=== PATIENT | female | born 1965 | race Caucasian/White ===

== ENCOUNTER 2016-08-03 16:02 | Inpatient (IN) ==
--- NOTE | 2016-08-03 16:11 | Emergency Department Note ---
Disposition Clinical Impression: DELVIN (acute kidney injury), Dyspnea Disposition: Still a Patient Condition: Fair Referrals: Delfina Fitch CNP [Primary Care Provider] - Forms: ED Satisfaction Letter SOB HPI - General Chief Complaint: ED Shortness of Breath/Dyspnea Stated Complaint: N/T legs/hypoxia Time Seen by Provider: 08/03/16 16:08 Nursing Notes Reviewed: Yes Vital Signs Reviewed: Yes - Related Data Allergies Allergy/AdvReac Type Severity Reaction Status Date / Time nitrofurantoin Allergy Itching Verified 08/03/16 16:06 [From Macrodantin] duloxetine [From Cymbalta] AdvReac Depression Verified 08/03/16 16:06 pregabalin [From Lyrica] AdvReac See Verified 08/03/16 16:06 Comments Past Medical History - Past Medical History Medical history: Reports: asthma, hypertension, other Psychiatric history: Reports: anxiety, depression [employer] history: Reports: no [employer] history, other - Social History Smoking Status: Never smoker Smokeless Tobacco Status: No Alcohol use: Reports: none Drug use: Reports: none Course Vital Signs Temperature 98.4 F 08/03/16 16:19 Pulse Rate 96 08/03/16 16:19 Respiratory Rate 10 08/03/16 16:19 Blood Pressure 115/80 08/03/16 16:19 O2 Sat by Pulse Oximetry 92 08/03/16 16:19 Temperature 98.4 F 08/03/16 16:19 Pulse Rate 96 08/03/16 17:58 Respiratory Rate 10 08/03/16 17:58 Blood Pressure 115/80 08/03/16 17:58 O2 Sat by Pulse Oximetry 97 08/03/16 17:58 Oxygen Delivery Oxygen Delivery Room Air Shortness of Breath/Dyspnea - MDM Narrative Medical decision making narrative: I examined this patient and my medical decision-making was reviewed with the PSYCHIATRIC THERAPIST/PA/Advanced Practice Nurse/Resident Physician. I agree with the documented findings, disposition and treatment plan as described except to the extent set forth below. Patient presented by EMS and was seen on arrival by myself and Dr. Randolph, agree with his evaluation and management plan, supervised the care of the patient's stay. Patient presents today with what she describes as generalized weakness. She says her legs feel tired she feels sleepy. She has been diagnosed with sleep apnea but does not wear her mask at night. She denies any new changes. Ordered a workup on her evaluate for for cardiac issues. Gen. chest x-ray and urinalysis lab work and then reassess. She is in agreement with this plan. 1610 hrs.: Patient's had some hypoxia here in the department so we will order a CTA of her chest to make sure she does not have a PE or other intrapulmonary process. 1740 hrs.: Patient's creatinine is elevated she also has anemia. Recommended ahead and prophylax her with calcium. And intravenous Fluids. And then scan her abdomen makes her griffin of a stone or retention. Because her abdomen is elevated will not be ability IV contrast on her vertigo given d-dimer on her since she was shortness of breath to see if that is negative. If not she may need a VQ scan. She is in agreement with this plan. Chest X-Ray 08/03/16 16:09 IMPRESSION: Minimal discoid atelectasis in the left upper lobe. Otherwise no acute abnormality. D/ / Carlyle Cruz MD / Carlyle Cruz MD Interpreting Provider: Carlyle Cruz MD Abdomen/Pelvis CT 08/03/16 17:20 IMPRESSION: 1. No acute intra- abdominal or pelvic abnormality. 2. Fatty, enlarged liver. D/ / 08/03/2016 17:44:17 Keven Guillermo MD / [facility] Interpreting Provider: Keven Guillermo MD 1820 hrs.: Patient has no acute pathology and CT. Not certain why her creatinines elevated. Return to go and speak with nephrology. I then try to bring her into the hospital for admission. Patient's critical care time exclusive of separately billable procedures is 40 minutes. - Lab Data Result diagrams: 08/03/16 16:51 08/03/16 16:51 Lab Results 08/03/16 08/03/16 08/03/16 Range/Units 16:51 16:51 16:51 WBC 16.1 H (4.3-11.1) K/mcL RBC 3.16 L (3.82-4.97) M/mcL Hgb 8.6 L (11.5-15.4) g/dL Hct 27.8 L (35.3-44.9) % MCV 88.0 (83.0-100.0) fL MCH 27.2 L (28.0-33.3) pg MCHC 30.9 L (31.6-35.5) g/dL RDW 15.7 H (11.5-14.5) % Plt Count 155 (140-400) K/mcL MPV 11.6 (9.4-12.4) fL Immature Gran % 0.9 (0-4) % Seg Neutrophils % 81.0 % Lymphocytes % 7.4 % Monocytes % 10.6 % Eosinophils % 0.0 % Basophils % 0.1 % Neutrophils # 13.0 H (1.6-8.9) K/mcL Lymphocytes # 1.2 (0.6-4.6) K/mcL Monocytes # 1.7 H (0.0-1.3) K/mcL Eosinophils # 0.0 (0.0-0.6) K/mcL Basophils # 0.0 (0.0-0.2) K/mcL Platelet Estimate Normal (Normal) PT (9.4-12.1) Seconds INR APTT (26.0-36.0) Seconds D-Dimer (0-500) ng/mLFEU Sodium 134 L (136-145) mEq/L Potassium 5.7 H (3.5-4.5) mEq/L Chloride 97 L (98-109) mEq/L Carbon Dioxide 25 (19-29) mEq/L BUN 51 H (7-20) mg/dL Creatinine 4.39 H (0.57-1.11) mg/dL Est GFR ( Amer) 13 L (> 60) Est GFR (Non-Af Amer) 11 L (> 60) BUN/Creatinine Ratio 12 (6-26) Glucose 123 H (70-99) mg/dL Calculated Osmolality 293 (280-300) Calcium 8.0 L (8.6-10.8) mg/dL Phosphorus 6.6 H (2.3-4.7) mg/dL Magnesium 1.5 L (1.6-2.6) mg/dL Troponin I 0.01 (0-0.03) ng/mL Urine Color (Yellow) Urine Clarity (Clear) Urine pH (5.0-8.0) pH Units Ur Specific [place] (1.010-1.025) Urine Protein (Neg-Trace) mg/dL Urine Glucose (UA) (Normal) mg/dL Urine Ketones (Negative) mg/dL Urine Blood (Negative) Urine Nitrite (Negative) Urine Bilirubin (Negative) Urine Urobilinogen (Normal) mg/dL Ur Leukocyte Esterase (Negative) Urine Microscopic RBC (0-3) per hpf Urine Microscopic WBC (0-3) per hpf Ur Squamous Epith Cells (None-Few) per lpf Ur Renal Epithelial Cell (None-Few) per hpf Urine Bacteria (None-Few) per hpf Hyaline Casts (None-Few) per lpf Ur Culture Indicated? (NO) 08/03/16 08/03/16 Range/Units 16:51 17:57 WBC (4.3-11.1) K/mcL RBC (3.82-4.97) M/mcL Hgb (11.5-15.4) g/dL Hct (35.3-44.9) % MCV (83.0-100.0) fL MCH (28.0-33.3) pg MCHC (31.6-35.5) g/dL RDW (11.5-14.5) % Plt Count (140-400) K/mcL MPV (9.4-12.4) fL Immature Gran % (0-4) % Seg Neutrophils % % Lymphocytes % % Monocytes % % Eosinophils % % Basophils % % Neutrophils # (1.6-8.9) K/mcL Lymphocytes # (0.6-4.6) K/mcL Monocytes # (0.0-1.3) K/mcL Eosinophils # (0.0-0.6) K/mcL Basophils # (0.0-0.2) K/mcL Platelet Estimate (Normal) PT 11.4 (9.4-12.1) Seconds INR 1.1 APTT 27.6 (26.0-36.0) Seconds D-Dimer 1077 H (0-500) ng/mLFEU Sodium (136-145) mEq/L Potassium (3.5-4.5) mEq/L Chloride (98-109) mEq/L Carbon Dioxide (19-29) mEq/L BUN (7-20) mg/dL Creatinine (0.57-1.11) mg/dL Est GFR ( Amer) (> 60) Est GFR (Non-Af Amer) (> 60) BUN/Creatinine Ratio (6-26) Glucose (70-99) mg/dL Calculated Osmolality (280-300) Calcium (8.6-10.8) mg/dL Phosphorus (2.3-4.7) mg/dL Magnesium (1.6-2.6) mg/dL Troponin I (0-0.03) ng/mL Urine Color Dark Yellow (Yellow) Urine Clarity Turbid A (Clear) Urine pH 5.0 (5.0-8.0) pH Units Ur Specific [place] 1.027 H (1.010-1.025) Urine Protein Trace (Neg-Trace) mg/dL Urine Glucose (UA) Normal (Normal) mg/dL Urine Ketones Trace H (Negative) mg/dL Urine Blood Negative (Negative) Urine Nitrite Negative (Negative) Urine Bilirubin Moderate H (Negative) Urine Urobilinogen Normal (Normal) mg/dL Ur Leukocyte Esterase Small H (Negative) Urine Microscopic RBC 15-30 H (0-3) per hpf Urine Microscopic WBC 5-15 H (0-3) per hpf Ur Squamous Epith Cells Many H (None-Few) per lpf Ur Renal Epithelial Cell Few (None-Few) per hpf Urine Bacteria None Seen (None-Few) per hpf Hyaline Casts Few (None-Few) per lpf Ur Culture Indicated? YES A (NO)
--- NOTE | 2016-08-03 16:50 | Emergency Department Note ---
Disposition Clinical Impression: DELVIN (acute kidney injury), Hypoxia, Leukocytosis Dyspnea Qualifiers: Dyspnea type: shortness of breath Qualified Code(s): R06.02 - Shortness of breath Disposition: Admitted As Inpatient Condition: Fair Referrals: Delfina Fitch CNP [Primary Care Provider] - Forms: ED Satisfaction Letter Time of Disposition: 19:26 SOB HPI - General Chief Complaint: ED Shortness of Breath/Dyspnea Stated Complaint: N/T legs/hypoxia Time Seen by Provider: 08/03/16 16:08 Source: patient, EMS Mode of arrival: EMS Limitations: physical limitation Nursing Notes Reviewed: Yes Vital Signs Reviewed: Yes - History of Present Illness Patient presents to the ED if the chief complaint of difficulty breathing, generalized malaise and weakness. Patient states that she has had numbness and tingling in her legs for the past few days and has felt very weak. She states that she has had some intermittent episodes of sharp stabbing centralized, nonradiating chest pain and shortness of breath over the past couple of days. She has poorly localized symptoms and just states that she does not feel well at all. States that she cannot walk because she feels so generally weak and has tingling in her legs. She does not have any headache or changes in her vision, slurred speech, weakness that is localizing. She has no history of stroke and states "I do not think I am having a stroke." She is just concerned with her breathing. - Related Data Home Medications Medication Instructions Recorded Confirmed Albuterol Neb [Proventil Neb] 2.5 mg IH TID PRN 08/03/16 08/03/16 Aspirin Enteric Coated [Aspirin EC] 81 mg PO DAILY 08/03/16 08/03/16 Cyclobenzaprine [Flexeril] 10 mg PO TID PRN 08/03/16 08/03/16 Diclofenac Sodium [Voltaren] 75 mg PO BID 08/03/16 08/03/16 Fluticasone Propionate Nasal 50 mcg NS DAILY 08/03/16 08/03/16 [Flonase] Furosemide [Lasix] 40 mg PO DAILY 08/03/16 08/03/16 Gabapentin [Neurontin] 800 mg PO TID 08/03/16 08/03/16 Ibuprofen [Motrin] 800 mg PO BID PRN 08/03/16 08/03/16 LORazepam [Lorazepam] 2 mg PO BID PRN 08/03/16 08/03/16 Levothyroxine [Synthroid] 50 mcg PO 0630 08/03/16 08/03/16 Lisinopril [Zestril] 20 mg PO DAILY 08/03/16 08/03/16 Omeprazole [PriLOSEC] 20 mg PO DAILY 08/03/16 08/03/16 RisperiDONE [Risperdal] 2 mg PO HS 08/03/16 08/03/16 Simvastatin [Zocor] 40 mg PO HS 08/03/16 08/03/16 Spironolactone [Aldactone] 25 mg PO BID 08/03/16 08/03/16 Tramadol HCl [Ultram] 50 mg PO TID PRN 08/03/16 08/03/16 Venlafaxine XR (24 HR) [Effexor XR] 150 mg PO DAILY 08/03/16 08/03/16 Zolpidem [Ambien] 10 mg PO HS 08/03/16 08/03/16 Allergies Allergy/AdvReac Type Severity Reaction Status Date / Time nitrofurantoin Allergy Itching Verified 08/03/16 16:06 [From Macrodantin] duloxetine [From Cymbalta] AdvReac Depression Verified 08/03/16 16:06 pregabalin [From Lyrica] AdvReac See Verified 08/03/16 16:06 Comments All systems ED: reviewed and negative except as stated. Constitutional: Reports: weakness Eyes: Denies: vision change Cardiovascular: Reports: chest pain, dyspnea on exertion, orthopnea, edema, syncope (near) Respiratory: Reports: dyspnea. Denies: cough Gastrointestinal: Denies: abdominal pain, nausea, vomiting Genitourinary: Denies: dysuria Musculoskeletal: Denies: back pain, neck pain Integumentary: Denies: rash Neurological: Denies: headache Endocrine: Reports: fatigue Past Medical History - Past Medical History Attestation: Yes The following information was validated with the patient. 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 Absent: tenderness - Respiratory Respiratory exam: Present: normal lung sounds bilaterally. Absent: respiratory distress - Cardiovascular Cardiovascular exam: Present: tachycardia. Absent: irregular rhythm - Abdominal Exam Abdominal exam: Present: soft, other (obese) - Extremities Exam Extremities exam: Present: normal inspection, full ROM, pedal edema. Absent: tenderness - Neurological Exam Neurological exam: Present: alert, oriented X3 - Psychiatric Psychiatric exam: Present: normal affect, normal mood - Skin Skin exam: Present: warm, dry, intact, normal color Course - Reevaluation(s) Reevaluation #1: Patient got hypoxic to the 80s with good waveform. Increase oxygen and put on a nonrebreather. That seemed to normalize. Oxygen she maintained her sats, but has had intermittent desaturations. Concern over potential PE. Waiting on renal function to determine CTA. Renal function is newly high. Unclear etiology as patient does not know her medication list. We will CT her abdomen and order a VQ scan CT belly did not show any obstructive uropathy or obvious etiology of her renal failure. Spoke with nephrology and Dr. Garnica. No acute recommendations will see the patient as an inpatient. Vital Signs Temperature 98.4 F 08/03/16 16:19 Pulse Rate 96 08/03/16 16:19 Respiratory Rate 10 08/03/16 16:19 Blood Pressure 115/80 08/03/16 16:19 O2 Sat by Pulse Oximetry 92 08/03/16 16:19 Temperature 98.4 F 08/03/16 16:19 Pulse Rate 101 08/03/16 19:14 Respiratory Rate 19 08/03/16 19:14 Blood Pressure 90/56 08/03/16 19:14 O2 Sat by Pulse Oximetry 97 08/03/16 19:14 Oxygen Delivery Oxygen Delivery Nasal Cannula Shortness of Breath/Dyspnea - Medical Records Medical records reviewed: Yes I reviewed the patient's medical records. - Lab Data Lab results reviewed: Yes I reviewed the patient's lab results. Result diagrams: 08/03/16 16:51 08/03/16 16:51 Lab Results 08/03/16 08/03/16 08/03/16 Range/Units 16:51 16:51 16:51 WBC 16.1 H (4.3-11.1) K/mcL RBC 3.16 L (3.82-4.97) M/mcL Hgb 8.6 L (11.5-15.4) g/dL Hct 27.8 L (35.3-44.9) % MCV 88.0 (83.0-100.0) fL MCH 27.2 L (28.0-33.3) pg MCHC 30.9 L (31.6-35.5) g/dL RDW 15.7 H (11.5-14.5) % Plt Count 155 (140-400) K/mcL MPV 11.6 (9.4-12.4) fL Immature Gran % 0.9 (0-4) % Seg Neutrophils % 81.0 % Lymphocytes % 7.4 % Monocytes % 10.6 % Eosinophils % 0.0 % Basophils % 0.1 % Neutrophils # 13.0 H (1.6-8.9) K/mcL Lymphocytes # 1.2 (0.6-4.6) K/mcL Monocytes # 1.7 H (0.0-1.3) K/mcL Eosinophils # 0.0 (0.0-0.6) K/mcL Basophils # 0.0 (0.0-0.2) K/mcL Platelet Estimate Normal (Normal) PT (9.4-12.1) Seconds INR APTT (26.0-36.0) Seconds D-Dimer (0-500) ng/mLFEU Sodium 134 L (136-145) mEq/L Potassium 5.7 H (3.5-4.5) mEq/L Chloride 97 L (98-109) mEq/L Carbon Dioxide 25 (19-29) mEq/L BUN 51 H (7-20) mg/dL Creatinine 4.39 H (0.57-1.11) mg/dL Est GFR ( Amer) 13 L (> 60) Est GFR (Non-Af Amer) 11 L (> 60) BUN/Creatinine Ratio 12 (6-26) Glucose 123 H (70-99) mg/dL Calculated Osmolality 293 (280-300) Lactic Acid (0.5-2.2) mmol/L Calcium 8.0 L (8.6-10.8) mg/dL Phosphorus 6.6 H (2.3-4.7) mg/dL Magnesium 1.5 L (1.6-2.6) mg/dL Troponin I 0.01 (0-0.03) ng/mL Urine Color (Yellow) Urine Clarity (Clear) Urine pH (5.0-8.0) pH Units Ur Specific [place] (1.010-1.025) Urine Protein (Neg-Trace) mg/dL Urine Glucose (UA) (Normal) mg/dL Urine Ketones (Negative) mg/dL Urine Blood (Negative) Urine Nitrite (Negative) Urine Bilirubin (Negative) Urine Urobilinogen (Normal) mg/dL Ur Leukocyte Esterase (Negative) Urine Microscopic RBC (0-3) per hpf Urine Microscopic WBC (0-3) per hpf Ur Squamous Epith Cells (None-Few) per lpf Ur Renal Epithelial Cell (None-Few) per hpf Urine Bacteria (None-Few) per hpf Hyaline Casts (None-Few) per lpf Ur Culture Indicated? (NO) 08/03/16 08/03/16 08/03/16 Range/Units 16:51 17:57 18:47 WBC (4.3-11.1) K/mcL RBC (3.82-4.97) M/mcL Hgb (11.5-15.4) g/dL Hct (35.3-44.9) % MCV (83.0-100.0) fL MCH (28.0-33.3) pg MCHC (31.6-35.5) g/dL RDW (11.5-14.5) % Plt Count (140-400) K/mcL MPV (9.4-12.4) fL Immature Gran % (0-4) % Seg Neutrophils % % Lymphocytes % % Monocytes % % Eosinophils % % Basophils % % Neutrophils # (1.6-8.9) K/mcL Lymphocytes # (0.6-4.6) K/mcL Monocytes # (0.0-1.3) K/mcL Eosinophils # (0.0-0.6) K/mcL Basophils # (0.0-0.2) K/mcL Platelet Estimate (Normal) PT 11.4 (9.4-12.1) Seconds INR 1.1 APTT 27.6 (26.0-36.0) Seconds D-Dimer 1077 H (0-500) ng/mLFEU Sodium (136-145) mEq/L Potassium (3.5-4.5) mEq/L Chloride (98-109) mEq/L Carbon Dioxide (19-29) mEq/L BUN (7-20) mg/dL Creatinine (0.57-1.11) mg/dL Est GFR ( Amer) (> 60) Est GFR (Non-Af Amer) (> 60) BUN/Creatinine Ratio (6-26) Glucose (70-99) mg/dL Calculated Osmolality (280-300) Lactic Acid 1.0 (0.5-2.2) mmol/L Calcium (8.6-10.8) mg/dL Phosphorus (2.3-4.7) mg/dL Magnesium (1.6-2.6) mg/dL Troponin I (0-0.03) ng/mL Urine Color Dark Yellow (Yellow) Urine Clarity Turbid A (Clear) Urine pH 5.0 (5.0-8.0) pH Units Ur Specific [place] 1.027 H (1.010-1.025) Urine Protein Trace (Neg-Trace) mg/dL Urine Glucose (UA) Normal (Normal) mg/dL Urine Ketones Trace H (Negative) mg/dL Urine Blood Negative (Negative) Urine Nitrite Negative (Negative) Urine Bilirubin Moderate H (Negative) Urine Urobilinogen Normal (Normal) mg/dL Ur Leukocyte Esterase Small H (Negative) Urine Microscopic RBC 15-30 H (0-3) per hpf Urine Microscopic WBC 5-15 H (0-3) per hpf Ur Squamous Epith Cells Many H (None-Few) per lpf Ur Renal Epithelial Cell Few (None-Few) per hpf Urine Bacteria None Seen (None-Few) per hpf Hyaline Casts Few (None-Few) per lpf Ur Culture Indicated? YES A (NO) - Radiology Data Radiology results reviewed: Yes I reviewed the patient's radiology results. - EKG Data EKG attestation: Yes I reviewed and interpreted this EKG. EKG results narrative: Sinus rhythm with sinus arrhythmia, rate 98, urine over 155, QRS 106, QTC 369, normal axis, no acute ischemic changes Franky - Franky Situation: Demographics, MOA Background: Presenting Complaint, Relevant PMH, Meds, & Allergies Assessment: Vital Signs, Course and respsone to treatment, Exam Concerns, Patient/Family Expectation, Pertinant Lab Results, Outstanding Labs Recommendation: Recommendation based on pending studies, treatments, or consults Franky Report Given to: Dr. Tracy Wilkins Repor Time: 19:26
[2016-08-03 17:05] LABS: Hematocrit 27.8 % (35.3-44.9); Hemoglobin 8.6 g/dL (11.5-15.4); Immature Granulocytes % 0.9 % (0-4); Mean Corpuscular HGB Conc 30.9 g/dL (31.6-35.5); Mean Corpuscular Hemoglobin 27.2 pg (28.0-33.3); Mean Platelet Volume 11.6 fL (9.4-12.4); Platelet Count 155 K/mcL (140-400); Red Blood Count 3.16 M/mcL (3.82-4.97); Red Cell Distribution Width 15.7 % (11.5-14.5)
[2016-08-03 17:06] LABS: Basophils % 0.1 %; Lymphocytes # 1.2 K/mcL (0.6-4.6); Lymphocytes % 7.4 %; Monocytes # 1.7 K/mcL (0.0-1.3); Monocytes % 10.6 %
[2016-08-03 17:16] LABS: Potassium 5.7 mEq/L (3.5-4.5)
[2016-08-03 17:27] LABS: Platelet Estimate Normal (Normal)
[2016-08-03] MEDS ORDERED: 0.9 % Sodium Chloride 1,000 ML IVC ONE ×3 (17:57→21:04)
[2016-08-03] MEDS ORDERED: Levofloxacin 750 MG/150 ML 750 MG/150 ML BAG IVPB ONE (17:58)
[2016-08-03 18:02] LABS: Bilirubin,Urine Moderate (Negative); Blood,Urine Negative (Negative); Clarity,Urine Turbid (Clear); Color,Urine Dark Yellow (Yellow); Glucose,Urine (UA) Normal (Normal); Ketones,Urine Trace mg/dL (Negative); Leukocyte Esterase,Urine Small (Negative); Nitrite,Urine Negative (Negative); Protein,Urine Trace mg/dL (Neg-Trace); Specific Gravity,Urine 1.027 (1.010-1.025); Urobilinogen,Urine Normal (Normal)
[2016-08-03 18:04] LABS: Bacteria,Urine None Seen per hpf (None-Few); RBC,Urine 15-30 per hpf (0-3); Squamous Epithelial Cell,Urine Many per lpf (None-Few)
[2016-08-03 18:10] LABS: Hyaline Casts,Urine Few per lpf (None-Few)
[2016-08-03 18:11] LABS: Renal Epithelial Cells,Urine Few per hpf (None-Few)
[2016-08-03 18:17] LABS: INR 1.1; Prothrombin Time 11.4 Seconds (9.4-12.1)
[2016-08-03 18:20] LABS: Activated Partial Thrombo Time 27.6 Seconds (26.0-36.0)
[2016-08-03 18:25] LABS: Magnesium 1.5 mg/dL (1.6-2.6); Phosphorous 6.6 mg/dL (2.3-4.7)
--- NOTE | 2016-08-03 21:41 | Emergency Department Note ---
Disposition Clinical Impression: DELVIN (acute kidney injury), Hypoxia, Leukocytosis Dyspnea Qualifiers: Dyspnea type: shortness of breath Qualified Code(s): R06.02 - Shortness of breath Disposition: Admitted As Inpatient Condition: Fair Time of Disposition: 21:37 SOB HPI - General Chief Complaint: ED Shortness of Breath/Dyspnea Stated Complaint: N/T legs/hypoxia Time Seen by Provider: 08/03/16 16:08 Source: patient, EMS Mode of arrival: EMS Limitations: physical limitation - Related Data Home Medications Medication Instructions Recorded Confirmed Albuterol Neb [Proventil Neb] 2.5 mg IH TID PRN 08/03/16 08/03/16 Aspirin Enteric Coated [Aspirin EC] 81 mg PO DAILY 08/03/16 08/03/16 Cyclobenzaprine [Flexeril] 10 mg PO TID PRN 08/03/16 08/03/16 Diclofenac Sodium [Voltaren] 75 mg PO BID 08/03/16 08/03/16 Fluticasone Propionate Nasal 50 mcg NS DAILY 08/03/16 08/03/16 [Flonase] Furosemide [Lasix] 40 mg PO DAILY 08/03/16 08/03/16 Gabapentin [Neurontin] 800 mg PO TID 08/03/16 08/03/16 Ibuprofen [Motrin] 800 mg PO BID PRN 08/03/16 08/03/16 LORazepam [Lorazepam] 2 mg PO BID PRN 08/03/16 08/03/16 Levothyroxine [Synthroid] 50 mcg PO 0630 08/03/16 08/03/16 Lisinopril [Zestril] 20 mg PO DAILY 08/03/16 08/03/16 Omeprazole [PriLOSEC] 20 mg PO DAILY 08/03/16 08/03/16 RisperiDONE [Risperdal] 2 mg PO HS 08/03/16 08/03/16 Simvastatin [Zocor] 40 mg PO HS 08/03/16 08/03/16 Spironolactone [Aldactone] 25 mg PO BID 08/03/16 08/03/16 Tramadol HCl [Ultram] 50 mg PO TID PRN 08/03/16 08/03/16 Venlafaxine XR (24 HR) [Effexor XR] 150 mg PO DAILY 08/03/16 08/03/16 Zolpidem [Ambien] 10 mg PO HS 08/03/16 08/03/16 Allergies Allergy/AdvReac Type Severity Reaction Status Date / Time nitrofurantoin Allergy Itching Verified 08/03/16 16:06 [From Macrodantin] duloxetine [From Cymbalta] AdvReac Depression Verified 08/03/16 16:06 pregabalin [From Lyrica] AdvReac See Verified 08/03/16 16:06 Comments Constitutional: Reports: weakness Eyes: Denies: vision change Cardiovascular: Reports: chest pain, dyspnea on exertion, orthopnea, edema, syncope (near) Respiratory: Reports: dyspnea. Denies: cough Gastrointestinal: Denies: abdominal pain, nausea, vomiting Genitourinary: Denies: dysuria Musculoskeletal: Denies: back pain, neck pain Integumentary: Denies: rash Neurological: Denies: headache Endocrine: Reports: fatigue Past Medical History - Past Medical History Medical history: Reports: asthma, hypertension, other Psychiatric history: Reports: anxiety, depression PRODUCT TEST ENGINEER history: Reports: no PRODUCT TEST ENGINEER history, other - Social History Smoking Status: Never smoker Smokeless Tobacco Status: No Alcohol use: Reports: none Drug use: Reports: none Physical Exam - General Limitations: physical limitation General appearance: alert, in no apparent distress, obese Course Course Narrative: Patient was accepted for admission at sign out. Please see Dr. Garcia and Dr. Randolph's charting for any additional details. While waiting on VQ scan and transferred to the floor, patient had blood pressure reading of 70s over 40s. She stated that she felt fine and was mentating well, besides the shortness of breath about her in, she was asymptomatic. I gave her 1 L normal saline bolus and her BP zari to 90/50s. WIll give another 1LNS bolus and reassess. Dr. Molina was contacted about vitals. VQ put on hold for now, will be obtained on the floor. Vital Signs Temperature 98.4 F 08/03/16 16:19 Pulse Rate 96 08/03/16 16:19 Respiratory Rate 10 08/03/16 16:19 Blood Pressure 115/80 08/03/16 16:19 O2 Sat by Pulse Oximetry 92 08/03/16 16:19 Temperature 98.4 F 08/03/16 16:19 Pulse Rate 100 08/03/16 22:25 Respiratory Rate 14 08/03/16 22:25 Blood Pressure 91/78 08/03/16 22:25 O2 Sat by Pulse Oximetry 98 08/03/16 22:25 Oxygen Delivery Oxygen Delivery Nasal Cannula Shortness of Breath/Dyspnea - Lab Data Result diagrams: 08/03/16 16:51 08/03/16 16:51 Lab Results 08/03/16 08/03/16 08/03/16 Range/Units 16:51 16:51 16:51 WBC 16.1 H (4.3-11.1) K/mcL RBC 3.16 L (3.82-4.97) M/mcL Hgb 8.6 L (11.5-15.4) g/dL Hct 27.8 L (35.3-44.9) % MCV 88.0 (83.0-100.0) fL MCH 27.2 L (28.0-33.3) pg MCHC 30.9 L (31.6-35.5) g/dL RDW 15.7 H (11.5-14.5) % Plt Count 155 (140-400) K/mcL MPV 11.6 (9.4-12.4) fL Immature Gran % 0.9 (0-4) % Seg Neutrophils % 81.0 % Lymphocytes % 7.4 % Monocytes % 10.6 % Eosinophils % 0.0 % Basophils % 0.1 % Neutrophils # 13.0 H (1.6-8.9) K/mcL Lymphocytes # 1.2 (0.6-4.6) K/mcL Monocytes # 1.7 H (0.0-1.3) K/mcL Eosinophils # 0.0 (0.0-0.6) K/mcL Basophils # 0.0 (0.0-0.2) K/mcL Platelet Estimate Normal (Normal) PT (9.4-12.1) Seconds INR APTT (26.0-36.0) Seconds D-Dimer (0-500) ng/mLFEU Sodium 134 L (136-145) mEq/L Potassium 5.7 H (3.5-4.5) mEq/L Chloride 97 L (98-109) mEq/L Carbon Dioxide 25 (19-29) mEq/L BUN 51 H (7-20) mg/dL Creatinine 4.39 H (0.57-1.11) mg/dL Est GFR ( Amer) 13 L (> 60) Est GFR (Non-Af Amer) 11 L (> 60) BUN/Creatinine Ratio 12 (6-26) Glucose 123 H (70-99) mg/dL Calculated Osmolality 293 (280-300) Lactic Acid (0.5-2.2) mmol/L Calcium 8.0 L (8.6-10.8) mg/dL Phosphorus 6.6 H (2.3-4.7) mg/dL Magnesium 1.5 L (1.6-2.6) mg/dL Troponin I 0.01 (0-0.03) ng/mL Urine Color (Yellow) Urine Clarity (Clear) Urine pH (5.0-8.0) pH Units Ur Specific [place] (1.010-1.025) Urine Protein (Neg-Trace) mg/dL Urine Glucose (UA) (Normal) mg/dL Urine Ketones (Negative) mg/dL Urine Blood (Negative) Urine Nitrite (Negative) Urine Bilirubin (Negative) Urine Urobilinogen (Normal) mg/dL Ur Leukocyte Esterase (Negative) Urine Microscopic RBC (0-3) per hpf Urine Microscopic WBC (0-3) per hpf Ur Squamous Epith Cells (None-Few) per lpf Ur Renal Epithelial Cell (None-Few) per hpf Urine Bacteria (None-Few) per hpf Hyaline Casts (None-Few) per lpf Ur Culture Indicated? (NO) 08/03/16 08/03/16 08/03/16 Range/Units 16:51 17:57 18:47 WBC (4.3-11.1) K/mcL RBC (3.82-4.97) M/mcL Hgb (11.5-15.4) g/dL Hct (35.3-44.9) % MCV (83.0-100.0) fL MCH (28.0-33.3) pg MCHC (31.6-35.5) g/dL RDW (11.5-14.5) % Plt Count (140-400) K/mcL MPV (9.4-12.4) fL Immature Gran % (0-4) % Seg Neutrophils % % Lymphocytes % % Monocytes % % Eosinophils % % Basophils % % Neutrophils # (1.6-8.9) K/mcL Lymphocytes # (0.6-4.6) K/mcL Monocytes # (0.0-1.3) K/mcL Eosinophils # (0.0-0.6) K/mcL Basophils # (0.0-0.2) K/mcL Platelet Estimate (Normal) PT 11.4 (9.4-12.1) Seconds INR 1.1 APTT 27.6 (26.0-36.0) Seconds D-Dimer 1077 H (0-500) ng/mLFEU Sodium (136-145) mEq/L Potassium (3.5-4.5) mEq/L Chloride (98-109) mEq/L Carbon Dioxide (19-29) mEq/L BUN (7-20) mg/dL Creatinine (0.57-1.11) mg/dL Est GFR ( Amer) (> 60) Est GFR (Non-Af Amer) (> 60) BUN/Creatinine Ratio (6-26) Glucose (70-99) mg/dL Calculated Osmolality (280-300) Lactic Acid 1.0 (0.5-2.2) mmol/L Calcium (8.6-10.8) mg/dL Phosphorus (2.3-4.7) mg/dL Magnesium (1.6-2.6) mg/dL Troponin I (0-0.03) ng/mL Urine Color Dark Yellow (Yellow) Urine Clarity Turbid A (Clear) Urine pH 5.0 (5.0-8.0) pH Units Ur Specific [place] 1.027 H (1.010-1.025) Urine Protein Trace (Neg-Trace) mg/dL Urine Glucose (UA) Normal (Normal) mg/dL Urine Ketones Trace H (Negative) mg/dL Urine Blood Negative (Negative) Urine Nitrite Negative (Negative) Urine Bilirubin Moderate H (Negative) Urine Urobilinogen Normal (Normal) mg/dL Ur Leukocyte Esterase Small H (Negative) Urine Microscopic RBC 15-30 H (0-3) per hpf Urine Microscopic WBC 5-15 H (0-3) per hpf Ur Squamous Epith Cells Many H (None-Few) per lpf Ur Renal Epithelial Cell Few (None-Few) per hpf Urine Bacteria None Seen (None-Few) per hpf Hyaline Casts Few (None-Few) per lpf Ur Culture Indicated? YES A (NO) S.B.ANeal - Franky Situation: Demographics, MOA Background: Presenting Complaint, Relevant PMH, Meds, & Allergies Assessment: Vital Signs, Course and respsone to treatment, Exam Concerns, Patient/Family Expectation, Pertinant Lab Results, Outstanding Labs Recommendation: Barrier(s) to disposition, Recommendation based on pending studies, treatments, or consults SCherylBCherylANeal Report Given to: Dr Tracy Wilkins Repor Time: 21:37 Attestation Statement - Attestation Attestation: Dr Cuellar note: Pt seen in conjunction w/ resident Dr Li; See his charting for complete documentation; I agree w/ pt's treatment and disposition and spent face time w / the pt; Pt admitted in stable/improved condition; Pt's vitals reviewed and sats noted to be between 92-100% in the ER w/o tachypnea; patient's renal function is noted to be much worse than on prior numbers. The patient does not complain of shortness of breath. She complains of chronic exertional dyspnea which is no worse than normal. Her sats bar to be expected at this current time as she is in the supine position. She is not tachypneic and her lung sounds are unremarkable. Her chief complaint to me is bilateral facial arms and leg tingling which is been intermittent for days. Heart rate is not significantly elevated is around 9200. Blood pressure is stable and responsive to fluids. We will give her half dose Lovenox due to her poor kidney function to cover her for possible pulmonary embolus which is clinically not severe even if present;
[2016-08-03] MEDS: 0.9 % Sodium Chloride 1,000 ML IVC SCH (23:13)
--- NOTE | 2016-08-03 23:41 | Internal Med History&Physical ---
Date of Encounter: 08/03/16 Time of Encounter: 23:41 Assessment and Plan (1) Acute renal failure (ARF) Current visit: Yes Status: Acute Possibly due to volume depletion secondary to diuretics versus secondary to NSAIDS / ACEI. Hold NSAIDs, lisinopril and diuretics. CT scan of abdomen did not report any obstructive uropathy. Will consult solder technician for further advise. Meanwhile treat with IV fluids. Monitor renal function Qualifiers: Acute renal failure type: unspecified Qualified Code(s): N17.9 - Acute kidney failure, unspecified (2) Hyperkalemia Current visit: Yes Status: Acute Likely to acute renal failure, potassium supplements. Treat with Kayexalate and calcium gluconate. Monitor potassium levels (3) Hypotension Current visit: Yes Status: Acute Possibly due to medications versus volume depletion. Pt on IV fluids, with improvement of BP. Qualifiers: Hypotension type: unspecified hypotension type Qualified Code(s): I95.9 - Hypotension, unspecified (4) Acute respiratory failure Current visit: Yes Status: Acute Will request ABG. Suspect Obesity hypoventilation versus pulmonary embolism. VQ scan is pending Qualifiers: Respiratory failure complication: hypoxia Qualified Code(s): J96.01 - Acute respiratory failure with hypoxia (5) Hypomagnesemia Current visit: Yes Status: Acute Replenish Magnesium (6) Normocytic anemia Current visit: Yes Status: Acute Pt denies melena or hematochezia. Will check fecal occult blood; iron studies, vitamin B12 and folate levels. Will type and screen and monitor Hemoglobin levels (7) D-dimer, elevated Current visit: Yes Status: Acute VQ scan is pending. If VQ scan is negative, will need venous doppler to exclude DVT (8) UTI (urinary tract infection) Current visit: Yes Status: Acute Emperically started on ceftriaxone. Urine cultures pending Qualifiers: Urinary tract infection type: site unspecified Hematuria presence: without hematuria Qualified Code(s): N39.0 - Urinary tract infection, site not specified (9) Fatty liver Current visit: Yes Status: Chronic Supportive care (10) Flapping tremor Current visit: Yes Status: Acute Likely secondary to uremia/acute renal failure, versus secondary to CO2 retention. ABGs pending (11) ARELI (obstructive sleep apnea) Current visit: Yes Status: Chronic Pt not using CPAP at home. Treat with oxygen 2LMP NC (12) Leukocytosis Current visit: Yes Status: Acute stress response versus secondary to UTI. Pt on antibiotics Qualifiers: Leukocytosis type: unspecified Qualified Code(s): D72.829 - Elevated white blood cell count, unspecified (13) DVT prophylaxis Current visit: Yes Status: Acute subQ heaprin Internal Medicine - H&P: HPI Chief complaint: Malaise; exertional shortness of breath Admitted From: Emergency Dept Plans for Post Hospital Care: Home History of present illness: Ms. Flores is a 51 year old female with past medical history significant for asthma, hypertension, anxiety, depression, irritable bowel syndrome, obstructive sleep apnea but not using CPAP. She reports that she has leg swelling, and started on Lasix about 3 ago and also been taking spironoclactone , potassium, NSAIDs, and lisinopril. She reports good oral intake and good urine output, but not good output today. Recent reports that she had some pain in the legs/right knee, and some cramping - so, she took a dose of potassium. Reports generalized malaise and weakness for a few days. She reports recent onset exertional shortness of breath. Denies orthopnea. She denies cough, fever, chills, nausea, vomiting. She reports intermittent episodes of sharp stabbing central, nonradiating chest pain. she also reports vague pain across the upper abdomen. She reports 2 episodes his bowel movements today, non-bloody. Denies melena, hematochezia, hematemesis, hematuria. She denies focal weakness of the extremities. She reports history of peripheral neuropathy and uses Neurontin. She reports tingling sensation in her legs. Reports shaking of the hands for a few days. She was evaluated in the emergency department and was noted to be hypoxic with O2 sats of 80%, D-dimer was elevated and CTA could not be done due to acute renal failure; VQ scan as requested but could not be done. ER physician discussed with Nuclear Worker Technician Dr Garnica, regarding ARF. Pt is admitted to the hospitalist service for further management. Past Med Surg Social Fam HX - Past Medical History Medical history: asthma, hypertension, other Psychiatric history: anxiety, depression - Social History Smoking Status: Never smoker Smokeless Tobacco Status: No Alcohol use: none Drug use: none - Additional Family History Additional family history: Family history reviewed and non-contributory to current admission Internal Medicine - H&P: Meds Albuterol Neb [Proventil Neb] 2.5 mg IH TID PRN 08/03/16 [History] Aspirin Enteric Coated [Aspirin EC] 81 mg PO DAILY 08/03/16 [History] Cyclobenzaprine [Flexeril] 10 mg PO TID PRN 08/03/16 [History] Diclofenac Sodium [Voltaren] 75 mg PO BID 08/03/16 [History] Fluticasone Propionate Nasal [Flonase] 50 mcg NS DAILY 08/03/16 [History] Furosemide [Lasix] 40 mg PO DAILY 08/03/16 [History] Gabapentin [Neurontin] 800 mg PO TID 08/03/16 [History] Ibuprofen [Motrin] 800 mg PO BID PRN 08/03/16 [History] LORazepam [Lorazepam] 2 mg PO BID PRN 08/03/16 [History] Levothyroxine [Synthroid] 50 mcg PO 0630 08/03/16 [History] Lisinopril [Zestril] 20 mg PO DAILY 08/03/16 [History] Omeprazole [PriLOSEC] 20 mg PO DAILY 08/03/16 [History] RisperiDONE [Risperdal] 2 mg PO HS 08/03/16 [History] Simvastatin [Zocor] 40 mg PO HS 08/03/16 [History] Spironolactone [Aldactone] 25 mg PO BID 08/03/16 [History] Tramadol HCl [Ultram] 50 mg PO TID PRN 08/03/16 [History] Venlafaxine XR (24 HR) [Effexor XR] 150 mg PO DAILY 08/03/16 [History] Zolpidem [Ambien] 10 mg PO HS 08/03/16 [History] Allergies nitrofurantoin [From Macrodantin] Allergy (Verified 08/03/16 16:06) Itching duloxetine [From Cymbalta] Adverse Reaction (Verified 08/03/16 16:06) Depression pregabalin [From Lyrica] Adverse Reaction (Verified 08/03/16 16:06) See Comments gain water weight All Systems PM: A 10-system review of systems was performed and is negative for pertinent findings except as documented above in the HPI. - Constitutional Vitals: Temp Pulse Resp BP Pulse Ox 98.4 F 100 20 86/39 98 08/03/16 16:19 08/03/16 22:25 08/03/16 23:13 08/03/16 23:13 08/03/16 22:25 Exam: General: Obese; Not in acute distress at the time of my evaluation HEENT: Oral mucosa is moist. No conjunctival palor or scleral icterus Neck: No obvious neck swellings Lungs: Clear to auscultation Cardiac: Regular rate and rhythm. No significant murmurs Abdomen: Soft, Mild upper abdominal tenderness present. Bowel sounds present Genitourinary: No witt catheter Neurological: Alert and oriented. No gross localizing deficits Psych: Not aggressive or agitated Extremities: B/L leg edema present Skin: No generalized rash Internal Med - H&P Results - Labs CBC & Chem 7: 08/03/16 16:51 08/03/16 16:51 - EKG Data -: EKG Interpreted by Myself EKG shows normal: sinus rhythm - EKG Data EKG comments: No acute ischemic changes 08/04/16 04:01 - Impressions ITS Impressions Chest X-Ray 08/03/16 16:09 IMPRESSION: Minimal discoid atelectasis in the left upper lobe. Otherwise no acute abnormality. D/ / Carlyle Cruz MD / Carlyle Cruz MD Interpreting Provider: Carlyle Cruz MD Abdomen/Pelvis CT 08/03/16 17:20 IMPRESSION: 1. No acute intra- abdominal or pelvic abnormality. 2. Fatty, enlarged liver. D/ / 08/03/2016 17:44:17 Keven Guillermo MD / [facility] Interpreting Provider: Keven Guillermo MD
[2016-08-04] MEDS ORDERED: Naloxone 0.4 MG/ML INJ IVP PRN (00:19)
[2016-08-04] MEDS ORDERED: Magnesium Sulfate 2 GM in D5% in Water 100 ML IVPB ONE (00:25)
[2016-08-04] MEDS ORDERED: Albuterol 2.5 MG/3 ML NEBULIZER IH PRN (00:28)
[2016-08-04] MEDS: *HR* Heparin 5,000 UNIT/ML VIAL SQ SCH ×4 (00:51→23:35)
[2016-08-04] MEDS: traMADol 50 MG TABLET PO PRN ×3 (00:51→21:14)
[2016-08-04 01:12] LABS: ABG Base Excess -4.6 mEq/L (-2.0 to 3.0); ABG HCO3 22.4 mEQ/L (21-27); ABG Oxygen Saturation 96 % (95-98); ABG PCO2 50 mmHg (35-45); ABG PH 7.26 pH Units (7.32-7.45); ABG PO2 96 mmHg (85-104); ABG TCO2 23.9 mEq/L (20-26); Blood Gas FiO2 32 %; Blood Gas Liter Flow 3 L/MIN
[2016-08-04] MEDS ORDERED: Calcium Gluconate 1,000 MG in D5% in Water 100 ML IVPB ONE (03:57)
[2016-08-04] MEDS ORDERED: *HR* HYDROcodone/Acet 5/325 mg TABLET PO ONE (04:44)
[2016-08-04] MEDS ORDERED: 0.9 % Sodium Chloride 500 ML IVC ONE (04:45)
[2016-08-04 04:59] LABS: Albumin 2.6 g/dL (3.5-5.0); Albumin/Globulin Ratio 0.8 (1.1-2.2); Bilirubin,Total 0.3 mg/dL (0.2-1.2); Calcium 7.6 mg/dL (8.6-10.8); Globulin 3.2 g/dL (2.4-3.5); Total Protein 5.8 g/dL (6.0-8.3)
[2016-08-04 05:34] LABS: Folate 9.3 ng/mL (7.0-31.4)
[2016-08-04 05:45] LABS: Basophils % 0.1 %; Hematocrit 25.6 % (35.3-44.9); Hemoglobin 8.1 g/dL (11.5-15.4); Immature Granulocytes % 1.4 % (0-4); Lymphocytes # 1.6 K/mcL (0.6-4.6); Lymphocytes % 9.1 %; Mean Corpuscular HGB Conc 31.6 g/dL (31.6-35.5); Mean Corpuscular Hemoglobin 27.2 pg (28.0-33.3); Mean Corpuscular Volume 85.9 fL (83.0-100.0); Mean Platelet Volume 11.9 fL (9.4-12.4); Monocytes # 1.6 K/mcL (0.0-1.3); Monocytes % 9.1 %; Neutrophils # 14.3 K/mcL (1.6-8.9); Platelet Count 138 K/mcL (140-400); Red Blood Count 2.98 M/mcL (3.82-4.97); Red Cell Distribution Width 15.5 % (11.5-14.5); Segmented Neutrophils % 80.3 %
[2016-08-04] MEDS: 0.9 % Sodium Chloride 1,000 ML IVC SCH ×3 (05:46→22:51)
[2016-08-04 06:03] LABS: Platelet Estimate Normal (Normal)
[2016-08-04 06:44] LABS: Thyroid Stimulating Hormone 1.806 mcIU/mL (0.350-4.840)
[2016-08-04] MEDS: Aspirin Enteric Coated 81 MG Tablet PO SCH (08:25)
[2016-08-04] MEDS: Venlafaxine XR (24 HR) 150 MG CAP.ER.24H PO SCH (08:25)
[2016-08-04] MEDS: Fluticasone Propionate Nasal 50 MCG/SPRAY BOTTLE NS SCH (08:26)
[2016-08-04 09:22] LABS: Magnesium 1.6 mg/dL (1.6-2.6)
[2016-08-04] MEDS ORDERED: Magnesium Sulfate 1 GM in D5% in Water 100 ML IVPB ONE (09:32)
--- NOTE | 2016-08-04 09:50 | Internal Med Progress Note ---
Date of Encounter: 08/04/16 Time of Encounter: 09:47 - Assessment and plan (1) Acute renal failure (ARF) Current Visit: Yes Status: Acute Assessment and plan: Likely related to hypotension in the setting of UTI/use of NSAIDs/diuretics/Ambrosio inhibitors at home. Check uric acid level, urine protein creatinine ratio and urine electrolytes. Continue aggressive IV hydration, monitor urine output closely. Will get renal ultrasound. Nephrology has been consulted, will follow -up recommendations. Avoid nephrotoxins and dose medications according to current creatinine clearance. High risk for complications. Qualifiers: Acute renal failure type: unspecified Qualified Code(s): N17.9 - Acute kidney failure, unspecified (2) Acute respiratory failure Current Visit: Yes Status: Acute Assessment and plan: Likely related to renal failure along with underlying untreated obstructive sleep apnea as patient is noted to be noncompliant with CPAP. Continue supplemental oxygen and wean down FiO2 as tolerated. Initial ABG shows mild respiratory acidosis, will repeat ABG today. Qualifiers: Respiratory failure complication: hypercapnia Qualified Code(s): J96.02 - Acute respiratory failure with hypercapnia (3) Hyperkalemia Current Visit: Yes Status: Acute Assessment and plan: Likely related to renal dysfunction. Continue medical management with Kayexalate and calcium gluconate. Repeat labs this evening, continue to follow. Telemetry monitoring, at risk for ventricular arrhythmias. (4) Hypomagnesemia Current Visit: Yes Status: Acute Assessment and plan: Likely due to the use of diuretics. Supplement with IV magnesium sulfate and recheck magnesium and maintain at least 2. (5) D-dimer, elevated Current Visit: Yes Status: Acute Assessment and plan: Could be related to extremely morbid obesity and mild UTI. CT angiogram of chest cannot be done due to renal dysfunction. Ventilation perfusion lung scan shows very low probability for PE. Bilateral lower extremity venous Doppler shows no evidence of DVT. (6) Hypotension Current Visit: Yes Status: Acute Assessment and plan: Uncertain etiology. Serum lactic acid noted to be within normal limits which shows appropriate peripheral perfusion. Blood pressure readings are likely not completely accurate due to her extreme obesity and body habitus. Continue IV hydration and monitor for now. Patient remains alert and oriented. Case discussed with ICU attending who agrees with current management, this is unlikely septic shock. Patient may need arterial line if blood pressure does not improve by tomorrow. TSH is noted to be within normal limits and no recent steroid use. Echocardiogram reviewed, which is technically suboptimal due to body habitus but does not show acute abnormalities; preserved ejection fraction with no evidence of gross valvular abnormalities or diastolic dysfunction. Less likely cardiogenic shock. Qualifiers: Hypotension type: unspecified hypotension type Qualified Code(s): I95.9 - Hypotension, unspecified (7) UTI (urinary tract infection) Current Visit: Yes Status: Acute Assessment and plan: Urine dipstick is suggestive of UTI, continue IV Rocephin and follow up urine culture and blood cultures. Qualifiers: Urinary tract infection type: site unspecified Hematuria presence: without hematuria Qualified Code(s): N39.0 - Urinary tract infection, site not specified (8) Hypothyroidism Current Visit: Yes Status: Chronic Qualifiers: Hypothyroidism type: unspecified Qualified Code(s): E03.9 - Hypothyroidism , unspecified (9) Depression Current Visit: Yes Status: Chronic Qualifiers: Depression Type: unspecified Qualified Code(s): F32.9 - Major depressive disorder, single episode, unspecified (10) Anxiety Current Visit: Yes Status: Chronic (11) ARELI (obstructive sleep apnea) Current Visit: Yes Status: Chronic Assessment and plan: Patient is noted to be noncompliant with nocturnal CPAP. She is explained the importance of regular use of CPAP to avoid cardiopulmonary complications. - Subjective Interval history: Feels slightly better but still has leg cramps and some dizziness, generalized weakness; no nausea, vomiting, abdominal pain, dyspnea; - Constitutional Vitals: Temp Pulse Resp BP Pulse Ox 98.3 F 96 16 73/43 99 08/04/16 07:12 08/04/16 07:12 08/04/16 07:12 08/04/16 07:12 08/04/16 07:12 General appearance: Present: A&O X 3, morbidly obese, answers questions appropriately - Respiratory Respiratory exam: Present: decreased breath sounds (B/L likely due to thick chest wall), CTAB. Absent: accessory muscle use, rales, rhonchi, wheezes - Cardiovascular Cardiovascular exam: Present: RRR, +S1, +S2, tachycardia. Absent: diastolic murmur, gallop, rubs, systolic murmur - GI/Abdominal GI/Abdominal exam: Present: normal bowel sounds, soft (obese), no peritoneal signs. Absent: distended, tenderness - Extremities Exam Extremities exam: Present: full ROM, pedal edema (2+ pedal edema B/L), warm, radial pulses palpable and symetrical. Absent: calf tenderness, cyanotic - Neurological Exam Neurological exam: Present: CN II-XII intact, oriented X3, no focal deficits. Absent: pronater drift, facial droop, speech deficit - Skin Skin exam: Present: dry, intact Internal Medicine: Result - Labs CBC & Chem 7: 08/04/16 05:28 08/04/16 14:34 Labs: Short CBC 08/04/16 Range/Units 05:28 WBC 17.8 H (4.3-11.1) K/mcL Hgb 8.1 L (11.5-15.4) g/dL Hct 25.6 L (35.3-44.9) % Plt Count 138 L (140-400) K/mcL Neutrophils # 14.3 H (1.6-8.9) K/mcL BMP 08/04/16 04:19 Sodium 133 L Potassium 5.0 H Chloride 100 Carbon Dioxide 20 BUN 51 H Creatinine 4.22 H Glucose 125 H Calcium 7.6 L Liver Function 08/04/16 Range/Units 04:19 Total Bilirubin 0.3 (0.2-1.2) mg/dL AST 15 (5-34) Units/L ALT 13 (0-55) Units/L Alkaline Phosphatase 77 (38-126) Units/L Albumin 2.6 L (3.5-5.0) g/dL - ABG Interpretation ABG results: ABG ABG pH 7.26 pH Units (7.32-7.45) L 08/04/16 01:00 ABG pCO2 50 mmHg (35-45) H 08/04/16 01:00 ABG pO2 96 mmHg (85-104) 08/04/16 01:00 ABG O2 Saturation 96 % (95-98) 08/04/16 01:00 PT/INR, D-dimer PT 11.4 Seconds (9.4-12.1) 08/03/16 16:51 D-Dimer 1077 ng/mLFEU (0-500) H 08/03/16 16:51 Consult Discharge Plan - Plan Referrals: Delfina Fitch, IVAN [Primary Care Provider] - 08/11/16 9:45 am ()
[2016-08-04] MEDS ORDERED: Perflutren Lipid Microsphere 1.3 ML in 0.9 % Sodium Chloride 8.7 ML IVP ONE (11:25)
--- NOTE | 2016-08-04 11:40 | Electrocardiograph Report ---
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
--- NOTE | 2016-08-04 13:57 | ECHO - Doppler Report ---
Echo with Imaging Enhancement Agent Name: Anne Marie Flores Date of Study: 08/04/2016 Date: 1965 Ht: 62.0 in Medical Record#: [id number] Age: 51 Wt: 423.0 lb Gender: Female BSA: 2.63 Order #: [id number] Location: [facility] Room #: 2N3 Reading Physician: Alex Carreon MD, [facility] Electrical And Instrumentation Manager: Laina Montero Ordering Physician: Cece Figueroa MD Primary Physician: Delfina Fitch CNP Indications: Hypoxia, Hypotension, dyspnea Impressions: Technically sub-optimal due to body habitus. Echo contrast was used. Normal LV systolic function, LVEF 65%. Normal left ventricular diastolic function. Normal right ventricular size and function. No evidence of pulmonary hypertension. No significant valvular dysfunction. Left Ventricular Wall Motion: Rest Echo Findings All wall segments showed normal motion. Findings: Study Quality * Technically sub-optimal due to body habitus. Echo contrast was used. ECG Findings * Normal sinus rhythm. Left Ventricle * Normal LV systolic function, LVEF 65%. * Normal LV chamber size and wall thickness. * Normal left ventricular diastolic function. Right Ventricle * Normal right ventricular size and function. Left Atrium * Normal left atrial size. Right Atrium * Normal right atrial size. Aorta * Normally sized aortic root. Pericardium * There is no pericardial effusion present. IVC * The IVC is borderline dilated. Aortic Valve * Aortic valve not well visualized. * No aortic stenosis. * No aortic regurgitation. Mitral Valve * Mild mitral annular calcification * No mitral stenosis. * Trace mitral regurgitation. Tricuspid Valve * Tricuspid valve not well visualized. * No tricuspid stenosis. * Trace tricuspid regurgitation. * No evidence of pulmonary hypertension. Pulmonic Valve * Pulmonic valve not well visualized. * No pulmonic stenosis. * No pulmonic regurgitation. History Hypertension Hypercholesteremia Family History of CAD 02/20/14 a Previous Echo was performed. Contrast: Definity 1.3 ml in 8.7 ml of saline 2 ml. Measurements: BP: 73/ 43 2D Normal Values IVSd: .70 cm 0.6 - 1.0 cm LVIDd: 5.60 cm 3.7 - 5.6 cm LVPWd: .80 cm 0.6 - 1.1 cm LVIDs: 3.90 cm 1.5 - 3.6 cm AO: 2.50 cm < 4.0 cm LA volume: 36 Mitral Valve Peak E:1.21 m/sec Peak A:.83 m/sec E/A Ratio:1.5 Peak E' Lat Ramón:11.8 cm/s Peak E' Med Ramón:14.6 cm/s E/E' Lat Ratio:10.3 E/E' Med Ratio:8.3 Tricuspid Valve TV Regurg Peak Grad: 22.00mmHg TV Regurg Peak Ramón: 2.32m/sec Updated by Alex Carreon MD, [facility] on 08/04/2016 1:52:17 PM electronically signed on 08/04/2016 1:53:04 PM with status of Final Wall Motion [place]: 1=Normal, 2=Hypokinesis, 3=Akinesis, 4=Dyskinesis, 5=Aneurysmal, 6=Hyperkinetic, X=Not Visualized (Blank)=Missing
[2016-08-04 14:57] LABS: Calcium 7.9 mg/dL (8.6-10.8); Potassium 5.3 mEq/L (3.5-4.5)
--- NOTE | 2016-08-04 16:34 | Nephrology Consult Note ---
Date of Encounter: 08/04/16 Time of Encounter: 15:30 Assessment and Plan (1) DELVIN (acute kidney injury) Current Visit: Yes Status: Acute DELVIN in setting of hypovolemia and hypotension related to diuretics, anemia, NSAID's. No recorded urine output, staff placing witt. Hyperphosphatemia binds Calcium. Gabapentin and NSAID's contributing to edema which is mild. Most likey has untreated obesity hypoventilation/ ARELI. Avoid nephrotoxins. Needs anemia workup. Continue IV fluids. Will continue to follow. History of Present Illness - Reason for Consult Acute Kidney Injury - History of Present Illness Ms. Flores is a 51 year old female who presented to ER with generalized malaise and weakness, "felt like legs were going to buckle." Other PMH- hypertension, asthma, edema, ARELI, not using CPAP, morbid obesity, anxiety, depression and irritable bowel syndrome. She states she has had increased LE swelling that was not responding to Lasix that she was taking on PRN basis, so for past few weeks taking daily along with spironolactone. She States has also had leg/knee pain and has been taking potassium supplement. In ER O2 sats 80%, labs noted creat 4.39, K+5.7, Ca++8.0, Phos 6.6, Hgb 8.6, Tsat 7, WBC 16.1. She was given Kaexylate and Calcium gluconate, repeat K 5.3. Ca 7.6, creat 3.46. Blood pressure readings low, 70/40's, given IV fluids with improved BP 115/80. Current BP 86/46, however question accuracy given obese arm and cuff placement. D-Dimer elevated VQ scan pending. CT abdomen showed no obstructive uropathy. Renal fct normal prior to this visit, however patient states had renal insufficiency in past while on HCTZ that was subsequently stopped. She states hypertension since 1985, denies diabetes. Admits NSAID use; Diclofenic twice a day past for three weeks with concomitant use of Ibuprofen 800mg three times daily for past three months for knee pain. She admits proteinuria and microscopic hematuria that she states was worked up but no findings. She admits two renal stone episodes in past, does not know stone composition. Denies chronic UTI's. She denies recent illness, vomiting or diarrhea. States oral intake and urine output good. Past Med Surg Social Fam HX - Past Medical History Medical history: asthma, hypertension, other Psychiatric history: anxiety, depression - Social History Smoking Status: Never smoker Smokeless Tobacco Status: No Alcohol use: none Drug use: none Medications and Allergies Albuterol Neb [Proventil Neb] 2.5 mg IH TID PRN 08/03/16 [History] Aspirin Enteric Coated [Aspirin EC] 81 mg PO DAILY 08/03/16 [History] Cyclobenzaprine [Flexeril] 10 mg PO TID PRN 08/03/16 [History] Diclofenac Sodium [Voltaren] 75 mg PO BID 08/03/16 [History] Fluticasone Propionate Nasal [Flonase] 50 mcg NS DAILY 08/03/16 [History] Furosemide [Lasix] 40 mg PO DAILY 08/03/16 [History] Gabapentin [Neurontin] 800 mg PO TID 08/03/16 [History] Ibuprofen [Motrin] 800 mg PO BID PRN 08/03/16 [History] LORazepam [Lorazepam] 2 mg PO BID PRN 08/03/16 [History] Levothyroxine [Synthroid] 50 mcg PO 0630 08/03/16 [History] Lisinopril [Zestril] 20 mg PO DAILY 08/03/16 [History] Omeprazole [PriLOSEC] 20 mg PO DAILY 08/03/16 [History] RisperiDONE [Risperdal] 2 mg PO HS 08/03/16 [History] Simvastatin [Zocor] 40 mg PO HS 08/03/16 [History] Spironolactone [Aldactone] 25 mg PO BID 08/03/16 [History] Tramadol HCl [Ultram] 50 mg PO TID PRN 08/03/16 [History] Venlafaxine XR (24 HR) [Effexor XR] 150 mg PO DAILY 08/03/16 [History] Zolpidem [Ambien] 10 mg PO HS 08/03/16 [History] Allergies nitrofurantoin [From Macrodantin] Allergy (Verified 08/03/16 16:06) Itching duloxetine [From Cymbalta] Adverse Reaction (Verified 08/03/16 16:06) Depression pregabalin [From Lyrica] Adverse Reaction (Verified 08/03/16 16:06) See Comments gain water weight Review of Systems All Systems: reviewed and no additional remarkable complaints except as stated Exam - Vital Signs Vital signs: Initial Vital Signs Temp Pulse Resp BP Pulse Ox 98.4 F 96 10 115/80 92 08/03/16 16:19 08/03/16 16:19 08/03/16 16:19 08/03/16 16:19 08/03/16 16:19 Vital Signs - Last 8 Hours Pulse BP 08/04/16 13:31 106 08/04/16 08:12 106/82 08/04/16 08:00 97 Intake and Output 08/03/16 08/04/16 08/04/16 23:59 07:59 15:59 Intake Total 1000 / 1000 1582 / 1582 Balance 1000 / 1000 1582 / 1582 Intake: IV Fluids 1000 / 1000 1102 / 1102 0.9 % Sodium Chloride 1, 1000 / 1000 1000 / 1000 000 ML @ 125 mls/hr IVC . Q8H DELMY Rx#:[id number] Magnesium Sulfate 1 GM In 102 / 102 Dextrose 5% 100 ML @ 100 mls/hr IVPB ONCE ONE Rx# :[id number] Oral 480 / 480 Other: Meal Lunch Percent of Meal Consumed 100% Stool Size Moderate Stool Consistency liquid Stool Characteristics Mucoid Stool Color Brown # Voids 1 # Bowel Movements 1 Weight 191.9 kg 191.9 kg Patient Weight 08/04/16 23:59 Weight 191.9 kg - General Appearance General appearance: well-developed, well-nourished, appears started age, obese EENT: mucous membranes moist Neck: no JVD, no carotid bruit Respiratory: clear Cardiology: regular rate, regular rhythm Additional Comments: mild LE pitting edema Gastrointestinal: normoactive bowel sounds, no tenderness, no guarding Integumentary: warm and dry Neurologic: alert and oriented x3 Psychiatric: mood/affect appropriate, cooperative Results - Lab Results 08/04/16 05:28 08/04/16 14:34 Most recent lab results ABG pH 7.26 pH Units (7.32-7.45) L 08/04/16 01:00 ABG pCO2 50 mmHg (35-45) H 08/04/16 01:00 ABG pO2 96 mmHg (85-104) 08/04/16 01:00 ABG HCO3 22.4 mEQ/L (21-27) 08/04/16 01:00 ABG O2 Saturation 96 % (95-98) 08/04/16 01:00 Calcium 7.9 mg/dL (8.6-10.8) L 08/04/16 14:34 Phosphorus 6.6 mg/dL (2.3-4.7) H 08/03/16 16:51 Magnesium 1.6 mg/dL (1.6-2.6) 08/04/16 04:19 Consult Discharge Plan - Plan Referrals: Delfina Fitch CNP [Primary Care Provider] - 08/11/16 9:45 am ()
[2016-08-04] MEDS: risperiDONE 1 MG TABLET PO SCH (22:50)
[2016-08-04] MEDS: Acetaminophen 325 MG TABLET PO PRN (23:35)
[2016-08-05 04:58] LABS: Basophils % 0.1 %; Hematocrit 24.7 % (35.3-44.9); Hemoglobin 7.9 g/dL (11.5-15.4); Immature Granulocytes % 0.7 % (0-4); Lymphocytes # 1.5 K/mcL (0.6-4.6); Lymphocytes % 13.9 %; Mean Corpuscular Hemoglobin 27.5 pg (28.0-33.3); Mean Corpuscular Volume 86.1 fL (83.0-100.0); Mean Platelet Volume 12.2 fL (9.4-12.4); Monocytes # 0.9 K/mcL (0.0-1.3); Monocytes % 8.6 %; Neutrophils # 8.1 K/mcL (1.6-8.9); Platelet Count 147 K/mcL (140-400); Red Blood Count 2.87 M/mcL (3.82-4.97); Red Cell Distribution Width 15.7 % (11.5-14.5); Segmented Neutrophils % 76.7 %
[2016-08-05] MEDS: traMADol 50 MG TABLET PO PRN ×2 (05:14→21:05)
[2016-08-05 05:24] LABS: Magnesium 1.7 mg/dL (1.6-2.6); Phosphorous 4.5 mg/dL (2.3-4.7); Potassium 4.8 mEq/L (3.5-4.5)
[2016-08-05] MEDS: 0.9 % Sodium Chloride 1,000 ML IVC SCH ×3 (07:04→23:29)
[2016-08-05 08:38] LABS: Protein/Creatinine Ratio,Urine 0.34 mg/mg (0-0.20)
[2016-08-05] MEDS: Acetaminophen 325 MG TABLET PO PRN (08:57)
[2016-08-05] MEDS: Venlafaxine XR (24 HR) 150 MG CAP.ER.24H PO SCH (08:57)
[2016-08-05] MEDS: Aspirin Enteric Coated 81 MG Tablet PO SCH (08:57)
[2016-08-05] MEDS: *HR* Heparin 5,000 UNIT/ML VIAL SQ SCH ×3 (08:57→23:30)
[2016-08-05] MEDS: Fluticasone Propionate Nasal 50 MCG/SPRAY BOTTLE NS SCH (09:01)
--- NOTE | 2016-08-05 09:28 | Nephrology Progress Note ---
Date of Encounter: 08/05/16 Time of Encounter: 09:10 - Assessment and Plan (1) DELVIN (acute kidney injury) Current Visit: Yes Status: Acute DELVIN in setting of hypovolemia and hypotension related to diuretics, anemia, NSAID's. REnal fct improving, creat 1.86. Large PVR 500cc with insertion of witt catheter. Will consult urology. Hyperphosphatemia binds Calcium. Gabapentin and NSAID's contributing to edema which is mild. Most likey has untreated obesity hypoventilation/ ARELI. Avoid nephrotoxins. Iron deficiency anemia, Tsat 7. Hgb today 7.9 which may be dilutional given all IV fluids, however, with recent excessive NSAID use needs anemia workup. Continue IV fluids as tolerated. Will continue to follow. Subjective Interval history: States feeling better today. No new complaints. Nursing staff states had 500 ccurine output when witt cath placed yesterday, This was immediately after patient voide prior to cath. Objective - Vital Signs Vital signs: Vital Signs Temp Pulse Resp BP Pulse Ox 08/05/16 07:59 97 08/05/16 07:32 97.9 F 101 22 114/56 96 08/05/16 07:00 97 08/05/16 00:00 99.1 F 108 25 113/58 95 08/04/16 23:50 108 08/04/16 20:00 104 08/04/16 16:00 97 08/04/16 15:53 98.3 F 97 12 88/50 100 08/04/16 13:31 106 Intake and Output 08/04/16 08/05/16 08/05/16 23:59 07:59 15:59 Intake Total 1100 / 1100 1000 / 1000 Output Total 1850 / 1850 1350 / 1350 Balance -750 / -750 -350 / -350 Intake: IV Fluids 1100 / 1100 1000 / 1000 0.9 % Sodium Chloride 1, 1000 / 1000 1000 / 1000 000 ML @ 125 mls/hr IVC . Q8H DELMY Rx#:[id number] Rocephin 1,000 MG In 100 / 100 Dextrose 5% (Minibag+) 100 ML 100 ML @ 200 mls/ hr IVPB Q24H DELMY Rx#: [id number] Output: Catheter 1850 / 1850 1350 / 1350 Other: Weight 192.8 kg Patient Weight 08/05/16 23:59 Weight 192.8 kg - General Appearance General appearance: Present: well-developed, well-nourished, appears started age , obese EENT: Present: mucous membranes moist Neck: Present: no JVD Respiratory: Present: clear Cardiology: Present: edema, regular rate, regular rhythm Additional Comments: mild pitting. Gastrointestinal: Present: normoactive bowel sounds, no tenderness Integumentary: Present: warm and dry Neurologic: Present: alert and oriented x3 Psychiatric: Present: mood/affect appropriate, cooperative - Lab 08/05/16 03:53 08/05/16 03:53 Most recent lab results ABG pH 7.26 pH Units (7.32-7.45) L 08/04/16 01:00 ABG pCO2 50 mmHg (35-45) H 08/04/16 01:00 ABG pO2 96 mmHg (85-104) 08/04/16 01:00 ABG HCO3 22.4 mEQ/L (21-27) 08/04/16 01:00 ABG O2 Saturation 96 % (95-98) 08/04/16 01:00 Calcium 8.0 mg/dL (8.6-10.8) L 08/05/16 03:53 Phosphorus 4.5 mg/dL (2.3-4.7) 08/05/16 03:53 Magnesium 1.7 mg/dL (1.6-2.6) 08/05/16 03:53 Urine Creatinine 32 mg/dL 08/05/16 07:46 Urine Sodium 32.0 mEq/L 08/05/16 07:46 Urine Total Protein 11 mg/dL (1-14) 08/05/16 07:46 Consult Discharge Plan - Plan Referrals: Delfina Fitch, [facility] [Primary Care Provider] - 08/11/16 9:45 am ()
--- NOTE | 2016-08-05 10:13 | Internal Med Progress Note ---
Date of Encounter: 08/05/16 Time of Encounter: 10:11 - Assessment and plan (1) Acute renal failure (ARF) Current Visit: Yes Status: Acute Assessment and plan: Likely related to hypotension in the setting of UTI/use of NSAIDs/diuretics/Ambrosio inhibitors at home. Serum creatinine noted to be significantly improving with IV hydration. Nephrology follow-up noted. Renal ultrasound reviewed, shows no evidence of obstructive uropathy or acute abnormality. Urine protein creatinine ratio only slightly elevated and urine dipstick shows trace proteinuria. Continue aggressive IV hydration, monitor urine output closely. Urine output improved with Hutton catheterization. Avoid nephrotoxins and dose medications according to current creatinine clearance. Qualifiers: Acute renal failure type: unspecified Qualified Code(s): N17.9 - Acute kidney failure, unspecified (2) Acute respiratory failure Current Visit: Yes Status: Acute Assessment and plan: Likely related to renal failure along with underlying untreated obstructive sleep apnea as patient is noted to be noncompliant with CPAP. Continue supplemental oxygen and wean down FiO2 as tolerated. Improving. Qualifiers: Respiratory failure complication: hypercapnia Qualified Code(s): J96.02 - Acute respiratory failure with hypercapnia (3) Hyperkalemia Current Visit: Yes Status: Acute Assessment and plan: Likely related to renal dysfunction. Improving. (4) Hypomagnesemia Current Visit: Yes Status: Resolved Assessment and plan: Improved with supplementation. (5) D-dimer, elevated Current Visit: Yes Status: Ruled-out (6) Hypotension Current Visit: Yes Status: Acute Assessment and plan: Likely due to volume depletion and dehydration due to the use of diuretics at home. Blood pressure currently normalized, continue IV hydration. Less likely septic or cardiogenic shock. Leukocytosis improved today. Physical and occupational therapy evaluation. Serum lactic acid noted to be within normal limits which shows appropriate peripheral perfusion. Qualifiers: Hypotension type: unspecified hypotension type Qualified Code(s): I95.9 - Hypotension, unspecified (7) UTI (urinary tract infection) Current Visit: Yes Status: Acute Assessment and plan: Will discontinue IV Rocephin, completed 3 days of antibiotics. Urine and blood cultures remain negative. Qualifiers: Urinary tract infection type: site unspecified Hematuria presence: without hematuria Qualified Code(s): N39.0 - Urinary tract infection, site not specified (8) Hypothyroidism Current Visit: Yes Status: Chronic Qualifiers: Hypothyroidism type: unspecified Qualified Code(s): E03.9 - Hypothyroidism , unspecified (9) Depression Current Visit: Yes Status: Chronic Qualifiers: Depression Type: unspecified Qualified Code(s): F32.9 - Major depressive disorder, single episode, unspecified (10) Anxiety Current Visit: Yes Status: Chronic (11) ARELI (obstructive sleep apnea) Current Visit: Yes Status: Chronic Assessment and plan: Patient encouraged to be compliant with her CPAP at home. (12) Anemia Current Visit: Yes Status: Chronic Assessment and plan: Patient is noted to have anemia, likely chronic. Serum iron profile shows significantly low iron levels. We will start supplementation with oral ferrous sulfate. Qualifiers: Anemia type: iron deficiency Iron deficiency anemia type: unspecified iron deficiency Qualified Code(s): D50.9 - Iron deficiency anemia, unspecified - Subjective Interval history: Feels much better, sitting up in chair; no chest pain, palpitations, weakness or dizziness; - Constitutional Vitals: Temp Pulse Resp BP Pulse Ox 97.9 F 101 22 114/56 97 08/05/16 07:32 08/05/16 07:32 08/05/16 07:32 08/05/16 07:32 08/05/16 07:59 General appearance: Present: A&O X 3, morbidly obese, answers questions appropriately - Respiratory Respiratory exam: Present: decreased breath sounds (due to thick chest wall), CTAB. Absent: accessory muscle use, rales, rhonchi, wheezes - Cardiovascular Cardiovascular exam: Present: RRR, +S1, +S2. Absent: diastolic murmur, gallop, rubs, systolic murmur - GI/Abdominal GI/Abdominal exam: Present: normal bowel sounds, soft (very obese), no peritoneal signs. Absent: distended, tenderness Internal Medicine: Result - Labs CBC & Chem 7: 08/05/16 03:53 08/05/16 03:53 Labs: Short CBC 08/05/16 Range/Units 03:53 WBC 10.6 (4.3-11.1) K/mcL Hgb 7.9 L (11.5-15.4) g/dL Hct 24.7 L (35.3-44.9) % Plt Count 147 (140-400) K/mcL Neutrophils # 8.1 (1.6-8.9) K/mcL BMP 08/04/16 08/05/16 14:34 03:53 Sodium 134 L 133 L Potassium 5.3 H 4.8 H Chloride 102 105 Carbon Dioxide 22 20 BUN 53 H 41 H D Creatinine 3.46 H 1.86 H Glucose 92 123 H Calcium 7.9 L 8.0 L - ABG Interpretation ABG results: ABG ABG pH 7.26 pH Units (7.32-7.45) L 08/04/16 01:00 ABG pCO2 50 mmHg (35-45) H 08/04/16 01:00 ABG pO2 96 mmHg (85-104) 08/04/16 01:00 ABG O2 Saturation 96 % (95-98) 08/04/16 01:00 PT/INR, D-dimer PT 11.4 Seconds (9.4-12.1) 08/03/16 16:51 D-Dimer 1077 ng/mLFEU (0-500) H 08/03/16 16:51 - Impressions Impressions Pulmonary Perfusion Imaging 08/04/16 12:00 IMPRESSION: Very low probability for pulmonary embolism. D/ / Dread Bryan MD / Dread Bryan MD Interpreting Provider: Dread Bryan MD Retroperitoneum Ultrasound 08/04/16 17:17 IMPRESSION: Unremarkable ultrasound of the kidneys and urinary bladder. Incidental fatty liver. D/ / Cristhian Chaudhari MD / Cristhian Chaudhari MD Interpreting Provider: Cristhian Chaudhari MD Consult Discharge Plan - Plan Referrals: Delfina Fitch CNP [Primary Care Provider] - 08/11/16 9:45 am ()
--- NOTE | 2016-08-05 18:46 | Urology - Consult Note ---
Date of Encounter: 08/05/16 Time of Encounter: 18:43 - Assessment and Plan (1) Urinary retention Current Visit: Yes Status: Acute Assessment and plan: keep witt, plan on removal monday morning (2) DELVIN (acute kidney injury) Current Visit: Yes Status: Acute Assessment and plan: will continue to watch. unlikely related to volume in bladder as she was empty on CT scan. Urology CN:HPI Consult date: 08/05/16 Reason for consult Urology: Other (urinary retention) Requesting physician: Annabelle [place] History of present illness: Anne Marie is a 51-year-old female who was admitted with acute renal failure. This was thought to be related to low blood pressure, anemia and NSAIDs use. Patient was found when a catheter was placed today that she had a large volume of 500 mL's in her bladder. Patient did have a CT scan done upon arrival to the hospital which showed empty bladder. Patient denies any prior history of urinary issues. Past Med Surg Social Fam HX - Past Medical History Medical history: asthma, hypertension, other Psychiatric history: anxiety, depression - Social History Smoking Status: Never smoker Smokeless Tobacco Status: No Alcohol use: none Drug use: none Medications and Allergies Albuterol Neb [Proventil Neb] 2.5 mg IH TID PRN 08/03/16 [History] Aspirin Enteric Coated [Aspirin EC] 81 mg PO DAILY 08/03/16 [History] Cyclobenzaprine [Flexeril] 10 mg PO TID PRN 08/03/16 [History] Diclofenac Sodium [Voltaren] 75 mg PO BID 08/03/16 [History] Fluticasone Propionate Nasal [Flonase] 50 mcg NS DAILY 08/03/16 [History] Furosemide [Lasix] 40 mg PO DAILY 08/03/16 [History] Gabapentin [Neurontin] 800 mg PO TID 08/03/16 [History] Ibuprofen [Motrin] 800 mg PO BID PRN 08/03/16 [History] LORazepam [Lorazepam] 2 mg PO BID PRN 08/03/16 [History] Levothyroxine [Synthroid] 50 mcg PO 0630 08/03/16 [History] Lisinopril [Zestril] 20 mg PO DAILY 08/03/16 [History] Omeprazole [PriLOSEC] 20 mg PO DAILY 08/03/16 [History] RisperiDONE [Risperdal] 2 mg PO HS 08/03/16 [History] Simvastatin [Zocor] 40 mg PO HS 08/03/16 [History] Spironolactone [Aldactone] 25 mg PO BID 08/03/16 [History] Tramadol HCl [Ultram] 50 mg PO TID PRN 08/03/16 [History] Venlafaxine XR (24 HR) [Effexor XR] 150 mg PO DAILY 08/03/16 [History] Zolpidem [Ambien] 10 mg PO HS 08/03/16 [History] Allergies nitrofurantoin [From Macrodantin] Allergy (Verified 08/03/16 16:06) Itching duloxetine [From Cymbalta] Adverse Reaction (Verified 08/03/16 16:06) Depression pregabalin [From Lyrica] Adverse Reaction (Verified 08/03/16 16:06) See Comments gain water weight Review of Systems - Constitutional no chills - EENT Nose, mouth and throat: no dizziness - Cardiovascular no chest pain - Gastrointestinal no abdominal pain - Genitourinary Genitourinary: no hematuria Exam Initial Vital Signs Temp Pulse Resp BP Pulse Ox 98.4 F 96 10 115/80 92 08/03/16 16:19 08/03/16 16:19 08/03/16 16:19 08/03/16 16:19 08/03/16 16:19 - General physical appearance Present: well developed - Neck Present: no masses - Respiratory Present: normal respiratory effort - Cardiovascular Cardiovascular exam IM: RRR - Abdomen Abdomen: Present: soft (morbidly obese) - Integumentary Present: no rash Urology Results - Labs 08/05/16 03:53 08/05/16 03:53 Abnormal lab results RBC 2.87 M/mcL (3.82-4.97) L 08/05/16 03:53 Hgb 7.9 g/dL (11.5-15.4) L 08/05/16 03:53 Hct 24.7 % (35.3-44.9) L 08/05/16 03:53 MCH 27.5 pg (28.0-33.3) L 08/05/16 03:53 RDW 15.7 % (11.5-14.5) H 08/05/16 03:53 D-Dimer 1077 ng/mLFEU (0-500) H 08/03/16 16:51 ABG pH 7.26 pH Units (7.32-7.45) L 08/04/16 01:00 ABG pCO2 50 mmHg (35-45) H 08/04/16 01:00 ABG Base Excess -4.6 mEq/L (-2.0 to 3.0) L 08/04/16 01:00 Sodium 133 mEq/L (136-145) L 08/05/16 03:53 Potassium 4.8 mEq/L (3.5-4.5) H 08/05/16 03:53 BUN 41 mg/dL (7-20) H D 08/05/16 03:53 Creatinine 1.86 mg/dL (0.57-1.11) H 08/05/16 03:53 Est GFR ( Amer) 35 (> 60) L 08/05/16 03:53 Est GFR (Non-Af Amer) 29 (> 60) L 08/05/16 03:53 Glucose 123 mg/dL (70-99) H 08/05/16 03:53 Calcium 8.0 mg/dL (8.6-10.8) L 08/05/16 03:53 Iron 20 mcg/dL (50-170) L 08/04/16 04:19 % Saturation 7 % (15-50) L 08/04/16 04:19 Serum Total Protein 5.8 g/dL (6.0-8.3) L 08/04/16 04:19 Albumin 2.6 g/dL (3.5-5.0) L 08/04/16 04:19 Albumin/Globulin Ratio 0.8 (1.1-2.2) L 08/04/16 04:19 Urine Clarity Turbid (Clear) A 08/03/16 17:57 Ur Specific [place] 1.027 (1.010-1.025) H 08/03/16 17:57 Urine Ketones Trace mg/dL (Negative) H 08/03/16 17:57 Urine Bilirubin Moderate (Negative) H 08/03/16 17:57 Ur Leukocyte Esterase Small (Negative) H 08/03/16 17:57 Urine Microscopic RBC 15-30 per hpf (0-3) H 08/03/16 17:57 Urine Microscopic WBC 5-15 per hpf (0-3) H 08/03/16 17:57 Ur Squamous Epith Cells Many per lpf (None-Few) H 08/03/16 17:57 Ur Culture Indicated? YES (NO) A 08/03/16 17:57 Protein/Creatinin Ratio 0.34 mg/mg (0-0.20) H 08/05/16 07:46 Diabetes panel 08/05/16 Range/Units 03:53 Sodium 133 L (136-145) mEq/L Potassium 4.8 H (3.5-4.5) mEq/L Chloride 105 (98-109) mEq/L Carbon Dioxide 20 (19-29) mEq/L BUN 41 H D (7-20) mg/dL Creatinine 1.86 H (0.57-1.11) mg/dL Glucose 123 H (70-99) mg/dL Calcium 8.0 L (8.6-10.8) mg/dL Calcium panel 08/05/16 Range/Units 03:53 Calcium 8.0 L (8.6-10.8) mg/dL Phosphorus 4.5 (2.3-4.7) mg/dL Pituitary panel 08/05/16 Range/Units 03:53 Sodium 133 L (136-145) mEq/L Potassium 4.8 H (3.5-4.5) mEq/L Chloride 105 (98-109) mEq/L Carbon Dioxide 20 (19-29) mEq/L BUN 41 H D (7-20) mg/dL Creatinine 1.86 H (0.57-1.11) mg/dL Glucose 123 H (70-99) mg/dL Calcium 8.0 L (8.6-10.8) mg/dL Adrenal panel 08/05/16 Range/Units 03:53 Sodium 133 L (136-145) mEq/L Potassium 4.8 H (3.5-4.5) mEq/L Chloride 105 (98-109) mEq/L Carbon Dioxide 20 (19-29) mEq/L BUN 41 H D (7-20) mg/dL Creatinine 1.86 H (0.57-1.11) mg/dL Glucose 123 H (70-99) mg/dL Calcium 8.0 L (8.6-10.8) mg/dL All other labs normal. - Imaging CT scan - abdomen: image reviewed CT scan - pelvis: image reviewed Consult Discharge Plan - Plan Referrals: Delfina Fitch CNP [Primary Care Provider] - 08/11/16 9:45 am ()
--- NOTE | 2016-08-05 20:04 | Venous Imaging Report ---
LE Venous Duplex Patient Name:Anne Marie Flores Order Number:[id number] Procedure Date:08/04/2016 Date:1965Age:51 yrs Gender:Female Location:[facility] Room #: 2N3 Stud Setter:Laina Montero Referring MD:Cece Figueroa MD underground supervisor:Delfina Fitch, ANIMAL SCIENTIST Reading MD:Jean-Pierre Tucker MD Secondary Indications: Risk Factors Yes/No Hx of DVT No Anticoagulants No Hx of Chemotherapy No Hormone Replacement Therapy No Impressions: Bilateral lower extremity: normal superficial and deep exam. Recommendations: After imaging the patient returned to their room. Findings Venous Duplex Results: Right: Venous imaging of the lower extremity reveals full patency and normal vessel compressibility of the right distal iliac, right common femoral, right superficial femoral, right popliteal, right posterior tibial, right peroneal and right great saphenous. Doppler signals in the evaluated veins were normal. The right lesser saphenous vein was not assessed. Left: Venous imaging of the lower extremity reveals full patency and normal vessel compressibility of the left distal iliac, left common femoral, left superficial femoral, left popliteal, left posterior tibial, left peroneal and left great saphenous. Doppler signals in the evaluated veins were normal. The left lesser saphenous vein was not assessed. Lower Extremity Venous Duplex Side Vein Compress Spontaneous Flow Augment Diameter (cm) Depth (cm) Left Peroneal Normal Yes Phasic Yes Left Great Saphenous Normal Yes Phasic Yes Left Lesser Saphenous Right Distal Iliac Normal Yes Phasic Yes Right Common Femoral Normal Yes Phasic Yes Right Superficial Femoral Normal Yes Phasic Yes Right Popliteal Normal Yes Phasic Yes Right Posterior Tibial Normal Yes Phasic Yes Right Peroneal Normal Yes Phasic Yes Right Great Saphenous Normal Yes Phasic Yes Right Lesser Saphenous Left Distal Iliac Normal Yes Phasic Yes Left Common Femoral Normal Yes Phasic Yes Left Superficial Femoral Normal Yes Phasic Yes Left Popliteal Normal Yes Phasic Yes Left Posterior Tibial Normal Yes Phasic Yes Updated by Jean-Pierre Tucker MD on 08/05/2016 7:57:32 PM electronically signed on 08/05/2016 7:57:55 PM with status of Final
[2016-08-05] MEDS: risperiDONE 1 MG TABLET PO SCH (21:05)
[2016-08-06] MEDS: traMADol 50 MG TABLET PO PRN ×3 (03:36→23:52)
[2016-08-06] MEDS: 0.9 % Sodium Chloride 1,000 ML IVC SCH ×2 (05:37→08:40)
[2016-08-06 06:44] LABS: Basophils % 0.1 %; Hematocrit 26.8 % (35.3-44.9); Hemoglobin 8.3 g/dL (11.5-15.4); Lymphocytes # 1.7 K/mcL (0.6-4.6); Mean Corpuscular Hemoglobin 27.1 pg (28.0-33.3); Mean Corpuscular Volume 87.6 fL (83.0-100.0); Monocytes # 0.6 K/mcL (0.0-1.3); Monocytes % 9.4 %; Neutrophils # 4.4 K/mcL (1.6-8.9); Platelet Count 167 K/mcL (140-400); Red Blood Count 3.06 M/mcL (3.82-4.97); Red Cell Distribution Width 15.8 % (11.5-14.5); Segmented Neutrophils % 64.5 %
[2016-08-06 06:58] LABS: BUN/Creatinine Ratio 27 (6-26); Blood Urea Nitrogen 22 mg/dL (7-20); Calcium 8.9 mg/dL (8.6-10.8); Carbon Dioxide 24 mEq/L (19-29); Chloride 109 mEq/L (98-109); Glucose 101 mg/dL (70-99); Magnesium 1.4 mg/dL (1.6-2.6); Osmolality,Calculated 293 (280-300); Potassium 4.8 mEq/L (3.5-4.5); Sodium 140 mEq/L (136-145); eGFR For African Americans > 60 (> 60); eGFR For Non-African Americans > 60 (> 60)
--- NOTE | 2016-08-06 08:25 | Urology Progress Note ---
Date of Encounter: 08/06/16 Time of Encounter: 08:24 - Assessment and Plan (1) Urinary retention Current Visit: Yes Status: Acute Assessment and plan: order for cath removal tonight written. will check tomorrow morning to see how she is voiding. (2) DELVIN (acute kidney injury) Current Visit: Yes Status: Acute Progress Note Narrative: Anne Marie is a 51 y/o female with history of urinary retention. patient tolerating catheter ok. Objective Initial Vital Signs Temp Pulse Resp BP Pulse Ox 98.4 F 96 10 115/80 92 08/03/16 16:19 08/03/16 16:19 08/03/16 16:19 08/03/16 16:19 08/03/16 16:19 - Abdomen Present: soft - Genitourinary Urine Appearance: Present: Clear - Labs 08/06/16 06:29 08/06/16 06:29 Diabetes panel 08/06/16 Range/Units 06:29 Sodium 140 D (136-145) mEq/L Potassium 4.8 H (3.5-4.5) mEq/L Chloride 109 (98-109) mEq/L Carbon Dioxide 24 (19-29) mEq/L BUN 22 H D (7-20) mg/dL Creatinine 0.83 D (0.57-1.11) mg/dL Glucose 101 H (70-99) mg/dL Calcium 8.9 (8.6-10.8) mg/dL Calcium panel 08/06/16 Range/Units 06:29 Calcium 8.9 (8.6-10.8) mg/dL Pituitary panel 08/06/16 Range/Units 06:29 Sodium 140 D (136-145) mEq/L Potassium 4.8 H (3.5-4.5) mEq/L Chloride 109 (98-109) mEq/L Carbon Dioxide 24 (19-29) mEq/L BUN 22 H D (7-20) mg/dL Creatinine 0.83 D (0.57-1.11) mg/dL Glucose 101 H (70-99) mg/dL Calcium 8.9 (8.6-10.8) mg/dL Adrenal panel 08/06/16 Range/Units 06:29 Sodium 140 D (136-145) mEq/L Potassium 4.8 H (3.5-4.5) mEq/L Chloride 109 (98-109) mEq/L Carbon Dioxide 24 (19-29) mEq/L BUN 22 H D (7-20) mg/dL Creatinine 0.83 D (0.57-1.11) mg/dL Glucose 101 H (70-99) mg/dL Calcium 8.9 (8.6-10.8) mg/dL Consult Discharge Plan - Plan Referrals: Delfina Fitch CNP [Primary Care Provider] - 08/11/16 9:45 am ()
[2016-08-06] MEDS: Venlafaxine XR (24 HR) 150 MG CAP.ER.24H PO SCH (08:31)
[2016-08-06] MEDS: *HR* Heparin 5,000 UNIT/ML VIAL SQ SCH ×3 (08:31→23:52)
[2016-08-06] MEDS: Aspirin Enteric Coated 81 MG Tablet PO SCH (08:31)
[2016-08-06] MEDS: Acetaminophen 325 MG TABLET PO PRN ×2 (08:37→19:07)
[2016-08-06] MEDS: Fluticasone Propionate Nasal 50 MCG/SPRAY BOTTLE NS SCH (11:30)
[2016-08-06] MEDS ORDERED: Magnesium Sulfate 2 GM in D5% in Water 100 ML IVPB ONE (12:27)
[2016-08-06] MEDS ORDERED: 0.9 % Sodium Chloride 1,000 ML IVC SCH (12:30)
--- NOTE | 2016-08-06 12:56 | Internal Med Progress Note ---
Date of Encounter: 08/06/16 Time of Encounter: 12:56 - Assessment and plan (1) Acute renal failure (ARF) Current Visit: Yes Status: Acute Assessment and plan: Likely related to hypotension in the setting of UTI/use of NSAIDs/diuretics/Ambrosio inhibitors at home. Also to consider urinary retention as patient is noted to have significantly improved since Hutton catheterization. Serum creatinine normalized today. Nephrology follow-up noted. Urology consulted, consult appreciated. Plan to discontinue Hutton catheter tonight and follow up in a.m. Avoid nephrotoxins. Qualifiers: Acute renal failure type: unspecified Qualified Code(s): N17.9 - Acute kidney failure, unspecified (2) Acute respiratory failure Current Visit: Yes Status: Acute Assessment and plan: Improving. Continue supplemental oxygen, wean down FiO2 as tolerated. Qualifiers: Respiratory failure complication: hypercapnia Qualified Code(s): J96.02 - Acute respiratory failure with hypercapnia (3) Hyperkalemia Current Visit: Yes Status: Resolved (4) Hypomagnesemia Current Visit: Yes Status: Acute Assessment and plan: Replace with IV magnesium sulfate. (5) D-dimer, elevated Current Visit: Yes Status: Ruled-out (6) Hypotension Current Visit: Yes Status: Resolved Qualifiers: Hypotension type: unspecified hypotension type Qualified Code(s): I95.9 - Hypotension, unspecified (7) UTI (urinary tract infection) Current Visit: Yes Status: Ruled-out Qualifiers: Urinary tract infection type: site unspecified Hematuria presence: without hematuria Qualified Code(s): N39.0 - Urinary tract infection, site not specified (8) Hypothyroidism Current Visit: Yes Status: Chronic Qualifiers: Hypothyroidism type: unspecified Qualified Code(s): E03.9 - Hypothyroidism , unspecified (9) Depression Current Visit: Yes Status: Chronic Qualifiers: Depression Type: unspecified Qualified Code(s): F32.9 - Major depressive disorder, single episode, unspecified (10) Anxiety Current Visit: Yes Status: Chronic (11) ARELI (obstructive sleep apnea) Current Visit: Yes Status: Chronic (12) Anemia Current Visit: Yes Status: Chronic Qualifiers: Anemia type: iron deficiency Iron deficiency anemia type: unspecified iron deficiency Qualified Code(s): D50.9 - Iron deficiency anemia, unspecified - Subjective Interval history: No chest pain, dyspnea; no new complaints; is on Hutton currently, being followed by Urology; - Constitutional Vitals: Temp Pulse Resp BP Pulse Ox 97.9 F 96 18 108/58 94 08/06/16 11:34 08/06/16 11:34 08/06/16 11:34 08/06/16 11:34 08/06/16 11:34 General appearance: Present: A&O X 3, morbidly obese, answers questions appropriately - Respiratory Respiratory exam: Present: CTAB. Absent: accessory muscle use, rales, rhonchi, wheezes - Cardiovascular Cardiovascular exam: Present: RRR, +S1, +S2. Absent: diastolic murmur, gallop, rubs, systolic murmur - GI/Abdominal GI/Abdominal exam: Present: normal bowel sounds, soft (obese), no peritoneal signs. Absent: distended, tenderness Internal Medicine: Result - Labs CBC & Chem 7: 08/06/16 06:29 08/06/16 06:29 Labs: Short CBC 08/06/16 Range/Units 06:29 WBC 6.8 (4.3-11.1) K/mcL Hgb 8.3 L (11.5-15.4) g/dL Hct 26.8 L (35.3-44.9) % Plt Count 167 (140-400) K/mcL Neutrophils # 4.4 (1.6-8.9) K/mcL BMP 08/06/16 06:29 Sodium 140 D Potassium 4.8 H Chloride 109 Carbon Dioxide 24 BUN 22 H D Creatinine 0.83 D Glucose 101 H Calcium 8.9 - ABG Interpretation ABG results: ABG ABG pH 7.26 pH Units (7.32-7.45) L 08/04/16 01:00 ABG pCO2 50 mmHg (35-45) H 08/04/16 01:00 ABG pO2 96 mmHg (85-104) 08/04/16 01:00 ABG O2 Saturation 96 % (95-98) 08/04/16 01:00 PT/INR, D-dimer PT 11.4 Seconds (9.4-12.1) 08/03/16 16:51 D-Dimer 1077 ng/mLFEU (0-500) H 08/03/16 16:51 Consult Discharge Plan - Plan Referrals: Delfina Fitch, IVAN [Primary Care Provider] - 08/11/16 9:45 am ()
--- NOTE | 2016-08-06 14:55 | Nephrology Progress Note ---
Date of Encounter: 08/06/16 Time of Encounter: 14:39 - Assessment and Plan (1) Acute renal failure (ARF) Current Visit: Yes Status: Acute Resolved. Serum creatinine improved to 0.8. Discontinue IV fluids. Voiding trial in a.m.. Patient can be discharged from renal standpoint. Avoid NSAIDs. Can start diuretics as an outpatient if needed depending on peripheral edema Will sign off, please reconsult if needed in future Qualifiers: Acute renal failure type: unspecified Qualified Code(s): N17.9 - Acute kidney failure, unspecified Subjective Principal diagnosis: arf Interval history: f/u for ARF. Had 500 mL of urine when Hutton was placed. Seen by urology service, for Voiding trial in a.m. BP stable, urine output 2.4 L. Taking by mouth well, denies any complaints Objective - Vital Signs Vital signs: Vital Signs Temp Pulse Resp BP Pulse Ox 08/06/16 11:34 97.9 F 96 18 108/58 94 08/06/16 07:54 98.5 F 101 18 122/77 98 08/06/16 03:50 98.8 F 100 14 123/77 97 08/06/16 00:52 98.6 F 101 18 140/82 96 08/05/16 22:43 98.2 F 101 16 129/66 95 08/05/16 19:42 97.8 F 97 16 110/55 100 08/05/16 15:41 97.9 F 92 18 112/63 100 08/05/16 15:00 91 Intake and Output 08/05/16 08/06/16 08/06/16 23:59 07:59 15:59 Intake Total 2240 / 2240 200 / 200 1620 / 1620 Output Total 750 / 750 0 / 0 350 / 350 Balance 1490 / 1490 200 / 200 1270 / 1270 Intake: IV Fluids 1000 / 1000 1000 / 1000 0.9 % Sodium Chloride 1, 1000 / 1000 1000 / 1000 000 ML @ 125 mls/hr IVC . Q8H DELMY Rx#:[id number] Oral 1240 / 1240 200 / 200 620 / 620 Output: Urine 750 / 750 0 / 0 Catheter 350 / 350 Other: Meal Dinner Breakfast Percent of Meal Consumed 75% 100% Stool Size Large Stool Consistency soft Stool Characteristics Normal for Patient Stool Color Brown # Bowel Movements 1 Weight 192.6 kg Patient Weight 08/06/16 23:59 Weight 192.6 kg - General Appearance Exam: CVS; s1s2 present, regular, no murmurs RESP; good air entry, clear to auscultation ABD; soft, NT, BS present, no organomegaly, no bruits EXT; trace edema, DP pulses palpable. 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; alert oriented -3, CN grossly intact - Lab 08/06/16 06:29 08/06/16 06:29 Most recent lab results ABG pH 7.26 pH Units (7.32-7.45) L 08/04/16 01:00 ABG pCO2 50 mmHg (35-45) H 08/04/16 01:00 ABG pO2 96 mmHg (85-104) 08/04/16 01:00 ABG HCO3 22.4 mEQ/L (21-27) 08/04/16 01:00 ABG O2 Saturation 96 % (95-98) 08/04/16 01:00 Calcium 8.9 mg/dL (8.6-10.8) 08/06/16 06:29 Phosphorus 4.5 mg/dL (2.3-4.7) 08/05/16 03:53 Magnesium 1.4 mg/dL (1.6-2.6) L 08/06/16 06:29 Urine Creatinine 32 mg/dL 08/05/16 07:46 Urine Sodium 32.0 mEq/L 08/05/16 07:46 Urine Total Protein 11 mg/dL (1-14) 08/05/16 07:46 Consult Discharge Plan - Plan Referrals: Delfina Fitch CNP [Primary Care Provider] - 08/11/16 9:45 am ()
[2016-08-06] MEDS: risperiDONE 1 MG TABLET PO SCH (20:39)
[2016-08-07] MEDS: Acetaminophen 325 MG TABLET PO PRN ×2 (04:22→15:18)
--- NOTE | 2016-08-07 07:29 | Urology Progress Note ---
Date of Encounter: 08/07/16 Time of Encounter: 07:28 - Assessment and Plan (1) Urinary retention Current Visit: Yes Status: Acute Assessment and plan: voided. no urological f/u needed. call if creatinine worsens or retention returns. (2) DELVIN (acute kidney injury) Current Visit: Yes Status: Acute Progress Note Narrative: Patient seen. has voided since cath removed. Objective Initial Vital Signs Temp Pulse Resp BP Pulse Ox 98.4 F 96 10 115/80 92 08/03/16 16:19 08/03/16 16:19 08/03/16 16:19 08/03/16 16:19 08/03/16 16:19 - General physical appearance Present: well developed - Abdomen Present: soft - Labs 08/06/16 06:29 08/06/16 06:29 Consult Discharge Plan - Plan Referrals: Delfina Fitch CNP [Primary Care Provider] - 08/11/16 9:45 am ()
[2016-08-07] MEDS: Aspirin Enteric Coated 81 MG Tablet PO SCH (07:32)
[2016-08-07] MEDS: Venlafaxine XR (24 HR) 150 MG CAP.ER.24H PO SCH (07:33)
[2016-08-07] MEDS: *HR* Heparin 5,000 UNIT/ML VIAL SQ SCH ×2 (07:33→15:19)
[2016-08-07] MEDS: Fluticasone Propionate Nasal 50 MCG/SPRAY BOTTLE NS SCH (07:33)
--- NOTE | 2016-08-07 15:44 | Discharge Summary ---
Date of Encounter: 08/07/16 Time of Encounter: 15:41 - Discharge Diagnosis (1) Acute renal failure (ARF) Priority: Primary Status: Acute Qualifiers: Acute renal failure type: unspecified Qualified Code(s): N17.9 - Acute kidney failure, unspecified (2) Acute respiratory failure Priority: Primary Status: Acute Qualifiers: Respiratory failure complication: hypercapnia Qualified Code(s): J96.02 - Acute respiratory failure with hypercapnia (3) Hyperkalemia Priority: Primary Status: Resolved (4) Hypomagnesemia Priority: Primary Status: Acute (5) D-dimer, elevated Priority: Primary Status: Ruled-out (6) Hypotension Priority: Primary Status: Resolved Qualifiers: Hypotension type: unspecified hypotension type Qualified Code(s): I95.9 - Hypotension, unspecified (7) Hypothyroidism Priority: Secondary Status: Chronic Qualifiers: Hypothyroidism type: unspecified Qualified Code(s): E03.9 - Hypothyroidism , unspecified (8) Depression Priority: Secondary Status: Chronic Qualifiers: Depression Type: unspecified Qualified Code(s): F32.9 - Major depressive disorder, single episode, unspecified (9) Anxiety Priority: Secondary Status: Chronic (10) ARELI (obstructive sleep apnea) Priority: Secondary Status: Chronic (11) Anemia Priority: Secondary Status: Chronic Qualifiers: Anemia type: iron deficiency Iron deficiency anemia type: unspecified iron deficiency Qualified Code(s): D50.9 - Iron deficiency anemia, unspecified - Discharge Medications Prescriptions: Ferrous Sulfate 325 mg PO BIDWM #60 tablet Home Medications: Albuterol Neb [Proventil Neb] 2.5 mg IH TID PRN 08/03/16 [History] Aspirin Enteric Coated [Aspirin EC] 81 mg PO DAILY 08/03/16 [History] Cyclobenzaprine [Flexeril] 10 mg PO TID PRN 08/03/16 [History] Fluticasone Propionate Nasal [Flonase] 50 mcg NS DAILY 08/03/16 [History] Gabapentin [Neurontin] 800 mg PO TID 08/03/16 [History] LORazepam [Lorazepam] 2 mg PO BID PRN 08/03/16 [History] Levothyroxine [Synthroid] 50 mcg PO 0630 08/03/16 [History] Lisinopril [Zestril] 20 mg PO DAILY 08/03/16 [History] Omeprazole [PriLOSEC] 20 mg PO DAILY 08/03/16 [History] RisperiDONE [Risperdal] 2 mg PO HS 08/03/16 [History] Simvastatin [Zocor] 40 mg PO HS 08/03/16 [History] Tramadol HCl [Ultram] 50 mg PO TID PRN 08/03/16 [History] Venlafaxine XR (24 HR) [Effexor Xr] 150 mg PO DAILY 08/03/16 [History] Zolpidem [Ambien] 10 mg PO HS 08/03/16 [History] Ferrous Sulfate 325 mg PO BIDWM #60 tablet 08/07/16 [Rx] Furosemide [Lasix] 20 mg PO DAILY #20 08/07/16 [Rx] Spironolactone [Aldactone] 25 mg PO DAILY #30 08/07/16 [Rx] Allergies/Adverse Reactions: Allergies nitrofurantoin [From Macrodantin] Allergy (Verified 08/03/16 16:06) Itching duloxetine [From Cymbalta] Adverse Reaction (Verified 08/03/16 16:06) Depression pregabalin [From Lyrica] Adverse Reaction (Verified 08/03/16 16:06) See Comments gain water weight Procedures/tests Complete & Pending: Procedures Performed prior 72 hours Category Date Time Status Retroperitoneal Ultrasound - Complete [US Exams 08/04/16 17:17 Completed retroperitoneal comp] [US] Routine Date of admission: 08/04/16 02:35 Primary care physician: Delfina Fitch CNP Consults: 08/05/16 09:33 Consult to Urology [CONS] Routine Consulting Provider: Urology [place] Reason for Consult: PVR 500cc Time Notified: 09:37 Call Completed: Yes 08/05/16 12:57 Consult to Occupational Therapy [CONS] Routine Comment: Evaluate, develop and implement POC Consult to Physical Therapy [CONS] Routine Comment: Evaluate, develop and implement POC Discharging clinician: Marie Figueroa Anticipated date of discharge: 08/07/16 - Patient Status Disposition: Home Health Service Condition: Fair Functional capacity at discharge: independent ambulation Overall status at discharge: patient is progressing back to baseline - Discharge Instructions Instructions: Acute Respiratory Distress Syndrome (DC), Acute Kidney Injury (DC ) Follow Up With: Delfina Fitch CNP [Primary Care Provider] - 08/11/16 9:45 am () - Diet and Activity Activity: as per physical therapy Diet: low fat, low cholesterol, low salt diet Hospital course: Ms. Flores is a 51 year old female with morbid obesity and obstructive sleep apnea, noncompliant with CPAP, was initially admitted with dizziness and weakness and she was noted to be having hypotension of unclear etiology. Patient did not meet criteria for sepsis with normal serum lactate, no fever. She did have some leukocytosis and initially treated for presumed UTI but urine culture eventually showed no significant bacterial growth. Echocardiogram was done, which showed preserved ejection fraction and no acute abnormality. Patient was also noted to have acute renal failure, likely due to dehydration and volume depletion in the setting of diuretic/TOI inhibitor/ NSAIDs use at home. She was given aggressive IV hydration and urine output was monitored after Hutton catheterization and her serum creatinine significantly improved and returned to baseline at the time of discharge. There has been a question of urinary retention as a cause of acute renal failure and patient was also noted to have more than 400 mL on bladder scan prior to Hutton catheterization. Urology was consulted and patient was noted to void independently after Hutton removal and she is cleared to be discharged home. She was noted to have significantly elevated d-dimer at admission and CT angiogram of the chest could not be done. Ventilation perfusion lung scan however, showed very low probability of PE. Chest x-ray showed no evidence of pneumonia. Blood cultures remained negative. She was noted to have chronic anemia with low iron reserve and has been started on ferrous sulfate supplements. Patient's blood pressure improved with IV hydration and she has remained hemodynamically stable since day 2. Physical therapy evaluation has been completed and recommended home health services, referral has been completed. Patient is now medically stable for discharge with outpatient follow-up. She is encouraged to regularly use her CPAP and follow up with primary care provider and she verbalized understanding. - Time Spent with Patient Total time spent providing and/or coordinating discharge services: Greater than 30 minutes (50 min) - Constitutional Vitals: Temp Pulse Resp BP Pulse Ox 98.2 F 77 18 169/83 99 08/07/16 15:28 08/07/16 15:28 08/07/16 15:28 08/07/16 15:28 08/07/16 15:28 General appearance: Present: A&O X 3, morbidly obese, answers questions appropriately - Respiratory Respiratory exam: Present: CTAB. Absent: accessory muscle use, rales, rhonchi, wheezes - Cardiovascular Cardiovascular exam: Present: RRR, +S1, +S2. Absent: diastolic murmur, gallop, rubs, systolic murmur
--- NOTE | 2016-08-07 15:46 | Physician Discharge Referral ---
Home Health/Hosp Referral Info Transfer to: Home Health Attending Provider: Marie Figueroa Provider in Charge Post Discharge: PCP - Diagnosis (1) Acute renal failure (ARF) Priority: Primary Status: Acute (2) Acute respiratory failure Priority: Primary Status: Acute (3) Hyperkalemia Priority: Primary Status: Resolved (4) Hypomagnesemia Priority: Primary Status: Acute (5) D-dimer, elevated Priority: Primary Status: Ruled-out (6) Hypotension Priority: Primary Status: Resolved (7) Hypothyroidism Priority: Secondary Status: Chronic (8) Depression Priority: Secondary Status: Chronic (9) Anxiety Priority: Secondary Status: Chronic (10) ARELI (obstructive sleep apnea) Priority: Secondary Status: Chronic (11) Anemia Priority: Secondary Status: Chronic - Respiratory Orders Smoking Cessation: Smoking cessation has been advised. For more information, call the [place] Tobacco Quit Line at 1-105-KRTY-NOW. - Diet/Nutrition Diet/Nutrition Orders: Cardiac - Activity Activity Orders: Ambulate - Services Needed Following services are medically necessary services: Physical Therapy - Transfer Medications Prescriptions: Ferrous Sulfate 325 mg PO BIDWM #60 tablet Home Medications: Albuterol Neb [Proventil Neb] 2.5 mg IH TID PRN 08/03/16 [History] Aspirin Enteric Coated [Aspirin EC] 81 mg PO DAILY 08/03/16 [History] Cyclobenzaprine [Flexeril] 10 mg PO TID PRN 08/03/16 [History] Fluticasone Propionate Nasal [Flonase] 50 mcg NS DAILY 08/03/16 [History] Gabapentin [Neurontin] 800 mg PO TID 08/03/16 [History] LORazepam [Lorazepam] 2 mg PO BID PRN 08/03/16 [History] Levothyroxine [Synthroid] 50 mcg PO 0630 08/03/16 [History] Lisinopril [Zestril] 20 mg PO DAILY 08/03/16 [History] Omeprazole [PriLOSEC] 20 mg PO DAILY 08/03/16 [History] RisperiDONE [Risperdal] 2 mg PO HS 08/03/16 [History] Simvastatin [Zocor] 40 mg PO HS 08/03/16 [History] Tramadol HCl [Ultram] 50 mg PO TID PRN 08/03/16 [History] Venlafaxine XR (24 HR) [Effexor Xr] 150 mg PO DAILY 08/03/16 [History] Zolpidem [Ambien] 10 mg PO HS 08/03/16 [History] Ferrous Sulfate 325 mg PO BIDWM #60 tablet 08/07/16 [Rx] Furosemide [Lasix] 20 mg PO DAILY #20 08/07/16 [Rx] Spironolactone [Aldactone] 25 mg PO DAILY #30 08/07/16 [Rx] Allergies/Adverse Reactions: Allergies nitrofurantoin [From Macrodantin] Allergy (Verified 08/03/16 16:06) Itching duloxetine [From Cymbalta] Adverse Reaction (Verified 08/03/16 16:06) Depression pregabalin [From Lyrica] Adverse Reaction (Verified 08/03/16 16:06) See Comments gain water weight Certification: Further, I certify that my clinical findings support that this patient is homebound (i.e. absences from home require considerable and taxing effort and are for medical reasons or mosque services or infrequently or short duration when for other reasons) because: Homebound Reason: Patient requires assistance of a person or device to safely leave home, Leaving home requires considerable and taxing effort due to condition Attestation: My signature below is to certify that this patient is under my care and that I, or nurse practitioner, or a physician's mailroom assistant working with me, has a face-to -face encounter with this patient.
[2016-08-07 16:42] VITALS: BP 159/89
== END 2016-08-07 17:25 | disposition home health service (06) | DRG 682 ==
LOC: 2ANU 16:02 → EMEROO 16:02 → 2NNU 22:04 → SUATTDRO 08-04 02:35 → 3ANU 08-06 00:11
PROVIDERS: ADMIT Internal Medicine; ATTEND Internal Medicine

== ENCOUNTER 2016-11-18 15:42 | Inpatient (IN) ==
--- NOTE | 2016-11-18 16:01 | Emergency Department Note ---
Disposition Clinical Impression: Acute kidney failure, unspecified UTI (urinary tract infection) Qualifiers: Urinary tract infection type: acute cystitis Hematuria presence: with hematuria Qualified Code(s): N30.01 - Acute cystitis with hematuria Disposition: Admitted As Inpatient Altered Mental Status HPI - General Chief Complaint: ED Altered Mental Status Stated Complaint: AMS Time Seen by Provider: 11/18/16 15:52 Source: patient, EMS Limitations: no limitations - History of Present Illness HPI Narrative: Patient is a 51-year-old female with past medical history of morbid obesity, hypertension, anxiety, and depression presents to the ED with altered mental status 1 day hypotensive and tachycardic. Patient's daughter called EMS and stated that she had not left her couch for the past day. Patient was diagnosed with a UTI at this ED 1 week ago. Patient denies any chest pain shortness of breath or abdominal discomfort. She denies any nausea nausea vomiting or diarrhea. MD complaint: altered mental status Timing confirmed by: family member Associated symptoms: Reports: difficulty walking. Denies: chest pain, cough, diaphoresis, nausea/vomiting, shortness of breath - Related Data Home Medications Medication Instructions Recorded Confirmed Albuterol Neb [Proventil Neb] 2.5 mg IH TID PRN 08/03/16 11/18/16 Aspirin Enteric Coated [Aspirin EC] 81 mg PO DAILY 08/03/16 11/18/16 Cyclobenzaprine [Flexeril] 10 mg PO TID PRN 08/03/16 11/18/16 Fluticasone Propionate Nasal 1 spray NS DAILY 08/03/16 11/18/16 [Flonase] Gabapentin [Neurontin] 800 mg PO TID 08/03/16 11/18/16 LORazepam [Lorazepam] 2 mg PO BID PRN 08/03/16 11/18/16 Levothyroxine [Synthroid] 50 mcg PO 0630 08/03/16 11/18/16 Lisinopril [Zestril] 20 mg PO DAILY 08/03/16 11/18/16 Omeprazole [PriLOSEC] 20 mg PO DAILY 08/03/16 11/18/16 Simvastatin [Zocor] 40 mg PO HS 08/03/16 11/18/16 Tramadol HCl [Ultram] 50 mg PO TID PRN 08/03/16 11/18/16 Venlafaxine XR (24 HR) [Effexor Xr] 150 mg PO DAILY 08/03/16 11/18/16 Zolpidem [Ambien] 10 mg PO HS 08/03/16 11/18/16 risperiDONE [Risperdal] 2 mg PO HS 08/03/16 11/18/16 Ketotifen Fumarate [Zaditor] 1 drop BOTH EYES BID 11/18/16 11/18/16 Sulfamethoxazole/Trimeth DS 1 tab PO BID 11/18/16 11/18/16 [Bactrim DS] Topiramate [Topamax] 25 mg PO HS 11/18/16 11/18/16 Previous Rx's Medication Instructions Recorded Ferrous Sulfate 325 mg PO BIDWM #60 tablet 08/07/16 Furosemide [Lasix] 20 mg PO DAILY #20 08/07/16 Spironolactone [Aldactone] 25 mg PO DAILY #30 08/07/16 cephALEXin [Keflex] 500 mg PO QID #40 capsule 11/11/16 Allergies Allergy/AdvReac Type Severity Reaction Status Date / Time nitrofurantoin Allergy Itching Verified 11/11/16 17:01 [From Macrodantin] duloxetine [From Cymbalta] AdvReac Depression Verified 11/11/16 17:01 pregabalin [From Lyrica] AdvReac See Verified 11/11/16 17:01 Comments All systems ED: reviewed and negative except as stated. Constitutional: Denies: fever, weakness Cardiovascular: Denies: chest pain, palpitations Respiratory: Denies: cough, dyspnea Gastrointestinal: Denies: abdominal pain, nausea, vomiting, hematemesis, melena , hematochezia Genitourinary: Denies: dysuria Past Medical History - Past Medical History Attestation: Yes The following information was validated with the patient. Source: patient Medical history: Reports: asthma, hypertension, other Surgical history: Reports: non-contributory Psychiatric history: Reports: anxiety, depression COMMUNITY DIETITIAN history: Reports: no COMMUNITY DIETITIAN history, other - Social History Smoking Status: Never smoker Smokeless Tobacco Status: No Alcohol use: Reports: none Drug use: Reports: none Physical Exam - General Limitations: no limitations General appearance: alert, in no apparent distress, obese - Head Head exam: atraumatic, normocephalic - Eye Eye exam: Present: normal appearance, PERRL - Respiratory Respiratory exam: Present: normal lung sounds bilaterally. Absent: respiratory distress, wheezes - Cardiovascular Cardiovascular exam: Present: regular rate, tachycardia. Absent: diastolic murmur, rubs, gallop - Abdominal Exam Abdominal exam: Present: soft, Non-Tender - Rectal Exam Cotton Tier present during exam: Yes (Patients perineal region covered with white curdy discharge.) Rectal exam: Present: normal rectal tone (A hemoccult was collected. No gross blood appreciated on visual inspection.) - Expanded Lower Extremity Exam Ankle exam: Present: swelling. Absent: tenderness, erythema - Neurological Exam Neurological exam: Present: alert. Absent: oriented X3 (Patient is oriented to place and name, not date. Patients morbid obesity makes exam difficult.) Course Course Narrative: 51-year-old female with past medical history of morbid obesity, hypertension, asthma, anxiety, and depression presents to the ED with a one-day history of altered mental status. Her daughter called EMS stating that her daughter had found her on the couch for 1 day. Patient was hypotensive and tachycardic at the scene. On arrival to the hospital, patient remained tachycardic. Blood pressure elevated after a bolus of fluid. Patient has a history of UTI 1 week ago. Will order labs, head CT, chest x-ray, and ECG. - Reevaluation(s) Reevaluation #1: Urinalysis shows infection. Metabolic profile shows acute kidney injury with a creatinine of 7.2. CBC shows left shift and anemia. Will perform a KELTON and send to lab for Hemoccult analysis. CT scan of the head and ECG are normal. Will admit to medicine - Consultations Consultation #1: Discussed with Dr. Salas. Will admit Time: 19:52 Vital Signs Temperature 99.1 F 11/18/16 15:45 Pulse Rate 107 11/18/16 15:45 Respiratory Rate 20 11/18/16 15:45 Blood Pressure 99/64 11/18/16 15:45 O2 Sat by Pulse Oximetry 96 11/18/16 15:45 Temperature 99.1 F 11/18/16 15:45 Pulse Rate 99 11/18/16 19:43 Respiratory Rate 18 11/18/16 20:30 Blood Pressure 103/59 11/18/16 20:30 O2 Sat by Pulse Oximetry 96 11/18/16 19:43 Oxygen Delivery Oxygen Delivery Nasal Cannula Altered Mental Status - Medical Records Medical records reviewed: Yes I reviewed the patient's medical records. - Lab Data Lab results reviewed: Yes I reviewed the patient's lab results. Result diagrams: 11/18/16 16:23 11/18/16 16:23 Lab Results 11/18/16 11/18/16 11/18/16 Range/Units 16:05 16:06 16:23 WBC 17.5 H D (4.3-11.1) K/mcL RBC 3.33 L (3.82-4.97) M/mcL Hgb 9.2 L D (11.5-15.4) g/dL Hct 29.6 L (35.3-44.9) % MCV 88.9 (83.0-100.0) fL MCH 27.6 L (28.0-33.3) pg MCHC 31.1 L (31.6-35.5) g/dL RDW 15.5 H (11.5-14.5) % Plt Count 188 (140-400) K/mcL MPV 11.6 (9.4-12.4) fL Immature Gran % 0.9 (0-4) % Seg Neutrophils % 78.9 % Lymphocytes % 10.1 % Monocytes % 9.9 % Eosinophils % 0.0 % Basophils % 0.2 % Neutrophils # 13.8 H (1.6-8.9) K/mcL Lymphocytes # 1.8 (0.6-4.6) K/mcL Monocytes # 1.7 H (0.0-1.3) K/mcL Eosinophils # 0.0 (0.0-0.6) K/mcL Basophils # 0.0 (0.0-0.2) K/mcL PT (9.4-12.1) Seconds INR APTT (26.0-36.0) Seconds Sodium (136-145) mEq/L Potassium (3.5-4.5) mEq/L Chloride (98-109) mEq/L Carbon Dioxide (19-29) mEq/L BUN (7-20) mg/dL Creatinine (0.57-1.11) mg/dL Est GFR ( Amer) (> 60) Est GFR (Non-Af Amer) (> 60) BUN/Creatinine Ratio (6-26) Glucose (70-99) mg/dL Calculated Osmolality (280-300) Calcium (8.6-10.8) mg/dL Total Bilirubin (0.2-1.2) mg/dL Direct Bilirubin (0.0-0.5) mg/dL Indirect Bilirubin (0.0-1.2) mg/dL AST (5-34) Units/L ALT (0-55) Units/L Alkaline Phosphatase (38-126) Units/L Ammonia (18-72) mcmol/L Troponin I (0-0.03) ng/mL Serum Total Protein (6.0-8.3) g/dL Albumin (3.5-5.0) g/dL Globulin (2.4-3.5) g/dL Albumin/Globulin Ratio (1.1-2.2) Urine Color Dark Yellow (Yellow) Urine Clarity Turbid A (Clear) Urine pH 5.0 (5.0-8.0) pH Units Ur Specific [place] > 1.030 H (1.010-1.025) Urine Protein 30 H (Neg-Trace) mg/dL Urine Glucose (UA) Normal (Normal) mg/dL Urine Ketones Trace H (Negative) mg/dL Urine Blood Negative (Negative) Urine Nitrite Negative (Negative) Urine Bilirubin Moderate H (Negative) Urine Urobilinogen Normal (Normal) mg/dL Ur Leukocyte Esterase Small H (Negative) Urine Microscopic RBC 30-50 H (0-3) per hpf Urine Microscopic WBC 15-30 H (0-3) per hpf Ur Squamous Epith Cells Many H (None-Few) per lpf Amorphous Sediment Many H (Few) Urine Bacteria None Seen (None-Few) per hpf Ur Culture Indicated? YES A (NO) Urine Opiates Screen Negative (Fquqmz=222) ng/mL Ur Barbiturates Screen Negative (Fiakza=284) ng/mL Ur Phencyclidine Scrn Negative (Cutoff=25) ng/mL Ur Amphetamines Screen Negative (Zozdhr=7554) ng/mL U Benzodiazepines Scrn Negative (Kjqojd=636) ng/mL Urine Cocaine Screen Negative (Cutoff= 300) ng/mL U Marijuana (THC) Screen Negative (Cutoff = 50) ng/mL Ethyl Alcohol (0-10) mg/dL 11/18/16 11/18/16 11/18/16 Range/Units 16:23 16:23 16:23 WBC (4.3-11.1) K/mcL RBC (3.82-4.97) M/mcL Hgb (11.5-15.4) g/dL Hct (35.3-44.9) % MCV (83.0-100.0) fL MCH (28.0-33.3) pg MCHC (31.6-35.5) g/dL RDW (11.5-14.5) % Plt Count (140-400) K/mcL MPV (9.4-12.4) fL Immature Gran % (0-4) % Seg Neutrophils % % Lymphocytes % % Monocytes % % Eosinophils % % Basophils % % Neutrophils # (1.6-8.9) K/mcL Lymphocytes # (0.6-4.6) K/mcL Monocytes # (0.0-1.3) K/mcL Eosinophils # (0.0-0.6) K/mcL Basophils # (0.0-0.2) K/mcL PT 11.9 (9.4-12.1) Seconds INR 1.1 APTT 28.0 (26.0-36.0) Seconds Sodium 129 L (136-145) mEq/L Potassium 5.6 H (3.5-4.5) mEq/L Chloride 98 (98-109) mEq/L Carbon Dioxide 21 (19-29) mEq/L BUN 78 H (7-20) mg/dL Creatinine 7.21 H (0.57-1.11) mg/dL Est GFR ( Amer) 7 L (> 60) Est GFR (Non-Af Amer) 6 L (> 60) BUN/Creatinine Ratio 11 (6-26) Glucose 95 (70-99) mg/dL Calculated Osmolality 291 (280-300) Calcium 9.1 (8.6-10.8) mg/dL Total Bilirubin 0.4 (0.2-1.2) mg/dL Direct Bilirubin 0.1 (0.0-0.5) mg/dL Indirect Bilirubin 0.3 (0.0-1.2) mg/dL AST 44 H (5-34) Units/L ALT 12 (0-55) Units/L Alkaline Phosphatase 79 (38-126) Units/L Ammonia 22 (18-72) mcmol/L Troponin I (0-0.03) ng/mL Serum Total Protein 6.8 (6.0-8.3) g/dL Albumin 3.2 L (3.5-5.0) g/dL Globulin 3.6 H (2.4-3.5) g/dL Albumin/Globulin Ratio 0.9 L (1.1-2.2) Urine Color (Yellow) Urine Clarity (Clear) Urine pH (5.0-8.0) pH Units Ur Specific [place] (1.010-1.025) Urine Protein (Neg-Trace) mg/dL Urine Glucose (UA) (Normal) mg/dL Urine Ketones (Negative) mg/dL Urine Blood (Negative) Urine Nitrite (Negative) Urine Bilirubin (Negative) Urine Urobilinogen (Normal) mg/dL Ur Leukocyte Esterase (Negative) Urine Microscopic RBC (0-3) per hpf Urine Microscopic WBC (0-3) per hpf Ur Squamous Epith Cells (None-Few) per lpf Amorphous Sediment (Few) Urine Bacteria (None-Few) per hpf Ur Culture Indicated? (NO) Urine Opiates Screen (Cavyft=542) ng/mL Ur Barbiturates Screen (Mhyqtq=430) ng/mL Ur Phencyclidine Scrn (Cutoff=25) ng/mL Ur Amphetamines Screen (Mcdltj=3572) ng/mL U Benzodiazepines Scrn (Lhutar=316) ng/mL Urine Cocaine Screen (Cutoff= 300) ng/mL U Marijuana (THC) Screen (Cutoff = 50) ng/mL Ethyl Alcohol < 10 (0-10) mg/dL 11/18/16 Range/Units 16:23 WBC (4.3-11.1) K/mcL RBC (3.82-4.97) M/mcL Hgb (11.5-15.4) g/dL Hct (35.3-44.9) % MCV (83.0-100.0) fL MCH (28.0-33.3) pg MCHC (31.6-35.5) g/dL RDW (11.5-14.5) % Plt Count (140-400) K/mcL MPV (9.4-12.4) fL Immature Gran % (0-4) % Seg Neutrophils % % Lymphocytes % % Monocytes % % Eosinophils % % Basophils % % Neutrophils # (1.6-8.9) K/mcL Lymphocytes # (0.6-4.6) K/mcL Monocytes # (0.0-1.3) K/mcL Eosinophils # (0.0-0.6) K/mcL Basophils # (0.0-0.2) K/mcL PT (9.4-12.1) Seconds INR APTT (26.0-36.0) Seconds Sodium (136-145) mEq/L Potassium (3.5-4.5) mEq/L Chloride (98-109) mEq/L Carbon Dioxide (19-29) mEq/L BUN (7-20) mg/dL Creatinine (0.57-1.11) mg/dL Est GFR ( Amer) (> 60) Est GFR (Non-Af Amer) (> 60) BUN/Creatinine Ratio (6-26) Glucose (70-99) mg/dL Calculated Osmolality (280-300) Calcium (8.6-10.8) mg/dL Total Bilirubin (0.2-1.2) mg/dL Direct Bilirubin (0.0-0.5) mg/dL Indirect Bilirubin (0.0-1.2) mg/dL AST (5-34) Units/L ALT (0-55) Units/L Alkaline Phosphatase (38-126) Units/L Ammonia (18-72) mcmol/L Troponin I 0.01 (0-0.03) ng/mL Serum Total Protein (6.0-8.3) g/dL Albumin (3.5-5.0) g/dL Globulin (2.4-3.5) g/dL Albumin/Globulin Ratio (1.1-2.2) Urine Color (Yellow) Urine Clarity (Clear) Urine pH (5.0-8.0) pH Units Ur Specific [place] (1.010-1.025) Urine Protein (Neg-Trace) mg/dL Urine Glucose (UA) (Normal) mg/dL Urine Ketones (Negative) mg/dL Urine Blood (Negative) Urine Nitrite (Negative) Urine Bilirubin (Negative) Urine Urobilinogen (Normal) mg/dL Ur Leukocyte Esterase (Negative) Urine Microscopic RBC (0-3) per hpf Urine Microscopic WBC (0-3) per hpf Ur Squamous Epith Cells (None-Few) per lpf Amorphous Sediment (Few) Urine Bacteria (None-Few) per hpf Ur Culture Indicated? (NO) Urine Opiates Screen (Gkwsgc=821) ng/mL Ur Barbiturates Screen (Gbhiuo=295) ng/mL Ur Phencyclidine Scrn (Cutoff=25) ng/mL Ur Amphetamines Screen (Rtxmih=0036) ng/mL U Benzodiazepines Scrn (Znextc=479) ng/mL Urine Cocaine Screen (Cutoff= 300) ng/mL U Marijuana (THC) Screen (Cutoff = 50) ng/mL Ethyl Alcohol (0-10) mg/dL - Radiology Data Chest X-Ray 11/18/16 15:53 IMPRESSION: Normal chest. No significant change from the prior study. D/ / Francisco Harden MD / Francisco Harden MD Interpreting Provider: Francisco Harden MD Head CT 11/18/16 15:56 IMPRESSION: No acute intracranial abnormality. D/ / Carlos Alberto Pickett MD / Carlos Alberto Pickett MD Interpreting Provider: Carlos Alberto Pickett MD - EKG Data EKG attestation: Yes I reviewed and interpreted this EKG. EKG results narrative: Patient's ECG from 3:26 PM shows sinus tachycardia with low QRS voltage likely due to patient's morbid obesity. Patient's previous ECG conducted on 2016 at 4:24 PM shows sinus rhythm with a sinus arrhythmia. It also shows low voltage in precordial leads. TPA Checklist - Eligibilty for IV tPA 1. LKW equal to or less than 4.5 hours be before treatment: No Attestation Statement - Attestation Attestation: I examined this patient and my medical decision-making was reviewed with the Resident Physician. I agree with the documented findings, disposition and treatment plan as described except to the extent set forth below. I had face-to- face time with the patient. This is a 51-year-old with a history of recent UTI comes in with tachycardia, hypotension. Patient was given fluid bolus and the blood pressure did come up. Physical examination she is awake and does answer questions appropriately at this time. We'll obtain lab work and imaging and patient will be admitted for further evaluation and treatment.
[2016-11-18] MEDS ORDERED: 0.9 % Sodium Chloride 500 ML IVC ONE (16:19)
[2016-11-18 16:21] LABS: Amphetamine Screen,Urine Negative ng/mL (Cutoff=1000); Barbiturate Screen,Urine Negative ng/mL (Cutoff=200); Benzodiazepines Screen,Urine Negative ng/mL (Cutoff=200); Cannabinoid Screen,Urine Negative ng/mL (Cutoff = 50); Cocaine Screen,Urine Negative ng/mL (Cutoff= 300); Opiate Screen,Urine Negative ng/mL (Cutoff=300); Phencyclidine Screen,Urine Negative ng/mL (Cutoff=25)
[2016-11-18 16:22] LABS: Bilirubin,Urine Moderate (Negative); Blood,Urine Negative (Negative); Clarity,Urine Turbid (Clear); Color,Urine Dark Yellow (Yellow); Glucose,Urine (UA) Normal (Normal); Ketones,Urine Trace mg/dL (Negative); Leukocyte Esterase,Urine Small (Negative); Nitrite,Urine Negative (Negative); Protein,Urine 30 mg/dL (Neg-Trace); Specific Gravity,Urine > 1.030 (1.010-1.025); Urobilinogen,Urine Normal (Normal)
[2016-11-18 16:24] LABS: Bacteria,Urine None Seen per hpf (None-Few); RBC,Urine 30-50 per hpf (0-3); Squamous Epithelial Cell,Urine Many per lpf (None-Few); WBC,Urine 15-30 per hpf (0-3)
[2016-11-18 16:31] LABS: Basophils % 0.2 %; Hematocrit 29.6 % (35.3-44.9); Immature Granulocytes % 0.9 % (0-4); Lymphocytes # 1.8 K/mcL (0.6-4.6); Lymphocytes % 10.1 %; Mean Corpuscular HGB Conc 31.1 g/dL (31.6-35.5); Mean Corpuscular Hemoglobin 27.6 pg (28.0-33.3); Mean Corpuscular Volume 88.9 fL (83.0-100.0); Mean Platelet Volume 11.6 fL (9.4-12.4); Monocytes # 1.7 K/mcL (0.0-1.3); Monocytes % 9.9 %; Neutrophils # 13.8 K/mcL (1.6-8.9); Platelet Count 188 K/mcL (140-400); Red Blood Count 3.33 M/mcL (3.82-4.97); Red Cell Distribution Width 15.5 % (11.5-14.5); Segmented Neutrophils % 78.9 %
[2016-11-18 16:35] LABS: Hemoglobin 9.2 g/dL (11.5-15.4)
[2016-11-18 16:39] LABS: INR 1.1; Prothrombin Time 11.9 Seconds (9.4-12.1)
[2016-11-18 16:42] LABS: Amorphous Sediment,Urine Many (Few)
[2016-11-18 16:46] LABS: Alanine Aminotransferase 12 Units/L (0-55); Albumin 3.2 g/dL (3.5-5.0); Albumin/Globulin Ratio 0.9 (1.1-2.2); Alkaline Phosphatase 79 Units/L (38-126); Aspartate Amino Transferase 44 Units/L (5-34); BUN/Creatinine Ratio 11 (6-26); Bilirubin,Direct 0.1 mg/dL (0.0-0.5); Bilirubin,Indirect 0.3 mg/dL (0.0-1.2); Bilirubin,Total 0.4 mg/dL (0.2-1.2); Blood Urea Nitrogen 78 mg/dL (7-20); Calcium 9.1 mg/dL (8.6-10.8); Carbon Dioxide 21 mEq/L (19-29); Chloride 98 mEq/L (98-109); Globulin 3.6 g/dL (2.4-3.5); Glucose 95 mg/dL (70-99); Osmolality,Calculated 291 (280-300); Potassium 5.6 mEq/L (3.5-4.5); Sodium 129 mEq/L (136-145); Total Protein 6.8 g/dL (6.0-8.3); eGFR For African Americans 7 (> 60); eGFR For Non-African Americans 6 (> 60)
[2016-11-18 16:48] LABS: Ethanol < 10 mg/dL (0-10)
[2016-11-18] MEDS: 0.9 % Sodium Chloride 1,000 ML IVC SCH (18:19)
[2016-11-18] MEDS ORDERED: Calcium Gluconate 2,000 MG in D5% in Water 100 ML IVPB ONE (20:54)
--- NOTE | 2016-11-18 20:54 | Internal Med History&Physical ---
<Lotus Allen - Last Filed: 11/19/16 00:04> Date of Encounter: 11/18/16 Time of Encounter: 20:00 Assessment and Plan (1) DELVIN (acute kidney injury) Current visit: No Status: Acute - SCr 7.21 / eGFR 6 on admission and was 0.87 and > 60 on 11/11/16. - Can be secondary to dehydration (patient reports reduced oral intake), ATN or AIN (patient was on antibiotics), postrenal. - Will check urine Na, urine Cr, urine urea, and urine eosinophilia. - Will obtain retroperitoneal US to evaluate possible postrenal cause. - Continue hydration with IV fluid. - Closely monitor renal function and electrolytes. - May consider nephrology consult if persists. (2) Hyperkalemia Current visit: Yes Status: Acute - K 5.6 on admission. - Likely secondary to current DELVIN. - EKG does show some prolongation of IL and QRS compared to prior EKG from . - Will give Ca gluconate, IV insulin with D50W and Kayexalate. - Close monitor serum K level. (3) Hyponatremia Current visit: Yes Status: Acute - Na 129 on admission, which dropped from 139 on 11/11/16. - Likely secondary to current DELVIN. - Continue IV NS. - Closely monitor serum Na. The goal is to increase no more than 6 meq over 24 hours. (4) Anemia Current visit: No Status: Chronic - Hgb 9.2 on admission, which dropped from 11.1 on 11/11/16. - Known history of iron deficiency anemia and on iron supplement at home. - Patient reports no active sign of bleeding. - Continue home iron supplement. - Continue to monitor H&H. Qualifiers: Anemia type: iron deficiency Iron deficiency anemia type: unspecified iron deficiency Qualified Code(s): D50.9 - Iron deficiency anemia, unspecified (5) UTI (urinary tract infection) Current visit: No Status: Suspected - Urine culture from 11/11/16 grew gray-sensitive E. coli. - Patient was on Keflex and Bactrim at home since 11/11/16. - Patient reports urinary symptoms improve with no dysuria at this time. - Pending urine culture and blood cultures. - Patient received one dose of IV ceftriaxone in ED. Qualifiers: Urinary tract infection type: site unspecified Hematuria presence: without hematuria Qualified Code(s): N39.0 - Urinary tract infection, site not specified (6) Hypothyroidism Current visit: No Status: Chronic - Continue home dose Synthroid. Qualifiers: Hypothyroidism type: unspecified Qualified Code(s): E03.9 - Hypothyroidism , unspecified (7) DVT prophylaxis Current visit: No Status: Acute - SQ heparin. Internal Medicine - H&P: HPI Chief complaint: "Cannot walk" Admitted From: Emergency Dept Plans for Post Hospital Care: Home History of present illness: Ms. Flores is a 51 year old female with PMH of morbid obesity, hypothyroidism, HTN, HLD, anxiety/depression, history of kidney stone and ED visit on 11/11/16 for gray-sensitive E. coli UTI and discharged home with 10-day course of Keflex and Bactrim. Patient's daughter called EMS and stated that she had not left her couch for the past day. Patient reports feeling shaky and cannot walk starting today. Patient also reports subjective fever, chills, nausea, cough, generalized weakness and weight loss of 20-30 lbs within past 10 days. Patient admits reduced oral intake. Patient states urinary symptoms improved with antibiotics and she has been compliant. Patient denies NSAIDs use or any recent change of medications. Patient was noted to have leukocytosis (WBC 17.5) and DELVIN (SCr 7.21) in ED and received IV NS and IV ceftriaxone. Past Med Surg Social Fam HX - Past Medical History Medical history: asthma, hypertension, other Psychiatric history: anxiety, depression - Past Surgical History Surgical History: , hysterectomy, other (carpal tunnel) - Social History Smoking Status: Never smoker Smokeless Tobacco Status: No Alcohol use: none Drug use: none - Family History Mother Living Status: Hx Family Cancer: Yes (breast cancer, ovarian cancer) Internal Medicine - H&P: Meds Albuterol Neb [Proventil Neb] 2.5 mg IH TID PRN 08/03/16 [History] Aspirin Enteric Coated [Aspirin EC] 81 mg PO DAILY 08/03/16 [History] Cyclobenzaprine [Flexeril] 10 mg PO TID PRN 08/03/16 [History] Fluticasone Propionate Nasal [Flonase] 1 spray NS DAILY 08/03/16 [History] Gabapentin [Neurontin] 800 mg PO TID 08/03/16 [History] LORazepam [Lorazepam] 2 mg PO BID PRN 08/03/16 [History] Levothyroxine [Synthroid] 50 mcg PO 0630 08/03/16 [History] Lisinopril [Zestril] 20 mg PO DAILY 08/03/16 [History] Omeprazole [PriLOSEC] 20 mg PO DAILY 08/03/16 [History] Simvastatin [Zocor] 40 mg PO HS 08/03/16 [History] Tramadol HCl [Ultram] 50 mg PO TID PRN 08/03/16 [History] Venlafaxine XR (24 HR) [Effexor Xr] 150 mg PO DAILY 08/03/16 [History] Zolpidem [Ambien] 10 mg PO HS 08/03/16 [History] risperiDONE [Risperdal] 2 mg PO HS 08/03/16 [History] Ferrous Sulfate 325 mg PO BIDWM #60 tablet 08/07/16 [Rx] Furosemide [Lasix] 20 mg PO DAILY #20 08/07/16 [Rx] Spironolactone [Aldactone] 25 mg PO DAILY #30 08/07/16 [Rx] cephALEXin [Keflex] 500 mg PO QID #40 capsule 11/11/16 [Rx] Ketotifen Fumarate [Zaditor] 1 drop BOTH EYES BID 11/18/16 [History] Sulfamethoxazole/Trimeth DS [Bactrim DS] 1 tab PO BID 11/18/16 [History] Topiramate [Topamax] 25 mg PO HS 11/18/16 [History] Allergies nitrofurantoin [From Macrodantin] Allergy (Verified 11/11/16 17:01) Itching duloxetine [From Cymbalta] Adverse Reaction (Verified 11/11/16 17:01) Depression pregabalin [From Lyrica] Adverse Reaction (Verified 11/11/16 17:01) See Comments gain water weight All Systems PM: A 10-system review of systems was performed and is negative for pertinent findings except as documented above in the HPI. - Constitutional Constitutional: anorexia, chills, fatigue, fever(s) (Subjective), weight loss - EENT Eyes: no change in vision Ears: no decreased hearing Nose, mouth and throat: no dysphagia, no odynophagia - Cardiovascular Cardiovascular ROS IM: no chest pain, no syncope - Respiratory Respiratory: cough, pain with cough, no dyspnea, no hemoptysis, no excessive phlegm production - Gastrointestinal Gastrointestinal: nausea, no abdominal pain, no diarrhea, no hematochezia, no melena, no vomiting - Genitourinary Genitourinary: no difficulty urinating, no dysuria, no hematuria - Musculoskeletal Musculoskeletal ROS IM: no arthralgias, no myalgias - Integumentary Integumentary IM: no pruritus, no rash - Neurological Neurological ROS: no focal weakness, no numbness, no tingling - Hematologic/Lymphatic Hematologic/Lymphatic: no easy bleeding, no easy bruising - Constitutional Vitals: Temp Pulse Resp BP Pulse Ox 99.1 F 99 18 103/59 96 11/18/16 15:45 11/18/16 19:43 11/18/16 20:30 11/18/16 20:30 11/18/16 19:43 General appearance: Present: cooperative, A&O X 3, no acute distress - Head Head exam: Present: atraumatic, normocephalic - Eye Eye exam: Present: EOMI, PERRL, conjuntiva pink, sclera anicteric - Neck Neck exam general surgery: Present: supple, trachea midline. Absent: lymphadenopathy - Respiratory Respiratory exam: Present: decreased breath sounds. Absent: accessory muscle use, rales, rhonchi, wheezes - Cardiovascular Cardiovascular exam: Present: +S1, +S2, tachycardia. Absent: diastolic murmur, gallop, rubs, systolic murmur - GI/Abdominal GI/Abdominal exam: Present: normal bowel sounds, soft, no peritoneal signs. Absent: distended, tenderness - Extremities Exam Extremities exam: Present: pedal edema (Mild non-pitting BLE edema), warm, radial pulses palpable and symetrical. Absent: calf tenderness, cyanotic - Neurological Exam Neurological exam: Present: CN II-XII intact, oriented X3, no focal deficits. Absent: pronater drift, facial droop, speech deficit - Skin Skin exam: Present: dry, intact, warm Internal Med - H&P Results - Labs CBC & Chem 7: 11/18/16 16:23 11/18/16 16:23 <Jong Salas A - Last Filed: 11/19/16 03:30> Date of Encounter: 11/18/16 Assessment and Plan (1) Sepsis Current visit: Yes Status: Acute most likely related to failed outpatient UTI treatment, will treat as above Qualifiers: Sepsis type: sepsis due to unspecified organism Qualified Code(s): A41.9 - Sepsis, unspecified organism (2) Intertriginous candidiasis Current visit: Yes Status: Acute may be due to body habitus, will use nystatin powder (3) Hyperkalemia Current visit: Yes Status: Acute Internal Medicine - H&P: HPI History of present illness: Ms. Flores is a 51 year old female Past Med Surg Social Fam HX - Additional Family History Additional family history: Both parents are , father had DM and HTN, mother had no known medical conditions, paternal grandmother had cancer All Systems PM: A 10-system review of systems was performed and is negative for pertinent findings except as documented above in the HPI. - Constitutional Vitals: Temp Pulse Resp BP Pulse Ox 98.3 F 99 18 149/107 95 11/18/16 21:29 11/18/16 21:29 11/18/16 23:57 11/18/16 21:29 11/18/16 23:57 Internal Med - H&P Results - Labs CBC & Chem 7: 11/18/16 16:23 11/19/16 00:04 Labs: BMP 11/19/16 00:04 Sodium 132 L Potassium 5.3 H Chloride 101 Carbon Dioxide 20 BUN 76 H Creatinine 6.23 H Glucose 107 H Calcium 9.4 - Diagnostic Studies Chest x-ray Status: image reviewed by me CT scan - head Status: image reviewed by me - Attending Attestation I personally interviewed and examined this patient and my medical decision- making was reviewed with the Resident Physician. I agree with the documented findings, disposition and treatment plan as described except as edited in the note. Bactrim use may have contributed to the hyperkalemia. Jong Salas MD, MPH Hospitalist
[2016-11-18] MEDS ORDERED: Insulin Human Regular 10 UNIT in 0.9 % Sodium Chloride 10 ML IV ONE (20:55)
[2016-11-18] MEDS ORDERED: *HR* Dextrose 50 % in Water (Syg) 50 ML SYRINGE IVP ONE (20:55)
[2016-11-18] MEDS ORDERED: 0.9 % Sodium Chloride 1,000 ML IVC ONE (20:59)
[2016-11-18] MEDS ORDERED: Albuterol 2.5 MG/3 ML NEBULIZER IH PRN (21:24)
[2016-11-18] MEDS ORDERED: traMADol 50 MG TABLET PO PRN (21:24)
[2016-11-19 00:33] LABS: Calcium 9.4 mg/dL (8.6-10.8); Potassium 5.3 mEq/L (3.5-4.5)
[2016-11-19] MEDS: Nystatin POWDER 30 GM BOTTLE TP SCH ×4 (02:06→19:34)
[2016-11-19] MEDS: 0.9 % Sodium Chloride 1,000 ML IVC SCH ×3 (02:32→14:36)
[2016-11-19] MEDS ORDERED: *HR* Heparin 5,000 UNIT/ML VIAL SQ SCH (06:00)
[2016-11-19 06:41] LABS: Basophils % 0.1 %; Hematocrit 32.3 % (35.3-44.9); Immature Granulocytes % 0.7 % (0-4); Lymphocytes # 1.6 K/mcL (0.6-4.6); Lymphocytes % 10.1 %; Mean Corpuscular Hemoglobin 27.2 pg (28.0-33.3); Mean Platelet Volume 12.1 fL (9.4-12.4); Monocytes # 1.7 K/mcL (0.0-1.3); Monocytes % 10.8 %; Platelet Count 179 K/mcL (140-400); Red Blood Count 3.67 M/mcL (3.82-4.97); Red Cell Distribution Width 15.2 % (11.5-14.5); Segmented Neutrophils % 78.3 %
[2016-11-19 06:43] LABS: Calcium 9.3 mg/dL (8.6-10.8); Potassium 5.1 mEq/L (3.5-4.5)
--- NOTE | 2016-11-19 08:46 | Internal Med Progress Note ---
Date of Encounter: 11/20/16 Time of Encounter: 08:44 - Assessment and plan (1) Acute renal failure (ARF) Current Visit: No Status: Acute Assessment and plan: Could be multifactorial secondary to sepsis, nephrotoxin of Escherichia coli and antibiotics, prerenal. Nephrology is consulted. Daily monitoring of renal function as well as IV hydration aggressively. Qualifiers: Acute renal failure type: unspecified Qualified Code(s): N17.9 - Acute kidney failure, unspecified (2) Sepsis Current Visit: Yes Status: Acute Assessment and plan: Patient presented with confusion and elevated white count previous urine culture positive for Escherichia coli. She will be treated with Cipro which the Escherichia coli is sensitive. She will be monitored hemodynamically closely and daily white cell count. Qualifiers: Sepsis type: Escherichia coli Qualified Code(s): A41.51 - Sepsis due to Escherichia coli [E. coli] (3) Acute metabolic encephalopathy Current Visit: Yes Status: Acute Assessment and plan: Confusion perhaps related to multifactorial reasons including acute renal failure and sepsis. Watch clinically and assess daily. (4) UTI (urinary tract infection) Current Visit: No Status: Suspected Assessment and plan: E.coli on urine culture and gray sensitive , will treat with cipro. Qualifiers: Urinary tract infection type: site unspecified Hematuria presence: without hematuria Qualified Code(s): N39.0 - Urinary tract infection, site not specified (5) Hyperkalemia Current Visit: Yes Status: Acute Assessment and plan: daily monitoring, IVF (6) Urinary retention Current Visit: No Status: Acute Assessment and plan: almost 1100 cc , witt catheter (7) DVT prophylaxis Current Visit: No Status: Acute Assessment and plan: Reduce heparin 5000 BID - Subjective Interval history: Ms. Flores is a 51 year old female with PMH of morbid obesity, hypothyroidism, HTN, HLD, anxiety/depression, history of kidney stone and ED visit on 11/11/16 for gray-sensitive E. coli UTI and discharged home with 10-day course of Keflex and Bactrim. Patient presented with confusion and was diagnosed with acute renal failure creatinine 7. Bladder ultrasound showed 1100 mL. Witt catheter has been placed IV fluid to started and renal function has not started improving. White count is elevated in the range of 17,000 with confusion and renal failure satisfies criteria for sepsis. Renally adjusted Cipro was started and IV Rocephin was stopped due to risk of nephrotoxicity. Metformin and lisinopril already on hold.. Will treat with aggressive IV fluid. Nephrology consulted. All nephrotoxins removed. Accu-Chek 4 times a day with sliding scale coverage for her diabetes. - Constitutional Vitals: Temp Pulse Resp BP Pulse Ox 98.7 F 96 20 102/54 93 11/19/16 07:02 11/19/16 07:02 11/19/16 07:02 11/19/16 07:02 11/19/16 07:02 General appearance: Present: cooperative, A&O X 3, no acute distress - Head Head exam: Present: atraumatic, normocephalic - Eye Eye exam: Present: PERRL, conjuntiva pink, sclera anicteric Pupils: Present: PERRL - Neck Neck exam general surgery: Present: supple, trachea midline. Absent: lymphadenopathy - Respiratory Respiratory exam: Present: CTAB. Absent: accessory muscle use, rales, rhonchi, wheezes - Cardiovascular Cardiovascular exam: Present: RRR, +S1, +S2. Absent: diastolic murmur, gallop, rubs, systolic murmur - GI/Abdominal GI/Abdominal exam: Present: normal bowel sounds, soft, no peritoneal signs. Absent: distended, tenderness - Extremities Exam Extremities exam: Present: warm, radial pulses palpable and symetrical. Absent : calf tenderness, cyanotic, pedal edema - Neurological Exam Neurological exam: Present: CN II-XII intact, oriented X3, no focal deficits. Absent: pronater drift, facial droop, speech deficit - Skin Skin exam: Present: dry, intact Internal Medicine: Result - Labs CBC & Chem 7: 11/20/16 04:45 11/20/16 04:45 Labs: Short CBC 11/19/16 Range/Units 06:13 WBC 15.3 H (4.3-11.1) K/mcL Hgb 10.0 L (11.5-15.4) g/dL Hct 32.3 L (35.3-44.9) % Plt Count 179 (140-400) K/mcL Neutrophils # 12.0 H (1.6-8.9) K/mcL BMP 11/19/16 11/19/16 00:04 06:13 Sodium 132 L 133 L Potassium 5.3 H 5.1 H Chloride 101 103 Carbon Dioxide 20 22 BUN 76 H 68 H Creatinine 6.23 H 4.80 H Glucose 107 H 115 H Calcium 9.4 9.3 - ABG Interpretation ABG results: PT/INR, D-dimer PT 11.9 Seconds (9.4-12.1) 11/18/16 16:23 Consult Discharge Plan - Plan Referrals: NONE,PCP [Primary Care Provider] -
[2016-11-19] MEDS: Aspirin Enteric Coated 81 MG Tablet PO SCH (09:13)
[2016-11-19] MEDS: Venlafaxine XR (24 HR) 150 MG CAP.ER.24H PO SCH (09:13)
[2016-11-19] MEDS: *HR* HYDROcodone/Acet 5/325 mg TABLET PO PRN (09:22)
--- NOTE | 2016-11-19 11:53 | Event Note ---
Date of Encounter: 11/19/16 Time of Encounter: 11:51 [facility] I started to consult on this pt as requested but upon immediate review I see that the other, private nephrology group has already established with this pt back in July. 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 I will sign- off. Thank you.
[2016-11-19] MEDS ORDERED: Acetaminophen 325 MG TABLET PO PRN (15:12)
[2016-11-19] MEDS: *HR* Heparin 5,000 UNIT/ML VIAL SQ SCH (18:37)
[2016-11-19] MEDS: Topiramate 25 MG TABLET PO SCH (19:34)
[2016-11-20] MEDS: 0.9 % Sodium Chloride 1,000 ML IVC SCH ×2 (00:45→09:45)
[2016-11-20] MEDS: *HR* Heparin 5,000 UNIT/ML VIAL SQ SCH ×2 (04:59→17:23)
[2016-11-20 05:52] LABS: Basophils % 0.2 %; Hematocrit 28.2 % (35.3-44.9); Hemoglobin 8.6 g/dL (11.5-15.4); Immature Granulocytes % 0.6 % (0-4); Lymphocytes # 2.1 K/mcL (0.6-4.6); Lymphocytes % 16.6 %; Mean Corpuscular HGB Conc 30.5 g/dL (31.6-35.5); Mean Corpuscular Hemoglobin 26.9 pg (28.0-33.3); Mean Corpuscular Volume 88.1 fL (83.0-100.0); Mean Platelet Volume 12.4 fL (9.4-12.4); Monocytes # 1.3 K/mcL (0.0-1.3); Monocytes % 10.3 %; Neutrophils # 9.1 K/mcL (1.6-8.9); Platelet Count 174 K/mcL (140-400); Red Cell Distribution Width 15.2 % (11.5-14.5); Segmented Neutrophils % 72.3 %
[2016-11-20 06:08] LABS: Alanine Aminotransferase 14 Units/L (0-55); Albumin/Globulin Ratio 0.7 (1.1-2.2); Alkaline Phosphatase 81 Units/L (38-126); Aspartate Amino Transferase 48 Units/L (5-34); BUN/Creatinine Ratio 28 (6-26); Blood Urea Nitrogen 59 mg/dL (7-20); Calcium 8.8 mg/dL (8.6-10.8); Carbon Dioxide 23 mEq/L (19-29); Chloride 108 mEq/L (98-109); Globulin 3.6 g/dL (2.4-3.5); Glucose 104 mg/dL (70-99); Magnesium 2.1 mg/dL (1.6-2.6); Osmolality,Calculated 301 (280-300); Phosphorous 3.4 mg/dL (2.3-4.7); Sodium 137 mEq/L (136-145); eGFR For African Americans 30 (> 60); eGFR For Non-African Americans 24 (> 60)
[2016-11-20 06:09] LABS: Albumin 2.4 g/dL (3.5-5.0); Bilirubin,Total < 0.3 mg/dL (0.2-1.2)
[2016-11-20] MEDS: Venlafaxine XR (24 HR) 150 MG CAP.ER.24H PO SCH (07:45)
[2016-11-20] MEDS: Nystatin POWDER 30 GM BOTTLE TP SCH ×3 (07:45→23:58)
[2016-11-20] MEDS: Aspirin Enteric Coated 81 MG Tablet PO SCH (07:45)
--- NOTE | 2016-11-20 08:49 | Internal Med Progress Note ---
Date of Encounter: 11/20/16 Time of Encounter: 08:45 - Assessment and plan (1) Acute renal failure (ARF) Current Visit: Yes Status: Acute Qualifiers: Acute renal failure type: unspecified Qualified Code(s): N17.9 - Acute kidney failure, unspecified (2) Sepsis Current Visit: Yes Status: Acute Qualifiers: Sepsis type: Escherichia coli Qualified Code(s): A41.51 - Sepsis due to Escherichia coli [E. coli] (3) Acute metabolic encephalopathy Current Visit: Yes Status: Acute (4) UTI (urinary tract infection) Current Visit: Yes Status: Suspected Qualifiers: Urinary tract infection type: site unspecified Hematuria presence: without hematuria Qualified Code(s): N39.0 - Urinary tract infection, site not specified (5) Hyperkalemia Current Visit: Yes Status: Acute (6) Urinary retention Current Visit: Yes Status: Acute (7) DVT prophylaxis Current Visit: Yes Status: Acute - Subjective Interval history: Ms. Flores is a 51 year old female with PMH of morbid obesity, hypothyroidism, HTN, HLD, anxiety/depression, history of kidney stone and ED visit on 11/11/16 for gray-sensitive E. coli UTI and discharged home with 10-day course of Keflex and Bactrim. Patient presented with confusion and was diagnosed with acute renal failure creatinine 7. Bladder ultrasound showed 1100 mL. Hutton catheter has been placed IV fluid to started and renal function has not started improving. White count is elevated in the range of 17,000 with confusion and renal failure satisfies criteria for sepsis. Renally adjusted Cipro was started and IV Rocephin was stopped due to risk of nephrotoxicity. Metformin and lisinopril already on hold.. Will treat with aggressive IV fluid. Nephrology consulted. All nephrotoxins removed. Accu-Chek 4 times a day with sliding scale coverage for her diabetes. 11/20 patient is awake nowand seems to be back to her baseline.her creatinine has improved and now it is in the range of 2. Her WBC count is around 12. It seems like that urinary retention was perhaps the main cuase of ARF. I will consult Urology. Dr Melchor informed. Hemodynimically she is stable - Constitutional Vitals: Temp Pulse Resp BP Pulse Ox 98.8 F 81 18 92/52 95 11/20/16 08:00 11/20/16 08:00 11/20/16 08:00 11/20/16 08:00 11/20/16 08:00 General appearance: Present: cooperative, A&O X 3, no acute distress - Head Head exam: Present: atraumatic, normocephalic - Eye Eye exam: Present: PERRL, conjuntiva pink, sclera anicteric Pupils: Present: PERRL - Neck Neck exam general surgery: Present: supple, trachea midline. Absent: lymphadenopathy - Respiratory Respiratory exam: Present: CTAB. Absent: accessory muscle use, rales, rhonchi, wheezes - Cardiovascular Cardiovascular exam: Present: RRR, +S1, +S2. Absent: diastolic murmur, gallop, rubs, systolic murmur - GI/Abdominal GI/Abdominal exam: Present: normal bowel sounds, soft, no peritoneal signs. Absent: distended, tenderness - Extremities Exam Extremities exam: Present: warm, radial pulses palpable and symetrical. Absent : calf tenderness, cyanotic, pedal edema - Neurological Exam Neurological exam: Present: CN II-XII intact, oriented X3, no focal deficits. Absent: pronater drift, facial droop, speech deficit - Skin Skin exam: Present: dry, intact Internal Medicine: Result - Labs CBC & Chem 7: 11/20/16 04:45 11/20/16 04:45 Labs: Short CBC 11/20/16 Range/Units 04:45 WBC 12.6 H (4.3-11.1) K/mcL Hgb 8.6 L (11.5-15.4) g/dL Hct 28.2 L (35.3-44.9) % Plt Count 174 (140-400) K/mcL Neutrophils # 9.1 H (1.6-8.9) K/mcL BMP 11/20/16 04:45 Sodium 137 Potassium 5.0 H Chloride 108 Carbon Dioxide 23 BUN 59 H Creatinine 2.14 H D Glucose 104 H Calcium 8.8 Liver Function 11/20/16 Range/Units 04:45 Total Bilirubin < 0.3 (0.2-1.2) mg/dL AST 48 H (5-34) Units/L ALT 14 (0-55) Units/L Alkaline Phosphatase 81 (38-126) Units/L Albumin 2.4 L D (3.5-5.0) g/dL - ABG Interpretation ABG results: PT/INR, D-dimer PT 11.9 Seconds (9.4-12.1) 11/18/16 16:23 Consult Discharge Plan - Plan Referrals: NONE,PCP [Primary Care Provider] -
--- NOTE | 2016-11-20 14:01 | Urology - Consult Note ---
Date of Encounter: 11/20/16 Time of Encounter: 13:59 - Assessment and Plan (1) Urinary retention Current Visit: Yes Status: Acute Assessment and plan: 51 year old woman with urinary retention and acute renal failure. Recommend keeping the catheter in for at least 7 days. She can follow up with me in the office for a voiding trial. (2) UTI (urinary tract infection) Current Visit: Yes Status: Suspected Assessment and plan: Okay to continue ciprofloxacion for E coli UTI. Would treat for 10 days. Qualifiers: Urinary tract infection type: site unspecified Hematuria presence: without hematuria Qualified Code(s): N39.0 - Urinary tract infection, site not specified Urology CN:HPI Consult date: 11/20/16 Reason for consult Urology: Other (urinary retention) History of present illness: 51 year old woman was admitted for a urinary tract infection and urinary retention. She reports feeling weak and tired. She was given antibiotics previously for a UTI from an ER visit. After she was admitted a renal and bladder ultrasound was obtained. This showed > 1000ml in the bladder. A witt catheter was placed. Her urine has been clear. Prior to this, she reports that she was able to void okay. She seemed to have a good flow and would empty well. She did not some urgency and urge incontinence. She was also noted to have a creatinine over 7. After the catheter was placed her creatinine has come down to 2. Past Med Surg Social Fam HX - Past Medical History Medical history: asthma, hypertension, other Psychiatric history: anxiety, depression - Past Surgical History Surgical History: , hysterectomy, other (carpal tunnel) - Social History Smoking Status: Never smoker Smokeless Tobacco Status: No Alcohol use: none Drug use: none - Family History Mother Living Status: Hx Family Cancer: Yes (breast cancer, ovarian cancer) Medications and Allergies Albuterol Neb [Proventil Neb] 2.5 mg IH TID PRN 08/03/16 [History] Aspirin Enteric Coated [Aspirin EC] 81 mg PO DAILY 08/03/16 [History] Cyclobenzaprine [Flexeril] 10 mg PO TID PRN 08/03/16 [History] Fluticasone Propionate Nasal [Flonase] 1 spray NS DAILY 08/03/16 [History] Gabapentin [Neurontin] 800 mg PO TID 08/03/16 [History] LORazepam [Lorazepam] 2 mg PO BID PRN 08/03/16 [History] Levothyroxine [Synthroid] 50 mcg PO 0630 08/03/16 [History] Lisinopril [Zestril] 20 mg PO DAILY 08/03/16 [History] Omeprazole [PriLOSEC] 20 mg PO DAILY 08/03/16 [History] Simvastatin [Zocor] 40 mg PO HS 08/03/16 [History] Tramadol HCl [Ultram] 50 mg PO TID PRN 08/03/16 [History] Venlafaxine XR (24 HR) [Effexor Xr] 150 mg PO DAILY 08/03/16 [History] Zolpidem [Ambien] 10 mg PO HS 08/03/16 [History] risperiDONE [Risperdal] 2 mg PO HS 08/03/16 [History] Ferrous Sulfate 325 mg PO BIDWM #60 tablet 08/07/16 [Rx] Furosemide [Lasix] 20 mg PO DAILY #20 08/07/16 [Rx] Spironolactone [Aldactone] 25 mg PO DAILY #30 08/07/16 [Rx] cephALEXin [Keflex] 500 mg PO QID #40 capsule 11/11/16 [Rx] Ketotifen Fumarate [Zaditor] 1 drop BOTH EYES BID 11/18/16 [History] Sulfamethoxazole/Trimeth DS [Bactrim DS] 1 tab PO BID 11/18/16 [History] Topiramate [Topamax] 25 mg PO HS 11/18/16 [History] Allergies nitrofurantoin [From Macrodantin] Allergy (Verified 11/11/16 17:01) Itching duloxetine [From Cymbalta] Adverse Reaction (Verified 11/11/16 17:01) Depression pregabalin [From Lyrica] Adverse Reaction (Verified 11/11/16 17:01) See Comments gain water weight Review of Systems - Constitutional no chills, no fever(s) - EENT Nose, mouth and throat: no dizziness - Cardiovascular no chest pain - Respiratory no dyspnea - Gastrointestinal no nausea, no vomiting - Genitourinary Genitourinary: difficulty urinating, no flank pain, no hematuria - Musculoskeletal no back pain - Integumentary no erythema, no rash - Neurological no weakness - Psychiatric no suicidal ideation - Hematologic/Lymphatic no easy bleeding - Allergic/Immunologic no wheezing Exam Initial Vital Signs Temp Pulse Resp BP Pulse Ox 99.1 F 107 20 99/64 96 11/18/16 15:45 11/18/16 15:45 11/18/16 15:45 11/18/16 15:45 11/18/16 15:45 - General physical appearance Present: well developed, well nourished, no distress - Eyes Absent: icteric - ENT Present: normal nares - Neck Present: trachea midline - Respiratory Present: normal respiratory effort - Cardiovascular Cardiovascular exam IM: RRR - Abdomen Abdomen: Present: soft - Genitourinary Present: other (Catheter in place with clear urine.) Urology Results - Labs 11/20/16 04:45 11/20/16 04:45 Abnormal lab results WBC 12.6 K/mcL (4.3-11.1) H 11/20/16 04:45 RBC 3.20 M/mcL (3.82-4.97) L 11/20/16 04:45 Hgb 8.6 g/dL (11.5-15.4) L 11/20/16 04:45 Hct 28.2 % (35.3-44.9) L 11/20/16 04:45 MCH 26.9 pg (28.0-33.3) L 11/20/16 04:45 MCHC 30.5 g/dL (31.6-35.5) L 11/20/16 04:45 RDW 15.2 % (11.5-14.5) H 11/20/16 04:45 Neutrophils # 9.1 K/mcL (1.6-8.9) H 11/20/16 04:45 Potassium 5.0 mEq/L (3.5-4.5) H 11/20/16 04:45 BUN 59 mg/dL (7-20) H 11/20/16 04:45 Creatinine 2.14 mg/dL (0.57-1.11) H D 11/20/16 04:45 Est GFR ( Amer) 30 (> 60) L 11/20/16 04:45 Est GFR (Non-Af Amer) 24 (> 60) L 11/20/16 04:45 BUN/Creatinine Ratio 28 (6-26) H 11/20/16 04:45 Glucose 104 mg/dL (70-99) H 11/20/16 04:45 Calculated Osmolality 301 (280-300) H 11/20/16 04:45 AST 48 Units/L (5-34) H 11/20/16 04:45 Albumin 2.4 g/dL (3.5-5.0) L D 11/20/16 04:45 Globulin 3.6 g/dL (2.4-3.5) H 11/20/16 04:45 Albumin/Globulin Ratio 0.7 (1.1-2.2) L 11/20/16 04:45 Urine Clarity Turbid (Clear) A 11/18/16 16:06 Ur Specific [place] > 1.030 (1.010-1.025) H 11/18/16 16:06 Urine Protein 30 mg/dL (Neg-Trace) H 11/18/16 16:06 Urine Ketones Trace mg/dL (Negative) H 11/18/16 16:06 Urine Bilirubin Moderate (Negative) H 11/18/16 16:06 Ur Leukocyte Esterase Small (Negative) H 11/18/16 16:06 Urine Microscopic RBC 30-50 per hpf (0-3) H 11/18/16 16:06 Urine Microscopic WBC 15-30 per hpf (0-3) H 11/18/16 16:06 Ur Squamous Epith Cells Many per lpf (None-Few) H 11/18/16 16:06 Amorphous Sediment Many (Few) H 11/18/16 16:06 Ur Culture Indicated? YES (NO) A 11/18/16 16:06 Diabetes panel 11/20/16 Range/Units 04:45 Sodium 137 (136-145) mEq/L Potassium 5.0 H (3.5-4.5) mEq/L Chloride 108 (98-109) mEq/L Carbon Dioxide 23 (19-29) mEq/L BUN 59 H (7-20) mg/dL Creatinine 2.14 H D (0.57-1.11) mg/dL Glucose 104 H (70-99) mg/dL Calcium 8.8 (8.6-10.8) mg/dL AST 48 H (5-34) Units/L ALT 14 (0-55) Units/L Alkaline Phosphatase 81 (38-126) Units/L Albumin 2.4 L D (3.5-5.0) g/dL Calcium panel 11/20/16 Range/Units 04:45 Calcium 8.8 (8.6-10.8) mg/dL Phosphorus 3.4 (2.3-4.7) mg/dL Albumin 2.4 L D (3.5-5.0) g/dL Pituitary panel 11/20/16 Range/Units 04:45 Sodium 137 (136-145) mEq/L Potassium 5.0 H (3.5-4.5) mEq/L Chloride 108 (98-109) mEq/L Carbon Dioxide 23 (19-29) mEq/L BUN 59 H (7-20) mg/dL Creatinine 2.14 H D (0.57-1.11) mg/dL Glucose 104 H (70-99) mg/dL Calcium 8.8 (8.6-10.8) mg/dL Adrenal panel 11/20/16 Range/Units 04:45 Sodium 137 (136-145) mEq/L Potassium 5.0 H (3.5-4.5) mEq/L Chloride 108 (98-109) mEq/L Carbon Dioxide 23 (19-29) mEq/L BUN 59 H (7-20) mg/dL Creatinine 2.14 H D (0.57-1.11) mg/dL Glucose 104 H (70-99) mg/dL Calcium 8.8 (8.6-10.8) mg/dL Total Bilirubin < 0.3 (0.2-1.2) mg/dL AST 48 H (5-34) Units/L ALT 14 (0-55) Units/L Alkaline Phosphatase 81 (38-126) Units/L Albumin 2.4 L D (3.5-5.0) g/dL All other labs normal. - Imaging US - abdomen: report reviewed, image reviewed US - pelvic: report reviewed, image reviewed Consult Discharge Plan - Plan Referrals: NONE,PCP [Primary Care Provider] -
[2016-11-20] MEDS: *HR* HYDROcodone/Acet 5/325 mg TABLET PO PRN ×2 (16:17→19:52)
[2016-11-20] MEDS: Topiramate 25 MG TABLET PO SCH (19:34)
[2016-11-20] MEDS: *HR* Morphine 2 MG/ML SYRINGE IVP PRN (20:54)
[2016-11-20] MEDS ORDERED: Melatonin 3 MG TABLET PO ONE (23:34)
[2016-11-21 04:01] LABS: Basophils % 0.2 %; Hematocrit 29.8 % (35.3-44.9); Immature Granulocytes % 0.9 % (0-4); Lymphocytes # 2.4 K/mcL (0.6-4.6); Lymphocytes % 27.5 %; Mean Corpuscular HGB Conc 30.2 g/dL (31.6-35.5); Mean Corpuscular Hemoglobin 27.2 pg (28.0-33.3); Mean Platelet Volume 12.2 fL (9.4-12.4); Monocytes % 11.2 %; Neutrophils # 5.3 K/mcL (1.6-8.9); Platelet Count 195 K/mcL (140-400); Red Blood Count 3.31 M/mcL (3.82-4.97); Segmented Neutrophils % 60.2 %
[2016-11-21 04:20] LABS: Alanine Aminotransferase 14 Units/L (0-55); Albumin 2.2 g/dL (3.5-5.0); Albumin/Globulin Ratio 0.6 (1.1-2.2); Alkaline Phosphatase 83 Units/L (38-126); Aspartate Amino Transferase 31 Units/L (5-34); BUN/Creatinine Ratio 29 (6-26); Calcium 9.2 mg/dL (8.6-10.8); Carbon Dioxide 28 mEq/L (19-29); Chloride 108 mEq/L (98-109); Globulin 3.6 g/dL (2.4-3.5); Glucose 111 mg/dL (70-99); Magnesium 1.6 mg/dL (1.6-2.6); Osmolality,Calculated 298 (280-300); Phosphorous 2.8 mg/dL (2.3-4.7); Sodium 140 mEq/L (136-145); Total Protein 5.8 g/dL (6.0-8.3); eGFR For African Americans > 60 (> 60); eGFR For Non-African Americans 53 (> 60)
[2016-11-21 04:21] LABS: Bilirubin,Total < 0.3 mg/dL (0.2-1.2); Blood Urea Nitrogen 32 mg/dL (7-20)
[2016-11-21] MEDS: *HR* Heparin 5,000 UNIT/ML VIAL SQ SCH ×2 (05:13→17:10)
[2016-11-21] MEDS: *HR* HYDROcodone/Acet 5/325 mg TABLET PO PRN ×2 (09:34→17:09)
[2016-11-21] MEDS: Venlafaxine XR (24 HR) 150 MG CAP.ER.24H PO SCH (09:35)
[2016-11-21] MEDS: Aspirin Enteric Coated 81 MG Tablet PO SCH (09:35)
[2016-11-21] MEDS: Nystatin POWDER 30 GM BOTTLE TP SCH ×3 (09:35→20:04)
--- NOTE | 2016-11-21 11:52 | Event Note ---
Date of Encounter: 11/21/16 Time of Encounter: 11:51 We were not notified of consult. DELVIN resolved. Will sign off. If needed in future please reconsult.
[2016-11-21] MEDS: 0.9 % Sodium Chloride 1,000 ML IVC SCH ×3 (15:07→15:09)
--- NOTE | 2016-11-21 15:15 | Electrocardiograph Report ---
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
--- NOTE | 2016-11-21 15:15 | Electrocardiograph Report ---
[address] [address] Test Date: 2016-11-18 Pat Name: Anne Marie Flores Department: 102 Room: 2NE16 Gender: F Pharmacy Services Representative: : [id number] Requested By: Heidi Bobby Order Number: [id number] Reading MD: Laurie Harvey Measurements Intervals [place] Rate: 104 P: 50 OK: 166 QRS: 16 QRSD: 116 T: 46 QT: 313 QTc: 374 Interpretive Statements SINUS TACHYCARDIA INDETERMINATE AXIS LOW QRS VOLTAGE IN PRECORDIAL LEADS [QRS DEFLECTION < 1.0 mV IN CHEST LEADS] MODERATE INTRAVENTRICULAR CONDUCTION DELAY [110+ ms QRS DURATION] ABNORMAL RHYTHM ECG Electronically Signed On 11-20-2016 22:12:37 EDT by Laurie Harvey
--- NOTE | 2016-11-21 16:07 | Internal Med Progress Note ---
Date of Encounter: 11/21/16 Time of Encounter: 16:04 - Assessment and plan (1) Sepsis Current Visit: Yes Status: Acute Qualifiers: Sepsis type: Escherichia coli Qualified Code(s): A41.51 - Sepsis due to Escherichia coli [E. coli] (2) Acute renal failure (ARF) Current Visit: Yes Status: Acute Qualifiers: Acute renal failure type: unspecified Qualified Code(s): N17.9 - Acute kidney failure, unspecified (3) Acute metabolic encephalopathy Current Visit: Yes Status: Acute (4) UTI (urinary tract infection) Current Visit: Yes Status: Suspected Qualifiers: Urinary tract infection type: site unspecified Hematuria presence: without hematuria Qualified Code(s): N39.0 - Urinary tract infection, site not specified (5) Urinary retention Current Visit: Yes Status: Acute (6) Hyperkalemia Current Visit: Yes Status: Acute (7) DVT prophylaxis Current Visit: Yes Status: Acute - Subjective Interval history: Ms. Flores is a 51 year old female with PMH of morbid obesity, hypothyroidism, HTN, HLD, anxiety/depression, history of kidney stone and ED visit on 11/11/16 for gray-sensitive E. coli UTI and discharged home with 10-day course of Keflex and Bactrim. Patient presented with confusion and was diagnosed with acute renal failure creatinine 7. Bladder ultrasound showed 1100 mL. Hutton catheter has been placed IV fluid to started and renal function has not started improving. White count is elevated in the range of 17,000 with confusion and renal failure satisfies criteria for sepsis. Renally adjusted Cipro was started and IV Rocephin was stopped due to risk of nephrotoxicity. Metformin and lisinopril already on hold.. Will treat with aggressive IV fluid. Nephrology consulted. All nephrotoxins removed. Accu-Chek 4 times a day with sliding scale coverage for her diabetes. 11/20 patient is awake nowand seems to be back to her baseline.her creatinine has improved and now it is in the range of 2. Her WBC count is around 12. It seems like that urinary retention was perhaps the main cuase of ARF. I will consult Urology. Dr Melchor informed. Hemodynimically she is stable 11/21 no complaints. Renal function normalized and urology has recommended to keep Hutton catheter in and see them as outpatient in a week where voiding trial will be performed in office. Patient Cipro has been changed to by mouth. IV fluids stopped. Patient is planned to be sent to a shelter and elevating the bed. PUD valve performed. - Constitutional Vitals: Temp Pulse Resp BP Pulse Ox 98.9 F 87 16 111/49 95 11/21/16 15:44 11/21/16 15:44 11/21/16 15:44 11/21/16 15:44 11/21/16 15:44 General appearance: Present: cooperative, A&O X 3, no acute distress - Head Head exam: Present: atraumatic, normocephalic - Eye Eye exam: Present: PERRL, conjuntiva pink, sclera anicteric Pupils: Present: PERRL - Neck Neck exam general surgery: Present: supple, trachea midline. Absent: lymphadenopathy - Respiratory Respiratory exam: Present: CTAB. Absent: accessory muscle use, rales, rhonchi, wheezes - Cardiovascular Cardiovascular exam: Present: RRR, +S1, +S2. Absent: diastolic murmur, gallop, rubs, systolic murmur - GI/Abdominal GI/Abdominal exam: Present: normal bowel sounds, soft, no peritoneal signs. Absent: distended, tenderness - Extremities Exam Extremities exam: Present: warm, radial pulses palpable and symetrical. Absent : calf tenderness, cyanotic, pedal edema - Neurological Exam Neurological exam: Present: CN II-XII intact, oriented X3, no focal deficits. Absent: pronater drift, facial droop, speech deficit - Skin Skin exam: Present: dry, intact Internal Medicine: Result - Labs CBC & Chem 7: 11/21/16 02:52 11/21/16 02:52 Labs: Short CBC 11/21/16 Range/Units 02:52 WBC 8.8 (4.3-11.1) K/mcL Hgb 9.0 L (11.5-15.4) g/dL Hct 29.8 L (35.3-44.9) % Plt Count 195 (140-400) K/mcL Neutrophils # 5.3 (1.6-8.9) K/mcL BMP 11/21/16 02:52 Sodium 140 Potassium 5.0 H Chloride 108 Carbon Dioxide 28 BUN 32 H D Creatinine 1.10 Glucose 111 H Calcium 9.2 Liver Function 11/21/16 Range/Units 02:52 Total Bilirubin < 0.3 (0.2-1.2) mg/dL AST 31 (5-34) Units/L ALT 14 (0-55) Units/L Alkaline Phosphatase 83 (38-126) Units/L Albumin 2.2 L (3.5-5.0) g/dL - ABG Interpretation ABG results: PT/INR, D-dimer PT 11.9 Seconds (9.4-12.1) 11/18/16 16:23 Consult Discharge Plan - Plan Referrals: Delfina Fitch, CONTINUOUS IMPROVEMENT FACILITATOR [Advanced Practice Nurse] -
[2016-11-21] MEDS: *HR* Morphine 2 MG/ML SYRINGE IVP PRN (18:52)
[2016-11-21] MEDS: Topiramate 25 MG TABLET PO SCH (20:03)
[2016-11-21] MEDS ORDERED: Artificial Tears SOLN 15 ML BOTTLE BOTH EYES SCH (22:15)
[2016-11-22 03:59] LABS: Basophils % 0.4 %; Hematocrit 33.4 % (35.3-44.9); Hemoglobin 9.9 g/dL (11.5-15.4); Immature Granulocytes % 1.1 % (0-4); Lymphocytes # 2.2 K/mcL (0.6-4.6); Lymphocytes % 28.3 %; Mean Corpuscular HGB Conc 29.6 g/dL (31.6-35.5); Mean Corpuscular Hemoglobin 26.5 pg (28.0-33.3); Mean Corpuscular Volume 89.3 fL (83.0-100.0); Mean Platelet Volume 11.5 fL (9.4-12.4); Monocytes # 0.9 K/mcL (0.0-1.3); Monocytes % 11.1 %; Neutrophils # 4.7 K/mcL (1.6-8.9); Platelet Count 210 K/mcL (140-400); Red Blood Count 3.74 M/mcL (3.82-4.97); Red Cell Distribution Width 14.3 % (11.5-14.5); Segmented Neutrophils % 59.1 %
[2016-11-22 04:08] LABS: Alanine Aminotransferase 11 Units/L (0-55); Albumin 2.3 g/dL (3.5-5.0); Albumin/Globulin Ratio 0.6 (1.1-2.2); Alkaline Phosphatase 86 Units/L (38-126); Aspartate Amino Transferase 21 Units/L (5-34); BUN/Creatinine Ratio 24 (6-26); Calcium 9.4 mg/dL (8.6-10.8); Carbon Dioxide 29 mEq/L (19-29); Chloride 105 mEq/L (98-109); Globulin 3.9 g/dL (2.4-3.5); Glucose 93 mg/dL (70-99); Magnesium 1.2 mg/dL (1.6-2.6); Osmolality,Calculated 290 (280-300); Potassium 4.9 mEq/L (3.5-4.5); Sodium 139 mEq/L (136-145); Total Protein 6.2 g/dL (6.0-8.3); eGFR For African Americans > 60 (> 60); eGFR For Non-African Americans > 60 (> 60)
[2016-11-22 04:17] LABS: Bilirubin,Total < 0.3 mg/dL (0.2-1.2); Blood Urea Nitrogen 19 mg/dL (7-20)
[2016-11-22] MEDS: *HR* Heparin 5,000 UNIT/ML VIAL SQ SCH (05:22)
[2016-11-22] MEDS ORDERED: Magnesium Sulfate 2 GM in D5% in Water 100 ML IVPB ONE (07:45)
--- NOTE | 2016-11-22 09:14 | Discharge Summary ---
Date of Encounter: 11/22/16 Time of Encounter: 09:12 - Discharge Diagnosis (1) Sepsis Priority: Primary Status: Acute Qualifiers: Sepsis type: Escherichia coli Qualified Code(s): A41.51 - Sepsis due to Escherichia coli [E. coli] (2) DELVIN (acute kidney injury) Priority: Primary Status: Acute (3) UTI (urinary tract infection) Priority: Primary Status: Acute Qualifiers: Urinary tract infection type: site unspecified Hematuria presence: without hematuria Qualified Code(s): N39.0 - Urinary tract infection, site not specified (4) Hyponatremia Priority: Primary Status: Acute (5) Hyperkalemia Priority: Primary Status: Resolved (6) Essential hypertension Priority: Secondary Status: Chronic (7) Hypothyroidism Priority: Secondary Status: Chronic Qualifiers: Hypothyroidism type: unspecified Qualified Code(s): E03.9 - Hypothyroidism , unspecified (8) Depression Priority: Secondary Status: Chronic Qualifiers: Depression Type: unspecified Qualified Code(s): F32.9 - Major depressive disorder, single episode, unspecified (9) Anemia Priority: Secondary Status: Chronic Qualifiers: Anemia type: iron deficiency Iron deficiency anemia type: unspecified iron deficiency Qualified Code(s): D50.9 - Iron deficiency anemia, unspecified - Discharge Medications Prescriptions: Zolpidem [Ambien] 10 mg PO HS PRN #10 PRN Reason: Insomnia Home Medications: Albuterol Neb [Proventil Neb] 2.5 mg IH TID PRN 08/03/16 [History] Aspirin Enteric Coated [Aspirin EC] 81 mg PO DAILY 08/03/16 [History] Cyclobenzaprine [Flexeril] 10 mg PO TID PRN 08/03/16 [History] Fluticasone Propionate Nasal [Flonase] 1 spray NS DAILY 08/03/16 [History] Levothyroxine [Synthroid] 50 mcg PO 0630 08/03/16 [History] Lisinopril [Zestril] 20 mg PO DAILY 08/03/16 [History] Omeprazole [PriLOSEC] 20 mg PO DAILY 08/03/16 [History] Simvastatin [Zocor] 40 mg PO HS 08/03/16 [History] Venlafaxine XR (24 HR) [Effexor Xr] 150 mg PO DAILY 08/03/16 [History] risperiDONE [Risperdal] 2 mg PO HS 08/03/16 [History] Ferrous Sulfate 325 mg PO BIDWM #60 tablet 08/07/16 [Rx] Furosemide [Lasix] 20 mg PO DAILY #20 08/07/16 [Rx] Spironolactone [Aldactone] 25 mg PO DAILY #30 08/07/16 [Rx] Ketotifen Fumarate [Zaditor] 1 drop BOTH EYES BID 11/18/16 [History] Topiramate [Topamax] 25 mg PO HS 11/18/16 [History] Ciprofloxacin [Cipro] 500 mg PO BID #20 tab 11/22/16 [Rx] Gabapentin [Neurontin] 800 mg PO TID #30 11/22/16 [Rx] LORazepam [Lorazepam] 2 mg PO BID PRN #10 11/22/16 [Rx] Tramadol HCl [Ultram] 50 mg PO TID PRN #30 11/22/16 [Rx] Zolpidem [Ambien] 10 mg PO HS PRN #10 11/22/16 [Rx] Allergies/Adverse Reactions: Allergies nitrofurantoin [From Macrodantin] Allergy (Verified 11/11/16 17:01) Itching duloxetine [From Cymbalta] Adverse Reaction (Verified 11/11/16 17:01) Depression pregabalin [From Lyrica] Adverse Reaction (Verified 11/11/16 17:01) See Comments gain water weight Procedures/tests Complete & Pending: Procedures Performed prior 72 hours Category Date Time Status ECG 12 lead ECG [ECG] Routine Y 11/19/16 13:41 Completed Date of admission: 11/18/16 23:01 Primary care physician: PCP NONE Consults: 11/19/16 07:59 Consult to Nephrology [CONS] Routine Consulting Provider: [facility]/HORTENCIA/SAMIRA/BOBBY Reason for Consult: Acute renal failure Time Notified: 08:00 Call Completed: No 11/20/16 08:14 Consult to Urology [CONS] Routine Consulting Provider: Urology [facility] Reason for Consult: Uriinary Retention Time Notified: 08:14 Call Completed: No 11/20/16 10:47 Consult to Occupational Therapy [CONS] Routine Comment: Evaluate, develop and implement POC Reason for Consult: eval and treat Consult to Physical Therapy [CONS] Routine Comment: Evaluate, develop and implement POC Reason for Consult: eval and treat 11/21/16 10:36 Consult to Binding End Stitcher [CONS] Routine Reason for SW Consult: discharge planning Discharging clinician: Marie Figueroa Anticipated date of discharge: 11/22/16 - Patient Status Disposition: Transfer SNF Condition: Fair Functional capacity at discharge: uses cane/walker Overall status at discharge: patient is progressing back to baseline - Discharge Instructions Instructions: Acute Respiratory Distress Syndrome (DC), Acute Kidney Injury (DC ), Urinary Tract Infection in Women (DC), Depression (DC), Hypothyroidism (DC), Sepsis (DC), Chronic Hypertension (DC), Anemia (GEN), Anxiety (DC) Follow Up With: Eulalio Bray MD [Partnered Physician] - 11/28/16 1:15 pm Delfina Fitch, IVAN [Advanced Practice Nurse] - Additional Instructions: F/up with [facility] in 1 week- , for voiding trial - Diet and Activity Activity: as per physical therapy, other (continue Hutton catheter until Urology f/up) Diet: low fat, low cholesterol, low salt diet Hospital course: Ms. Flores is a 51 year old female with the above medical problems, admitted with sepsis secondary to UTI and urinary retention. She was also noted to have acute renal failure due to this- post-renal failure. SHe was started on IV hydration, home nephrotoxic meds were held, and was given IV antibiotics. Urine culture from 11/11 grows pansensitive E.coli; urine culture during this admission remained negative. Patient had appropriate urine output after Hutton catheterization. Urology was consulted and patient was cleared for discharge with Hutton catheter with outpatient Urology f/up for voiding trial. Physical therapy evaluation completed , recommended placement in extended care facility. Patient is currently medically stable [facility] - Time Spent with Patient Total time spent providing and/or coordinating discharge services: Greater than 30 minutes (40 min) - Constitutional Vitals: Temp Pulse Resp BP Pulse Ox 98.1 F 93 16 127/81 97 11/22/16 07:13 11/22/16 07:13 11/22/16 07:13 11/22/16 07:13 11/22/16 07:13 General appearance: Present: A&O X 3, morbidly obese, answers questions appropriately - Respiratory Respiratory exam: Present: CTAB. Absent: accessory muscle use, rales, rhonchi, wheezes - Cardiovascular Cardiovascular exam: Present: RRR, +S1, +S2. Absent: diastolic murmur, gallop, rubs, systolic murmur
--- NOTE | 2016-11-22 09:20 | Physician Discharge Referral ---
ExtendedCare Referral Info Transfer To: [facility] Provider in Charge: Marie Figueroa Provider in Charge after Transfer: PCP Institutional Level of Care: Skilled - Diagnosis (1) Sepsis Priority: Primary Status: Acute (2) DELVIN (acute kidney injury) Priority: Primary Status: Acute (3) UTI (urinary tract infection) Priority: Primary Status: Acute (4) Hyponatremia Priority: Primary Status: Acute (5) Hyperkalemia Priority: Primary Status: Resolved (6) Essential hypertension Priority: Secondary Status: Chronic (7) Hypothyroidism Priority: Secondary Status: Chronic (8) Depression Priority: Secondary Status: Chronic (9) Anemia Priority: Secondary Status: Chronic Expected Duration of Placement: 3 weeks Prognosis: Good Aware of Diagnosis: Patient Aware of Prognosis: Patient - Transfer Medications Home Medications: Albuterol Neb [Proventil Neb] 2.5 mg IH TID PRN 08/03/16 [History] Aspirin Enteric Coated [Aspirin EC] 81 mg PO DAILY 08/03/16 [History] Cyclobenzaprine [Flexeril] 10 mg PO TID PRN 08/03/16 [History] Fluticasone Propionate Nasal [Flonase] 1 spray NS DAILY 08/03/16 [History] Levothyroxine [Synthroid] 50 mcg PO 0630 08/03/16 [History] Lisinopril [Zestril] 20 mg PO DAILY 08/03/16 [History] Omeprazole [PriLOSEC] 20 mg PO DAILY 08/03/16 [History] Simvastatin [Zocor] 40 mg PO HS 08/03/16 [History] Venlafaxine XR (24 HR) [Effexor Xr] 150 mg PO DAILY 08/03/16 [History] Zolpidem [Ambien] 10 mg PO HS 08/03/16 [History] risperiDONE [Risperdal] 2 mg PO HS 08/03/16 [History] Ferrous Sulfate 325 mg PO BIDWM #60 tablet 08/07/16 [Rx] Furosemide [Lasix] 20 mg PO DAILY #20 08/07/16 [Rx] Spironolactone [Aldactone] 25 mg PO DAILY #30 08/07/16 [Rx] Ketotifen Fumarate [Zaditor] 1 drop BOTH EYES BID 11/18/16 [History] Topiramate [Topamax] 25 mg PO HS 11/18/16 [History] Ciprofloxacin [Cipro] 500 mg PO BID #20 tab 11/22/16 [Rx] Gabapentin [Neurontin] 800 mg PO TID #30 11/22/16 [Rx] LORazepam [Lorazepam] 2 mg PO BID PRN #10 11/22/16 [Rx] Tramadol HCl [Ultram] 50 mg PO TID PRN #30 11/22/16 [Rx] Allergies/Adverse Reactions: Allergies nitrofurantoin [From Macrodantin] Allergy (Verified 11/11/16 17:01) Itching duloxetine [From Cymbalta] Adverse Reaction (Verified 11/11/16 17:01) Depression pregabalin [From Lyrica] Adverse Reaction (Verified 11/11/16 17:01) See Comments gain water weight - Respiratory Orders Smoking Cessation: Smoking cessation has been advised. For more information, call the [place] Tobacco Quit Line at 8-694-OZQR-NOW. - Advance Directives Code Status: Full Code - Mobility Orders Ambulate - Rehabiliation Orders Rehab Potential: Good Rehab Orders: ROM Exercises, Evaluation for Physical Therapy, Evaluation for Occupational Therapy - Diet Orders Cardiac CERTIFICATION: I certify that the transfer of the above named patient to an Extended Care Facility is necessary for the continuing treatment of the diagnosis listed. The above information is true and accurate reflection of patient's current condition. Confidential - Redisclosure prohibited without a patient's written consent.
[2016-11-22] MEDS: Aspirin Enteric Coated 81 MG Tablet PO SCH (09:44)
[2016-11-22] MEDS: Venlafaxine XR (24 HR) 150 MG CAP.ER.24H PO SCH (09:45)
[2016-11-22] MEDS: Nystatin POWDER 30 GM BOTTLE TP SCH ×2 (09:45→15:29)
[2016-11-22 15:34] VITALS: BP 158/75
== END 2016-11-22 17:14 | DRG 871 ==
LOC: EMEROO 15:42 → 2ANU 15:42 → 2NENU 11-19 14:17
PROVIDERS: ADMIT Internal Medicine; ATTEND Internal Medicine

== ENCOUNTER 2017-02-10 00:19 | Inpatient (IN) ==
--- NOTE | 2017-02-10 00:25 | Emergency Department Note ---
Disposition Clinical Impression: Sepsis Qualifiers: Sepsis type: sepsis due to unspecified organism Qualified Code(s): A41.9 - Sepsis, unspecified organism Pneumonia Qualifiers: Pneumonia type: due to unspecified organism Laterality: left Lung location: lower lobe of lung Qualified Code(s): J18.1 - Lobar pneumonia, unspecified organism UTI (urinary tract infection) Qualifiers: Urinary tract infection type: site unspecified Hematuria presence: without hematuria Qualified Code(s): N39.0 - Urinary tract infection, site not specified Disposition: Admitted As Inpatient Condition: Fair Time of Disposition: 04:29 General Adult HPI - General Chief complaint: ED Fever Stated complaint: fever/pne Time Seen by Provider: 02/10/17 00:23 Nursing Notes Reviewed: Yes Vital Signs Reviewed: Yes - History of Present Illness HPI Narrative: Mrs. Flores, 51-year-old female, [facility] from [facility] by [facility]. Chest x-ray at the fdc yesterday showed left lower lobe pneumonia. She received her first dose of Levaquin today. She has since had an oral fever of 102 refractory to Tylenol. Patient is in the fdc for rehabilitation because she spent approximately one year bedridden secondary to her severe depression. Patient notes dyspnea, productive cough. - Related Data Home Medications Medication Instructions Recorded Confirmed Albuterol Neb [Proventil Neb] 2.5 mg IH TID PRN 08/03/16 11/18/16 Aspirin Enteric Coated [Aspirin EC] 81 mg PO DAILY 08/03/16 11/18/16 Cyclobenzaprine [Flexeril] 10 mg PO TID PRN 08/03/16 11/18/16 Fluticasone Propionate Nasal 1 spray NS DAILY 08/03/16 11/18/16 [Flonase] Levothyroxine [Synthroid] 50 mcg PO 0630 08/03/16 11/18/16 Lisinopril [Zestril] 20 mg PO DAILY 08/03/16 11/18/16 Omeprazole [PriLOSEC] 20 mg PO DAILY 08/03/16 11/18/16 Simvastatin [Zocor] 40 mg PO HS 08/03/16 11/18/16 Venlafaxine XR (24 HR) [Effexor Xr] 150 mg PO DAILY 08/03/16 11/18/16 risperiDONE [Risperdal] 2 mg PO HS 08/03/16 11/18/16 Ketotifen Fumarate [Zaditor] 1 drop BOTH EYES BID 11/18/16 11/18/16 Topiramate [Topamax] 25 mg PO HS 11/18/16 11/18/16 Previous Rx's Medication Instructions Recorded Ferrous Sulfate 325 mg PO BIDWM #60 tablet 08/07/16 Furosemide [Lasix] 20 mg PO DAILY #20 08/07/16 Spironolactone [Aldactone] 25 mg PO DAILY #30 08/07/16 Ciprofloxacin [Cipro] 500 mg PO BID #20 tab 11/22/16 Gabapentin [Neurontin] 800 mg PO TID #30 11/22/16 LORazepam [Lorazepam] 2 mg PO BID PRN #10 11/22/16 Tramadol HCl [Ultram] 50 mg PO TID PRN #30 11/22/16 Zolpidem [Ambien] 10 mg PO HS PRN #10 11/22/16 Allergies Allergy/AdvReac Type Severity Reaction Status Date / Time nitrofurantoin Allergy Itching Verified 11/11/16 17:01 [From Macrodantin] duloxetine [From Cymbalta] AdvReac Depression Verified 11/11/16 17:01 pregabalin [From Lyrica] AdvReac See Verified 11/11/16 17:01 Comments Past Medical History - Past Medical History Medical history: Reports: asthma, hypertension, other Surgical history: Reports: , hysterectomy, other (carpal tunnel) Psychiatric history: Reports: anxiety, depression CORN HUSKER history: Reports: no CORN HUSKER history, other - Social History Smoking Status: Never smoker Smokeless Tobacco Status: No Alcohol use: Reports: none Drug use: Reports: none Course Course Narrative: Patient is SIRS (+) with tachycardia, Patient does not typically wear oxygen. Because she spent the last 3 months at a fdc, will empirically treat for healthcare acquired pneumonia. Visual lung sounds are diminished and physical exam likely secondary to her body habitus. Portable chest x-ray at this facility does not overtly show pneumonia however it is limited by patient's body habitus. Patient likely has obesity hypoventilation syndrome however, combined with her fever and need for supple oxygen, will empirically treat for pneumonia. Additionally, patient has urinary tract infection on straight catheter urinalysis. This is covered by her empiric antibiotics for pneumonia. Stress the patient with intermittent hospitalist doctor, Dr. Salas, who agrees to accept the patient for continued evaluation and management. Vital Signs Temperature 102.2 F H 02/10/17 00:23 Pulse Rate 116 02/10/17 00:23 Respiratory Rate 24 02/10/17 00:23 Blood Pressure 117/88 02/10/17 00:23 O2 Sat by Pulse Oximetry 95 02/10/17 00:23 Temperature 99.9 F H 02/10/17 04:35 Pulse Rate 109 02/10/17 04:35 Respiratory Rate 20 02/10/17 04:35 Blood Pressure 107/53 02/10/17 04:35 O2 Sat by Pulse Oximetry 97 02/10/17 04:35 Oxygen Delivery Oxygen Delivery Nasal Cannula Medical Decision Making - Medical Records Medical records reviewed: Yes I reviewed the patient's medical records. - Lab Data Lab results reviewed: Yes I reviewed the patient's lab results. Result diagrams: 02/10/17 00:30 02/10/17 00:30 Lab Results 02/10/17 02/10/17 02/10/17 Range/Units 00:30 00:30 00:30 WBC 10.5 (4.3-11.1) K/mcL RBC 3.08 L (3.82-4.97) M/mcL Hgb 8.7 L (11.5-15.4) g/dL Hct 27.9 L (35.3-44.9) % MCV 90.6 (83.0-100.0) fL MCH 28.2 (28.0-33.3) pg MCHC 31.2 L (31.6-35.5) g/dL RDW 16.1 H (11.5-14.5) % Plt Count 153 (140-400) K/mcL MPV 11.1 (9.4-12.4) fL Immature Gran % 0.9 (0-4) % Seg Neutrophils % 73.4 % Lymphocytes % 10.9 % Monocytes % 14.7 % Eosinophils % 0.0 % Basophils % 0.1 % Neutrophils # 7.7 (1.6-8.9) K/mcL Lymphocytes # 1.1 (0.6-4.6) K/mcL Monocytes # 1.5 H (0.0-1.3) K/mcL Eosinophils # 0.0 (0.0-0.6) K/mcL Basophils # 0.0 (0.0-0.2) K/mcL PT 13.1 H (9.4-12.1) Seconds INR 1.2 APTT 26.9 (26.0-36.0) Seconds Sample Site ABG pH (7.32-7.45) pH Units ABG pCO2 (35-45) mmHg ABG pO2 (85-104) mmHg ABG HCO3 (21-27) mEq/L ABG Total CO2 (20-26) mEq/L ABG O2 Saturation (95-98) % ABG Base Excess (-2 to 3) mEq/L Mac Test O2 Delivery Device Inspired O2 (1-15=lpm [id number]=%) Sodium 134 L (136-145) mEq/L Potassium 4.1 (3.5-4.5) mEq/L Chloride 99 (98-109) mEq/L Carbon Dioxide 26 (19-29) mEq/L BUN 17 (7-20) mg/dL Creatinine 1.08 (0.57-1.11) mg/dL Est GFR ( Amer) > 60 (> 60) Est GFR (Non-Af Amer) 54 L (> 60) BUN/Creatinine Ratio 16 (6-26) Glucose 133 H (70-99) mg/dL Calculated Osmolality 281 (280-300) Lactic Acid (0.5-2.2) mmol/L Calcium 9.0 (8.6-10.8) mg/dL Phosphorus 3.2 (2.3-4.7) mg/dL Magnesium 1.7 (1.6-2.6) mg/dL Total Bilirubin 0.4 (0.2-1.2) mg/dL Direct Bilirubin 0.2 (0.0-0.5) mg/dL Indirect Bilirubin 0.2 (0.0-1.2) mg/dL AST 15 (5-34) Units/L ALT 10 (0-55) Units/L Alkaline Phosphatase 70 (38-126) Units/L Troponin I (0-0.03) ng/mL Serum Total Protein 6.4 (6.0-8.3) g/dL Albumin 3.0 L (3.5-5.0) g/dL Globulin 3.4 (2.4-3.5) g/dL Albumin/Globulin Ratio 0.9 L (1.1-2.2) Urine Color (Yellow) Urine Clarity (Clear) Urine pH (5.0-8.0) pH Units Ur Specific [place] (1.010-1.025) Urine Protein (Neg-Trace) mg/dL Urine Glucose (UA) (Normal) mg/dL Urine Ketones (Negative) mg/dL Urine Blood (Negative) Urine Nitrite (Negative) Urine Bilirubin (Negative) Urine Urobilinogen (Normal) mg/dL Ur Leukocyte Esterase (Negative) Urine Microscopic RBC (0-3) per hpf Urine Microscopic WBC (0-3) per hpf Ur Squamous Epith Cells (None-Few) per lpf Urine Bacteria (None-Few) per hpf Hyaline Casts (None-Few) per lpf Ur Culture Indicated? (NO) 02/10/17 02/10/17 02/10/17 Range/Units 00:30 00:30 01:08 WBC (4.3-11.1) K/mcL RBC (3.82-4.97) M/mcL Hgb (11.5-15.4) g/dL Hct (35.3-44.9) % MCV (83.0-100.0) fL MCH (28.0-33.3) pg MCHC (31.6-35.5) g/dL RDW (11.5-14.5) % Plt Count (140-400) K/mcL MPV (9.4-12.4) fL Immature Gran % (0-4) % Seg Neutrophils % % Lymphocytes % % Monocytes % % Eosinophils % % Basophils % % Neutrophils # (1.6-8.9) K/mcL Lymphocytes # (0.6-4.6) K/mcL Monocytes # (0.0-1.3) K/mcL Eosinophils # (0.0-0.6) K/mcL Basophils # (0.0-0.2) K/mcL PT (9.4-12.1) Seconds INR APTT (26.0-36.0) Seconds Sample Site R Radial ABG pH 7.41 (7.32-7.45) pH Units ABG pCO2 48 H (35-45) mmHg ABG pO2 68 L (85-104) mmHg ABG HCO3 30 H (21-27) mEq/L ABG Total CO2 32 H (20-26) mEq/L ABG O2 Saturation 93 L (95-98) % ABG Base Excess 5 H (-2 to 3) mEq/L Mac Test Positive O2 Delivery Device Cannula Inspired O2 28.0 (1-15=lpm [id number]=%) Sodium (136-145) mEq/L Potassium (3.5-4.5) mEq/L Chloride (98-109) mEq/L Carbon Dioxide (19-29) mEq/L BUN (7-20) mg/dL Creatinine (0.57-1.11) mg/dL Est GFR ( Amer) (> 60) Est GFR (Non-Af Amer) (> 60) BUN/Creatinine Ratio (6-26) Glucose (70-99) mg/dL Calculated Osmolality (280-300) Lactic Acid 1.1 (0.5-2.2) mmol/L Calcium (8.6-10.8) mg/dL Phosphorus (2.3-4.7) mg/dL Magnesium (1.6-2.6) mg/dL Total Bilirubin (0.2-1.2) mg/dL Direct Bilirubin (0.0-0.5) mg/dL Indirect Bilirubin (0.0-1.2) mg/dL AST (5-34) Units/L ALT (0-55) Units/L Alkaline Phosphatase (38-126) Units/L Troponin I 0.02 (0-0.03) ng/mL Serum Total Protein (6.0-8.3) g/dL Albumin (3.5-5.0) g/dL Globulin (2.4-3.5) g/dL Albumin/Globulin Ratio (1.1-2.2) Urine Color (Yellow) Urine Clarity (Clear) Urine pH (5.0-8.0) pH Units Ur Specific [place] (1.010-1.025) Urine Protein (Neg-Trace) mg/dL Urine Glucose (UA) (Normal) mg/dL Urine Ketones (Negative) mg/dL Urine Blood (Negative) Urine Nitrite (Negative) Urine Bilirubin (Negative) Urine Urobilinogen (Normal) mg/dL Ur Leukocyte Esterase (Negative) Urine Microscopic RBC (0-3) per hpf Urine Microscopic WBC (0-3) per hpf Ur Squamous Epith Cells (None-Few) per lpf Urine Bacteria (None-Few) per hpf Hyaline Casts (None-Few) per lpf Ur Culture Indicated? (NO) 02/10/17 Range/Units 01:33 WBC (4.3-11.1) K/mcL RBC (3.82-4.97) M/mcL Hgb (11.5-15.4) g/dL Hct (35.3-44.9) % MCV (83.0-100.0) fL MCH (28.0-33.3) pg MCHC (31.6-35.5) g/dL RDW (11.5-14.5) % Plt Count (140-400) K/mcL MPV (9.4-12.4) fL Immature Gran % (0-4) % Seg Neutrophils % % Lymphocytes % % Monocytes % % Eosinophils % % Basophils % % Neutrophils # (1.6-8.9) K/mcL Lymphocytes # (0.6-4.6) K/mcL Monocytes # (0.0-1.3) K/mcL Eosinophils # (0.0-0.6) K/mcL Basophils # (0.0-0.2) K/mcL PT (9.4-12.1) Seconds INR APTT (26.0-36.0) Seconds Sample Site ABG pH (7.32-7.45) pH Units ABG pCO2 (35-45) mmHg ABG pO2 (85-104) mmHg ABG HCO3 (21-27) mEq/L ABG Total CO2 (20-26) mEq/L ABG O2 Saturation (95-98) % ABG Base Excess (-2 to 3) mEq/L Mac Test O2 Delivery Device Inspired O2 (1-15=lpm ts90-143=%) Sodium (136-145) mEq/L Potassium (3.5-4.5) mEq/L Chloride (98-109) mEq/L Carbon Dioxide (19-29) mEq/L BUN (7-20) mg/dL Creatinine (0.57-1.11) mg/dL Est GFR ( Amer) (> 60) Est GFR (Non-Af Amer) (> 60) BUN/Creatinine Ratio (6-26) Glucose (70-99) mg/dL Calculated Osmolality (280-300) Lactic Acid (0.5-2.2) mmol/L Calcium (8.6-10.8) mg/dL Phosphorus (2.3-4.7) mg/dL Magnesium (1.6-2.6) mg/dL Total Bilirubin (0.2-1.2) mg/dL Direct Bilirubin (0.0-0.5) mg/dL Indirect Bilirubin (0.0-1.2) mg/dL AST (5-34) Units/L ALT (0-55) Units/L Alkaline Phosphatase (38-126) Units/L Troponin I (0-0.03) ng/mL Serum Total Protein (6.0-8.3) g/dL Albumin (3.5-5.0) g/dL Globulin (2.4-3.5) g/dL Albumin/Globulin Ratio (1.1-2.2) Urine Color Yellow (Yellow) Urine Clarity Cloudy A (Clear) Urine pH 6.5 (5.0-8.0) pH Units Ur Specific [place] 1.015 (1.010-1.025) Urine Protein 30 H (Neg-Trace) mg/dL Urine Glucose (UA) Normal (Normal) mg/dL Urine Ketones Negative (Negative) mg/dL Urine Blood Moderate H (Negative) Urine Nitrite Negative (Negative) Urine Bilirubin Negative (Negative) Urine Urobilinogen Normal (Normal) mg/dL Ur Leukocyte Esterase Moderate H (Negative) Urine Microscopic RBC 5-15 H (0-3) per hpf Urine Microscopic WBC 50-100 H (0-3) per hpf Ur Squamous Epith Cells Many H (None-Few) per lpf Urine Bacteria Few (None-Few) per hpf Hyaline Casts None Seen (None-Few) per lpf Ur Culture Indicated? YES A (NO) - Radiology Data Radiology results reviewed: Yes I reviewed the patient's radiology results. EKG dated 02/10/17 at 00:34 interpreted as sinus tachycardia with a rate of 1: 15. Normal intervals. Normal axis. Right bundle branch block. Nonspecific ST -T changes. Compared to previous dated 11/19/2016 show no acute ischemic changes or comparison. Attestation Statement - Attestation Attestation: I, Silas Monroy MD, personally evaluated this patient and discussed their management with the resident physician. I reviewed the resident's note and agree with the documented findings, medical decision making, and plan of care. 51-year-old female transferred from a local [facility]dc for pneumonia and fever. Patient had a chest x-ray yesterday which revealed a left lower lobe pneumonia. She is sent here tonight because of persistent fever with low oxygen saturations. She does not normally wear oxygen at the fdc. She does admit to a productive cough with dark yellow sputum. Shortness of breath. No significant chest pain. On examination patient is a well-developed morbidly obese female in no acute distress. She is alert and oriented 3. There is no cyanosis or diaphoresis. Chest is nontender to palpation. Breath sounds are decreased bilaterally due to body habitus. No definite rales or wheezes noted. Heart tachycardic and regular. Abdomen is soft with normal bowel sounds. Labs reviewed. Chest x-ray shows some asymmetric density in the left lower lung which was felt to likely be overlying soft tissue. Clinically the patient has pneumonia with some increased oxygen demand and fever. She does also have UTI. The hospitalist, Dr. Salas, was consulted and accepted admission of the patient.
[2017-02-10] MEDS ORDERED: Vancomycin 2,000 MG in D5% in Water 250 ML IVPB ONE (00:36)
[2017-02-10] MEDS ORDERED: 0.9 % Sodium Chloride 1,000 ML IVC ONE (00:36)
[2017-02-10] MEDS ORDERED: Piperacillin/Tazobactam 3.375 GM in D5% in Water (Mini-Bag+) 100 ML IVPB ONE (00:36)
[2017-02-10 00:44] LABS: Basophils % 0.1 %; Hematocrit 27.9 % (35.3-44.9); Hemoglobin 8.7 g/dL (11.5-15.4); Immature Granulocytes % 0.9 % (0-4); Lymphocytes # 1.1 K/mcL (0.6-4.6); Lymphocytes % 10.9 %; Mean Corpuscular HGB Conc 31.2 g/dL (31.6-35.5); Mean Corpuscular Hemoglobin 28.2 pg (28.0-33.3); Mean Corpuscular Volume 90.6 fL (83.0-100.0); Mean Platelet Volume 11.1 fL (9.4-12.4); Monocytes # 1.5 K/mcL (0.0-1.3); Monocytes % 14.7 %; Neutrophils # 7.7 K/mcL (1.6-8.9); Platelet Count 153 K/mcL (140-400); Red Blood Count 3.08 M/mcL (3.82-4.97); Red Cell Distribution Width 16.1 % (11.5-14.5); Segmented Neutrophils % 73.4 %
[2017-02-10 00:49] LABS: INR 1.2; Prothrombin Time 13.1 Seconds (9.4-12.1)
[2017-02-10 00:51] LABS: Activated Partial Thrombo Time 26.9 Seconds (26.0-36.0)
[2017-02-10 00:58] LABS: Alanine Aminotransferase 10 Units/L (0-55); Albumin/Globulin Ratio 0.9 (1.1-2.2); Alkaline Phosphatase 70 Units/L (38-126); Aspartate Amino Transferase 15 Units/L (5-34); BUN/Creatinine Ratio 16 (6-26); Bilirubin,Direct 0.2 mg/dL (0.0-0.5); Bilirubin,Indirect 0.2 mg/dL (0.0-1.2); Bilirubin,Total 0.4 mg/dL (0.2-1.2); Blood Urea Nitrogen 17 mg/dL (7-20); Carbon Dioxide 26 mEq/L (19-29); Chloride 99 mEq/L (98-109); Globulin 3.4 g/dL (2.4-3.5); Glucose 133 mg/dL (70-99); Magnesium 1.7 mg/dL (1.6-2.6); Osmolality,Calculated 281 (280-300); Phosphorous 3.2 mg/dL (2.3-4.7); Potassium 4.1 mEq/L (3.5-4.5); Sodium 134 mEq/L (136-145); Total Protein 6.4 g/dL (6.0-8.3); eGFR For African Americans > 60 (> 60); eGFR For Non-African Americans 54 (> 60)
[2017-02-10] MEDS ORDERED: Vancomycin 2,000 MG in D5% in Water 500 ML IVPB ONE (01:00)
[2017-02-10 01:12] LABS: ABG Base Excess 5 mEq/L (-2 to 3); ABG HCO3 30 mEq/L (21-27); ABG Oxygen Saturation 93 % (95-98); ABG PCO2 48 mmHg (35-45); ABG PH 7.41 pH Units (7.32-7.45); ABG PO2 68 mmHg (85-104); ABG TCO2 32 mEq/L (20-26)
[2017-02-10 01:39] LABS: Bilirubin,Urine Negative (Negative); Blood,Urine Moderate (Negative); Clarity,Urine Cloudy (Clear); Color,Urine Yellow (Yellow); Glucose,Urine (UA) Normal (Normal); Ketones,Urine Negative (Negative); Leukocyte Esterase,Urine Moderate (Negative); Nitrite,Urine Negative (Negative); PH,Urine 6.5 pH Units (5.0-8.0); Protein,Urine 30 mg/dL (Neg-Trace); Specific Gravity,Urine 1.015 (1.010-1.025); Urobilinogen,Urine Normal (Normal)
[2017-02-10 01:42] LABS: Bacteria,Urine Few per hpf (None-Few); Hyaline Casts,Urine None Seen per lpf (None-Few); Squamous Epithelial Cell,Urine Many per lpf (None-Few); WBC,Urine 50-100 per hpf (0-3)
[2017-02-10] MEDS ORDERED: Ondansetron 4 MG/2 ML VIAL IVP PRN (04:48)
[2017-02-10] MEDS ORDERED: Naloxone 0.4 MG/ML INJ IVP PRN (04:48)
--- NOTE | 2017-02-10 04:49 | Event Note ---
Date of Encounter: 02/10/17 Time of Encounter: 04:47 patint seen and examined with medical front desk coordinator. HCAP and UTI. Vanc and zosyn. DNR CC. OK with intubation for respiratory purposes only. blood, sputum and urine culture
[2017-02-10] MEDS ORDERED: 0.9 % Sodium Chloride 1,000 ML IVC SCH ×2 (05:00→09:34)
[2017-02-10] MEDS ORDERED: Vancomycin 2,000 MG in D5% in Water 250 ML IVPB SCH (05:00)
--- NOTE | 2017-02-10 05:01 | Internal Med History&Physical ---
Date of Encounter: 02/10/17 Time of Encounter: 03:00 Assessment and Plan (1) Sepsis Current visit: Yes Status: Acute Febrile at 102, tachycardic, tachypnic on presentation. Lactic acid wnl - Possible source of PNA given CXR and symptoms vs UTI. - Urine culture pending. - Vanc and Zosyn started for HAP not responsive to levaquin. Fluids running. - DVT/PE considered, however evidence more suggestive of infectious etiology. No complaints of chest pain, hemoptysis, SOB at rest. Monitor Qualifiers: Sepsis type: sepsis due to unspecified organism Qualified Code(s): A41.9 - Sepsis, unspecified organism (2) Pneumonia Current visit: Yes Status: Acute - LLL opactiy seen on Xray however view was limited due to body habitus. - New onset productive cough with SOB on exertion and fevers. - Treating for HAP with vanc and zosyn, failed outpatient levaquin and longterm. - Continue to monitor. Qualifiers: Pneumonia type: due to unspecified organism Laterality: left Lung location: lower lobe of lung Qualified Code(s): J18.1 - Lobar pneumonia, unspecified organism (3) UTI (urinary tract infection) Current visit: Yes Status: Acute - UA in ED showed possible infection. Culture pending. - Covering with vanc and zosyn - Asymptomatic. Qualifiers: Urinary tract infection type: acute cystitis Hematuria presence: without hematuria Qualified Code(s): N30.00 - Acute cystitis without hematuria (4) Morbid obesity due to excess calories Current visit: Yes Status: Acute Excessive BMI of 76.8 - Decompensation requiring longterm. - Encourage ambulation and dietary changes as outpatient. (5) HTN (hypertension) Current visit: Yes Status: Acute - Well controlled at this time. Continue home meds. Qualifiers: Hypertension type: essential hypertension Qualified Code(s): I10 - Essential (primary) hypertension (6) DVT prophylaxis Current visit: No Status: Acute Lovenox 30 mg BID given morbid obesity Internal Medicine - H&P: HPI Chief complaint: Fever Admitted From: Emergency Dept Plans for Post Hospital Care: Transfer [facility] History of present illness: Ms. Flores is a 51 year old female who presents to ED from longterm with a complaint of fevers for 3 days. She states that she has recorded a maximum temperature of 102. [facility] due to decompensation after reportedly not getting out of bed for a year due to severe depression. She admits to new onset productive cough with thick green sputum beginning around the same time. She reports some SOB on exertion but states this is also present at baseline. Denies any diaphoresis, chills, pain, nausea, vomiting, diarrhea. She does report some diffuse myalgias during this time. She had an Xray done at longterm which showed a possible LLL opacity suggestive of PNA and she was started on levaquin. Fever has been persistent despite abx and tylenol use. In ED, EKG showed sinus tachycardia. Fever of 102.2, tachycardic, tachypnic. No white count. UA showing leukocyte esterase, WBCs. CXR showed possible LLL opacity however imaging limited due to body habitus. Past Med Surg Social Fam HX - Past Medical History Medical history: asthma, hypertension, other Psychiatric history: anxiety, depression - Past Surgical History Surgical History: , hysterectomy, other (carpal tunnel) - Social History Smoking Status: Never smoker Smokeless Tobacco Status: No Alcohol use: none Drug use: none - Family History Mother Living Status: Hx Family Cancer: Yes (breast cancer, ovarian cancer) Internal Medicine - H&P: Meds Albuterol Neb [Proventil Neb] 2.5 mg IH TID PRN 08/03/16 [History] Aspirin Enteric Coated [Aspirin EC] 81 mg PO DAILY 08/03/16 [History] Cyclobenzaprine [Flexeril] 10 mg PO TID PRN 08/03/16 [History] Fluticasone Propionate Nasal [Flonase] 1 spray NS DAILY 08/03/16 [History] Levothyroxine [Synthroid] 50 mcg PO 0630 08/03/16 [History] Lisinopril [Zestril] 20 mg PO DAILY 08/03/16 [History] Omeprazole [PriLOSEC] 20 mg PO DAILY 08/03/16 [History] Simvastatin [Zocor] 40 mg PO HS 08/03/16 [History] Venlafaxine XR (24 HR) [Effexor Xr] 150 mg PO DAILY 08/03/16 [History] risperiDONE [Risperdal] 2 mg PO HS 08/03/16 [History] Ferrous Sulfate 325 mg PO BIDWM #60 tablet 08/07/16 [Rx] Spironolactone [Aldactone] 25 mg PO DAILY #30 08/07/16 [Rx] Ketotifen Fumarate [Zaditor] 1 drop BOTH EYES BID 11/18/16 [History] Topiramate [Topamax] 25 mg PO HS 11/18/16 [History] Ciprofloxacin [Cipro] 500 mg PO BID #20 tab 11/22/16 [Rx] Gabapentin [Neurontin] 800 mg PO TID #30 11/22/16 [Rx] Tramadol HCl [Ultram] 50 mg PO TID PRN #30 11/22/16 [Rx] Zolpidem [Ambien] 10 mg PO HS PRN #10 11/22/16 [Rx] Acetaminophen [Tylenol] 500 mg PO TID 02/10/17 [History] Docusate [Colace] 100 mg PO BID 02/10/17 [History] Furosemide [Lasix] 40 mg PO DAILY 02/10/17 [History] LORazepam [Lorazepam] 2 mg PO BID 02/10/17 [History] Meloxicam [Mobic] 7.5 mg PO DAILY 02/10/17 [History] Oxycodone HCl [Oxycontin] 10 mg PO QID 02/10/17 [History] 3 Allergy/AdvReac Type Severity Reaction Status Date / Time nitrofurantoin Allergy Itching Verified 11/11/16 17:01 [From Macrodantin] duloxetine [From Cymbalta] AdvReac Depression Verified 11/11/16 17:01 pregabalin [From Lyrica] AdvReac See Verified 11/11/16 17:01 Comments All Systems PM: A 10-system review of systems was performed and is negative for pertinent findings except as documented above in the HPI. - Constitutional Constitutional: fever(s), no chills, no fatigue, no lethargy, no weakness - Cardiovascular Cardiovascular ROS IM: dyspnea on exertion, no chest pain, no diaphoresis, no dyspnea, no edema - Respiratory Respiratory: cough, dyspnea on exertion, change in phlegm color, no dyspnea - Gastrointestinal Gastrointestinal: no change in bowel habits, no constipation, no diarrhea, no nausea, no vomiting - Genitourinary Genitourinary: no dysuria, no urinary frequency, no urinary hesitancy, no urinary incontinence - Musculoskeletal Musculoskeletal ROS IM: myalgias - Integumentary Integumentary IM: no rash - Neurological Neurological ROS: no numbness, no tingling, no weakness - Constitutional Vitals: Temp Pulse Resp BP Pulse Ox 99.9 F H 109 20 107/53 97 02/10/17 04:35 02/10/17 04:35 02/10/17 04:35 02/10/17 04:35 02/10/17 04:35 Exam: Gen.: Vitals noted. No acute distress. AAOx3. Morbidly obese. Limited exam due to body habitus. HEENT: PERRL oropharynx clear, Normocephalic, atraumatic, dry mucus membranes Cardiac: RRR, no murmur, +S1/S2. Pulmonary: Breath sounds appreciated bilaterally, limited exam due to habitus. No obvious abnormality. equal chest expansion Abdomen: soft, nontender, BS noted, no guarding Extremities: 2+ bilateral LE edema, mild tender calf, no cyanosis or clubbing Neuro: A&Ox3, moves all extremities, no focal deficits Psych: Appropriate mood and behavior Internal Med - H&P Results - Labs CBC & Chem 7: 02/10/17 00:30 02/10/17 00:30
[2017-02-10] MEDS: *HR* Enoxaparin 30 MG/0.3 ML SYRINGE SQ SCH ×2 (05:21→17:03)
[2017-02-10] MEDS: *HR* HYDROcodone/Acet 5/325 mg TABLET PO PRN ×4 (05:21→21:35)
[2017-02-10] MEDS: Venlafaxine XR (24 HR) 150 MG CAP.ER.24H PO SCH (08:41)
[2017-02-10] MEDS: Piperacillin/Tazobactam 3.375 GM in D5% in Water (Mini-Bag+) 100 ML IVPB SCH ×2 (08:41→16:56)
[2017-02-10] MEDS: Gabapentin 400 MG CAPSULE PO SCH ×3 (08:41→21:35)
[2017-02-10] MEDS: Spironolactone 25 MG TABLET PO SCH (08:42)
[2017-02-10] MEDS: Aspirin Enteric Coated 81 MG Tablet PO SCH (08:42)
[2017-02-10] MEDS: Acetaminophen 325 MG TABLET PO PRN ×2 (08:42→23:54)
[2017-02-10] MEDS ORDERED: Furosemide 40 MG TABLET PO SCH (09:00)
[2017-02-10] MEDS ORDERED: NON-FORMULARY MEDICATION 1 EACH EACH (Lorazepam [Lorazepam] 2 MG) PO SCH (09:00)
[2017-02-10] MEDS ORDERED: Lisinopril 20 MG TABLET PO SCH (09:00)
--- NOTE | 2017-02-10 09:09 | Electrocardiograph Report ---
[place] [id number] Test Date: 2017-02-10 Pat Name: Anne Marie Flores Department: [id number] Room: 2A36 Gender: F [employer]ing [employer] Agent: BLAINE : [id number] Requested By: Wilbur Garces Order Number: [id number] Reading MD: Laurie Harvey Measurements Intervals [place] Rate: 115 P: 53 PA: 163 QRS: 82 QRSD: 111 T: 42 QT: 295 QTc: 363 Interpretive Statements SINUS TACHYCARDIA INCOMPLETE RIGHT BUNDLE BRANCH BLOCK [90+ ms QRS DURATION, TERMINAL R IN V1/V2, 40+ ms S IN I/aVL/V4/V5/V6] ABNORMAL RHYTHM ECG Electronically Signed On 02-10-2017 9:07:23 EDT by Laurie Harvey
[2017-02-10] MEDS: 0.9 % Sodium Chloride 1,000 ML IVC SCH ×2 (12:26→21:36)
[2017-02-10] MEDS ORDERED: Vancomycin 2,000 MG in D5% in Water 500 ML IVPB SCH (14:00)
[2017-02-10] MEDS: Albuterol 2.5 MG/3 ML NEBULIZER IH PRN (15:45)
--- NOTE | 2017-02-10 18:02 | Internal Med Progress Note ---
Date of Encounter: 02/10/17 Time of Encounter: 17:59 - Assessment and plan (1) Sepsis Current Visit: Yes Status: Acute Qualifiers: Sepsis type: sepsis due to unspecified organism Qualified Code(s): A41.9 - Sepsis, unspecified organism (2) Pneumonia Current Visit: Yes Status: Acute Qualifiers: Pneumonia type: due to unspecified organism Laterality: left Lung location: lower lobe of lung Qualified Code(s): J18.1 - Lobar pneumonia, unspecified organism (3) UTI (urinary tract infection) Current Visit: Yes Status: Acute Qualifiers: Urinary tract infection type: acute cystitis Hematuria presence: with hematuria Qualified Code(s): N30.01 - Acute cystitis with hematuria (4) Morbid obesity due to excess calories Current Visit: Yes Status: Acute (5) Hypothyroidism Current Visit: Yes Status: Chronic Qualifiers: Hypothyroidism type: unspecified Qualified Code(s): E03.9 - Hypothyroidism , unspecified - Subjective Interval history: Patient is 51 years old [facility] resident DNR CC admitted for shortness of breath and was diagnosed with pneumonia/UTI contributing to sepsis. She is quite diaphoretic and tachycardic. Nurses were concerned about her oxygen saturation which is noted to be well maintained on supplemental oxygen. Borderline blood pressure. She denies any prior cardiac history. At this time she will be continued on antibiotics her CBC CMP lactic acid will be repeated and IV fluids will be continued. She is hypoxemic which could be due to combination of pneumonia and obesity. Apparently she was prescribed CPAP but does not use it at home. - Constitutional Vitals: Temp Pulse Resp BP Pulse Ox 99.7 F H 102 18 131/80 99 02/10/17 16:56 02/10/17 16:56 02/10/17 16:56 02/10/17 16:56 02/10/17 16:56 General appearance: Present: mild distress, A&O X 3, pleasant, answers questions appropriately - Head Head exam: Present: atraumatic, normocephalic - Eye Eye exam: Present: PERRL, conjuntiva pink, sclera anicteric Pupils: Present: PERRL - Neck Neck exam general surgery: Present: supple, trachea midline. Absent: lymphadenopathy - Respiratory Respiratory exam: Present: CTAB. Absent: accessory muscle use, rales, rhonchi, wheezes - Cardiovascular Cardiovascular exam: Present: RRR, +S1, +S2. Absent: diastolic murmur, gallop, rubs, systolic murmur - GI/Abdominal GI/Abdominal exam: Present: normal bowel sounds, soft, no peritoneal signs. Absent: distended, tenderness - Extremities Exam Extremities exam: Present: warm, radial pulses palpable and symmetrical. Absent : calf tenderness, cyanotic, pedal edema - Neurological Exam Neurological exam: Present: CN II-XII intact, oriented X3, no focal deficits. Absent: pronater drift, facial droop, speech deficit - Skin Skin exam: Present: dry, intact Internal Medicine: Result - Labs CBC & Chem 7: 02/10/17 00:30 02/10/17 00:30 - ABG Interpretation ABG results: ABG ABG pH 7.41 pH Units (7.32-7.45) 02/10/17 01:08 ABG pCO2 48 mmHg (35-45) H 02/10/17 01:08 ABG pO2 68 mmHg (85-104) L 02/10/17 01:08 ABG O2 Saturation 93 % (95-98) L 02/10/17 01:08 PT/INR, D-dimer PT 13.1 Seconds (9.4-12.1) H 02/10/17 00:30 Consult Discharge Plan - Plan Referrals: Klaus Dominguez MD [Primary Care Provider] -
[2017-02-10] MEDS: *HR* LORazepam 1 MG TABLET PO PRN (21:35)
[2017-02-10] MEDS: Topiramate 25 MG TABLET PO SCH (21:35)
[2017-02-10] MEDS: risperiDONE 1 MG TABLET PO SCH (21:37)
[2017-02-10] MEDS ORDERED: 0.9 % Sodium Chloride 500 ML IVC ONE (23:49)
[2017-02-10] MEDS ORDERED: 0.9 % Sodium Chloride 500 ML ONE (23:50)
[2017-02-11] MEDS: Piperacillin/Tazobactam 3.375 GM in D5% in Water (Mini-Bag+) 100 ML IVPB SCH ×3 (00:02→16:41)
[2017-02-11] MEDS: Vancomycin 1,500 MG in D5% in Water 250 ML IVPB SCH ×3 (02:14→16:45)
[2017-02-11] MEDS: *HR* Enoxaparin 30 MG/0.3 ML SYRINGE SQ SCH ×2 (05:41→16:48)
[2017-02-11] MEDS: 0.9 % Sodium Chloride 1,000 ML IVC SCH ×4 (05:41→15:33)
[2017-02-11] MEDS: Albuterol 2.5 MG/3 ML NEBULIZER IH PRN ×2 (05:56→15:02)
[2017-02-11] MEDS: Aspirin Enteric Coated 81 MG Tablet PO SCH (08:49)
[2017-02-11] MEDS: Gabapentin 400 MG CAPSULE PO SCH ×3 (08:49→20:59)
[2017-02-11] MEDS: Spironolactone 25 MG TABLET PO SCH (08:49)
[2017-02-11] MEDS: Venlafaxine XR (24 HR) 150 MG CAP.ER.24H PO SCH (08:49)
[2017-02-11] MEDS: *HR* HYDROcodone/Acet 5/325 mg TABLET PO PRN ×3 (11:36→20:59)
--- NOTE | 2017-02-11 18:31 | Internal Med Progress Note ---
Date of Encounter: 02/11/17 Time of Encounter: 18:27 - Assessment and plan (1) Sepsis Current Visit: Yes Status: Acute Qualifiers: Sepsis type: sepsis due to unspecified organism Qualified Code(s): A41.9 - Sepsis, unspecified organism (2) Pneumonia Current Visit: Yes Status: Acute Qualifiers: Pneumonia type: due to unspecified organism Laterality: left Lung location: lower lobe of lung Qualified Code(s): J18.1 - Lobar pneumonia, unspecified organism (3) UTI (urinary tract infection) Current Visit: Yes Status: Acute Qualifiers: Urinary tract infection type: acute cystitis Hematuria presence: with hematuria Qualified Code(s): N30.01 - Acute cystitis with hematuria (4) Morbid obesity due to excess calories Current Visit: Yes Status: Acute (5) Hypothyroidism Current Visit: Yes Status: Chronic Qualifiers: Hypothyroidism type: unspecified Qualified Code(s): E03.9 - Hypothyroidism , unspecified - Subjective Interval history: Patient is 51 years old long term resident DNR CC admitted for shortness of breath and was diagnosed with pneumonia/UTI contributing to sepsis. Patient looks much better now. While awake and alert vital signs are stable including blood pressure. Urine culture showed ESBL. Sensitive to Zosyn. Continue IV vancomycin and Zosyn. Repeat CBC and CMP and continue IV fluid but can be reduced to 75 mL an hour. She is encouraged to ambulate. At this time she will be continued on antibiotics and her CBC CMP lactic acid will be repeated and IV fluids will be continued. She is encouraged to ambulate - Constitutional Vitals: Temp Pulse Resp BP Pulse Ox 97.9 F 89 21 100/60 98 02/11/17 15:11 02/11/17 15:11 02/11/17 15:11 02/11/17 15:11 02/11/17 15:11 General appearance: Present: A&O X 3, pleasant, no acute distress, answers questions appropriately - Head Head exam: Present: atraumatic, normocephalic - Eye Eye exam: Present: PERRL, conjuntiva pink, sclera anicteric Pupils: Present: PERRL - Neck Neck exam general surgery: Present: supple, trachea midline. Absent: lymphadenopathy - Respiratory Respiratory exam: Present: CTAB. Absent: accessory muscle use, rales, rhonchi, wheezes - Cardiovascular Cardiovascular exam: Present: RRR, +S1, +S2. Absent: diastolic murmur, gallop, rubs, systolic murmur - GI/Abdominal GI/Abdominal exam: Present: normal bowel sounds, soft, no peritoneal signs. Absent: distended, tenderness - Extremities Exam Extremities exam: Present: warm, radial pulses palpable and symmetrical. Absent : calf tenderness, cyanotic, pedal edema - Neurological Exam Neurological exam: Present: CN II-XII intact, oriented X3, no focal deficits. Absent: pronater drift, facial droop, speech deficit - Skin Skin exam: Present: dry, intact Internal Medicine: Result - Labs CBC & Chem 7: 02/10/17 00:30 02/10/17 00:30 - ABG Interpretation ABG results: ABG ABG pH 7.41 pH Units (7.32-7.45) 02/10/17 01:08 ABG pCO2 48 mmHg (35-45) H 02/10/17 01:08 ABG pO2 68 mmHg (85-104) L 02/10/17 01:08 ABG O2 Saturation 93 % (95-98) L 02/10/17 01:08 PT/INR, D-dimer PT 13.1 Seconds (9.4-12.1) H 02/10/17 00:30 Consult Discharge Plan - Plan Referrals: Klaus Dominguez MD [Primary Care Provider] -
[2017-02-11] MEDS: risperiDONE 1 MG TABLET PO SCH (20:59)
[2017-02-11] MEDS: *HR* LORazepam 1 MG TABLET PO PRN (21:02)
[2017-02-11] MEDS: Topiramate 25 MG TABLET PO SCH (21:02)
[2017-02-12] MEDS: Piperacillin/Tazobactam 3.375 GM in D5% in Water (Mini-Bag+) 100 ML IVPB SCH ×3 (00:03→16:18)
[2017-02-12] MEDS: 0.9 % Sodium Chloride 1,000 ML IVC SCH (04:00)
[2017-02-12 04:11] LABS: Basophils % 0.1 %; Hematocrit 26.5 % (35.3-44.9); Hemoglobin 8.1 g/dL (11.5-15.4); Lymphocytes % 15.2 %; Mean Corpuscular HGB Conc 30.6 g/dL (31.6-35.5); Mean Corpuscular Hemoglobin 27.9 pg (28.0-33.3); Mean Corpuscular Volume 91.4 fL (83.0-100.0); Mean Platelet Volume 11.7 fL (9.4-12.4); Monocytes # 1.5 K/mcL (0.0-1.3); Monocytes % 18.2 %; Neutrophils # 5.4 K/mcL (1.6-8.9); Platelet Count 147 K/mcL (140-400); Red Cell Distribution Width 15.6 % (11.5-14.5); Segmented Neutrophils % 65.5 %
[2017-02-12 04:22] LABS: Alanine Aminotransferase 12 Units/L (0-55); Albumin 2.6 g/dL (3.5-5.0); Albumin/Globulin Ratio 0.7 (1.1-2.2); Alkaline Phosphatase 81 Units/L (38-126); Aspartate Amino Transferase 17 Units/L (5-34); BUN/Creatinine Ratio 18 (6-26); Bilirubin,Total 0.2 mg/dL (0.2-1.2); Blood Urea Nitrogen 20 mg/dL (7-20); C-Reactive Protein 112 mg/L (Less than 5); Calcium 8.6 mg/dL (8.6-10.8); Carbon Dioxide 28 mEq/L (19-29); Chloride 101 mEq/L (98-109); Globulin 3.6 g/dL (2.4-3.5); Glucose 131 mg/dL (70-99); Osmolality,Calculated 284 (280-300); Potassium 4.5 mEq/L (3.5-4.5); Sodium 135 mEq/L (136-145); Total Protein 6.2 g/dL (6.0-8.3); eGFR For African Americans > 60 (> 60); eGFR For Non-African Americans 53 (> 60)
[2017-02-12 04:32] LABS: Lymphocytes # 1.3 K/mcL (0.6-4.6)
[2017-02-12] MEDS: Vancomycin 1,500 MG in D5% in Water 250 ML IVPB SCH ×2 (05:41→17:11)
[2017-02-12] MEDS: *HR* Enoxaparin 30 MG/0.3 ML SYRINGE SQ SCH ×2 (05:41→17:14)
[2017-02-12 06:35] LABS: Hypochromasia Present (Not Present); Platelet Estimate Normal (Normal)
[2017-02-12] MEDS: Spironolactone 25 MG TABLET PO SCH (08:03)
[2017-02-12] MEDS: *HR* HYDROcodone/Acet 5/325 mg TABLET PO PRN ×3 (08:03→19:48)
[2017-02-12] MEDS: Aspirin Enteric Coated 81 MG Tablet PO SCH (08:03)
[2017-02-12] MEDS: Venlafaxine XR (24 HR) 150 MG CAP.ER.24H PO SCH (08:03)
[2017-02-12] MEDS: Gabapentin 400 MG CAPSULE PO SCH ×3 (08:03→19:48)
[2017-02-12] MEDS ORDERED: Aminoglycoside Consult 1 EACH MC ONE (08:37)
--- NOTE | 2017-02-12 17:22 | Internal Med Progress Note ---
Date of Encounter: 02/12/17 Time of Encounter: 17:22 - Assessment and plan (1) Sepsis Current Visit: Yes Status: Acute Qualifiers: Sepsis type: sepsis due to unspecified organism Qualified Code(s): A41.9 - Sepsis, unspecified organism (2) Pneumonia Current Visit: Yes Status: Acute Qualifiers: Pneumonia type: due to unspecified organism Laterality: left Lung location: lower lobe of lung Qualified Code(s): J18.1 - Lobar pneumonia, unspecified organism (3) UTI (urinary tract infection) Current Visit: Yes Status: Acute Qualifiers: Urinary tract infection type: acute cystitis Hematuria presence: with hematuria Qualified Code(s): N30.01 - Acute cystitis with hematuria (4) Morbid obesity due to excess calories Current Visit: Yes Status: Acute (5) Hypothyroidism Current Visit: Yes Status: Chronic Qualifiers: Hypothyroidism type: unspecified Qualified Code(s): E03.9 - Hypothyroidism , unspecified - Subjective Interval history: Patient is 51 years old custodial resident DNR CC admitted for shortness of breath and was diagnosed with pneumonia/UTI contributing to sepsis. Patient looks much better now. While awake and alert vital signs are stable including blood pressure. Urine culture showed ESBL. Sensitive to Zosyn. Continue IV vancomycin and Zosyn. Repeat CBC and CMP and continue IV fluid but can be reduced to 75 mL an hour. She is encouraged to ambulate. At this time she will be continued on antibiotics and her CBC CMP lactic acid will be repeated and IV fluids will be continued. She is encouraged to ambulate her and counseling provided regarding weight loss - Constitutional Vitals: Temp Pulse Resp BP Pulse Ox 97.7 F 85 22 114/51 100 02/12/17 16:53 02/12/17 16:53 02/12/17 16:53 02/12/17 16:53 02/12/17 16:53 General appearance: Present: A&O X 3, pleasant, no acute distress, answers questions appropriately - Head Head exam: Present: atraumatic, normocephalic - Eye Eye exam: Present: PERRL, conjuntiva pink, sclera anicteric Pupils: Present: PERRL - Neck Neck exam general surgery: Present: supple, trachea midline. Absent: lymphadenopathy - Respiratory Respiratory exam: Present: CTAB. Absent: accessory muscle use, rales, rhonchi, wheezes - Cardiovascular Cardiovascular exam: Present: RRR, +S1, +S2. Absent: diastolic murmur, gallop, rubs, systolic murmur - GI/Abdominal GI/Abdominal exam: Present: normal bowel sounds, soft, no peritoneal signs. Absent: distended, tenderness - Extremities Exam Extremities exam: Present: warm, radial pulses palpable and symmetrical. Absent : calf tenderness, cyanotic, pedal edema - Neurological Exam Neurological exam: Present: CN II-XII intact, oriented X3, no focal deficits. Absent: pronater drift, facial droop, speech deficit - Skin Skin exam: Present: dry, intact Internal Medicine: Result - Labs CBC & Chem 7: 02/12/17 03:40 02/12/17 03:40 Labs: Short CBC 02/12/17 Range/Units 03:40 WBC 8.2 (4.3-11.1) K/mcL Hgb 8.1 L (11.5-15.4) g/dL Hct 26.5 L (35.3-44.9) % Plt Count 147 (140-400) K/mcL Neutrophils # 5.4 (1.6-8.9) K/mcL BMP 02/12/17 03:40 Sodium 135 L Potassium 4.5 Chloride 101 Carbon Dioxide 28 BUN 20 Creatinine 1.09 Glucose 131 H Calcium 8.6 Liver Function 02/12/17 Range/Units 03:40 Total Bilirubin 0.2 (0.2-1.2) mg/dL AST 17 (5-34) Units/L ALT 12 (0-55) Units/L Alkaline Phosphatase 81 (38-126) Units/L Albumin 2.6 L (3.5-5.0) g/dL - ABG Interpretation ABG results: ABG ABG pH 7.41 pH Units (7.32-7.45) 02/10/17 01:08 ABG pCO2 48 mmHg (35-45) H 02/10/17 01:08 ABG pO2 68 mmHg (85-104) L 02/10/17 01:08 ABG O2 Saturation 93 % (95-98) L 02/10/17 01:08 PT/INR, D-dimer PT 13.1 Seconds (9.4-12.1) H 02/10/17 00:30 Consult Discharge Plan - Plan Referrals: Klaus Dominguez MD [Primary Care Provider] -
[2017-02-12] MEDS: *HR* LORazepam 1 MG TABLET PO PRN (19:48)
[2017-02-12] MEDS: Topiramate 25 MG TABLET PO SCH (19:49)
[2017-02-12] MEDS: risperiDONE 1 MG TABLET PO SCH (19:49)
[2017-02-13] MEDS: Piperacillin/Tazobactam 3.375 GM in D5% in Water (Mini-Bag+) 100 ML IVPB SCH ×2 (01:18→10:07)
[2017-02-13] MEDS: *HR* HYDROcodone/Acet 5/325 mg TABLET PO PRN ×2 (02:52→14:07)
[2017-02-13 05:00] LABS: Basophils % 0.1 %; Hematocrit 29.3 % (35.3-44.9); Hemoglobin 8.7 g/dL (11.5-15.4); Immature Platelets 5.7 % (1.1-6.1); Lymphocytes # 1.4 K/mcL (0.6-4.6); Lymphocytes % 17.6 %; Mean Corpuscular HGB Conc 29.7 g/dL (31.6-35.5); Mean Corpuscular Hemoglobin 27.4 pg (28.0-33.3); Mean Corpuscular Volume 92.1 fL (83.0-100.0); Monocytes # 1.3 K/mcL (0.0-1.3); Monocytes % 16.1 %; Neutrophils # 5.3 K/mcL (1.6-8.9); Platelet Count 180 K/mcL (140-400); Red Blood Count 3.18 M/mcL (3.82-4.97); Red Cell Distribution Width 15.2 % (11.5-14.5); Segmented Neutrophils % 65.2 %
[2017-02-13 05:27] LABS: Alanine Aminotransferase 12 Units/L (0-55); Albumin 2.7 g/dL (3.5-5.0); Albumin/Globulin Ratio 0.7 (1.1-2.2); Alkaline Phosphatase 92 Units/L (38-126); Aspartate Amino Transferase 16 Units/L (5-34); BUN/Creatinine Ratio 17 (6-26); Bilirubin,Total 0.2 mg/dL (0.2-1.2); Blood Urea Nitrogen 13 mg/dL (7-20); C-Reactive Protein 79 mg/L (Less than 5); Calcium 9.7 mg/dL (8.6-10.8); Carbon Dioxide 30 mEq/L (19-29); Chloride 103 mEq/L (98-109); Globulin 3.9 g/dL (2.4-3.5); Glucose 128 mg/dL (70-99); Osmolality,Calculated 290 (280-300); Potassium 4.6 mEq/L (3.5-4.5); Sodium 139 mEq/L (136-145); Total Protein 6.6 g/dL (6.0-8.3); eGFR For African Americans > 60 (> 60); eGFR For Non-African Americans > 60 (> 60)
[2017-02-13] MEDS: *HR* Enoxaparin 30 MG/0.3 ML SYRINGE SQ SCH (06:08)
[2017-02-13] MEDS: Gabapentin 400 MG CAPSULE PO SCH ×2 (09:29→14:05)
[2017-02-13] MEDS: Venlafaxine XR (24 HR) 150 MG CAP.ER.24H PO SCH (09:30)
[2017-02-13] MEDS: Spironolactone 25 MG TABLET PO SCH (09:30)
[2017-02-13] MEDS: Aspirin Enteric Coated 81 MG Tablet PO SCH (09:30)
[2017-02-13 12:02] VITALS: BP 124/74
[2017-02-13] MEDS ORDERED: Ertapenem 1,000 MG in 0.9 % Sodium Chloride Mini Bag 100 ML IVPB SCH (14:00)
--- NOTE | 2017-02-13 14:48 | Discharge Summary ---
Date of Encounter: 02/13/17 Time of Encounter: 14:40 - Discharge Diagnosis (1) Sepsis Priority: Primary Status: Acute Qualifiers: Sepsis type: sepsis due to unspecified organism Qualified Code(s): A41.9 - Sepsis, unspecified organism (2) Pneumonia Priority: Secondary Status: Acute Qualifiers: Pneumonia type: due to unspecified organism Laterality: left Lung location: lower lobe of lung Qualified Code(s): J18.1 - Lobar pneumonia, unspecified organism (3) UTI (urinary tract infection) Priority: Secondary Status: Acute Qualifiers: Urinary tract infection type: acute cystitis Hematuria presence: with hematuria Qualified Code(s): N30.01 - Acute cystitis with hematuria (4) Morbid obesity due to excess calories Priority: Secondary Status: Acute (5) Hypothyroidism Priority: Secondary Status: Chronic Qualifiers: Hypothyroidism type: unspecified Qualified Code(s): E03.9 - Hypothyroidism , unspecified - Discharge Medications Prescriptions: Ertapenem [INVanz] 1,000 mg IVPB DAILY #10 vial Home Medications: Albuterol Neb [Proventil Neb] 2.5 mg IH TID PRN 08/03/16 [History] Aspirin Enteric Coated [Aspirin EC] 81 mg PO DAILY 08/03/16 [History] Fluticasone Propionate Nasal [Flonase] 1 spray NS DAILY 08/03/16 [History] Levothyroxine [Synthroid] 50 mcg PO 0630 08/03/16 [History] Lisinopril [Zestril] 20 mg PO DAILY 08/03/16 [History] Omeprazole [PriLOSEC] 20 mg PO DAILY 08/03/16 [History] Simvastatin [Zocor] 40 mg PO HS 08/03/16 [History] Venlafaxine XR (24 HR) [Effexor Xr] 150 mg PO DAILY 08/03/16 [History] risperiDONE [Risperdal] 2 mg PO HS 08/03/16 [History] Ferrous Sulfate 325 mg PO BIDWM #60 tablet 08/07/16 [Rx] Spironolactone [Aldactone] 25 mg PO DAILY #30 08/07/16 [Rx] Ketotifen Fumarate [Zaditor] 1 drop BOTH EYES BID 11/18/16 [History] Topiramate [Topamax] 25 mg PO HS 11/18/16 [History] Gabapentin [Neurontin] 800 mg PO TID #30 11/22/16 [Rx] Zolpidem [Ambien] 10 mg PO HS PRN #10 11/22/16 [Rx] Acetaminophen [Tylenol] 500 mg PO TID 02/10/17 [History] Docusate [Colace] 100 mg PO BID 02/10/17 [History] Furosemide [Lasix] 20 mg PO DAILY PRN 02/10/17 [History] Meloxicam [Mobic] 7.5 mg PO DAILY 02/10/17 [History] Enoxaparin [Lovenox] 30 mg SQ Q12HCO syringe 02/13/17 [Rx] Ertapenem [INVanz] 1,000 mg IVPB DAILY #10 vial 02/13/17 [Rx] Allergies/Adverse Reactions: 3 Allergy/AdvReac Type Severity Reaction Status Date / Time nitrofurantoin Allergy Itching Verified 11/11/16 17:01 [From Macrodantin] duloxetine [From Cymbalta] AdvReac Depression Verified 11/11/16 17:01 pregabalin [From Lyrica] AdvReac See Verified 11/11/16 17:01 Comments Date of admission: 02/10/17 08:13 Primary care physician: Klaus Dominguez MD Consults: 02/10/17 15:30 Consult to Invasive Line Access Team [CONS] Routine Reason for Consult: LImited access Line Type: EPIV Discharging clinician: Russ Bernabe Anticipated date of discharge: 02/13/17 - Patient Status Disposition: Transfer SNF Condition: Fair Overall status at discharge: patient is progressing back to baseline - Discharge Instructions Follow Up With: Klaus Dominguez MD [Primary Care Provider] - - Diet and Activity Activity: as per physical therapy Diet: advance to your usual diet Hospital course: Ms. Flores is a 51 [facility]. She was admitted for sepsis and was diagnosed with pneumonia/UTI contributing to sepsis. Patient was restarted on IV vancomycin and Zosyn. Urine culture showed ESBL , Sensitive to Zosyn. She was continued on IV vancomycin and Zosyn. With IV fluid and IV antibiotic her condition improved and now she is afebrile white count is normal and symptoms have already resolved and she is doing much better. She will be switched to Invanz as it will be more convenient and reasonably good alternative to current antibiotics. She is encouraged to ambulate her and counseling provided regarding weight loss - Time Spent with Patient Total time spent providing and/or coordinating discharge services: Greater than 30 minutes - Constitutional Vitals: Temp Pulse Resp BP Pulse Ox 99.1 F 98 18 124/74 92 02/13/17 11:00 02/13/17 11:00 02/13/17 11:00 02/13/17 11:00 02/13/17 11:00 General appearance: Present: A&O X 3, no acute distress, answers questions appropriately - Head Head exam: Present: atraumatic, normocephalic - Eye Eye exam: Present: PERRL, conjuntiva pink, sclera anicteric Pupils: Present: PERRL - Neck Neck exam general surgery: Present: supple, trachea midline. Absent: lymphadenopathy - Respiratory Respiratory exam: Present: CTAB. Absent: accessory muscle use, rales, rhonchi, wheezes - Cardiovascular Cardiovascular exam: Present: RRR, +S1, +S2. Absent: diastolic murmur, gallop, rubs, systolic murmur - GI/Abdominal GI/Abdominal exam: Present: normal bowel sounds, soft, no peritoneal signs. Absent: distended, tenderness - Extremities Exam Extremities exam: Present: warm, radial pulses palpable and symmetrical. Absent : calf tenderness, cyanotic, pedal edema - Neurological Exam Neurological exam: Present: CN II-XII intact, oriented X3, no focal deficits. Absent: pronater drift, facial droop, speech deficit - Skin Skin exam: Present: dry, intact
--- NOTE | 2017-02-13 14:54 | Physician Discharge Referral ---
ExtendedCare Referral Info Transfer To: SNF Provider in Charge: Srinivasa Provider in Charge after Transfer: PCP Institutional Level of Care: Skilled - Diagnosis (1) Sepsis Status: Acute (2) Pneumonia Status: Acute (3) UTI (urinary tract infection) Status: Acute (4) Morbid obesity due to excess calories Status: Acute (5) Hypothyroidism Status: Chronic - Transfer Medications Prescriptions: Ertapenem [INVanz] 1,000 mg IVPB DAILY #10 vial Home Medications: Albuterol Neb [Proventil Neb] 2.5 mg IH TID PRN 08/03/16 [History] Aspirin Enteric Coated [Aspirin EC] 81 mg PO DAILY 08/03/16 [History] Fluticasone Propionate Nasal [Flonase] 1 spray NS DAILY 08/03/16 [History] Levothyroxine [Synthroid] 50 mcg PO 0630 08/03/16 [History] Lisinopril [Zestril] 20 mg PO DAILY 08/03/16 [History] Omeprazole [PriLOSEC] 20 mg PO DAILY 08/03/16 [History] Simvastatin [Zocor] 40 mg PO HS 08/03/16 [History] Venlafaxine XR (24 HR) [Effexor Xr] 150 mg PO DAILY 08/03/16 [History] risperiDONE [Risperdal] 2 mg PO HS 08/03/16 [History] Ferrous Sulfate 325 mg PO BIDWM #60 tablet 08/07/16 [Rx] Spironolactone [Aldactone] 25 mg PO DAILY #30 08/07/16 [Rx] Ketotifen Fumarate [Zaditor] 1 drop BOTH EYES BID 11/18/16 [History] Topiramate [Topamax] 25 mg PO HS 11/18/16 [History] Gabapentin [Neurontin] 800 mg PO TID #30 11/22/16 [Rx] Zolpidem [Ambien] 10 mg PO HS PRN #10 11/22/16 [Rx] Acetaminophen [Tylenol] 500 mg PO TID 02/10/17 [History] Docusate [Colace] 100 mg PO BID 02/10/17 [History] Furosemide [Lasix] 20 mg PO DAILY PRN 02/10/17 [History] Meloxicam [Mobic] 7.5 mg PO DAILY 02/10/17 [History] Enoxaparin [Lovenox] 30 mg SQ Q12HCO syringe 02/13/17 [Rx] Ertapenem [INVanz] 1,000 mg IVPB DAILY #10 vial 02/13/17 [Rx] Allergies/Adverse Reactions: 3 Allergy/AdvReac Type Severity Reaction Status Date / Time nitrofurantoin Allergy Itching Verified 11/11/16 17:01 [From Macrodantin] duloxetine [From Cymbalta] AdvReac Depression Verified 11/11/16 17:01 pregabalin [From Lyrica] AdvReac See Verified 11/11/16 17:01 Comments - Respiratory Orders Smoking Cessation: Smoking cessation has been advised. For more information, call the [place] Tobacco Quit Line at 0-792-NYZGNOW. - Advance Directives Code Status: Full Code - Rehabiliation Orders Rehab Orders: ROM Exercises, Evaluation for Physical Therapy, Evaluation for Occupational Therapy - Treatments Skin tear care topically daily PRN per policy, May check for fecal impaction rectally daily PRN, Fleet enema rectally every other day PRN cleansing purposes CERTIFICATION: I certify that the transfer of the above named patient to an Extended Care Facility is necessary for the continuing treatment of the diagnosis listed. The above information is true and accurate reflection of patient's current condition. Confidential - Redisclosure prohibited without a patient's written consent.
== END 2017-02-13 15:55 | DRG 871 ==
LOC: EMEROO 00:19 → 3ANU 00:19 → 2ANU 03:38
PROVIDERS: ADMIT Internal Medicine; ATTEND Hospitalist

== ENCOUNTER 2017-08-08 22:08 | Inpatient (IN) ==
[2017-08-08] MEDS ORDERED: methylPREDNISolone 125 MG/2 ML VIAL IVP ONE (22:19)
[2017-08-08] MEDS ORDERED: Ipratropium/Albuterol Neb 3 ML IH ONE (22:19)
[2017-08-08] MEDS ORDERED: 0.9 % Sodium Chloride 1,000 ML IVC ONE (22:19)
--- NOTE | 2017-08-08 22:23 | Emergency Department Note ---
Disposition Clinical Impression: Hyperglycemia Pneumonia Qualifiers: Pneumonia type: due to unspecified organism Laterality: left Lung location: upper lobe of lung Qualified Code(s): J18.1 - Lobar pneumonia, unspecified organism Disposition: Admitted As Inpatient Condition: Fair Time of Disposition: 23:26 General Adult HPI - General Chief complaint: ED Shortness of Breath/Dyspnea Stated complaint: sob Time Seen by Provider: 08/08/17 22:18 Source: patient Mode of arrival: EMS Limitations: no limitations Nursing Notes Reviewed: Yes Vital Signs Reviewed: Yes - History of Present Illness HPI Narrative: 52-year-old female history of hypertension, reactive airway disease with asthma presents for evaluation of dyspnea. Patient states that she was recently diagnosed with pneumonia yesterday and start with Levaquin. Patient does have a history of asthma and denies history of COPD or smoking. States she has been using her nebulizers well as prednisone recently. Patient states that her breathing has not improved. States she does reside at [facility]. Denies any chest pain but notes a nonproductive cough. Denies any fevers. States she does not wear oxygen at baseline. EMS reports the patient is on 3 L nasal cannula. Patient denies any other symptoms. Pain Scale: 6 - Related Data Home Medications Medication Instructions Recorded Confirmed Albuterol Neb [Proventil Neb] 2.5 mg IH TID PRN 08/03/16 08/09/17 Fluticasone Propionate Nasal 1 spray NS DAILY 08/03/16 08/09/17 [Flonase] Levothyroxine [Synthroid] 50 mcg PO 0630 08/03/16 08/09/17 Lisinopril [Zestril] 20 mg PO DAILY 08/03/16 08/09/17 Simvastatin [Zocor] 40 mg PO HS 08/03/16 08/09/17 risperiDONE [Risperdal] 2 mg PO HS 08/03/16 08/09/17 Topiramate [Topamax] 25 mg PO HS 11/18/16 08/09/17 Docusate [Colace] 100 mg PO BID 02/10/17 08/09/17 Meloxicam [Mobic] 7.5 mg PO DAILY 02/10/17 08/09/17 Aspirin 81 mg PO DAILY 05/18/17 08/09/17 Famotidine [Pepcid] 20 mg PO HS 05/18/17 08/09/17 Furosemide [Lasix] 40 mg PO BID 05/18/17 08/09/17 Ipratropium/Albuterol Neb [Duoneb] 3 ml IH Q4H 05/18/17 08/09/17 LORazepam [Ativan] 1 mg PO BID 05/18/17 08/09/17 OxyCODONE Immed Rel [Roxicodone 5 5 mg PO Q6HR 05/18/17 08/09/17 MG] Zolpidem [Ambien] 5 mg PO HS PRN 05/18/17 08/09/17 Acetaminophen [Pain Reliever] 500 mg PO TID PRN 08/09/17 08/09/17 Amoxicillin/Clavulanate [Augmentin] 875 mg PO BIDWM 08/09/17 08/09/17 GuaiFENesin/Dextromethorphan 10 ml PO Q6HR 08/09/17 08/09/17 [Robitussin/DM] Guaifenesin [Mucinex] 600 mg PO BID 08/09/17 08/09/17 levoFLOXacin [Levaquin] 500 mg PO DAILY 08/09/17 08/09/17 predniSONE [PredniSONE] 40 mg PO DAILY 08/09/17 08/09/17 Allergies Allergy/AdvReac Type Severity Reaction Status Date / Time nitrofurantoin Allergy Itching Verified 08/08/17 22:13 [From Macrodantin] duloxetine [From Cymbalta] AdvReac Depression Verified 08/08/17 22:13 pregabalin [From Lyrica] AdvReac See Verified 08/08/17 22:13 Comments All systems ED: reviewed and negative except as stated. Constitutional: Denies: fever Cardiovascular: Denies: chest pain Respiratory: Reports: cough, dyspnea. Denies: sputum production Gastrointestinal: Denies: abdominal pain, nausea, vomiting Past Medical History - Past Medical History Source: patient Medical history: Reports: asthma, CHF, fibromyalgia, hypertension, other Surgical history: Reports: , hysterectomy, other (carpal tunnel) Psychiatric history: Reports: anxiety, depression RESTA[employer]ANT HOST history: Reports: no RESTA[employer]ANT HOST history, other - Social History Smoking Status: Never smoker Smokeless Tobacco Status: No Alcohol use: Reports: none Drug use: Reports: none Physical Exam - General Limitations: no limitations General appearance: alert, in no apparent distress, obese - Head Head exam: atraumatic, normocephalic, normal inspection - Eye Eye exam: Present: normal appearance - ENT ENT exam: normal exam, mucous membranes moist - Neck Neck exam: Present: normal inspection - Chest Chest inspection: Present: normal inspection, symmetric chest wall rise - Respiratory Respiratory exam: Present: wheezes (Scattered expiratory wheezes throughout.), accessory muscle use, prolonged expiratory phase. Absent: respiratory distress - Cardiovascular Cardiovascular exam: Present: normal rhythm, tachycardia. Absent: systolic murmur - Abdominal Exam Abdominal exam: Present: soft, Non-Tender - Extremities Exam Extremities exam: Present: normal inspection, pedal edema (2+ pedal edema b/l) - Back Exam Back exam: Present: normal inspection - Neurological Exam Neurological exam: Present: alert, oriented X3 - Skin Skin exam: Present: warm, dry, intact, normal color Course Course Narrative: Patient does have increased work of breathing with accessory muscle use. Patient does have scattered wheeze. Patient will be treated with nebs, IV steroids, patient is also appropriate for BiPAP given increased work of breathing and body habitus. Patient will likely require admission. Blood cultures labs and antibiotics. - Reevaluation(s) Reevaluation #1: Patient is resting comfortably on BIPAP. Time: 23:05 Vital Signs Temperature 98.7 F 08/08/17 22:13 Pulse Rate 120 08/08/17 22:13 Respiratory Rate 22 08/08/17 22:13 Blood Pressure 131/68 08/08/17 22:13 O2 Sat by Pulse Oximetry 95 08/08/17 22:13 Temperature 98.8 F 08/09/17 03:17 Pulse Rate 101 08/09/17 03:17 Respiratory Rate 18 08/09/17 04:28 Blood Pressure 119/68 08/09/17 03:17 O2 Sat by Pulse Oximetry 97 08/09/17 04:28 Oxygen Delivery Oxygen Delivery Bipap Medical Decision Making - MDM Narrative Medical decision making narrative: Patient with a history of reactive airway disease and recent diagnosis of pneumonia present for evaluation of increasing work of breathing. Patient is a resident signature. Patient's typically not on oxygen has had a nonproductive cough with a chest x-ray yesterday showed left upper lobe infiltrate. Patient states worsening symptoms. Patient arrived with increased work of breathing. Patient had diffuse wheezes and was treated with nebs as well as steroids. Patient's chest x-rays does show evidence of pneumonia. Patient will be treated on appropriate antibiotics to cover hospital associated pneumonia. Patient does have positive pressure ventilation help with work of breathing. Patient's vitals are been stable. Patient will be admitted for continued respiratory monitoring support. - Lab Data Lab results reviewed: Yes I reviewed the patient's lab results. Result diagrams: 08/08/17 22:19 08/08/17 22:19 Lab Results 08/08/17 08/08/17 08/08/17 Range/Units 22:19 22:19 22:28 WBC 11.0 (4.3-11.1) K/mcL RBC 3.88 (3.82-4.97) M/mcL Hgb 11.0 L (11.5-15.4) g/dL Hct 34.8 L (35.3-44.9) % MCV 89.7 (83.0-100.0) fL MCH 28.4 (28.0-33.3) pg MCHC 31.6 (31.6-35.5) g/dL RDW 15.3 H (11.5-14.5) % Plt Count 195 (140-400) K/mcL MPV 11.9 (9.4-12.4) fL Immature Gran % 1.9 (0-4) % Seg Neutrophils % 82.1 % Lymphocytes % 9.2 % Monocytes % 6.6 % Eosinophils % 0.0 % Basophils % 0.2 % Neutrophils # 9.1 H (1.6-8.9) K/mcL Lymphocytes # 1.0 (0.6-4.6) K/mcL Monocytes # 0.7 (0.0-1.3) K/mcL Eosinophils # 0.0 (0.0-0.6) K/mcL Basophils # 0.0 (0.0-0.2) K/mcL VBG pH (7.32-7.42) pH Units VBG pCO2 (41-51) mmHg VBG pO2 (25-50) mmHg VBG HCO3 (21-27) mEq/L Sodium 132 L (136-145) mEq/L Potassium 4.7 (3.5-5.1) mEq/L Chloride 93 L (98-107) mEq/L Carbon Dioxide 29 (23-29) mEq/L BUN 24 H (6-20) mg/dL Creatinine 1.18 (0.60-1.20) mg/dL Est GFR ( Amer) 59 L (> 60) Est GFR (Non-Af Amer) 48 L (> 60) BUN/Creatinine Ratio 20 (6-26) Glucose 197 H (70-105) mg/dL Calculated Osmolality 284 (280-300) Lactic Acid (0.5-2.2) mmol/L Calcium 9.2 (8.6-10.3) mg/dL Troponin I 0.03 (< 0.04) ng/mL B-Natriuretic Peptide 32 (Less than 100) pg/mL 08/08/17 08/08/17 08/08/17 Range/Units 22:45 22:51 23:47 WBC (4.3-11.1) K/mcL RBC (3.82-4.97) M/mcL Hgb (11.5-15.4) g/dL Hct (35.3-44.9) % MCV (83.0-100.0) fL MCH (28.0-33.3) pg MCHC (31.6-35.5) g/dL RDW (11.5-14.5) % Plt Count (140-400) K/mcL MPV (9.4-12.4) fL Immature Gran % (0-4) % Seg Neutrophils % % Lymphocytes % % Monocytes % % Eosinophils % % Basophils % % Neutrophils # (1.6-8.9) K/mcL Lymphocytes # (0.6-4.6) K/mcL Monocytes # (0.0-1.3) K/mcL Eosinophils # (0.0-0.6) K/mcL Basophils # (0.0-0.2) K/mcL VBG pH 7.39 (7.32-7.42) pH Units VBG pCO2 47 (41-51) mmHg VBG pO2 191 H (25-50) mmHg VBG HCO3 28 H (21-27) mEq/L Sodium (136-145) mEq/L Potassium (3.5-5.1) mEq/L Chloride (98-107) mEq/L Carbon Dioxide (23-29) mEq/L BUN (6-20) mg/dL Creatinine (0.60-1.20) mg/dL Est GFR ( Amer) (> 60) Est GFR (Non-Af Amer) (> 60) BUN/Creatinine Ratio (6-26) Glucose (70-105) mg/dL Calculated Osmolality (280-300) Lactic Acid 1.7 3.2 H (0.5-2.2) mmol/L Calcium (8.6-10.3) mg/dL Troponin I (< 0.04) ng/mL B-Natriuretic Peptide (Less than 100) pg/mL - Radiology Data Radiology results reviewed: Yes I reviewed the patient's radiology results. Chest X-Ray 08/08/17 22:19 IMPRESSION: Left upper lobe infiltrate could represent atelectasis or pneumonia D/ / Alex Modi MD / Alex Modi MD Interpreting Provider: Alex Modi MD - EKG Data EKG #1 EKG attestation: Yes I reviewed and interpreted this EKG. EKG shows normal: sinus rhythm Rate: tachycardia [place]/QRS: normal T wave inversions noted in: v1 Interpretation: no acute changes, nonspecific ST-T wave changes S.B.A.R. - S.B.A.RCheryl Situation: Demographics Background: Presenting Complaint Assessment: Vital Signs, Patient/Family Expectation Recommendation: Barrier(s) to disposition, Recommendation based on pending studies, treatments, or consults S.B.A.RCheryl Report Given to: Dr. Danny SheikhB.A.Dwian Repor Time: 23:34 Attestation Statement - Attestation Attestation: I examined this patient and my medical decision-making was reviewed with the Resident Physician. I agree with the documented findings, disposition and treatment plan as described except to the extent set forth below. Findings consistent with pneumonia. We will start vancomycin and Zosyn. Cultures will be sent. Patient has left upper lobe infiltrate. Will be admitted for further management and treatment of pneumonia.
[2017-08-08 22:48] LABS: VBG HCO3 28 mEq/L (21-27); VBG PCO2 47 mmHg (41-51); VBG PH 7.39 pH Units (7.32-7.42); VBG PO2 191 mmHg (25-50)
[2017-08-08 22:49] LABS: Basophils % 0.2 %; Hematocrit 34.8 % (35.3-44.9); Immature Granulocytes % 1.9 % (0-4); Lymphocytes % 9.2 %; Mean Corpuscular HGB Conc 31.6 g/dL (31.6-35.5); Mean Corpuscular Hemoglobin 28.4 pg (28.0-33.3); Mean Corpuscular Volume 89.7 fL (83.0-100.0); Mean Platelet Volume 11.9 fL (9.4-12.4); Monocytes # 0.7 K/mcL (0.0-1.3); Monocytes % 6.6 %; Neutrophils # 9.1 K/mcL (1.6-8.9); Platelet Count 195 K/mcL (140-400); Red Blood Count 3.88 M/mcL (3.82-4.97); Red Cell Distribution Width 15.3 % (11.5-14.5); Segmented Neutrophils % 82.1 %
[2017-08-08] MEDS ORDERED: *HR* LORazepam 2 MG/ML VIAL IVP ONE (22:51)
[2017-08-08 23:15] LABS: Calcium 9.2 mg/dL (8.6-10.3); Potassium 4.7 mEq/L (3.5-5.1)
[2017-08-08 23:16] LABS: Troponin I 0.03 ng/mL (< 0.04)
[2017-08-08] MEDS ORDERED: Piperacillin/Tazobactam 3.375 GM in 0.9 % Sodium Chloride Mini Bag 100 ML IVPB ONE (23:23)
--- NOTE | 2017-08-09 00:33 | Internal Med History&Physical ---
Date of Encounter: 08/09/17 Time of Encounter: 00:30 Assessment and Plan (1) Pneumonia Current visit: Yes Status: Acute Patient from retirement with the shortness of breath and nonproductive cough chest x-ray shows left upper lobe pneumonia we will continue patient on Zosyn Qualifiers: Pneumonia type: due to unspecified organism Laterality: left Lung location: upper lobe of lung Qualified Code(s): J18.1 - Lobar pneumonia, unspecified organism (2) Dyspnea Current visit: No Status: Acute Shortness of breath due to pneumonia with active wheezing will add DuoNeb Qualifiers: Dyspnea type: shortness of breath Qualified Code(s): R06.02 - Shortness of breath; R06.00 - Dyspnea, unspecified; R06.01 - Orthopnea (3) Hypothyroidism Current visit: No Status: Chronic Qualifiers: Hypothyroidism type: unspecified Qualified Code(s): E03.9 - Hypothyroidism , unspecified (4) Essential hypertension Current visit: No Status: Chronic (5) Morbid obesity due to excess calories Current visit: No Status: Chronic (6) HTN (hypertension) Current visit: No Status: Chronic Chronic and well controlled Qualifiers: Hypertension type: essential hypertension Qualified Code(s): I10 - Essential (primary) hypertension Internal Medicine - H&P: HPI Chief complaint: sob and productive cough Admitted From: Emergency Dept Plans for Post Hospital Care: Home History of present illness: Ms. Flores is a 52 year old female Patient with history of high cholesterol, hypertension, hypothyroidism, morbid obesity, asthma fibromyalgia patient sent from retirement due to increased shortness of breath shortness of breath and nonproductive cough patient recently diagnosed with pneumonia and place on Levaquin but not getting better emergency room patient was wheezing chest x-ray consistent with left upper lobe pneumonia patient will be admitted for further treatment was started on Zosyn and vancomycin Past Med Surg Social Fam HX - Past Medical History Medical history: asthma, CHF, fibromyalgia, hypertension, other Psychiatric history: anxiety, depression - Past Surgical History Surgical History: , hysterectomy, other (carpal tunnel) - Social History Smoking Status: Never smoker Smokeless Tobacco Status: No Alcohol use: none Drug use: none - Family History Mother Living Status: Hx Family Cancer: Yes (breast cancer, ovarian cancer) Internal Medicine - H&P: Meds Albuterol Neb [Proventil Neb] 2.5 mg IH TID PRN 08/03/16 [History] Fluticasone Propionate Nasal [Flonase] 1 spray NS DAILY 08/03/16 [History] Levothyroxine [Synthroid] 50 mcg PO 0630 08/03/16 [History] Lisinopril [Zestril] 20 mg PO DAILY 08/03/16 [History] Simvastatin [Zocor] 40 mg PO HS 08/03/16 [History] risperiDONE [Risperdal] 2 mg PO HS 08/03/16 [History] Topiramate [Topamax] 25 mg PO HS 11/18/16 [History] Docusate [Colace] 100 mg PO BID 02/10/17 [History] Meloxicam [Mobic] 7.5 mg PO DAILY 02/10/17 [History] Aspirin 81 mg PO DAILY 05/18/17 [History] Famotidine [Pepcid] 20 mg PO HS 05/18/17 [History] Furosemide [Lasix] 40 mg PO BID 05/18/17 [History] Ipratropium/Albuterol Neb [Duoneb] 3 ml IH Q4H PRN 05/18/17 [History] LORazepam [Ativan] 1 mg PO BID 05/18/17 [History] OxyCODONE Immed Rel [Roxicodone 5 MG] 5 mg PO Q6HR 05/18/17 [History] Zolpidem [Ambien] 5 mg PO HS PRN 05/18/17 [History] Acetaminophen [Pain Reliever] 500 mg PO TID PRN 08/09/17 [History] Amoxicillin/Clavulanate [Augmentin] 875 mg PO BIDWM 08/09/17 [History] GuaiFENesin/Dextromethorphan [Robitussin/DM] 10 ml PO Q6HR 08/09/17 [History] Guaifenesin [Mucinex] 600 mg PO BID 08/09/17 [History] levoFLOXacin [Levaquin] 500 mg PO DAILY 08/09/17 [History] predniSONE [PredniSONE] 40 mg PO DAILY 08/09/17 [History] 3 Allergy/AdvReac Type Severity Reaction Status Date / Time nitrofurantoin Allergy Itching Verified 08/08/17 22:13 [From Macrodantin] duloxetine [From Cymbalta] AdvReac Depression Verified 08/08/17 22:13 pregabalin [From Lyrica] AdvReac See Verified 08/08/17 22:13 Comments All Systems PM: A 10-system review of systems was performed and is negative for pertinent findings except as documented above in the HPI. - Constitutional Vitals: Temp Pulse Resp BP Pulse Ox 98.7 F 106 20 130/82 99 08/08/17 22:13 08/08/17 23:21 08/08/17 23:21 08/08/17 23:21 08/08/17 23:21 General appearance: Present: mild distress - Eye Eye exam: Present: PERRL, conjuntiva pink, sclera anicteric Pupils: Present: PERRL - Neck Neck exam general surgery: Present: supple, trachea midline. Absent: lymphadenopathy - Respiratory Respiratory exam: Present: rhonchi, wheezes - Cardiovascular Cardiovascular exam: Present: RRR, +S1, +S2. Absent: diastolic murmur, gallop, rubs, systolic murmur - GI/Abdominal GI/Abdominal exam: Present: normal bowel sounds, soft, no peritoneal signs. Absent: distended, tenderness - Extremities Exam Extremities exam: Present: warm, radial pulses palpable and symmetrical. Absent : calf tenderness, cyanotic, pedal edema - Neurological Exam Neurological exam: Present: CN II-XII intact, oriented X3, no focal deficits. Absent: pronater drift, facial droop, speech deficit Internal Med - H&P Results - Labs CBC & Chem 7: 08/08/17 22:19 08/08/17 22:19
[2017-08-09] MEDS ORDERED: Naloxone 0.4 MG/ML INJ IVP PRN (01:11)
[2017-08-09] MEDS ORDERED: Acetaminophen 325 MG TABLET PO PRN (01:11)
[2017-08-09] MEDS ORDERED: Ipratropium/Albuterol Neb 3 ML IH PRN (01:14)
[2017-08-09] MEDS: Ipratropium/Albuterol Neb 3 ML IH SCH ×5 (04:27→21:25)
[2017-08-09] MEDS: *HR* Enoxaparin 40 MG/0.4 ML SYRINGE SQ SCH (05:42)
[2017-08-09] MEDS ORDERED: *HR* OxyCODONE Immed Rel 5 MG TABLET PO PRN (06:00)
[2017-08-09 06:35] LABS: Hematocrit 34.2 % (35.3-44.9); Hemoglobin 10.6 g/dL (11.5-15.4); Mean Corpuscular Hemoglobin 27.8 pg (28.0-33.3); Mean Corpuscular Volume 89.8 fL (83.0-100.0); Mean Platelet Volume 11.9 fL (9.4-12.4); Platelet Count 180 K/mcL (140-400); Red Blood Count 3.81 M/mcL (3.82-4.97); Red Cell Distribution Width 15.1 % (11.5-14.5)
[2017-08-09] MEDS ORDERED: Albuterol 2.5 MG/3 ML NEBULIZER IH PRN (07:24)
[2017-08-09 07:38] LABS: Alanine Aminotransferase 8 Units/L (7-52); Albumin 3.7 g/dL (3.5-5.7); Albumin/Globulin Ratio 1.2 (1.1-2.2); Alkaline Phosphatase 81 Units/L (34-104); Aspartate Amino Transferase 11 Units/L (13-39); BUN/Creatinine Ratio 22 (6-26); Bilirubin,Total 0.2 mg/dL (0.3-1.0); Blood Urea Nitrogen 21 mg/dL (6-20); Calcium 9.3 mg/dL (8.6-10.3); Carbon Dioxide 30 mEq/L (23-29); Chloride 99 mEq/L (98-107); Chol/HDL Ratio 5.4 (0-4.9); Cholesterol 147 mg/dL (< 200); Glucose 246 mg/dL (70-105); HDL Cholesterol 27 mg/dL (40-59); LDL Cholesterol,Calculated 97 mg/dL (0-99); Magnesium 1.9 mg/dL (1.6-2.6); Osmolality,Calculated 289 (280-300); Potassium 4.8 mEq/L (3.5-5.1); Sodium 134 mEq/L (136-145); Total Protein 6.7 g/dL (6.4-8.9); Triglycerides 113 mg/dL (< 150); eGFR For African Americans > 60 (> 60); eGFR For Non-African Americans > 60 (> 60)
[2017-08-09] MEDS: MethylPREDNISolone 40 MG/ML VIAL IVP SCH ×2 (09:07→17:00)
[2017-08-09] MEDS: Lisinopril 20 MG TABLET PO SCH (09:07)
[2017-08-09] MEDS: Aspirin 81 MG TAB.CHEW PO SCH (09:07)
[2017-08-09] MEDS: Fluticasone Propionate Nasal 50 MCG/SPRAY BOTTLE NS SCH (09:08)
[2017-08-09] MEDS: *HR* LORazepam 1 MG TABLET PO SCH ×2 (09:08→21:39)
[2017-08-09] MEDS: Piperacillin/Tazobactam 3.375 GM in 0.9 % Sodium Chloride Mini Bag 100 ML IVPB SCH ×2 (09:09→16:58)
[2017-08-09] MEDS: Acetylcysteine 10% 2 ML INHSOL IH SCH ×3 (11:09→21:25)
[2017-08-09] MEDS ORDERED: *HR* Dextrose 50 % in Water (Syg) 50 ML SYRINGE IVP PRN (16:19)
[2017-08-09] MEDS ORDERED: D5% in Water 1,000 ML IVC PRN (16:19)
[2017-08-09] MEDS ORDERED: Dextrose Gel 15 GM/37.5 ML TUBE PO PRN ×2 (16:19)
--- NOTE | 2017-08-09 16:28 | Event Note ---
Date of Encounter: 08/09/17 Time of Encounter: 16:23 S: Patient had no acute events overnight. She is feeling only a little better than yesterday. Some pain in right upper chest with coughing and deep breaths. She denies palpitations, fever, chills, nausea, vomiting, or abdominal pain. She has no other complaints today. O: Gen- Awake, alert, well-nourished, no acute distress HEENT - NCAT, PERRLA, EOMI, hearing grossly intact, oropharynx benight CV - RRR, normal S1 and S2, no M/R/G, trace BLE edema Resp - Mildly labored WOB, coarse breath sounds bilaterally, no W/R/R GI - Soft, NT/ND, no mass, normal bowel sounds, no HSP Skin - Warm, dry, no rashes/lesions/ulcers Psych - Normal mood and affect, no depression or anxiety A/P: 1) HCAP - Start IV levaquin (previously received vancomycin and zosyn), continue nebs, continue supplemental O2 (wean to room air as tolerated). 2) COPD - Continue solumedrol, nebs, and supplemental O2. 3) Hyperglycemia - Likely secondary to steroid use. Start accuchecks and moderate dose SSI QID AC/HS 4) Generalized Debility - PT/OT consulted
[2017-08-09] MEDS: Insulin LISPRO 300 UNITS/3 ML VIAL SQ SCH ×2 (16:59→21:47)
[2017-08-09] MEDS ORDERED: Levofloxacin 750 MG/150 ML 750 MG/150 ML BAG IVPB SCH (17:00)
[2017-08-09] MEDS: Furosemide 40 MG TABLET PO SCH (17:04)
[2017-08-09] MEDS: risperiDONE 1 MG TABLET PO SCH (21:38)
[2017-08-09] MEDS: traMADol 50 MG TABLET PO PRN (21:39)
[2017-08-09] MEDS: Famotidine 20 MG TABLET PO SCH (21:39)
[2017-08-09] MEDS: Topiramate 25 MG TABLET PO SCH (21:40)
[2017-08-09] MEDS: Levofloxacin 750 MG/150 ML 750 MG/150 ML BAG IVPB SCH (21:40)
[2017-08-10] MEDS: Piperacillin/Tazobactam 3.375 GM in 0.9 % Sodium Chloride Mini Bag 100 ML IVPB SCH ×4 (00:16→23:58)
[2017-08-10] MEDS: MethylPREDNISolone 40 MG/ML VIAL IVP SCH ×4 (00:16→23:57)
[2017-08-10] MEDS: Ipratropium/Albuterol Neb 3 ML IH SCH ×4 (04:15→21:11)
[2017-08-10] MEDS: Acetylcysteine 10% 2 ML INHSOL IH SCH ×4 (04:15→21:10)
[2017-08-10 04:32] LABS: Basophils % 0.3 %; Hematocrit 33.3 % (35.3-44.9); Hemoglobin 10.3 g/dL (11.5-15.4); Immature Granulocytes % 2.2 % (0-4); Lymphocytes # 1.2 K/mcL (0.6-4.6); Lymphocytes % 10.2 %; Mean Corpuscular HGB Conc 30.9 g/dL (31.6-35.5); Mean Corpuscular Hemoglobin 28.1 pg (28.0-33.3); Mean Corpuscular Volume 90.7 fL (83.0-100.0); Mean Platelet Volume 11.5 fL (9.4-12.4); Monocytes # 0.8 K/mcL (0.0-1.3); Monocytes % 6.6 %; Neutrophils # 9.5 K/mcL (1.6-8.9); Platelet Count 204 K/mcL (140-400); Red Blood Count 3.67 M/mcL (3.82-4.97); Red Cell Distribution Width 15.5 % (11.5-14.5); Segmented Neutrophils % 80.7 %
[2017-08-10 05:00] LABS: BUN/Creatinine Ratio 24 (6-26); Blood Urea Nitrogen 24 mg/dL (6-20); Calcium 9.9 mg/dL (8.6-10.3); Carbon Dioxide 31 mEq/L (23-29); Chloride 101 mEq/L (98-107); Glucose 186 mg/dL (70-105); Osmolality,Calculated 293 (280-300); Potassium 4.8 mEq/L (3.5-5.1); Sodium 137 mEq/L (136-145); eGFR For African Americans > 60 (> 60); eGFR For Non-African Americans > 60 (> 60)
[2017-08-10] MEDS: *HR* Enoxaparin 40 MG/0.4 ML SYRINGE SQ SCH (05:59)
[2017-08-10] MEDS: Insulin LISPRO 300 UNITS/3 ML VIAL SQ SCH ×4 (08:16→23:56)
[2017-08-10] MEDS: Fluticasone Propionate Nasal 50 MCG/SPRAY BOTTLE NS SCH (11:04)
[2017-08-10] MEDS: Lisinopril 20 MG TABLET PO SCH (11:05)
[2017-08-10] MEDS: Aspirin 81 MG TAB.CHEW PO SCH (11:05)
[2017-08-10] MEDS: *HR* LORazepam 1 MG TABLET PO SCH ×2 (11:05→22:21)
[2017-08-10] MEDS: Furosemide 40 MG TABLET PO SCH (11:05)
[2017-08-10] MEDS: risperiDONE 1 MG TABLET PO SCH (22:21)
[2017-08-10] MEDS: Famotidine 20 MG TABLET PO SCH (22:22)
[2017-08-10] MEDS: Topiramate 25 MG TABLET PO SCH (22:22)
--- NOTE | 2017-08-10 22:22 | Internal Med Progress Note ---
Date of Encounter: 08/10/17 Time of Encounter: 13:57 - Assessment and plan (1) HCAP (healthcare-associated pneumonia) Current Visit: Yes Status: Acute Assessment and plan: Continue IV levaquin and zosyn; will descalate to only levaquin with continued improvement. Continue supplemental O2 PRN; wean as tolerated. Continue nebs and guaifenesin. Recheck labwork in AM. (2) Acute exacerbation of chronic obstructive pulmonary disease (COPD) Current Visit: Yes Status: Acute Assessment and plan: Continue IV solumedrol; taper with improvement. Continue supplemental O2 PRN; wean as tolerated. Continue nebs. (3) Acute respiratory failure Current Visit: Yes Status: Acute Assessment and plan: Continue supplemental O2 PRN; wean as tolerated. Nebs, steroids, and antibiotics as per above for HCAP and COPD exacerbation. Qualifiers: Respiratory failure complication: unspecified whether with hypoxia or hypercapnia Qualified Code(s): J96.00 - Acute respiratory failure, unspecified whether with hypoxia or hypercapnia (4) Essential hypertension Current Visit: Yes Status: Chronic Assessment and plan: Continue home medications. (5) Hypothyroidism Current Visit: No Status: Chronic Assessment and plan: Continue home medications. Qualifiers: Hypothyroidism type: other Qualified Code(s): E03.8 - Other specified hypothyroidism (6) Morbid obesity due to excess calories Current Visit: No Status: Chronic Assessment and plan: Counselled on lifestyle changes. (7) DVT prophylaxis Current Visit: No Status: Acute Assessment and plan: Continue lovenox 40 mg SQ QD. - Time Spent With Patient Total time spent is greater than 50% in coordination of care (as documented) at patient's floor/unit and/or counseling patient: less than 15 minutes - Subjective Interval history: Patient had no acute events overnight. She states that she is still having some SOB. She denies chest pain, fever, chills, nausea, or vomiting. She has been trying to get up to side of the bed. She states that oxygen is irritating her nose; will order humidification. She has no other complaints. - Constitutional Vitals: Temp Pulse Resp BP Pulse Ox 98.7 F 95 14 144/83 96 08/10/17 20:20 08/10/17 20:20 08/10/17 21:11 08/10/17 20:20 08/10/17 21:11 General appearance: Present: cooperative, A&O X 3, morbidly obese, no acute distress, answers questions appropriately - Respiratory Respiratory exam: Absent: accessory muscle use, rales, rhonchi, wheezes Additional comments: Moderately labored WOB, coarse breath sounds bilaterally and decreased breath sounds at lung bases - Cardiovascular Cardiovascular exam: Present: RRR, +S1, +S2. Absent: diastolic murmur, gallop, rubs, systolic murmur Additional comments: No BLE edema - GI/Abdominal GI/Abdominal exam: Present: normal bowel sounds, soft. Absent: distended, hepatomegaly, mass, splenomegaly, tenderness - Psychiatric Psychiatric exam: Present: normal affect, normal mood. Absent: agitated, anxious, depressed - Skin Skin exam: Present: dry, intact, warm. Absent: cyanosis, rash Internal Medicine: Result - Labs CBC & Chem 7: 08/10/17 04:13 08/10/17 04:13 Labs: Short CBC 08/10/17 Range/Units 04:13 WBC 11.7 H (4.3-11.1) K/mcL Hgb 10.3 L (11.5-15.4) g/dL Hct 33.3 L (35.3-44.9) % Plt Count 204 (140-400) K/mcL Neutrophils # 9.5 H (1.6-8.9) K/mcL BMP 08/10/17 04:13 Sodium 137 Potassium 4.8 Chloride 101 Carbon Dioxide 31 H BUN 24 H Creatinine 0.98 Glucose 186 H Calcium 9.9 Consult Discharge Plan - Plan Referrals: Delfina Fitch, [facility]ER [Primary Care Provider] - (WEB REQUEST SENT ON 08/09/17 Patient is from [facility]... )
[2017-08-10] MEDS: Levofloxacin 750 MG/150 ML 750 MG/150 ML BAG IVPB SCH (22:27)
[2017-08-11] MEDS: Ipratropium/Albuterol Neb 3 ML IH SCH ×4 (03:20→21:49)
[2017-08-11] MEDS: Acetylcysteine 10% 2 ML INHSOL IH SCH ×4 (03:20→21:49)
[2017-08-11 05:17] LABS: Basophils % 0.2 %; Hematocrit 34.5 % (35.3-44.9); Hemoglobin 10.6 g/dL (11.5-15.4); Immature Granulocytes % 2.2 % (0-4); Lymphocytes # 1.3 K/mcL (0.6-4.6); Lymphocytes % 11.4 %; Mean Corpuscular HGB Conc 30.7 g/dL (31.6-35.5); Mean Corpuscular Hemoglobin 27.9 pg (28.0-33.3); Mean Corpuscular Volume 90.8 fL (83.0-100.0); Mean Platelet Volume 11.7 fL (9.4-12.4); Monocytes # 0.7 K/mcL (0.0-1.3); Neutrophils # 9.3 K/mcL (1.6-8.9); Nucleated Red Blood Cells 0.3 /100 WBC (0); Platelet Count 203 K/mcL (140-400); Red Cell Distribution Width 15.4 % (11.5-14.5); Segmented Neutrophils % 80.2 %
[2017-08-11 05:34] LABS: BUN/Creatinine Ratio 26 (6-26); Blood Urea Nitrogen 28 mg/dL (6-20); Calcium 10.2 mg/dL (8.6-10.3); Carbon Dioxide 30 mEq/L (23-29); Chloride 100 mEq/L (98-107); Glucose 200 mg/dL (70-105); Osmolality,Calculated 297 (280-300); Potassium 4.6 mEq/L (3.5-5.1); Sodium 138 mEq/L (136-145); eGFR For African Americans > 60 (> 60); eGFR For Non-African Americans 54 (> 60)
[2017-08-11] MEDS: *HR* Enoxaparin 40 MG/0.4 ML SYRINGE SQ SCH (05:57)
[2017-08-11] MEDS: MethylPREDNISolone 40 MG/ML VIAL IVP SCH ×2 (08:41→18:56)
[2017-08-11] MEDS: Insulin LISPRO 300 UNITS/3 ML VIAL SQ SCH ×4 (08:41→20:20)
[2017-08-11] MEDS: Furosemide 40 MG TABLET PO SCH (08:42)
[2017-08-11] MEDS: Aspirin 81 MG TAB.CHEW PO SCH (08:42)
[2017-08-11] MEDS: *HR* LORazepam 1 MG TABLET PO SCH ×2 (08:42→20:19)
[2017-08-11] MEDS: Lisinopril 20 MG TABLET PO SCH (08:42)
[2017-08-11] MEDS: Piperacillin/Tazobactam 3.375 GM in 0.9 % Sodium Chloride Mini Bag 100 ML IVPB SCH ×2 (08:43→18:55)
[2017-08-11] MEDS: Fluticasone Propionate Nasal 50 MCG/SPRAY BOTTLE NS SCH (12:49)
[2017-08-11] MEDS ORDERED: levoFLOXacin 750 MG TABLET PO SCH (17:00)
[2017-08-11] MEDS: traMADol 50 MG TABLET PO PRN (18:58)
--- NOTE | 2017-08-11 19:10 | Electrocardiograph Report ---
[address] [address] Test Date: 2017-08-08 Pat Name: Anne Marie Flores Department: 103 Room: 2A22 Gender: F [employer] [employer] Supervisor: MAKAYLA : 1965 Requested By: Sae Foster Order Number: [id number] Reading MD: Laurie Harvey Measurements Intervals [place] Rate: 106 P: 54 WV: 177 QRS: 122 QRSD: 113 T: 32 QT: 329 QTc: 391 Interpretive Statements SINUS TACHYCARDIA INDETERMINATE AXIS LOW QRS VOLTAGE IN PRECORDIAL LEADS [QRS DEFLECTION < 1.0 mV IN CHEST LEADS] PATTERN CONSISTENT WITH PULMONARY DISEASE MODERATE INTRAVENTRICULAR CONDUCTION DELAY [110+ ms QRS DURATION] Electronically Signed On 08-11-2017 19:08:56 EDT by Laurie Harvey
[2017-08-11] MEDS: Famotidine 20 MG TABLET PO SCH (20:19)
[2017-08-11] MEDS: risperiDONE 1 MG TABLET PO SCH (20:19)
[2017-08-11] MEDS: Topiramate 25 MG TABLET PO SCH (20:19)
[2017-08-11 21:07] LABS: INR 1.1; Prothrombin Time 11.7 Seconds (9.4-12.1)
[2017-08-11 21:09] LABS: Activated Partial Thrombo Time 25.5 Seconds (26.0-36.0)
--- NOTE | 2017-08-11 21:32 | Internal Med Progress Note ---
Date of Encounter: 08/11/17 Time of Encounter: 14:17 - Assessment and plan (1) HCAP (healthcare-associated pneumonia) Current Visit: Yes Status: Acute Assessment and plan: Improving. Continue PO levaquin and IV zosyn; will descalate to only levaquin with continued improvement. Continue supplemental O2 PRN; wean as tolerated. Continue nebs and guaifenesin. Recheck labwork in AM. (2) Acute exacerbation of chronic obstructive pulmonary disease (COPD) Current Visit: Yes Status: Acute Assessment and plan: Improving. Continue IV solumedrol at lower dose of 40 mg Q12H. Continue supplemental O2 PRN; wean as tolerated. Continue nebs. (3) Acute respiratory failure Current Visit: Yes Status: Acute Assessment and plan: Continue supplemental O2 PRN; wean as tolerated. Nebs, steroids, and antibiotics as per above for HCAP and COPD exacerbation. Qualifiers: Respiratory failure complication: unspecified whether with hypoxia or hypercapnia Qualified Code(s): J96.00 - Acute respiratory failure, unspecified whether with hypoxia or hypercapnia (4) Essential hypertension Current Visit: Yes Status: Chronic Assessment and plan: Continue home medications. (5) Hypothyroidism Current Visit: No Status: Chronic Assessment and plan: Continue home medications. Qualifiers: Hypothyroidism type: other Qualified Code(s): E03.8 - Other specified hypothyroidism (6) Morbid obesity due to excess calories Current Visit: No Status: Chronic Assessment and plan: Counselled on lifestyle changes. (7) DVT prophylaxis Current Visit: No Status: Acute Assessment and plan: Continue lovenox 40 mg SQ QD. - Time Spent With Patient Total time spent is greater than 50% in coordination of care (as documented) at patient's floor/unit and/or counseling patient: less than 15 minutes - Subjective Interval history: Patient had no acute events overnight. She states that her breathing is a little improved today. She denies chest pain, fever, chills, nausea, or vomiting. She has no complaints today. - Constitutional Vitals: Temp Pulse Resp BP Pulse Ox 98.0 F 96 18 126/76 94 08/11/17 18:42 08/11/17 18:42 08/11/17 18:42 08/11/17 18:42 08/11/17 18:42 General appearance: Present: cooperative, A&O X 3, morbidly obese, no acute distress, answers questions appropriately - Respiratory Respiratory exam: Absent: accessory muscle use, rales, rhonchi, wheezes Additional comments: Mildly labored WOB, coarse breath sounds bilaterally - Cardiovascular Cardiovascular exam: Present: RRR, +S1, +S2. Absent: diastolic murmur, gallop, rubs, systolic murmur Additional comments: No BLE edema - GI/Abdominal GI/Abdominal exam: Present: normal bowel sounds, soft. Absent: distended, hepatomegaly, mass, splenomegaly, tenderness - Psychiatric Psychiatric exam: Present: normal affect, normal mood. Absent: agitated, anxious, depressed - Skin Skin exam: Present: dry, intact, warm. Absent: cyanosis, rash Internal Medicine: Result - Labs CBC & Chem 7: 08/11/17 04:53 08/11/17 04:53 Labs: Short CBC 08/11/17 Range/Units 04:53 WBC 11.5 H (4.3-11.1) K/mcL Hgb 10.6 L (11.5-15.4) g/dL Hct 34.5 L (35.3-44.9) % Plt Count 203 (140-400) K/mcL Neutrophils # 9.3 H (1.6-8.9) K/mcL BMP 08/11/17 04:53 Sodium 138 Potassium 4.6 Chloride 100 Carbon Dioxide 30 H BUN 28 H Creatinine 1.08 Glucose 200 H Calcium 10.2 - ABG Interpretation ABG results: PT/INR, D-dimer PT 11.7 Seconds (9.4-12.1) 08/11/17 20:51 Consult Discharge Plan - Plan Referrals: Delfina Fitch, SALES ADVISORY MANAGER [Primary Care Provider] - (WEB REQUEST SENT ON 08/09/17 Patient is from [facility]... )
[2017-08-12] MEDS: Piperacillin/Tazobactam 3.375 GM in 0.9 % Sodium Chloride Mini Bag 100 ML IVPB SCH (00:21)
[2017-08-12] MEDS: Acetylcysteine 10% 2 ML INHSOL IH SCH ×2 (03:24→10:56)
[2017-08-12] MEDS: Ipratropium/Albuterol Neb 3 ML IH SCH ×2 (03:24→10:56)
[2017-08-12] MEDS: *HR* Enoxaparin 40 MG/0.4 ML SYRINGE SQ SCH (05:24)
[2017-08-12] MEDS: MethylPREDNISolone 40 MG/ML VIAL IVP SCH (06:32)
[2017-08-12 07:16] LABS: BUN/Creatinine Ratio 28 (6-26); Blood Urea Nitrogen 29 mg/dL (6-20); Calcium 9.8 mg/dL (8.6-10.3); Carbon Dioxide 33 mEq/L (23-29); Chloride 99 mEq/L (98-107); Glucose 164 mg/dL (70-105); Osmolality,Calculated 291 (280-300); Potassium 4.3 mEq/L (3.5-5.1); Sodium 136 mEq/L (136-145); eGFR For African Americans > 60 (> 60); eGFR For Non-African Americans 57 (> 60)
[2017-08-12] MEDS: Furosemide 40 MG TABLET PO SCH (08:18)
[2017-08-12] MEDS: Lisinopril 20 MG TABLET PO SCH (08:18)
[2017-08-12] MEDS: *HR* LORazepam 1 MG TABLET PO SCH (08:18)
[2017-08-12] MEDS: Fluticasone Propionate Nasal 50 MCG/SPRAY BOTTLE NS SCH (08:18)
[2017-08-12] MEDS: Aspirin 81 MG TAB.CHEW PO SCH (08:18)
[2017-08-12] MEDS: Insulin LISPRO 300 UNITS/3 ML VIAL SQ SCH ×2 (08:19→11:52)
[2017-08-12 08:30] LABS: Hematocrit 33.8 % (35.3-44.9); Hemoglobin 10.4 g/dL (11.5-15.4); Immature Granulocytes % 2.2 % (0-4); Lymphocytes % 16.7 %; Mean Corpuscular HGB Conc 30.8 g/dL (31.6-35.5); Mean Corpuscular Hemoglobin 28.1 pg (28.0-33.3); Mean Corpuscular Volume 91.4 fL (83.0-100.0); Mean Platelet Volume 12.1 fL (9.4-12.4); Monocytes % 9.1 %; Platelet Count 202 K/mcL (140-400); Red Cell Distribution Width 15.4 % (11.5-14.5); Segmented Neutrophils % 71.8 %
[2017-08-12 08:31] LABS: Basophils % 0.2 %; Monocytes # 1.1 K/mcL (0.0-1.3); Neutrophils # 8.6 K/mcL (1.6-8.9)
--- NOTE | 2017-08-12 10:26 | Discharge Summary ---
- NOTES TO OUTPATIENT PROVIDER Notes to Outpatient Provider: Follow up with SNF physician. Date of Encounter: 08/12/17 Time of Encounter: 10:24 - Discharge Diagnosis (1) HCAP (healthcare-associated pneumonia) Priority: Primary Status: Acute (2) Acute exacerbation of chronic obstructive pulmonary disease (COPD) Priority: Secondary Status: Acute (3) Acute respiratory failure Priority: Secondary Status: Resolved Qualifiers: Respiratory failure complication: unspecified whether with hypoxia or hypercapnia Qualified Code(s): J96.00 - Acute respiratory failure, unspecified whether with hypoxia or hypercapnia (4) Essential hypertension Priority: Secondary Status: Chronic (5) Hypothyroidism Priority: Secondary Status: Chronic Qualifiers: Hypothyroidism type: other Qualified Code(s): E03.8 - Other specified hypothyroidism (6) Morbid obesity due to excess calories Priority: Secondary Status: Chronic (7) DVT prophylaxis Priority: Secondary Status: Acute Hospital course: Ms. Flores is a 52 year old female Discharge discussed with: patient, nurse - Time Spent with Patient Total time spent providing and/or coordinating discharge services: Greater than 30 minutes - Discharge Medications Prescriptions: OxyCODONE Immed Rel [Roxicodone 5 MG] 5 mg PO Q6HR PRN 4 Days #15 tablet PRN Reason: Pain levoFLOXacin [Levaquin] 750 mg PO Q24H 3 Days #3 tablet LORazepam [Ativan] 1 mg PO BID 4 Days #8 tablet predniSONE [PredniSONE] See Taper PO BIDWM 12 Days #28 tablet Zolpidem [Ambien] 5 mg PO HS PRN 4 Days #4 tablet PRN Reason: Sleep Home Medications: Fluticasone Propionate Nasal [Flonase] 1 spray NS DAILY 08/03/16 [History] Levothyroxine [Synthroid] 50 mcg PO 0630 08/03/16 [History] Lisinopril [Zestril] 20 mg PO DAILY 08/03/16 [History] Simvastatin [Zocor] 40 mg PO HS 08/03/16 [History] risperiDONE [Risperdal] 2 mg PO HS 08/03/16 [History] Topiramate [Topamax] 25 mg PO HS 11/18/16 [History] Docusate [Colace] 100 mg PO BID 02/10/17 [History] Meloxicam [Mobic] 7.5 mg PO DAILY 02/10/17 [History] Aspirin 81 mg PO DAILY 05/18/17 [History] Famotidine [Pepcid] 20 mg PO HS 05/18/17 [History] Furosemide [Lasix] 40 mg PO BID 05/18/17 [History] Ipratropium/Albuterol Neb [Duoneb] 3 ml IH Q4H 05/18/17 [History] Acetaminophen [Pain Reliever] 500 mg PO TID PRN 08/09/17 [History] GuaiFENesin/Dextromethorphan [Robitussin/Dm] 10 ml PO Q6HR 08/09/17 [History] Guaifenesin [Mucinex] 600 mg PO BID 08/09/17 [History] LORazepam [Ativan] 1 mg PO BID 4 Days #8 tablet 08/12/17 [Rx] OxyCODONE Immed Rel [Roxicodone 5 MG] 5 mg PO Q6HR PRN 4 Days #15 tablet [Rx] Zolpidem [Ambien] 5 mg PO HS PRN 4 Days #4 tablet 08/12/17 [Rx] levoFLOXacin [Levaquin] 750 mg PO Q24H 3 Days #3 tablet 08/12/17 [Rx] predniSONE [PredniSONE] See Taper PO BIDWM 12 Days #28 tablet 08/12/17 [Rx] Allergies/Adverse Reactions: 3 Allergy/AdvReac Type Severity Reaction Status Date / Time nitrofurantoin Allergy Itching Verified 08/08/17 22:13 [From Macrodantin] duloxetine [From Cymbalta] AdvReac Depression Verified 08/08/17 22:13 pregabalin [From Lyrica] AdvReac See Verified 08/08/17 22:13 Comments Date of admission: 08/09/17 01:11 Primary care physician: Delfina Fitch CNP Consults: 08/09/17 16:05 Consult to Physical Therapy [CONS] Routine Comment: Evaluate, develop and implement POC Reason for Consult: discharge planning Does patient have active BEDREST order?: Yes Is patient medically & hemodynamically stable?: Yes Patient assessed for mobility or mobilized this visit?: Yes 08/10/17 10:39 Consult to Painter And Decorator Apprentice [CONS] Routine Reason for SW Consult: rtn signature 08/11/17 14:07 Consult to Painter And Decorator Apprentice [CONS] Stat Reason for SW Consult: SNF placement. Discharging clinician: Gordon Mulligan Anticipated date of discharge: 08/12/17 - Constitutional Vitals: Temp Pulse Resp BP Pulse Ox 98.0 F 94 15 161/95 92 08/12/17 08:02 08/12/17 08:02 08/12/17 08:02 08/12/17 08:02 08/12/17 08:02 General appearance: Present: cooperative, A&O X 3, morbidly obese, no acute distress, answers questions appropriately - Respiratory Respiratory exam: Present: CTAB. Absent: accessory muscle use, rales, rhonchi, wheezes Additional comments: Normal WOB - Cardiovascular Cardiovascular exam: Present: RRR, +S1, +S2. Absent: diastolic murmur, gallop, rubs, systolic murmur Additional comments: Trace BLE edema - GI/Abdominal GI/Abdominal exam: Present: normal bowel sounds, soft. Absent: distended, hepatomegaly, mass, splenomegaly, tenderness - Psychiatric Psychiatric exam: Present: flat affect, normal mood. Absent: agitated, anxious , depressed - Skin Skin exam: Present: dry, intact, warm. Absent: cyanosis, rash - Patient Status Disposition: Transfer SNF Condition: Good Overall status at discharge: patient is progressing back to baseline - Discharge Instructions Follow Up With: Delfina Fitch CNP [Primary Care Provider] - (WEB REQUEST SENT ON 08/09/17 Patient is from [facility]... ) Additional Instructions: Follow up with SNF physician. - Diet and Activity Diet: diabetic diet, low fat, low cholesterol, low salt diet, other (Cardiac Diet)
--- NOTE | 2017-08-12 10:40 | Physician Discharge Referral ---
ExtendedCare Referral Info Transfer To: [facility] Provider in Charge after Transfer: Other (SNF Physician) Institutional Level of Care: Skilled - Diagnosis (1) HCAP (healthcare-associated pneumonia) Priority: Primary Status: Acute (2) Acute exacerbation of chronic obstructive pulmonary disease (COPD) Priority: Secondary Status: Acute (3) Acute respiratory failure Priority: Secondary Status: Resolved (4) Essential hypertension Priority: Secondary Status: Chronic (5) Hypothyroidism Priority: Secondary Status: Chronic (6) Morbid obesity due to excess calories Priority: Secondary Status: Chronic (7) DVT prophylaxis Priority: Secondary Status: Acute Prognosis: Fair Aware of Diagnosis: Patient Aware of Prognosis: Patient - Transfer Medications Prescriptions: OxyCODONE Immed Rel [Roxicodone 5 MG] 5 mg PO Q6HR PRN 4 Days #15 tablet PRN Reason: Pain levoFLOXacin [Levaquin] 750 mg PO Q24H 3 Days #3 tablet LORazepam [Ativan] 1 mg PO BID 4 Days #8 tablet predniSONE [PredniSONE] See Taper PO BIDWM 12 Days #28 tablet Zolpidem [Ambien] 5 mg PO HS PRN 4 Days #4 tablet PRN Reason: Sleep Home Medications: Fluticasone Propionate Nasal [Flonase] 1 spray NS DAILY 08/03/16 [History] Levothyroxine [Synthroid] 50 mcg PO 0630 08/03/16 [History] Lisinopril [Zestril] 20 mg PO DAILY 08/03/16 [History] Simvastatin [Zocor] 40 mg PO HS 08/03/16 [History] risperiDONE [Risperdal] 2 mg PO HS 08/03/16 [History] Topiramate [Topamax] 25 mg PO HS 11/18/16 [History] Docusate [Colace] 100 mg PO BID 02/10/17 [History] Meloxicam [Mobic] 7.5 mg PO DAILY 02/10/17 [History] Aspirin 81 mg PO DAILY 05/18/17 [History] Famotidine [Pepcid] 20 mg PO HS 05/18/17 [History] Furosemide [Lasix] 40 mg PO BID 05/18/17 [History] Ipratropium/Albuterol Neb [Duoneb] 3 ml IH Q4H 05/18/17 [History] Acetaminophen [Pain Reliever] 500 mg PO TID PRN 08/09/17 [History] GuaiFENesin/Dextromethorphan [Robitussin/Dm] 10 ml PO Q6HR 08/09/17 [History] Guaifenesin [Mucinex] 600 mg PO BID 08/09/17 [History] LORazepam [Ativan] 1 mg PO BID 4 Days #8 tablet 08/12/17 [Rx] OxyCODONE Immed Rel [Roxicodone 5 MG] 5 mg PO Q6HR PRN 4 Days #15 tablet [Rx] Zolpidem [Ambien] 5 mg PO HS PRN 4 Days #4 tablet 08/12/17 [Rx] levoFLOXacin [Levaquin] 750 mg PO Q24H 3 Days #3 tablet 08/12/17 [Rx] predniSONE [PredniSONE] See Taper PO BIDWM 12 Days #28 tablet 08/12/17 [Rx] Allergies/Adverse Reactions: 3 Allergy/AdvReac Type Severity Reaction Status Date / Time nitrofurantoin Allergy Itching Verified 08/08/17 22:13 [From Macrodantin] duloxetine [From Cymbalta] AdvReac Depression Verified 08/08/17 22:13 pregabalin [From Lyrica] AdvReac See Verified 08/08/17 22:13 Comments - Respiratory Orders Oxygen / L per min (PRN SOB/hypoxemia) Smoking Cessation: Smoking cessation has been advised. For more information, call the [place] Tobacco Quit Line at 1-469-OMIF-NOW. - Mobility Orders Chair, Ambulate - Rehabiliation Orders Rehab Potential: Fair Rehab Orders: Evaluation for Physical Therapy, Evaluation for Occupational Therapy - Diet Orders No Concentrated Sweets (Diabetic Diet), Cardiac CERTIFICATION: I certify that the transfer of the above named patient to an Extended Care Facility is necessary for the continuing treatment of the diagnosis listed. The above information is true and accurate reflection of patient's current condition. Confidential - Redisclosure prohibited without a patient's written consent.
[2017-08-12 11:30] VITALS: BP 162/92
== END 2017-08-12 13:17 | DRG 189 ==
LOC: EMEROO 22:08 → 2ANU 22:08
PROVIDERS: ADMIT Internal Medicine; ATTEND Internal Medicine

== ENCOUNTER 2017-09-21 11:46 | Inpatient (IN) ==
--- NOTE | 2017-09-21 12:09 | Emergency Department Note ---
Disposition Clinical Impression: Thrombocytopenia, Morbid obesity due to excess calories Anemia Qualifiers: Anemia type: unspecified type Qualified Code(s): D64.9 - Anemia, unspecified Disposition: Transfer SNF Condition: Undetermined Referrals: Delfina Fitch CNP [Primary Care Provider] - Forms: ED Satisfaction Letter General Adult HPI - General Chief complaint: ED Fever Stated complaint: Abnormal labs Time Seen by Provider: 09/21/17 11:50 Source: patient, EMS Limitations: no limitations - History of Present Illness HPI Narrative: 52F with no previous hematologic disorders, PMHx hypothyroidism, hypertension, COPD, morbidly obese, ARELI, fatty liver, chronic pressure ulcers x 3 weeks presents today to EMS due to platelet of 2 on routine blood work at [facility]. Patient was send to EMS via ambulance due to abnormal labs. She reports new bleeding pressure ulcers in the last 3 weeks. + hematuria. Denies abnormal bruising. New bleeding ulcerations on right lower quadrant for 3 weeks. Patient unsure if she has melena. Does not ambulate. Denies feeling more ill recently. Denies f/c/n/v. Denies hemoptysis, hematemesis. No family history of blood disorder. No new rashes. Pain Scale: 0 - Related Data Home Medications Medication Instructions Recorded Confirmed Fluticasone Propionate Nasal 1 spray NS DAILY 08/03/16 09/05/17 [Flonase] Levothyroxine [Synthroid] 50 mcg PO 0630 08/03/16 09/05/17 Simvastatin [Zocor] 40 mg PO HS 08/03/16 09/05/17 risperiDONE [Risperdal] 2 mg PO HS 08/03/16 09/05/17 Topiramate [Topamax] 25 mg PO HS 11/18/16 09/05/17 Meloxicam [Mobic] 7.5 mg PO DAILY 02/10/17 09/05/17 Aspirin 81 mg PO DAILY 05/18/17 09/05/17 Acetaminophen [Pain Reliever] 500 mg PO TID PRN 08/09/17 09/05/17 Guaifenesin [Mucinex] 600 mg PO BID 09/05/17 09/05/17 Tamsulosin HCl [Flomax] 0.4 mg PO DAILY 09/05/17 09/05/17 Previous Rx's Medication Instructions Recorded Zolpidem [Ambien] 5 mg PO HS PRN 4 Days #4 tablet 08/12/17 Benzonatate [Tessalon] 100 mg PO TID PRN capsule 09/12/17 LORazepam [Ativan] 1 mg PO BID PRN 5 Days #5 tablet 09/12/17 levoFLOXacin [Levaquin] 750 mg PO DAILY #4 tablet 09/12/17 Allergies Allergy/AdvReac Type Severity Reaction Status Date / Time nitrofurantoin Allergy Itching Verified 09/05/17 18:24 [From Macrodantin] duloxetine [From Cymbalta] AdvReac Depression Verified 09/05/17 18:24 pregabalin [From Lyrica] AdvReac See Verified 09/05/17 18:24 Comments Constitutional: Denies: fever, chills, weakness, weight change Eyes: Denies: eye pain, eye discharge, vision change ENT ED: Denies: ear pain, throat pain, dental pain, hearing loss, epistaxis, congestion, dysphagia Cardiovascular: Denies: chest pain, palpitations, dyspnea on exertion, edema, syncope Respiratory: Denies: cough, dyspnea, wheezes, hemoptysis, stridor Gastrointestinal: Denies: abdominal pain, nausea, vomiting, diarrhea, constipation, hematemesis, melena, hematochezia Genitourinary: Denies: dysuria, frequency, hematuria, discharge Musculoskeletal: Denies: back pain, neck pain, arthralgia, myalgia Integumentary: Denies: rash, abrasion, lesions Neurological: Denies: headache, weakness, numbness, paresthesias, confusion, abnormal gait, vertigo Psychiatric: Denies: anxiety, depression, suicidal thoughts, homicidal thoughts , auditory hallucinations, visual hallucinations Endocrine: Denies: fatigue Hematological/Lymphatic: Reports: easy bleeding. Denies: easy bruising Allergic/Immunologic: Denies: facial swelling, urticaria Past Medical History - Past Medical History Medical history: Reports: asthma, CHF, fibromyalgia, hyperlipidemia, hypertension, TIA, other Surgical history: Reports: , hysterectomy, other Psychiatric history: Reports: anxiety, depression BREEDING TECHNICIAN history: Reports: no BREEDING TECHNICIAN history, other - Social History Smoking Status: Never smoker Smokeless Tobacco Status: No Alcohol use: Reports: none Drug use: Reports: none Physical Exam Diffuse petechiae noted. - General Limitations: no limitations General appearance: alert, in no apparent distress - Head Head exam: atraumatic, normocephalic - Eye Eye exam: Present: normal appearance - ENT ENT exam: normal exam - Neck Neck exam: Present: normal inspection - Chest Chest inspection: Present: normal inspection - Respiratory Respiratory exam: Present: other (distant lung sounds ) - Cardiovascular Cardiovascular exam: Present: other (distant heart sounds) - Abdominal Exam Abdominal exam: Present: soft, other (bleeding ulcerations on RLQ ). Absent: rebound Abdominal tenderness: Absent: RUQ - Rectal Exam Rectal exam: Present: other (non-bleeding pressure ulcers noted. No acute bleed. ) - Extremities Exam Extremities exam: Present: normal inspection - Expanded Lower Extremity Exam Hip/Pelvis exam: Present: other (petechiae noted on all extremities) - Neurological Exam Neurological exam: Present: alert, oriented X3 - Skin Skin exam: Present: other (petechiae) Course Course Narrative: Repeat CBC confirms platelets < 2. Patient is currently stable. VSS. Consulted hemonc, spoke with Teresa Mckenzie CNP, with recommendations to start patient on platelets. - Reevaluation(s) Reevaluation #1: Spoke with admitting hospitalist. She is aware of Hemonc recommendations. Solumedrol 60mg Once. 40mg BID starting tomorrow. Pending perpheral blood smear, platelet antibody, iron profile, B12, ferritin. - Consultations Consultation #1: Hemonc Time: 12:00 Consultation #2: admitting hospitalist Time: 13:30 Vital Signs Temperature 99.9 F H 09/21/17 11:50 Pulse Rate 109 09/21/17 11:50 Respiratory Rate 20 09/21/17 11:50 Blood Pressure 133/71 09/21/17 11:50 O2 Sat by Pulse Oximetry 95 09/21/17 11:50 Temperature 99.9 F H 09/21/17 11:50 Pulse Rate 99 09/21/17 13:04 Respiratory Rate 22 09/21/17 13:04 Blood Pressure 117/61 09/21/17 13:04 O2 Sat by Pulse Oximetry 97 09/21/17 13:04 Oxygen Delivery Oxygen Delivery Nasal Cannula Medical Decision Making - Lab Data Result diagrams: 09/21/17 11:51 09/21/17 11:51 Lab Results 09/21/17 09/21/17 09/21/17 Range/Units 11:51 11:51 11:52 WBC 9.6 (4.3-11.1) K/mcL RBC 3.13 L (3.82-4.97) M/mcL Hgb 8.9 L (11.5-15.4) g/dL Hct 28.7 L (35.3-44.9) % MCV 91.7 (83.0-100.0) fL MCH 28.4 (28.0-33.3) pg MCHC 31.0 L (31.6-35.5) g/dL RDW 15.9 H (11.5-14.5) % Plt Count < 2 L* (140-400) K/mcL MPV TNP Nucleated RBCs/100 WBC 0.4 H (0) /100 WBC Immature Plt Fraction 2.7 (1.1-6.1) % Sodium 136 (136-145) mEq/L Potassium 3.9 (3.5-5.1) mEq/L Chloride 101 (98-107) mEq/L Carbon Dioxide 29 (23-29) mEq/L BUN 9 (6-20) mg/dL Creatinine 0.64 (0.60-1.20) mg/dL Est GFR ( Amer) > 60 (> 60) Est GFR (Non-Af Amer) > 60 (> 60) BUN/Creatinine Ratio 14 (6-26) Glucose 122 H (70-105) mg/dL Calculated Osmolality 282 (280-300) Calcium 8.9 (8.6-10.3) mg/dL Troponin I < 0.03 (< 0.04) ng/mL Specimen Rejected 09/21/17 Range/Units 12:22 WBC (4.3-11.1) K/mcL RBC (3.82-4.97) M/mcL Hgb (11.5-15.4) g/dL Hct (35.3-44.9) % MCV (83.0-100.0) fL MCH (28.0-33.3) pg MCHC (31.6-35.5) g/dL RDW (11.5-14.5) % Plt Count (140-400) K/mcL MPV Nucleated RBCs/100 WBC (0) /100 WBC Immature Plt Fraction (1.1-6.1) % Sodium (136-145) mEq/L Potassium (3.5-5.1) mEq/L Chloride (98-107) mEq/L Carbon Dioxide (23-29) mEq/L BUN (6-20) mg/dL Creatinine (0.60-1.20) mg/dL Est GFR ( Amer) (> 60) Est GFR (Non-Af Amer) (> 60) BUN/Creatinine Ratio (6-26) Glucose (70-105) mg/dL Calculated Osmolality (280-300) Calcium (8.6-10.3) mg/dL Troponin I (< 0.04) ng/mL Specimen Rejected Labelling - EKG Data EKG #1 EKG shows normal: sinus rhythm Rate: tachycardia
--- NOTE | 2017-09-21 12:41 | Emergency Department Note ---
Disposition Clinical Impression: Thrombocytopenia Disposition: Admitted As Inpatient Forms: ED Satisfaction Letter General Adult HPI - General Chief complaint: ED Fever Stated complaint: Abnormal labs Time Seen by Provider: 09/21/17 11:50 Source: patient, EMS Limitations: no limitations - History of Present Illness Pain Scale: 0 - Related Data Home Medications Medication Instructions Recorded Confirmed Fluticasone Propionate Nasal 1 spray NS DAILY 08/03/16 09/05/17 [Flonase] Levothyroxine [Synthroid] 50 mcg PO 0608/03/16 09/05/17 Simvastatin [Zocor] 40 mg PO HS 08/03/16 09/05/17 risperiDONE [Risperdal] 2 mg PO HS 08/03/16 09/05/17 Topiramate [Topamax] 25 mg PO HS 11/18/16 09/05/17 Meloxicam [Mobic] 7.5 mg PO DAILY 02/10/17 09/05/17 Aspirin 81 mg PO DAILY 05/18/17 09/05/17 Acetaminophen [Pain Reliever] 500 mg PO TID PRN 08/09/17 09/05/17 Guaifenesin [Mucinex] 600 mg PO BID 09/05/17 09/05/17 Tamsulosin HCl [Flomax] 0.4 mg PO DAILY 09/05/17 09/05/17 Previous Rx's Medication Instructions Recorded Zolpidem [Ambien] 5 mg PO HS PRN 4 Days #4 tablet 08/12/17 Benzonatate [Tessalon] 100 mg PO TID PRN capsule 09/12/17 LORazepam [Ativan] 1 mg PO BID PRN 5 Days #5 tablet 09/12/17 levoFLOXacin [Levaquin] 750 mg PO DAILY #4 tablet 09/12/17 Allergies Allergy/AdvReac Type Severity Reaction Status Date / Time nitrofurantoin Allergy Itching Verified 09/05/17 18:24 [From Macrodantin] duloxetine [From Cymbalta] AdvReac Depression Verified 09/05/17 18:24 pregabalin [From Lyrica] AdvReac See Verified 09/05/17 18:24 Comments Past Medical History - Past Medical History Medical history: Reports: asthma, CHF, fibromyalgia, hyperlipidemia, hypertension, TIA, other Surgical history: Reports: , hysterectomy, other Psychiatric history: Reports: anxiety, depression HAM CLERK history: Reports: no HAM CLERK history, other - Social History Smoking Status: Never smoker Smokeless Tobacco Status: No Alcohol use: Reports: none Drug use: Reports: none Physical Exam - General Limitations: no limitations General appearance: alert, in no apparent distress Course - Reevaluation(s) Reevaluation #1: ATTESTATION NOTE I examined this patient and my medical decision-making was reviewed with the Family Practice Resident Physician, Abdiel Lauren. I agree with the documented findings, disposition and treatment plan as described except to the extent set forth below. I have personally performed a face to face evaluation on this patient. I have reviewed and agree with the care plan. Briefly: 52-year-old female by EMS is a resident at [facility] which is in a half-way facility. Was sent in from her primary care provider from a routine blood draw today. Her platelets were under 2. This is critically low thrombocytopenia. Patient noted and she does have petechiae throughout her body that she said was "worse about a week ago. It has been going on anywhere between 2 and 3 weeks. Patient has been having dark stools because she is so morbidly obese she goes on a bedpan and does not see. No personal or family history of blood dyscrasias. Patient denies any new symptoms such as shortness breath, headache, weakness, photophobia, neck stiffness, chest pain or dysuria. Disposition blood in her urine, which are noted to the patient this is not uncommon in the platelets are low. We will repeat the test to ensure that the value is valid and then we will consult hematology oncology for further disposition. Admission pending, providing 45 minutes of critical care service for this patient. Time: 12:38 Vital Signs Temperature 99.9 F H 09/21/17 11:50 Pulse Rate 109 09/21/17 11:50 Respiratory Rate 20 09/21/17 11:50 Blood Pressure 133/71 09/21/17 11:50 O2 Sat by Pulse Oximetry 95 09/21/17 11:50 Temperature 99.9 F H 09/21/17 11:50 Pulse Rate 107 09/21/17 12:04 Respiratory Rate 20 09/21/17 12:04 Blood Pressure 138/79 09/21/17 12:04 O2 Sat by Pulse Oximetry 95 09/21/17 12:04 Oxygen Delivery Oxygen Delivery Nasal Cannula
[2017-09-21 13:16] LABS: BUN/Creatinine Ratio 14 (6-26); Blood Urea Nitrogen 9 mg/dL (6-20); Calcium 8.9 mg/dL (8.6-10.3); Carbon Dioxide 29 mEq/L (23-29); Chloride 101 mEq/L (98-107); Glucose 122 mg/dL (70-105); Osmolality,Calculated 282 (280-300); Potassium 3.9 mEq/L (3.5-5.1); Sodium 136 mEq/L (136-145); eGFR For African Americans > 60 (> 60); eGFR For Non-African Americans > 60 (> 60)
[2017-09-21 13:19] LABS: Basophils % 0.4 %; Hematocrit 28.7 % (35.3-44.9); Hemoglobin 8.9 g/dL (11.5-15.4); Immature Granulocytes % 3.1 % (0-4); Immature Platelets 2.7 % (1.1-6.1); Lymphocytes # 1.7 K/mcL (0.6-4.6); Lymphocytes % 17.6 %; Mean Corpuscular Hemoglobin 28.4 pg (28.0-33.3); Mean Corpuscular Volume 91.7 fL (83.0-100.0); Monocytes # 1.2 K/mcL (0.0-1.3); Monocytes % 12.4 %; Neutrophils # 6.4 K/mcL (1.6-8.9); Nucleated Red Blood Cells 0.4 /100 WBC (0); Red Blood Count 3.13 M/mcL (3.82-4.97); Red Cell Distribution Width 15.9 % (11.5-14.5); Segmented Neutrophils % 66.5 %
[2017-09-21 13:22] LABS: Platelet Count < 2 K/mcL (140-400)
[2017-09-21] MEDS ORDERED: MethylPREDNISolone 40 MG/ML VIAL IVP ONE (13:37)
[2017-09-21 13:53] LABS: Platelet Estimate Marked Decrease (Normal)
[2017-09-21 14:33] LABS: % Iron Saturation 11 % (15-50); Iron 35 mcg/dL (50-170); Transferrin 228 mg/dL (203-362)
[2017-09-21 14:48] LABS: Ferritin 115 ng/mL (10-120)
[2017-09-21] MEDS ORDERED: *HR* OxyCODONE/APAP 5/325 TABLET PO ONE (14:51)
[2017-09-21 14:55] LABS: Bilirubin,Urine Negative (Negative); Blood,Urine Large (Negative); Clarity,Urine Cloudy (Clear); Color,Urine Dark Yellow (Yellow); Glucose,Urine (UA) Normal (Normal); Ketones,Urine Negative (Negative); Leukocyte Esterase,Urine Small (Negative); Nitrite,Urine Positive (Negative); PH,Urine 6.5 pH Units (5.0-8.0); Protein,Urine Trace mg/dL (Neg-Trace); Specific Gravity,Urine 1.022 (1.010-1.025); Urobilinogen,Urine Normal (Normal)
[2017-09-21 14:59] LABS: Bacteria,Urine Many per hpf (None-Few); Hyaline Casts,Urine None Seen per lpf (None-Few); RBC,Urine TNTC per hpf (0-3); Squamous Epithelial Cell,Urine Many per lpf (None-Few)
[2017-09-21] MEDS ORDERED: Naloxone 0.4 MG/ML INJ IVP PRN (17:41)
[2017-09-21 18:03] LABS: Magnesium 1.6 mg/dL (1.6-2.6); Phosphorous 3.5 mg/dL (2.7-4.5)
[2017-09-21] MEDS ORDERED: Furosemide 20 MG/2 ML VIAL IVP ONE (18:11)
[2017-09-21] MEDS ORDERED: MethylPREDNISolone 40 MG/ML VIAL ONE (18:20)
[2017-09-21] MEDS: MethylPREDNISolone 40 MG/ML VIAL IVP SCH (18:21)
--- NOTE | 2017-09-21 18:29 | Oncology Inp Consult Note ---
<Teresa Mckenzie - Last Filed: 09/22/17 15:30> Date of Encounter: 09/21/17 Time of Encounter: 18:00 Assessment and Plan (1) Acute ITP Status: Acute Assessment and plan: Laboratory data reveals acute, severe thrombocytopenia with platelet count of < 2. Platelet count normal on 09/11. Her WBC count is normal. Her kidney function is normal. PT/PTT/INR are normal. Fibrinogen elevated at 483. LDH mildly elevated at 343. Peripheral blood smear reveals- normal total leukocyte count. Platelets markedly decreased. Microcytes and elliptocytes, few schistocytes and tear drop cells seen. Hypochromic, normocytic red blood cells. Platelet antibody-pending. She does exhibit gross hematuria and a petechial rash. In concern for her hematuria, Dr. Lozoya recommends administering one pack platelets about 2-3 hours following her steroid dose to be given right now. She denies other s/s bleeding but is unsure about recent melena/hematochezia. She reports a headache which has been present intermittently over the past few days- Check stat CT head wo contrast. Continue steroid administration. If platelets have not responded by tomorrow, will consider IVIG administration. Continue to monitor closely for any s/s of bleeding. Consider underlying causes of secondary ITP such as HIV, HCV, SLE or CLL. Peripheral flow, Hepatitis panel ordered. CRP 87. ESR 72. Please refer to Dr. Lozoya's attestation below for additional details. (2) Anemia Status: Chronic Assessment and plan: Hgb 8.9, she appears to have chronic anemia and this is around her baseline. Check B12, folate, LDH Luke, SPEP, serum free light chains, iron and ferritin. Qualifiers: Anemia type: unspecified type Qualified Code(s): D64.9 - Anemia, unspecified - Data of Consult Patient: known to practice within the last 3 years Consult date: 09/21/17 Requesting Physician: Gisele Johnston MD Primary Care Provider: Delfina Fitch CNP - Consult Narrative Reason for consult: Acute thrombocytopenia History of present illness: Ms. Flores is a 52 year old female with past medical history significant for major depression, anxiety, morbid obesity, HTN, hyperlipidemia, asthma, CHF and TIA. Ms. Flores was asked to present to ER for further evaluation of outpatient lab data which had revealed a platelet count of less than 2. A platelet count of less than 2 was then confirmed in the ER. She was recently hospitalized for ARF requiring temporary dialysis, Hypotension and possible pneumonia. She denies recent hemoptysis or hematemesis. She states she cannot see her bowel movements, she uses a bedpan, no staff have reported hematochezia/melena according to patient. She does have a petechial rash which she states has recently improved, she noticed the rash about 2 weeks ago. She has no prior history of thrombocytopenia. Past Med Surg Social Fam HX - Past Medical History Medical history: asthma, CHF, fibromyalgia, hyperlipidemia, hypertension, TIA, other Additional medical history: back pain Psychiatric history: anxiety, depression - Past Surgical History Surgical History: , hysterectomy, other Additional surgical history: Carpal tunnel sx x2 - Social History Smoking Status: Never smoker Smokeless Tobacco Status: No Alcohol use: none Drug use: none - Family History Mother Living Status: Hx Family Cancer: Yes (breast cancer, ovarian cancer) Father Living Status: Hx Family Cardiac Disorders: Yes Hx Family Endocrine Disorder: Yes Medications and Allergies Fluticasone Propionate Nasal [Flonase] 1 spray NS DAILY 08/03/16 [History] Levothyroxine [Synthroid] 50 mcg PO 0630 08/03/16 [History] Simvastatin [Zocor] 40 mg PO HS 08/03/16 [History] risperiDONE [Risperdal] 2 mg PO HS 08/03/16 [History] Topiramate [Topamax] 25 mg PO HS 11/18/16 [History] Meloxicam [Mobic] 7.5 mg PO DAILY 02/10/17 [History] Aspirin 81 mg PO DAILY 05/18/17 [History] Acetaminophen [Pain Reliever] 500 mg PO TID PRN 08/09/17 [History] Zolpidem [Ambien] 5 mg PO HS PRN 4 Days #4 tablet 08/12/17 [Rx] Guaifenesin [Mucinex] 600 mg PO BID 09/05/17 [History] Tamsulosin HCl [Flomax] 0.4 mg PO DAILY 09/05/17 [History] Benzonatate [Tessalon] 100 mg PO TID PRN capsule 09/12/17 [Rx] LORazepam [Ativan] 1 mg PO BID PRN 5 Days #5 tablet 09/12/17 [Rx] OxyCODONE Immed Rel [Roxicodone 5 MG] 5 mg PO Q4HR PRN 09/21/17 [History] lamoTRIgine [Lamictal] 25 mg PO HS 09/21/17 [History] 3 Allergy/AdvReac Type Severity Reaction Status Date / Time nitrofurantoin Allergy Itching Verified 09/21/17 15:17 [From Macrodantin] duloxetine [From Cymbalta] AdvReac Depression Verified 09/21/17 15:17 pregabalin [From Lyrica] AdvReac See Verified 09/21/17 15:17 Comments Constitutional: Present: as per HPI, fatigue, weakness. Absent: chills, fever(s ) Eyes: Absent: change in vision Nose, mouth and throat: Absent: dysphagia, epistaxis Cardiovascular: Present: orthopnea. Absent: chest pain, irregular heart rhythm Respiratory: Absent: cough, dyspnea Gastrointestinal: Present: as per HPI. Absent: abdominal pain, hematemesis, hematochezia, melena Genitourinary: Absent: dysuria, hematuria Musculoskeletal: Present: limited range of motion Integumentary: Present: as per HPI Additional comments: petechial rash Neurological: Present: headache(s). Absent: focal weakness, numbness, tingling Psychiatric: Present: as per HPI Hematologic/Lymphatic: Present: as per HPI Oncology - Exam - Constitutional Vitals: Temp Pulse Resp BP Pulse Ox 98.3 F 97 16 140/87 93 09/21/17 17:05 09/21/17 17:05 09/21/17 17:05 09/21/17 17:05 09/21/17 17:05 General appearance: cooperative, morbidly obese, no acute distress, no febrile - Head Head exam: Present: atraumatic - ENT ENT exam: Present: mucous membranes moist - Respiratory Respiratory exam: Present: CTAB. Absent: respiratory distress - Cardiovascular Cardiovascular exam: Present: RRR, +S1, +S2 - GI/Abdominal GI/Abdominal exam: Present: normal bowel sounds, soft. Absent: guarding, rebound, tenderness - Additional comments: witt catheter with gross hematuria - Extremities Exam Extremities exam: Absent: calf tenderness - Neurological Exam Neurological exam: Present: alert, oriented X3, no focal deficits, strengths equal and symetr throughout - Psychiatric Psychiatric exam: Present: anxious - Skin Skin exam: Present: dry, intact, normal color, warm Consult Discharge Plan - Plan Referrals: Delfina Fitch CNP [Primary Care Provider] - <Kenneth Lozoya - Last Filed: 09/22/17 18:12> Date of Encounter: 09/22/17 - Data of Consult Requesting Physician: Gisele Johnston MD Primary Care Provider: Delfina Fitch CNP - Consult Narrative History of present illness: Ms. Flores is a 52 year old female Oncology - Exam - Constitutional Vitals: Temp Pulse Resp BP Pulse Ox 98.4 F 105 16 98/44 97 09/22/17 13:00 09/22/17 14:00 09/22/17 14:00 09/22/17 14:00 09/22/17 14:00 Oncology - Results Labs: 3 09/22/17 09/22/17 09/22/17 14:18 04:00 04:00 WBC RBC Hgb Hct MCV MCH MCHC RDW Plt Count Immature Gran % Seg Neutrophils % Lymphocytes % Monocytes % Eosinophils % Basophils % Neutrophils # Lymphocytes # Monocytes # Eosinophils # Basophils # Nucleated RBCs/100 WBC Immature Plt Fraction Fibrinogen 483 H D-Dimer Sodium Potassium Chloride Carbon Dioxide BUN Creatinine Est GFR ( Amer) Est GFR (Non-Af Amer) BUN/Creatinine Ratio Glucose Calculated Osmolality Lactic Acid 1.5 Calcium Lactate Dehydrogenase 343 H 3 09/22/17 09/22/17 09/21/17 04:00 04:00 20:34 WBC 13.5 H RBC 3.10 L Hgb 8.6 L 9.5 L Hct 28.2 L 30.5 L MCV 91.0 MCH 27.7 L MCHC 30.5 L RDW 15.4 H Plt Count < 2 L* Immature Gran % 2.8 Seg Neutrophils % 85.4 Lymphocytes % 5.2 Monocytes % 6.5 Eosinophils % 0.0 Basophils % 0.1 Neutrophils # 11.5 H Lymphocytes # 0.7 Monocytes # 0.9 Eosinophils # 0.0 Basophils # 0.0 Nucleated RBCs/100 WBC 0.4 H Immature Plt Fraction 22.1 H Fibrinogen D-Dimer Sodium 136 Potassium 4.1 Chloride 101 Carbon Dioxide 29 BUN 11 Creatinine 0.65 Est GFR ( Amer) > 60 Est GFR (Non-Af Amer) > 60 BUN/Creatinine Ratio 17 Glucose 197 H Calculated Osmolality 287 Lactic Acid Calcium 9.1 Lactate Dehydrogenase 3 09/21/17 20:34 WBC RBC Hgb Hct MCV MCH MCHC RDW Plt Count Immature Gran % Seg Neutrophils % Lymphocytes % Monocytes % Eosinophils % Basophils % Neutrophils # Lymphocytes # Monocytes # Eosinophils # Basophils # Nucleated RBCs/100 WBC Immature Plt Fraction Fibrinogen D-Dimer 2083 H Sodium Potassium Chloride Carbon Dioxide BUN Creatinine Est GFR ( Amer) Est GFR (Non-Af Amer) BUN/Creatinine Ratio Glucose Calculated Osmolality Lactic Acid Calcium Lactate Dehydrogenase - Attending Attestation 1. Severe thrombocytopenia platelet counts are normal 09/11/2017 at 150 area dropped to less than 2 on admission 09/21/2017. Most likely ITP. CT head negative for bleed she did present with gross hematuria and some petechiae Solu-Medrol 60 mg IV loading dose followed by 40 mg IV twice a day. She weighs 80 kg Platelet single donor 1 unit transfused. Fibrinogen 480 and d-dimer 2000. Creatinine normal at 0.65 Check viral hepatitis panel at antibodies 2. Platelet count continue to be low at less than 2000 area and will proceed with IVIG 1 g per KG daily for up to 2 days 3. Bilateral lower extremity venous Doppler negative 4. Anemia hemoglobin 8.6 this is chronic. MCV 97. Ferritin 115 but iron saturation low at 11%. B12 low normal at 275 and folate normal. We will do anemia workup including serum protein electrophoresis and light chains LDH elevated at 343. We will also work her up for hemolytic anemia area JAIR 1+
--- NOTE | 2017-09-21 19:24 | Internal Med History&Physical ---
Date of Encounter: 09/21/17 Time of Encounter: 18:00 Internal Medicine - H&P: HPI Chief complaint: Solish randi platjose Admitted From: Emergency Dept History of present illness: Ms. Flores is a 52 year old female with past medical history of major depression, physical deconditioning. Patient was recently admitted to the hospital with acute renal failure hypotension and possible pneumonia. Patient was admitted to ICU she was on pressors she had temporary dialysis. Patient went to rehabilitation, patient stated over last week she noted some rash on her right upper extremities, she had minimal bleeding at injection site of her heparin during hospitalization. Patient denies any hemoptysis or hematemesis, patient stated she does know if she has any blood in stool or black stool, no blood in urine except she had minimal bleeding after inserted witt at emergency room. Patient complain of orthopnea proximal nocturnal dyspnea since discharge from the hospital . Patient denies any chest pain. Past Med Surg Social Fam HX - Past Medical History Medical history: asthma, CHF, fibromyalgia, hyperlipidemia, hypertension, other Additional medical history: back pain Psychiatric history: anxiety, depression - Past Surgical History Surgical History: , hysterectomy, other Additional surgical history: Carpal tunnel sx x2 - Social History Smoking Status: Never smoker Smokeless Tobacco Status: No Alcohol use: none Drug use: none - Family History Mother Living Status: Hx Family Cancer: Yes (breast cancer, ovarian cancer) Father Living Status: Hx Family Cardiac Disorders: Yes Hx Family Endocrine Disorder: Yes Internal Medicine - H&P: Meds Fluticasone Propionate Nasal [Flonase] 1 spray NS DAILY 08/03/16 [History] Levothyroxine [Synthroid] 50 mcg PO 0630 08/03/16 [History] Simvastatin [Zocor] 40 mg PO HS 08/03/16 [History] risperiDONE [Risperdal] 2 mg PO HS 08/03/16 [History] Topiramate [Topamax] 25 mg PO HS 11/18/16 [History] Meloxicam [Mobic] 7.5 mg PO DAILY 02/10/17 [History] Aspirin 81 mg PO DAILY 05/18/17 [History] Acetaminophen [Pain Reliever] 500 mg PO TID PRN 08/09/17 [History] Zolpidem [Ambien] 5 mg PO HS PRN 4 Days #4 tablet 08/12/17 [Rx] Guaifenesin [Mucinex] 600 mg PO BID 09/05/17 [History] Tamsulosin HCl [Flomax] 0.4 mg PO DAILY 09/05/17 [History] Benzonatate [Tessalon] 100 mg PO TID PRN capsule 09/12/17 [Rx] LORazepam [Ativan] 1 mg PO BID PRN 5 Days #5 tablet 09/12/17 [Rx] OxyCODONE Immed Rel [Roxicodone 5 MG] 5 mg PO Q4HR PRN 09/21/17 [History] lamoTRIgine [Lamictal] 25 mg PO HS 09/21/17 [History] 3 Allergy/AdvReac Type Severity Reaction Status Date / Time nitrofurantoin Allergy Itching Verified 09/21/17 15:17 [From Macrodantin] duloxetine [From Cymbalta] AdvReac Depression Verified 09/21/17 15:17 pregabalin [From Lyrica] AdvReac See Verified 09/21/17 15:17 Comments All Systems PM: A 10-system review of systems was performed and is negative for pertinent findings except as documented above in the HPI. - Constitutional Vitals: Temp Pulse Resp BP Pulse Ox 98.3 F 97 16 140/87 93 09/21/17 17:05 09/21/17 17:05 09/21/17 17:05 09/21/17 17:05 09/21/17 17:05 General appearance: Present: A&O X 3 - Head Head exam: Present: atraumatic, normocephalic - Eye Eye exam: Present: PERRL, conjuntiva pink, sclera anicteric - Neck Neck exam general surgery: Present: supple, trachea midline. Absent: lymphadenopathy - Respiratory Respiratory exam: Present: accessory muscle use, decreased breath sounds, prolonged expiratory phase. Absent: rales, rhonchi, wheezes - Cardiovascular Cardiovascular exam: Present: RRR, +S1, +S2. Absent: diastolic murmur, gallop, rubs, systolic murmur - GI/Abdominal GI/Abdominal exam: Present: normal bowel sounds, soft, no peritoneal signs. Absent: distended, tenderness - Extremities Exam Extremities exam: Present: calf tenderness, warm, radial pulses palpable and symmetrical. Absent: cyanotic, pedal edema - Neurological Exam Neurological exam: Present: CN II-XII intact, oriented X3, no focal deficits. Absent: pronater drift, facial droop, speech deficit - Skin Skin exam: Present: dry, intact, petechiae (More at the right upper extremities) Internal Med - H&P Results - Labs CBC & Chem 7: 09/21/17 11:51 09/21/17 11:51 - Assessment and plan (1) Acute ITP Current Visit: Yes Status: Acute (2) CHF (congestive heart failure) Current Visit: Yes Status: Acute Assessment and plan: check BNP, , Qualifiers: Heart failure type: other Qualified Code(s): I50.9 - Heart failure, unspecified (3) Calf tenderness Current Visit: Yes Status: Acute Assessment and plan: Check venous Doppler lower extremities - Time Spent With Patient Plan Case discussed with oncologist diamond sizer and grader, who recommended to check bilirubin and LDH blood smear haptoglobin. Empiric treatment with steroids 1 mg/kg daily. Patient received first dose at emergency room for possible idiopathic TTP Could be induced by medication, monitor H&H, close and match for 2 units of blood transfuse if hemoglobin less than 8. Signs of fluid overload check BNP add small dose of Lasix check chest x-ray, patient had calf tenderness, patient is bedbound or wheelchair bound, check D dimer, venous Doppler lower extremities. Discussed with oncologist about differential diagnosis with her recent renal failure, based on our discussion he stated this is not consistent with HUS. Continuous cardiac monitoring Total time spent is greater than 50% in coordination of care (as documented) at patient's floor/unit and/or counseling patient:60 minutes
[2017-09-21 19:43] LABS: Immature Reticulocyte % 34.8 % (11.0-38.0); Retculocyte # 0.16 M/mcL (0.05-0.10); Reticulocyte % 4.6 % (1.6-2.8)
[2017-09-21] MEDS ORDERED: predniSONE 20 MG TABLET PO ONE (19:43)
[2017-09-21 19:55] LABS: Bilirubin,Direct 0.2 mg/dL (0.0-0.2); Bilirubin,Total 0.8 mg/dL (0.3-1.0); Creatine Kinase 20 Units/L (30-223); Lactate Dehydrogenase 375 Units/L (140-271)
[2017-09-21 20:02] LABS: Troponin I < 0.03 ng/mL (< 0.04)
[2017-09-21 20:15] LABS: Thyroid Stimulating Hormone 1.086 mcIU/mL (0.340-5.600)
[2017-09-21 20:50] LABS: Hematocrit 30.5 % (35.3-44.9)
[2017-09-21 20:51] LABS: Hemoglobin 9.5 g/dL (11.5-15.4)
[2017-09-21] MEDS ORDERED: 0.9 % Sodium Chloride 250 ML ONE (21:13)
[2017-09-21] MEDS: Menthol 9.1 MG LOZENGE PO PRN (22:18)
[2017-09-21] MEDS ORDERED: traMADol 50 MG TABLET PO ONE (22:40)
[2017-09-22 05:55] LABS: Basophils % 0.1 %; Hematocrit 28.2 % (35.3-44.9); Hemoglobin 8.6 g/dL (11.5-15.4); Immature Granulocytes % 2.8 % (0-4); Immature Platelets 22.1 % (1.1-6.1); Lymphocytes # 0.7 K/mcL (0.6-4.6); Lymphocytes % 5.2 %; Mean Corpuscular HGB Conc 30.5 g/dL (31.6-35.5); Mean Corpuscular Hemoglobin 27.7 pg (28.0-33.3); Monocytes # 0.9 K/mcL (0.0-1.3); Monocytes % 6.5 %; Neutrophils # 11.5 K/mcL (1.6-8.9); Nucleated Red Blood Cells 0.4 /100 WBC (0); Red Cell Distribution Width 15.4 % (11.5-14.5); Segmented Neutrophils % 85.4 %
[2017-09-22 06:03] LABS: Platelet Count < 2 K/mcL (140-400)
[2017-09-22 06:16] LABS: BUN/Creatinine Ratio 17 (6-26); Blood Urea Nitrogen 11 mg/dL (6-20); Calcium 9.1 mg/dL (8.6-10.3); Carbon Dioxide 29 mEq/L (23-29); Chloride 101 mEq/L (98-107); Glucose 197 mg/dL (70-105); Osmolality,Calculated 287 (280-300); Potassium 4.1 mEq/L (3.5-5.1); Sodium 136 mEq/L (136-145); eGFR For African Americans > 60 (> 60); eGFR For Non-African Americans > 60 (> 60)
[2017-09-22] MEDS ORDERED: IVIG (wt based) 5 GM/50 ML INFUS..BTL IVC ONE ×2 (08:51)
--- NOTE | 2017-09-22 10:11 | Internal Med Progress Note ---
Date of Encounter: 09/22/17 Time of Encounter: 10:00 - Assessment and plan (1) Acute ITP Current Visit: Yes Status: Acute Assessment and plan: Based on my discussion with oncology team last night, patient needs steroid 1 mg /kg. Ms. oncology team recommended IgG infusion patient to be transferred to ICU for close monitoring based on treatment team. (2) CHF (congestive heart failure) Current Visit: Yes Status: Acute Qualifiers: Heart failure type: other Qualified Code(s): I50.9 - Heart failure, unspecified (3) Calf tenderness Current Visit: Yes Status: Acute (4) Leukocytosis Current Visit: No Status: Acute Assessment and plan: Possible secondary to steroid and UTI Qualifiers: Leukocytosis type: unspecified Qualified Code(s): D72.829 - Elevated white blood cell count, unspecified (5) UTI (urinary tract infection) Current Visit: Yes Status: Acute Assessment and plan: blood Pressure borderline, patient is tachycardic, UA was positive for UTI, reviewing old culture multiresistant organism, we will start patient on empiric antibiotic until we have final culture, we will check blood culture and lactic acid Qualifiers: Urinary tract infection type: acute cystitis Qualified Code(s): N30.00 - Acute cystitis without hematuria (6) Iron deficiency anemia Current Visit: Yes Status: Acute Assessment and plan: Add iron check stool for occult blood Qualifiers: Iron deficiency anemia type: unspecified iron deficiency Qualified Code(s) : D50.9 - Iron deficiency anemia, unspecified (7) Hyperglycemia Current Visit: No Status: Acute Assessment and plan: Insulin sliding scale - Time Spent With Patient Total time spent is greater than 50% in coordination of care (as documented) at patient's floor/unit and/or counseling patient: 25 - 35 minutes - Subjective Interval history: Patient denies any chest pain or shortness of breath. Patient denies any nausea vomiting. Urine is more clear today, patient number continue to be down to 2. Blood pressure borderline low - Constitutional Vitals: Temp Pulse Resp BP Pulse Ox 97.7 F 104 18 99/52 93 09/22/17 05:52 09/22/17 05:52 09/22/17 05:52 09/22/17 05:52 09/22/17 05:52 General appearance: Present: A&O X 3, no acute distress - Respiratory Respiratory exam: Present: decreased breath sounds. Absent: accessory muscle use, rales, rhonchi, wheezes - Cardiovascular Cardiovascular exam: Present: RRR, +S1, +S2. Absent: diastolic murmur, gallop, rubs, systolic murmur - GI/Abdominal GI/Abdominal exam: Present: normal bowel sounds, soft, no peritoneal signs. Absent: distended, tenderness - Extremities Exam Extremities exam: Present: calf tenderness, pedal edema (Positive to bilateral) , warm, radial pulses palpable and symmetrical. Absent: cyanotic - Skin Skin exam: Present: petechiae (Right upper extremities) Internal Medicine: Result - Labs CBC & Chem 7: 09/22/17 04:00 09/22/17 04:00 Labs: Short CBC 09/21/17 09/22/17 Range/Units 20:34 04:00 WBC 13.5 H (4.3-11.1) K/mcL Hgb 9.5 L 8.6 L (11.5-15.4) g/dL Hct 30.5 L 28.2 L (35.3-44.9) % Plt Count < 2 L* (140-400) K/mcL Neutrophils # 11.5 H (1.6-8.9) K/mcL BMP 09/22/17 04:00 Sodium 136 Potassium 4.1 Chloride 101 Carbon Dioxide 29 BUN 11 Creatinine 0.65 Glucose 197 H Calcium 9.1 - ABG Interpretation ABG results: PT/INR, D-dimer D-Dimer 2083 ng/mLFEU (0-500) H 09/21/17 20:34 - VTE Documentation of Mechanical Device: Intermittent pneumatic compression device Consult Discharge Plan - Plan Referrals: Delfina Fitch, HISTOTECHNOLOGIST SUPERVISOR [Primary Care Provider] -
[2017-09-22] MEDS ORDERED: Immune Globulin, Gamma (IGG) 10 GM/100 ML INFUS..BTL IVC ONE (10:15)
[2017-09-22] MEDS ORDERED: Immune Globulin, Gamma (IGG) 20 GM/200 ML INFUS..BTL IVC ONE ×5 (10:15)
[2017-09-22] MEDS ORDERED: Acetaminophen 325 MG TABLET PO PRN (10:59)
--- NOTE | 2017-09-22 10:59 | Oncology Inp Progress Note ---
<Teresa Mckenzie L - Last Filed: 09/22/17 18:47> Date of Encounter: 09/22/17 Time of Encounter: 10:59 (1) Acute ITP Current Visit: Yes Status: Acute Assessment and plan: Laboratory data reveals acute, severe thrombocytopenia with platelet count of <2 , consistent with Acute ITP Platelet count normal on 09/11. Her kidney function is normal. PT/PTT/INR are normal. Fibrinogen elevated at 483. LDH mildly elevated at 343. Peripheral blood smear reveals- normal total leukocyte count. Platelets markedly decreased. Microcytes and elliptocytes, few schistocytes and tear drop cells seen. Hypochromic, normocytic red blood cells. Platelet antibody-pending. Plan: Continue steroid administration- start high dose prednisone tomorrow Platelet count continues to be severely low at platelets <2 today despite steroid administration. To prevent complication of bleeding, initiate IVIG today. Dose adjusted for ideal body weight-administer 110gram IVC once. Monitor kidney function and for any s/s related to thrombosis following administration. Recheck CBC in AM Consider underlying causes of secondary ITP such as Drug induced ITP, HIV, HCV, SLE or CLL. Peripheral flow, Hepatitis panel ordered. CRP 87. ESR 72. 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 Richards's attestation below for additional details. (2) Anemia Current Visit: Yes Status: Chronic Assessment and plan: Chronic anemia. Hgb stable and close to patients baseline. Iron-35, 11% Ferritin-115 B12-275 Folate-9.3 LDH elevated-343 Luke-pending SPEP/Serum free light chains-pending Qualifiers: Anemia type: unspecified type Qualified Code(s): D64.9 - Anemia, unspecified Oncology: Subj Interval history: Ms. Flores is resting in bed. She denies pain, headache, visual changes, nausea , vomiting, hemoptysis or epistaxis. She has not had a bowel movement since admission. She has been transferred to ICU for IVIG administration. Her IVIG is infusing without any issues, patient denies any new or concerning symptoms.She does exhibit a petechial rash. Gross Hematuria has resolved today. No s/s active bleeding. - Constitutional Vitals: Vital Signs Temp Pulse Resp BP Pulse Ox 09/22/17 05:52 97.7 F 104 18 99/52 93 09/21/17 23:56 98.7 F 117 20 139/71 93 09/21/17 22:00 98.2 F 110 18 124/60 90 09/21/17 21:48 98.1 F 113 18 135/63 92 Intake and Output 09/21/17 09/22/17 09/22/17 23:59 07:59 15:59 Intake Total 450 / 600 0 / 0 200 / 200 Output Total 500 / 1950 450 / 450 Balance -50 / -1350 -450 / -450 200 / 200 Intake: Oral 0 / 150 0 / 0 200 / 200 Blood Product 450 / 450 Platelet Pheresis Lp Irr 1st 450 / 450 Unit [id number] Output: Catheter 500 / 1950 450 / 450 Other: Meal Breakfast Percent of Meal Consumed 100% Weight 195.06 kg Patient Weight 09/22/17 23:59 Weight 195.06 kg General appearance: cooperative, morbidly obese, no acute distress, no febrile - Head Head exam: Present: atraumatic - ENT ENT exam: Present: mucous membranes moist - Respiratory Respiratory exam: Present: CTAB. Absent: respiratory distress - Cardiovascular Cardiovascular exam: Present: RRR, +S1, +S2 - GI/Abdominal GI/Abdominal exam: Present: normal bowel sounds, soft. Absent: tenderness - Extremities Exam Extremities exam: Absent: calf tenderness - Neurological Exam Neurological exam: Present: alert, oriented X3, no focal deficits, strengths equal and symetr throughout - Psychiatric Psychiatric exam: Present: normal affect, normal mood - Skin Skin exam: Present: dry, intact, petechiae, warm Oncology: Obj Data - Labs CBC & Chem 7: 09/22/17 04:00 09/22/17 04:00 Labs: Laboratory Results - last 24 hr 09/21/17 09/21/17 09/22/17 20:34 20:34 04:00 WBC 13.5 H RBC 3.10 L Hgb 9.5 L 8.6 L Hct 30.5 L 28.2 L MCV 91.0 MCH 27.7 L MCHC 30.5 L RDW 15.4 H Plt Count < 2 L* Immature Gran % 2.8 Seg Neutrophils % 85.4 Lymphocytes % 5.2 Monocytes % 6.5 Eosinophils % 0.0 Basophils % 0.1 Neutrophils # 11.5 H Lymphocytes # 0.7 Monocytes # 0.9 Eosinophils # 0.0 Basophils # 0.0 Nucleated RBCs/100 WBC 0.4 H Immature Plt Fraction 22.1 H Fibrinogen D-Dimer 2083 H Sodium Potassium Chloride Carbon Dioxide BUN Creatinine Est GFR ( Amer) Est GFR (Non-Af Amer) BUN/Creatinine Ratio Glucose Calculated Osmolality Calcium Lactate Dehydrogenase 09/22/17 09/22/17 09/22/17 04:00 04:00 04:00 WBC RBC Hgb Hct MCV MCH MCHC RDW Plt Count Immature Gran % Seg Neutrophils % Lymphocytes % Monocytes % Eosinophils % Basophils % Neutrophils # Lymphocytes # Monocytes # Eosinophils # Basophils # Nucleated RBCs/100 WBC Immature Plt Fraction Fibrinogen 483 H D-Dimer Sodium 136 Potassium 4.1 Chloride 101 Carbon Dioxide 29 BUN 11 Creatinine 0.65 Est GFR ( Amer) > 60 Est GFR (Non-Af Amer) > 60 BUN/Creatinine Ratio 17 Glucose 197 H Calculated Osmolality 287 Calcium 9.1 Lactate Dehydrogenase 343 H - ABG Interpretation ABG results: PT/INR, D-dimer D-Dimer 2083 ng/mLFEU (0-500) H 09/21/17 20:34 Consult Discharge Plan - Plan Referrals: Delfina Fitch, ACQUISITION CONSULTANT [Primary Care Provider] - <Blaine Richards - Last Filed: 09/22/17 20:47> Date of Encounter: 09/22/17 - Constitutional Vitals: Vital Signs Temp Pulse Resp BP Pulse Ox 09/22/17 16:32 98.3 F 09/22/17 15:28 105 21 117/57 97 09/22/17 15:00 101 21 98/49 97 09/22/17 14:30 98.1 F 108 16 102/54 97 09/22/17 14:00 105 16 98/44 97 09/22/17 13:30 107 22 109/48 97 09/22/17 13:00 98.4 F 96 25 115/47 95 09/22/17 12:30 98 17 99/45 97 09/22/17 12:00 98.4 F 101 14 98/48 94 09/22/17 11:44 103 09/22/17 11:30 111 22 99/44 97 09/22/17 11:00 98 F 103 26 103/43 94 09/22/17 05:52 97.7 F 104 18 99/52 93 09/21/17 23:56 98.7 F 117 20 139/71 93 06/07/18 22:00 98.2 F 110 18 124/60 90 09/21/17 21:48 98.1 F 113 18 135/63 92 Intake and Output 09/22/17 09/22/17 09/23/17 08:59 16:59 00:59 Intake Total 200 / 200 1210 / 1210 Output Total 450 / 450 550 / 550 Balance -250 / -250 660 / 660 Intake: IV Fluids 1210 / 1210 Privigen 10% 10 GM/100 ML 10 gm 100 / 100 In 100 ml @ 97 mls/hr IVC ONCE ONE Rx#:[id number] Privigen 10% 20 GM/200 ML 20 gm 1000 / 1000 In 200 ml @ 97 mls/hr IVC ONCE ONE Rx#:[id number] Venofer 200 MG In 0.9 % Sodium 110 / 110 Chloride 100 ML @ 200 mls/hr IVPB DAILY DELMY Rx#:[id number] Oral 200 / 200 Output: Catheter 450 / 450 550 / 550 Other: Meal Breakfast Percent of Meal Consumed 100% Blood Glucose* 196 Oncology: Obj Data - Labs CBC & Chem 7: 09/22/17 04:00 09/22/17 04:00 Labs: Laboratory Results - last 24 hr 09/21/17 09/21/17 09/22/17 20:34 20:34 04:00 WBC 13.5 H RBC 3.10 L Hgb 9.5 L 8.6 L Hct 30.5 L 28.2 L MCV 91.0 MCH 27.7 L MCHC 30.5 L RDW 15.4 H Plt Count < 2 L* Immature Gran % 2.8 Seg Neutrophils % 85.4 Lymphocytes % 5.2 Monocytes % 6.5 Eosinophils % 0.0 Basophils % 0.1 Neutrophils # 11.5 H Lymphocytes # 0.7 Monocytes # 0.9 Eosinophils # 0.0 Basophils # 0.0 Nucleated RBCs/100 WBC 0.4 H Immature Plt Fraction 22.1 H Fibrinogen D-Dimer 2083 H Sodium Potassium Chloride Carbon Dioxide BUN Creatinine Est GFR ( Amer) Est GFR (Non-Af Amer) BUN/Creatinine Ratio Glucose Calculated Osmolality Lactic Acid Calcium Lactate Dehydrogenase B-Natriuretic Peptide 09/22/17 09/22/17 09/22/17 04:00 04:00 04:00 WBC RBC Hgb Hct MCV MCH MCHC RDW Plt Count Immature Gran % Seg Neutrophils % Lymphocytes % Monocytes % Eosinophils % Basophils % Neutrophils # Lymphocytes # Monocytes # Eosinophils # Basophils # Nucleated RBCs/100 WBC Immature Plt Fraction Fibrinogen 483 H D-Dimer Sodium 136 Potassium 4.1 Chloride 101 Carbon Dioxide 29 BUN 11 Creatinine 0.65 Est GFR ( Amer) > 60 Est GFR (Non-Af Amer) > 60 BUN/Creatinine Ratio 17 Glucose 197 H Calculated Osmolality 287 Lactic Acid Calcium 9.1 Lactate Dehydrogenase 343 H B-Natriuretic Peptide 09/22/17 09/22/17 14:18 14:18 WBC RBC Hgb Hct MCV MCH MCHC RDW Plt Count Immature Gran % Seg Neutrophils % Lymphocytes % Monocytes % Eosinophils % Basophils % Neutrophils # Lymphocytes # Monocytes # Eosinophils # Basophils # Nucleated RBCs/100 WBC Immature Plt Fraction Fibrinogen D-Dimer Sodium Potassium Chloride Carbon Dioxide BUN Creatinine Est GFR ( Amer) Est GFR (Non-Af Amer) BUN/Creatinine Ratio Glucose Calculated Osmolality Lactic Acid 1.5 Calcium Lactate Dehydrogenase B-Natriuretic Peptide 162 H - Impressions Impressions Chest X-Ray 09/22/17 14:01 IMPRESSION: Subtle patchy bilateral central airspace disease greater on the right. This could represent pneumonia as questioned clinically. RECOMMENDATION: Follow-up is recommended with PA and lateral chest views. However, CT scan would be more revealing. D/ / Chu Trevino MD / Chu Trevino MD Interpreting Provider: Chu Trevino MD Pulmonary Perfusion Imaging 09/22/17 14:03 IMPRESSION: Low probability for pulmonary embolus. Abnormal ventilation possible airway disease. D/ / Chu Trevino MD / Chu Trevino MD Interpreting Provider: Chu Trevino MD - ABG Interpretation ABG results: PT/INR, D-dimer D-Dimer 2083 ng/mLFEU (0-500) H 09/21/17 20:34 - Attending Attestation I examined this patient and my medical decision-making was reviewed with the Advanced Practice Nurse. I agree with the documented findings, disposition and treatment plan as described except to the extent set forth below. She has acute onset thrombocytopenia. There is no evidence of hemolysis making a microangiopathic hemolytic anemia such as TTP or HUS highly unlikely. In addition, there is no DELVIN, confusion or fever. Her clinical course is not consistent with each IT. Clinically, her pattern is consistent with ITP. This is likely drug induced from recent antibiotic exposure from Zosyn or Vancomycin. Would limit antibiotics as best as possible. We have initiated steroids and will transition to prednisonse 120 mg daily. I have ordered IVIg which was well tolerated. Will await CBC in AM.
[2017-09-22] MEDS ORDERED: 0.9 % Sodium Chloride 1,000 ML ONE (11:26)
[2017-09-22] MEDS ORDERED: Iron Sucrose Complex 200 MG in 0.9 % Sodium Chloride 100 ML IVPB SCH (11:45)
[2017-09-22] MEDS: Sennosides/Docusate Sodium TABLET PO SCH ×2 (14:14→19:56)
[2017-09-22] MEDS: Iron Polysaccharide Complex 150 MG CAPSULE PO SCH ×2 (15:17→19:56)
[2017-09-22] MEDS: *HR* OxyCODONE/APAP 5/325 TABLET PO PRN ×2 (15:18→19:56)
[2017-09-22] MEDS ORDERED: methylPREDNISolone 125 MG/2 ML VIAL IVP SCH (16:00)
[2017-09-22] MEDS ORDERED: Piperacillin/Tazobactam 3.375 GM in 0.9 % Sodium Chloride Mini Bag 100 ML IVPB SCH (16:00)
--- NOTE | 2017-09-22 17:23 | Electrocardiograph Report ---
[address] [place], [place] [address] Test Date: 2017-09-21 Pat Name: Anne Marie Flores Department: 103 Room: 06 Gender: F Merchandising Coordinator: KESHAWN : 1965 Requested By: Jl Uriarte Order Number: [id number] Reading MD: Arnulfo Alonzo Measurements Intervals [place] Rate: 105 P: 60 VA: 158 QRS: 88 QRSD: 113 T: 16 QT: 345 QTc: 406 Interpretive Statements SINUS TACHYCARDIA INCOMPLETE RIGHT BUNDLE BRANCH BLOCK BASELINE ARTIFACT Electronically Signed On 09-22-2017 17:21:25 EDT by Arnulfo Alonzo
[2017-09-22] MEDS: Ertapenem 1,000 MG in 0.9 % Sodium Chloride Mini Bag 100 ML IVPB SCH (19:55)
[2017-09-23 06:15] LABS: Hemoglobin 7.8 g/dL (11.5-15.4); Mean Corpuscular Hemoglobin 27.8 pg (28.0-33.3); Red Blood Count 2.81 M/mcL (3.82-4.97); Red Cell Distribution Width 15.3 % (11.5-14.5)
[2017-09-23 06:16] LABS: Hematocrit 25.7 % (35.3-44.9); Immature Platelets 46.8 % (1.1-6.1); Mean Corpuscular HGB Conc 30.4 g/dL (31.6-35.5); Mean Corpuscular Volume 91.5 fL (83.0-100.0); Nucleated Red Blood Cells 0.7 /100 WBC (0)
[2017-09-23 06:24] LABS: Platelet Count 7 K/mcL (140-400)
[2017-09-23 06:38] LABS: BUN/Creatinine Ratio 30 (6-26); Blood Urea Nitrogen 17 mg/dL (6-20); Carbon Dioxide 28 mEq/L (23-29); Chloride 104 mEq/L (98-107); Glucose 165 mg/dL (70-105); Magnesium 2.1 mg/dL (1.6-2.6); Osmolality,Calculated 287 (280-300); Potassium 4.2 mEq/L (3.5-5.1); Sodium 136 mEq/L (136-145); eGFR For African Americans > 60 (> 60); eGFR For Non-African Americans > 60 (> 60)
[2017-09-23 06:43] LABS: Anisocytosis 1+ (Not Present); Lymphocytes # 1.7 K/mcL (0.6-4.6); Monocytes # 0.2 K/mcL (0.0-1.3); Neutrophils # 7.7 K/mcL (1.6-8.9); Platelet Estimate Decreased (Normal); Polychromasia 1+ (Not Present)
--- NOTE | 2017-09-23 08:20 | Internal Med Progress Note ---
Date of Encounter: 09/23/17 Time of Encounter: 08:20 - Assessment and plan (1) Acute ITP Current Visit: Yes Status: Acute Assessment and plan: immune vs drug induced oncology appreciated: s/p plt transfusion, and IVIG, on prednisone HIV, HCV screen monitor (2) Anemia Current Visit: Yes Status: Chronic Assessment and plan: Hb 9.5 --> 7.8 per oncology, do not suspect microangiopathic Qualifiers: Anemia type: unspecified type Qualified Code(s): D64.9 - Anemia, unspecified (3) Abnormal urinalysis Current Visit: Yes Status: Acute Assessment and plan: sample with hematuria and contaminated no dysuria Leukocytosis likely due to steroids, prior urine cultures contaminated, will DC ertapenem, to avoid any drug adverse effects will recheck clean catch cultures to determine Abx need - Time Spent With Patient Total time spent is greater than 50% in coordination of care (as documented) at patient's floor/unit and/or counseling patient: - Subjective Interval history: didn't sleep well last ngiht due to alarms no chest pain or dyspnea no hematuria no hematochezia or melena no recent OTC drugs, herbs - Constitutional Vitals: Temp Pulse Resp BP Pulse Ox 98.1 F 88 16 108/52 96 09/23/17 07:01 09/23/17 07:01 09/23/17 07:01 09/23/17 07:01 09/23/17 07:01 General appearance: Present: A&O X 3, no acute distress, obese (morbid) - Head Head exam: Present: atraumatic, normocephalic - Eye Eye exam: Present: PERRL, conjuntiva pink, sclera anicteric Pupils: Present: PERRL - Neck Neck exam general surgery: Present: supple, trachea midline. Absent: nuchal rigidity - Respiratory Respiratory exam: Present: CTAB. Absent: accessory muscle use, rales, rhonchi, wheezes - Cardiovascular Cardiovascular exam: Present: RRR, +S1, +S2. Absent: gallop, rubs, systolic murmur - GI/Abdominal GI/Abdominal exam: Present: normal bowel sounds, soft, no peritoneal signs. Absent: distended, guarding, rigid, tenderness - Extremities Exam Extremities exam: Present: warm, radial pulses palpable and symmetrical. Absent : calf tenderness, cyanotic, pedal edema - Neurological Exam Neurological exam: Present: oriented X3, no focal deficits. Absent: pronater drift, facial droop, speech deficit - Skin Skin exam: Present: dry, intact Internal Medicine: Result - Labs CBC & Chem 7: 09/23/17 05:47 09/23/17 05:47 Labs: Short CBC 09/23/17 Range/Units 05:47 WBC 9.6 (4.3-11.1) K/mcL Hgb 7.8 L (11.5-15.4) g/dL Hct 25.7 L (35.3-44.9) % Plt Count 7 L* D (140-400) K/mcL Neutrophils # 7.7 (1.6-8.9) K/mcL BMP 09/23/17 05:47 Sodium 136 Potassium 4.2 Chloride 104 Carbon Dioxide 28 BUN 17 Creatinine 0.57 L Glucose 165 H Calcium 9.0 - ABG Interpretation ABG results: PT/INR, D-dimer D-Dimer 2083 ng/mLFEU (0-500) H 09/21/17 20:34 - Impressions Impressions Chest X-Ray 09/22/17 14:01 IMPRESSION: Subtle patchy bilateral central airspace disease greater on the right. This could represent pneumonia as questioned clinically. RECOMMENDATION: Follow-up is recommended with PA and lateral chest views. However, CT scan would be more revealing. D/ / Chu Trevino MD / Chu Trveino MD Interpreting Provider: Chu Trevino MD Pulmonary Perfusion Imaging 09/22/17 14:03 IMPRESSION: Low probability for pulmonary embolus. Abnormal ventilation possible airway disease. D/ / Chu Trevino MD / Chu Trevino MD Interpreting Provider: Chu Trevino MD - VTE Reasons for not Prescribing Prophylaxis: Medical contraindication Documentation of Mechanical Device: Intermittent pneumatic compression device Consult Discharge Plan - Plan Referrals: Delfina Fitch CNP [Primary Care Provider] -
[2017-09-23] MEDS: Ertapenem 1,000 MG in 0.9 % Sodium Chloride Mini Bag 100 ML IVPB SCH (09:14)
[2017-09-23] MEDS: Iron Polysaccharide Complex 150 MG CAPSULE PO SCH ×2 (09:14→22:56)
[2017-09-23] MEDS: predniSONE 20 MG TABLET PO SCH (09:14)
[2017-09-23] MEDS: Sennosides/Docusate Sodium TABLET PO SCH ×2 (09:14→22:55)
--- NOTE | 2017-09-23 10:29 | Oncology Inp Progress Note ---
Date of Encounter: 09/23/17 Time of Encounter: 10:40 (1) Acute ITP Current Visit: Yes Status: Acute Assessment and plan: She has significant thrombocytopenia with associated petechiae as well as genitourinary bleeding. Her genitourinary bleeding has resolved. Clinically, this appears to be drug related from antibiotic exposure during her previous hospital stay or classical ITP. He is no evidence of a microangiopathic process with a relatively elevated LDH and normal bilirubin. Peripheral smear with only a few schistocytes. She received IVIG yesterday and continues on prednisone. Platelet count is increased to 7000 today. I recommend continued supportive care. We will reevaluate CBC in the morning. Oncology: Subj Interval history: Uneventful night last night. Did not sleep well. No bleeding symptoms epistaxis, hemoptysis, hematemesis, melena or hematochezia. No genitourinary bleeding from her report or nursing report. No fever, chills or symptoms of infection. Currently resting comfortably and has no complaint. - Constitutional Vitals: Vital Signs Temp Pulse Resp BP Pulse Ox 09/23/17 07:01 98.1 F 88 16 108/52 96 09/23/17 06:33 98.2 F 109 16 133/88 97 09/23/17 04:00 98.5 F 89 20 133/59 95 09/23/17 00:00 97.7 F 87 20 129/68 94 09/22/17 21:09 97.6 F 88 18 115/68 97 09/22/17 16:32 98.3 F 09/22/17 15:28 105 21 117/57 97 09/22/17 15:00 101 21 98/49 97 09/22/17 14:30 98.1 F 108 16 102/54 97 09/22/17 14:00 105 16 98/44 97 09/22/17 13:30 107 22 109/48 97 09/22/17 13:00 98.4 F 96 25 115/47 95 09/22/17 12:30 98 17 99/45 97 09/22/17 12:00 98.4 F 101 14 98/48 94 09/22/17 11:44 103 09/22/17 11:30 111 22 99/44 97 09/22/17 11:00 98 F 103 26 103/43 94 Intake and Output 09/23/17 09/23/1709/23/18 00:59 08:59 16:59 Intake Total 0 / 0 240 / 240 Output Total 400 / 400 700 / 700 Balance -400 / -400 -460 / -460 Intake: Oral 0 / 0 240 / 240 Output: Urine 400 / 400 700 / 700 Other: Weight 190 kg General appearance: morbidly obese, no acute distress - Head Head exam: Present: atraumatic, normal inspection, normocephalic - Eye Eye exam: Present: normal appearance, conjuntiva pink, sclera anicteric - ENT ENT exam: Present: mucous membranes moist (Purpura about inner cheeks), normal oropharynx - Neck Neck exam: Present: full ROM, normal inspection - Respiratory Respiratory exam: Present: CTAB - Cardiovascular Cardiovascular exam: Present: RRR - GI/Abdominal GI/Abdominal exam: Present: normal bowel sounds, soft - Extremities Exam Extremities exam: Present: pedal edema (petechiae) - Neurological Exam Neurological exam: Present: alert, CN II-XII intact, oriented X3 Oncology: Obj Data - Labs CBC & Chem 7: 09/23/17 05:47 09/23/17 05:47 Labs: Laboratory Results - last 24 hr 09/22/17 09/22/17 09/22/17 10:56 14:18 14:18 WBC RBC Hgb Hct MCV MCH MCHC RDW Plt Count MPV Seg Neutrophils % Lymphocytes % Monocytes % Neutrophils # Lymphocytes # Monocytes # Nucleated RBCs/100 WBC Platelet Estimate Immature Plt Fraction Polychromasia Anisocytosis Sodium Potassium Chloride Carbon Dioxide BUN Creatinine Est GFR ( Amer) Est GFR (Non-Af Amer) BUN/Creatinine Ratio Glucose POC Glucose 196 H Calculated Osmolality Lactic Acid 1.5 Calcium Magnesium B-Natriuretic Peptide 162 H 09/23/17 09/23/17 05:47 05:47 WBC 9.6 RBC 2.81 L Hgb 7.8 L Hct 25.7 L MCV 91.5 MCH 27.8 L MCHC 30.4 L RDW 15.3 H Plt Count 7 L* D MPV TNP Seg Neutrophils % 80.0 Lymphocytes % 18.0 Monocytes % 2.0 Neutrophils # 7.7 Lymphocytes # 1.7 Monocytes # 0.2 Nucleated RBCs/100 WBC 0.7 H Platelet Estimate Decreased L Immature Plt Fraction 46.8 H Polychromasia 1+ A Anisocytosis 1+ A Sodium 136 Potassium 4.2 Chloride 104 Carbon Dioxide 28 BUN 17 Creatinine 0.57 L Est GFR ( Amer) > 60 Est GFR (Non-Af Amer) > 60 BUN/Creatinine Ratio 30 H Glucose 165 H POC Glucose Calculated Osmolality 287 Lactic Acid Calcium 9.0 Magnesium 2.1 B-Natriuretic Peptide - Impressions Impressions Chest X-Ray 09/22/17 14:01 IMPRESSION: Subtle patchy bilateral central airspace disease greater on the right. This could represent pneumonia as questioned clinically. RECOMMENDATION: Follow-up is recommended with PA and lateral chest views. However, CT scan would be more revealing. D/ / Chu Trevino MD / Chu Trevino MD Interpreting Provider: Chu Trevino MD Pulmonary Perfusion Imaging 09/22/17 14:03 IMPRESSION: Low probability for pulmonary embolus. Abnormal ventilation possible airway disease. D/ / Chu Trevino MD / Chu Trevino MD Interpreting Provider: Chu Trevino MD - ABG Interpretation ABG results: PT/INR, D-dimer D-Dimer 2083 ng/mLFEU (0-500) H 09/21/17 20:34 Consult Discharge Plan - Plan Referrals: Delfina Fitch, PRODUCTION CONTROL PLANNER [Primary Care Provider] -
[2017-09-23] MEDS: *HR* OxyCODONE/APAP 5/325 TABLET PO PRN (15:44)
[2017-09-23] MEDS: Menthol 9.1 MG LOZENGE PO PRN (15:44)
[2017-09-24 06:04] LABS: HIV-1&2 Antibody & p24 Ag Nonreactive (Nonreactive)
[2017-09-24] MEDS: Iron Polysaccharide Complex 150 MG CAPSULE PO SCH ×2 (08:42→21:19)
[2017-09-24] MEDS: predniSONE 20 MG TABLET PO SCH (08:42)
[2017-09-24] MEDS: Sennosides/Docusate Sodium TABLET PO SCH ×2 (08:42→21:19)
[2017-09-24 09:24] LABS: Basophils % 0.4 %; Hematocrit 27.6 % (35.3-44.9); Hemoglobin 8.2 g/dL (11.5-15.4); Immature Granulocytes % 4.8 % (0-4); Immature Platelets 25.9 % (1.1-6.1); Lymphocytes # 2.5 K/mcL (0.6-4.6); Lymphocytes % 24.6 %; Mean Corpuscular HGB Conc 29.7 g/dL (31.6-35.5); Mean Corpuscular Hemoglobin 27.8 pg (28.0-33.3); Mean Corpuscular Volume 93.6 fL (83.0-100.0); Monocytes # 1.1 K/mcL (0.0-1.3); Monocytes % 11.2 %; Red Blood Count 2.95 M/mcL (3.82-4.97); Red Cell Distribution Width 15.8 % (11.5-14.5)
[2017-09-24 09:35] LABS: Platelet Count 15 K/mcL (140-400)
[2017-09-24] MEDS: Menthol 9.1 MG LOZENGE PO PRN (17:08)
[2017-09-24] MEDS: *HR* OxyCODONE/APAP 5/325 TABLET PO PRN ×2 (17:08→23:18)
--- NOTE | 2017-09-24 18:01 | Internal Med Progress Note ---
Date of Encounter: 09/24/17 Time of Encounter: 17:59 - Assessment and plan (1) Acute ITP Current Visit: Yes Status: Acute Assessment and plan: immune vs drug induced platelet jennifer < 2k, now 7k --> 15k oncology appreciated: s/p plt transfusion, and IVIG, now on prednisone HIV negative HCV screen pending monitor plt counts and for bleeding (2) Anemia Current Visit: Yes Status: Chronic Assessment and plan: Hb 9.5 --> 7.8 --> 8.2 per oncology, do not suspect microangiopathic process Qualifiers: Anemia type: unspecified type Qualified Code(s): D64.9 - Anemia, unspecified (3) Abnormal urinalysis Current Visit: Yes Status: Acute Assessment and plan: initial sample had blood cells due to hematuria and was contaminated no dysuria or fever Leukocytosis was likely due to steroids, ertapenem discontinued on 09/23, to avoid any drug adverse effects check clean catch urine cultures to determine Abx need - Time Spent With Patient Total time spent is greater than 50% in coordination of care (as documented) at patient's floor/unit and/or counseling patient: - Subjective Interval history: no chest pain or dyspnea no hematuria no hematochezia or melena no recent OTC drugs, herbs constipation - Constitutional Vitals: Temp Pulse Resp BP Pulse Ox 98.5 F 89 22 136/69 97 09/24/17 15:47 09/24/17 15:47 09/24/17 04:00 09/24/17 15:47 09/24/17 04:00 General appearance: Present: A&O X 3, morbidly obese, no acute distress - Head Head exam: Present: atraumatic, normocephalic - Eye Eye exam: Present: PERRL, conjuntiva pink, sclera anicteric Pupils: Present: PERRL - Neck Neck exam general surgery: Present: supple, trachea midline. Absent: nuchal rigidity - Respiratory Respiratory exam: Present: CTAB (limited exam due to body habitus). Absent: accessory muscle use, rales, rhonchi, wheezes - Cardiovascular Cardiovascular exam: Present: RRR, +S1, +S2. Absent: diastolic murmur, gallop, rubs, systolic murmur - GI/Abdominal GI/Abdominal exam: Present: normal bowel sounds, soft, no peritoneal signs. Absent: distended, guarding, rebound, tenderness - Extremities Exam Extremities exam: Present: warm, radial pulses palpable and symmetrical. Absent : calf tenderness, cyanotic, pedal edema - Neurological Exam Neurological exam: Present: oriented X3, no focal deficits. Absent: pronater drift, facial droop, speech deficit - Skin Skin exam: Present: dry, intact, petechiae Internal Medicine: Result - Labs CBC & Chem 7: 09/24/17 09:06 09/23/17 05:47 Labs: Short CBC 09/24/17 Range/Units 09:06 WBC 10.2 (4.3-11.1) K/mcL Hgb 8.2 L (11.5-15.4) g/dL Hct 27.6 L (35.3-44.9) % Plt Count 15 L* D (140-400) K/mcL Neutrophils # 6.0 (1.6-8.9) K/mcL - ABG Interpretation ABG results: PT/INR, D-dimer D-Dimer 2083 ng/mLFEU (0-500) H 09/21/17 20:34 - VTE Reasons for not Prescribing Prophylaxis: Medical contraindication Documentation of Mechanical Device: Intermittent pneumatic compression device Consult Discharge Plan - Plan Referrals: Delfina Fitch CNP [Primary Care Provider] -
[2017-09-25 05:34] LABS: Basophils % 0.4 %; Hemoglobin 8.1 g/dL (11.5-15.4); Lymphocytes % 23.6 %; Mean Corpuscular HGB Conc 31.2 g/dL (31.6-35.5); Mean Corpuscular Hemoglobin 28.4 pg (28.0-33.3); Mean Corpuscular Volume 91.2 fL (83.0-100.0); Monocytes # 1.1 K/mcL (0.0-1.3); Neutrophils # 4.9 K/mcL (1.6-8.9); Nucleated Red Blood Cells 1.1 /100 WBC (0); Red Blood Count 2.85 M/mcL (3.82-4.97); Red Cell Distribution Width 15.4 % (11.5-14.5)
[2017-09-25 05:37] LABS: Platelet Count 14 K/mcL (140-400)
[2017-09-25 05:54] LABS: Alanine Aminotransferase 8 Units/L (7-52); Albumin 2.9 g/dL (3.5-5.7); Albumin/Globulin Ratio 0.8 (1.1-2.2); Alkaline Phosphatase 51 Units/L (34-104); Aspartate Amino Transferase 12 Units/L (13-39); BUN/Creatinine Ratio 33 (6-26); Bilirubin,Total 0.4 mg/dL (0.3-1.0); Blood Urea Nitrogen 19 mg/dL (6-20); Calcium 9.1 mg/dL (8.6-10.3); Carbon Dioxide 32 mEq/L (23-29); Chloride 103 mEq/L (98-107); Globulin 3.6 g/dL (2.4-3.5); Glucose 116 mg/dL (70-105); Osmolality,Calculated 287 (280-300); Potassium 4.2 mEq/L (3.5-5.1); Sodium 137 mEq/L (136-145); Total Protein 6.5 g/dL (6.4-8.9); eGFR For African Americans > 60 (> 60); eGFR For Non-African Americans > 60 (> 60)
[2017-09-25] MEDS: Sennosides/Docusate Sodium TABLET PO SCH ×2 (09:38→22:27)
[2017-09-25] MEDS: Iron Polysaccharide Complex 150 MG CAPSULE PO SCH ×2 (09:38→22:26)
[2017-09-25] MEDS: predniSONE 20 MG TABLET PO SCH (09:39)
[2017-09-25] MEDS: Menthol 9.1 MG LOZENGE PO PRN (14:37)
[2017-09-25] MEDS: *HR* OxyCODONE/APAP 5/325 TABLET PO PRN ×2 (14:37→22:27)
[2017-09-25] MEDS ORDERED: predniSONE 20 MG TABLET PO ONE (15:13)
--- NOTE | 2017-09-25 15:20 | Oncology Inp Progress Note ---
<Teresa Mckenzie L - Last Filed: 09/26/17 06:54> Date of Encounter: 09/25/17 Time of Encounter: 14:30 (1) Acute ITP Current Visit: Yes Status: Acute Assessment and plan: Laboratory data reveals acute, severe thrombocytopenia with platelet count of <2 , consistent with Acute ITP Platelet count previously normal on 09/11. Peripheral blood smear reveals- normal total leukocyte count. Platelets markedly decreased. Microcytes and elliptocytes, few schistocytes and tear drop cells seen. Hypochromic, normocytic red blood cells. Platelet antibody-positive. S/P IVIG on 09/22 Solumedrol changed to oral prednisone on Saturday 09/23-100 mg Platelets have increased since admission however now appear to have plateaued. Prednisone increased to 180 mg/day (1mg/kg/day) starting today. Monitor for effectiveness-recheck platelet count in AM Highly suspect Drug Induced secondary to vancomycin/levaquin treatment Consider other underlying causes such as HCV, SLE or CLL. HIV nonreactive. Peripheral flow, Hepatitis panel ordered-pending. CRP 87. ESR 72. Please refer to Dr. Garcia's attestation below for additional details. (2) Anemia Current Visit: Yes Status: Chronic Assessment and plan: Chronic anemia. Hgb stable and close to patients baseline. Iron-35, 11% Ferritin-115 B12-275 Folate-9.3 LDH elevated-343 Luke-pending SPEP/Serum free light chains-pending Qualifiers: Anemia type: unspecified type Qualified Code(s): D64.9 - Anemia, unspecified Oncology: Subj Interval history: Ms. Flores is resting, currently without any complaints. She denies pain. Denies chest pain, SOB, calf pain, s/s bleeding. - Constitutional Vitals: Vital Signs Temp Pulse Resp BP Pulse Ox 09/25/17 11:09 98.4 F 93 16 151/67 97 09/25/17 07:06 97.9 F 87 16 145/69 99 09/25/17 05:00 97.7 F 80 20 139/66 99 09/24/17 21:00 97.8 F 82 18 147/72 97 09/24/17 15:47 98.5 F 89 136/69 Intake and Output 09/24/17 09/25/17 09/25/17 23:59 07:59 15:59 Intake Total 650 / 650 0 / 0 240 / 240 Output Total 300 / 300 450 / 450 700 / 700 Balance 350 / 350 -450 / -450 -460 / -460 Intake: Oral 650 / 650 0 / 0 240 / 240 Output: Urine 300 / 300 450 / 450 700 / 700 Other: Meal Dinner Lunch Percent of Meal Consumed 75% 100% Stool Size Smear Moderate Stool Consistency soft Stool Color Brown Brown # Voids 1 Weight 188.3 kg Patient Weight 09/25/17 23:59 Weight 188.3 kg General appearance: cooperative, morbidly obese, no acute distress, no febrile - Head Head exam: Present: atraumatic - ENT ENT exam: Present: mucous membranes moist - Respiratory Respiratory exam: Present: CTAB. Absent: respiratory distress - Cardiovascular Cardiovascular exam: Present: RRR, +S1, +S2 - GI/Abdominal GI/Abdominal exam: Present: normal bowel sounds, soft. Absent: tenderness - Extremities Exam Extremities exam: Absent: calf tenderness - Neurological Exam Neurological exam: Present: alert, oriented X3, no focal deficits, strengths equal and symetr throughout - Psychiatric Psychiatric exam: Present: normal affect, normal mood - Skin Skin exam: Present: dry, intact, normal color, warm Oncology: Obj Data - Labs CBC & Chem 7: 09/26/17 05:50 09/25/17 05:05 Labs: Laboratory Results - last 24 hr 09/25/17 09/25/17 05:05 05:05 WBC 8.4 RBC 2.85 L Hgb 8.1 L Hct 26.0 L MCV 91.2 MCH 28.4 MCHC 31.2 L RDW 15.4 H Plt Count 14 L* MPV 15.0 H Immature Gran % 5.0 H Seg Neutrophils % 58.0 Lymphocytes % 23.6 Monocytes % 13.0 Eosinophils % 0.0 Basophils % 0.4 Neutrophils # 4.9 Lymphocytes # 2.0 Monocytes # 1.1 Eosinophils # 0.0 Basophils # 0.0 Nucleated RBCs/100 WBC 1.1 H Immature Plt Fraction 31.0 H Sodium 137 Potassium 4.2 Chloride 103 Carbon Dioxide 32 H BUN 19 Creatinine 0.57 L Est GFR ( Amer) > 60 Est GFR (Non-Af Amer) > 60 BUN/Creatinine Ratio 33 H Glucose 116 H Calculated Osmolality 287 Calcium 9.1 Total Bilirubin 0.4 AST 12 L ALT 8 Alkaline Phosphatase 51 Serum Total Protein 6.5 Albumin 2.9 L Globulin 3.6 H Albumin/Globulin Ratio 0.8 L - ABG Interpretation ABG results: PT/INR, D-dimer D-Dimer 2083 ng/mLFEU (0-500) H 09/21/17 20:34 Consult Discharge Plan - Plan Referrals: Delfina Fitch, RIGHT [employer] APPRAISER [Primary Care Provider] - <Nathan Garcia - Last Filed: 09/26/17 09:12> Date of Encounter: 09/25/17 - Constitutional Vitals: Vital Signs Temp Pulse Resp BP Pulse Ox 09/26/17 06:40 97.5 F L 88 16 150/78 97 09/26/17 04:15 97.7 F 82 19 151/64 96 09/25/17 23:00 98.2 F 92 17 150/75 96 09/25/17 15:18 98.1 F 88 16 147/76 96 09/25/17 11:09 98.4 F 93 16 151/67 97 Intake and Output 09/26/17 09/26/17 09/26/17 00:59 08:59 16:59 Intake Total 200 / 200 0 / 0 Output Total 1450 / 1450 650 / 650 Balance -1250 / -1250 -650 / -650 Intake: Oral 200 / 200 0 / 0 Output: Urine 1450 / 1450 650 / 650 Other: Stool Size Large Stool Consistency soft Stool Color Brown # Voids 1 Weight 183.1 kg Patient Weight 09/27/17 00:59 Weight 183.1 kg Oncology: Obj Data - Labs CBC & Chem 7: 09/26/17 05:50 09/25/17 05:05 Labs: Laboratory Results - last 24 hr 09/22/17 09/22/17 09/24/17 14:18 14:18 04:08 WBC RBC Hgb Hct MCV MCH MCHC RDW Plt Count MPV Immature Gran % Seg Neutrophils % Lymphocytes % Monocytes % Eosinophils % Basophils % Neutrophils # Lymphocytes # Monocytes # Eosinophils # Basophils # Nucleated RBCs/100 WBC Reactive Lymphocytes Platelet Estimate Immature Plt Fraction Prot Electrophor EER SEE NOTE Total Protein (PEP) 6.20 Albumin (PEP) 2.61 L Miguj-7-Kmncmzxcj 0.36 Skech-1-Oilchrtaw 0.71 Beta Globulins 0.67 Gamma Globulins 1.85 H PEP Interpretation SEE NOTE Serum Immunofix Reflex NOT DONE IgG TNP IgA TNP IgM TNP Free [place] LC, Quant 2.48 H Free Lambda LC, Quant 2.81 H Free [place]/Lambda Ratio 0.88 Hepatitis C Ab Screen Nonreactive 09/26/17 05:50 WBC 9.2 RBC 3.14 L Hgb 9.0 L Hct 28.5 L MCV 90.8 MCH 28.7 MCHC 31.6 RDW 15.1 H Plt Count 14 L* MPV TNP Immature Gran % 5.1 H Seg Neutrophils % 73.3 Lymphocytes % 14.2 Monocytes % 6.9 Eosinophils % 0.1 Basophils % 0.4 Neutrophils # 6.7 Lymphocytes # 1.3 Monocytes # 0.6 Eosinophils # 0.0 Basophils # 0.0 Nucleated RBCs/100 WBC 1.0 H Reactive Lymphocytes Present A Platelet Estimate Marked Decrease L Immature Plt Fraction 31.8 H Prot Electrophor EER Total Protein (PEP) Albumin (PEP) Ovamg-7-Kxpqfhiat Onomn-2-Lwptynirs Beta Globulins Gamma Globulins PEP Interpretation Serum Immunofix Reflex IgG IgA IgM Free [place] LC, Quant Free Lambda LC, Quant Free [place]/Lambda Ratio Hepatitis C Ab Screen - ABG Interpretation ABG results: PT/INR, D-dimer D-Dimer 2083 ng/mLFEU (0-500) H 09/21/17 20:34
[2017-09-25 16:00] LABS: Hepatitis C Virus Antibody Nonreactive (Nonreactive)
--- NOTE | 2017-09-25 17:52 | Internal Med Progress Note ---
Date of Encounter: 09/25/17 Time of Encounter: 17:45 - Assessment and plan (1) Acute ITP Current Visit: Yes Status: Acute Assessment and plan: HIv negative HCV negative Platelet Ig M and Ig G strongly positive Other DDx: secondary ITP such as Drug induced ITP, SLE or CLL. Plan: - High dose steroids per hematology - IVIG - Trend CBC - Peripheral flow pending (2) Abnormal urinalysis Current Visit: Yes Status: Acute Assessment and plan: initial sample had blood cells due to hematuria and was contaminated no dysuria or fever Leukocytosis was likely due to steroids, ertapenem discontinued on 09/23, to avoid any drug adverse effects check clean catch urine cultures to determine Abx need (3) Anemia Current Visit: Yes Status: Chronic Assessment and plan: Iron-35, 11% Ferritin-115 B12-275 Folate-9.3 LDH elevated-343 Luke-pending SPEP/Serum free light chains-pending Qualifiers: Anemia type: unspecified type Qualified Code(s): D64.9 - Anemia, unspecified (4) Multiple wounds of skin Current Visit: Yes Status: Acute Assessment and plan: Wound care consult (5) Morbid obesity Current Visit: Yes Status: Acute - Time Spent With Patient Total time spent is greater than 50% in coordination of care (as documented) at patient's floor/unit and/or counseling patient: 25 - 35 minutes - Subjective Interval history: No new complaints. RN noted skin lesions as described. - Constitutional Vitals: Temp Pulse Resp BP Pulse Ox 98.1 F 88 16 147/76 96 09/25/17 15:18 09/25/17 15:18 09/25/17 15:18 09/25/17 15:18 09/25/17 15:18 General appearance: Present: A&O X 3, morbidly obese, no acute distress - Head Head exam: Present: atraumatic, normocephalic - Neck Neck exam general surgery: Present: supple, trachea midline. Absent: lymphadenopathy - Respiratory Respiratory exam: Present: decreased breath sounds, CTAB. Absent: accessory muscle use, rales, rhonchi, wheezes - Cardiovascular Cardiovascular exam: Present: RRR, +S1, +S2. Absent: diastolic murmur, gallop, rubs, systolic murmur - GI/Abdominal GI/Abdominal exam: Present: normal bowel sounds, soft, no peritoneal signs. Absent: distended, tenderness - Skin Additional comments: Perineal excoriated skin, excoriated folds underneath panus Internal Medicine: Result - Labs CBC & Chem 7: 09/25/17 05:05 09/25/17 05:05 Labs: Short CBC 09/25/17 Range/Units 05:05 WBC 8.4 (4.3-11.1) K/mcL Hgb 8.1 L (11.5-15.4) g/dL Hct 26.0 L (35.3-44.9) % Plt Count 14 L* (140-400) K/mcL Neutrophils # 4.9 (1.6-8.9) K/mcL BMP 09/25/17 05:05 Sodium 137 Potassium 4.2 Chloride 103 Carbon Dioxide 32 H BUN 19 Creatinine 0.57 L Glucose 116 H Calcium 9.1 Liver Function 09/25/17 Range/Units 05:05 Total Bilirubin 0.4 (0.3-1.0) mg/dL AST 12 L (13-39) Units/L ALT 8 (7-52) Units/L Alkaline Phosphatase 51 (34-104) Units/L Albumin 2.9 L (3.5-5.7) g/dL - ABG Interpretation ABG results: PT/INR, D-dimer D-Dimer 2083 ng/mLFEU (0-500) H 09/21/17 20:34 - VTE Reasons for not Prescribing Prophylaxis: Medical contraindication Documentation of Mechanical Device: Intermittent pneumatic compression device Consult Discharge Plan - Plan Referrals: Delfina Fitch, [employer] E[employer]IPMENT PLUMBING SUPERVISOR [Primary Care Provider] -
[2017-09-25 22:19] LABS: Kappa Qnt Free Light Chains 2.48 mg/dL (0.33-1.94); Lambda Qnt Free Light Chains 2.81 mg/dL (0.57-2.63)
[2017-09-26 02:34] LABS: Alpha 2 Globulin (PEP) 0.71 g/dL (0.48-1.05); Beta Globulin (PEP) 0.67 g/dL (0.48-1.10)
[2017-09-26 06:10] LABS: Eosinophils % 0.1 %; Lymphocytes % 14.2 %
[2017-09-26 06:12] LABS: Basophils % 0.4 %; Hematocrit 28.5 % (35.3-44.9); Immature Granulocytes % 5.1 % (0-4); Immature Platelets 31.8 % (1.1-6.1); Lymphocytes # 1.3 K/mcL (0.6-4.6); Mean Corpuscular HGB Conc 31.6 g/dL (31.6-35.5); Mean Corpuscular Hemoglobin 28.7 pg (28.0-33.3); Mean Corpuscular Volume 90.8 fL (83.0-100.0); Monocytes # 0.6 K/mcL (0.0-1.3); Monocytes % 6.9 %; Neutrophils # 6.7 K/mcL (1.6-8.9); Red Blood Count 3.14 M/mcL (3.82-4.97); Red Cell Distribution Width 15.1 % (11.5-14.5); Segmented Neutrophils % 73.3 %
[2017-09-26 06:21] LABS: Platelet Count 14 K/mcL (140-400)
[2017-09-26 06:43] LABS: Platelet Estimate Marked Decrease (Normal); Reactive Lymphocytes Present (Not Present)
[2017-09-26 07:48] LABS: IFE Reflexed NOT DONE
[2017-09-26] MEDS ORDERED: predniSONE 20 MG TABLET PO SCH (09:00)
--- NOTE | 2017-09-26 09:09 | Internal Med Progress Note ---
Date of Encounter: 09/26/17 Time of Encounter: 08:30 - Assessment and plan (1) Acute ITP Current Visit: Yes Status: Acute Assessment and plan: HIV negative HCV negative Platelet Ig M and Ig G strongly positive Other DDx: secondary ITP such as Drug induced ITP, SLE or CLL. Plan: - High dose steroids per hematology - s/p IVIG . Defer further doses to hematology considering no increment in platelets. - Trend CBC - Peripheral flow pending (2) Abnormal urinalysis Current Visit: Yes Status: Acute Assessment and plan: initial sample had blood cells due to hematuria and was contaminated no dysuria or fever Leukocytosis was likely due to steroids, ertapenem discontinued on 09/23, to avoid any drug adverse effects check clean catch urine cultures to determine Abx need (3) Anemia Current Visit: Yes Status: Chronic Assessment and plan: Iron-35, 11% Ferritin-115 B12-275 Folate-9.3 LDH elevated-343 Luke-pending SPEP/Serum free light chains-pending Qualifiers: Anemia type: unspecified type Qualified Code(s): D64.9 - Anemia, unspecified (4) Multiple wounds of skin Current Visit: Yes Status: Acute Assessment and plan: Wound care consult (5) Morbid obesity Current Visit: Yes Status: Acute - Time Spent With Patient Total time spent is greater than 50% in coordination of care (as documented) at patient's floor/unit and/or counseling patient: 25 - 35 minutes - Subjective Interval history: No new complaints. No events overnight. - Constitutional Vitals: Temp Pulse Resp BP Pulse Ox 97.5 F L 88 16 150/78 97 09/26/17 06:40 09/26/17 06:40 09/26/17 06:40 09/26/17 06:40 09/26/17 06:40 Exam: Physical exam Gen: Comfortable, laying in bed, in no visible distress, morbidly obese HEENT: Normocephalic, atraumatic. No conjunctival icterus. Moist oral mucosa. Neck: Supple Lungs: Diminished to auscultation, no foreign sounds Heart: Normal S1-S2, no murmurs rubs or gallops Abdomen: Normoactive bowel sounds, no guarding rigidity or tenderness Extremities: Peripheral edema noted. no clubbing or cyanosis Neuro: Alert oriented 3, no focal deficits Skin: Perineal excoriated skin, excoriates folds underneath pannus Internal Medicine: Result - Labs CBC & Chem 7: 09/26/17 05:50 09/25/17 05:05 Labs: Short CBC 09/26/17 Range/Units 05:50 WBC 9.2 (4.3-11.1) K/mcL Hgb 9.0 L (11.5-15.4) g/dL Hct 28.5 L (35.3-44.9) % Plt Count 14 L* (140-400) K/mcL Neutrophils # 6.7 (1.6-8.9) K/mcL - ABG Interpretation ABG results: PT/INR, D-dimer D-Dimer 2083 ng/mLFEU (0-500) H 09/21/17 20:34 - VTE Reasons for not Prescribing Prophylaxis: Medical contraindication Documentation of Mechanical Device: Intermittent pneumatic compression device Consult Discharge Plan - Plan Referrals: Delfnia Fitch, CIRCULAR HEAD SAW OPERATOR [Primary Care Provider] -
[2017-09-26] MEDS: Iron Polysaccharide Complex 150 MG CAPSULE PO SCH ×2 (10:36→21:36)
[2017-09-26] MEDS: Sennosides/Docusate Sodium TABLET PO SCH ×2 (10:37→21:36)
[2017-09-26] MEDS: Miconazole w/zinc oxide&karaya 92 APPL/92 GM TUBE TP SCH ×2 (15:22→21:36)
--- NOTE | 2017-09-26 17:23 | Oncology Inp Progress Note ---
Date of Encounter: 09/26/17 Time of Encounter: 14:30 (1) Acute ITP Current Visit: Yes Status: Acute Assessment and plan: S/P IVIG on 09/22 Solumedrol changed to oral prednisone on Saturday 09/23-100 mg Platelets have increased since admission however now appear to have plateaued. Prednisone increased to 180 mg/day (1mg/kg/day) starting yesterday with platelet count again at 14 today. Will begin to taper steroids-she will receive 100 mg tomorrow, taper by decreasing by 20/mg/day thereafter. Highly suspect Drug Induced secondary to levaquin treatment-add as allergy Drug induced ITP is sometimes less likely to respond to typical treatment with IVIG/Steroids, the offending agent must be removed and with time the platelets will recover, given that steroids do not appear to have effect on increasing platelet count at this point will taper steroids as discussed above. Once platelet count >20 she may otherwise discharge back to [facility], with continued lab monitoring and follow up with Dr. Garcia Please refer to Dr. Garcia's attestation below for additional details. (2) Anemia Current Visit: Yes Status: Chronic Assessment and plan: Chronic anemia. Hgb stable and close to patients baseline. Iron-35, 11% Ferritin-115 B12-275 Folate-9.3 LDH elevated-343 Luke-pending SPEP/Serum free light chains-pending Qualifiers: Anemia type: unspecified type Qualified Code(s): D64.9 - Anemia, unspecified Oncology: Subj Interval history: Ms. Flores denies pain, headache, visual changes, or any s/s bleeding. She denies any new symptoms. - Constitutional Vitals: Vital Signs Temp Pulse Resp BP Pulse Ox 09/26/17 15:17 98.7 F 85 16 144/70 95 09/26/17 11:21 97.7 F 93 16 146/66 98 09/26/17 06:40 97.5 F L 88 16 150/78 97 09/26/17 04:15 97.7 F 82 19 151/64 96 09/25/17 23:00 98.2 F 92 17 150/75 96 Intake and Output 09/26/17 09/26/17 09/26/17 07:59 15:59 23:59 Intake Total 0 / 0 120 / 120 Output Total 650 / 650 Balance 0 / 0 -530 / -530 Intake: Oral 0 / 0 120 / 120 Output: Urine 650 / 650 Other: Meal Lunch Percent of Meal Consumed 100% # Voids 1 Weight 183.1 kg Patient Weight 09/26/17 23:59 Weight 183.1 kg General appearance: cooperative, morbidly obese, no acute distress, no febrile - Head Head exam: Present: atraumatic - ENT ENT exam: Present: mucous membranes moist - Respiratory Respiratory exam: Present: CTAB. Absent: respiratory distress - Cardiovascular Cardiovascular exam: Present: RRR, +S1, +S2 - GI/Abdominal GI/Abdominal exam: Present: normal bowel sounds, soft. Absent: tenderness - Extremities Exam Extremities exam: Absent: calf tenderness - Neurological Exam Neurological exam: Present: alert, oriented X3, no focal deficits, strengths equal and symetr throughout - Psychiatric Psychiatric exam: Present: flat affect - Skin Skin exam: Present: dry, intact, normal color, warm Oncology: Obj Data - Labs CBC & Chem 7: 09/27/17 04:20 09/25/17 05:05 Labs: Laboratory Results - last 24 hr 09/22/17 09/22/17 09/26/17 14:18 14:18 05:50 WBC 9.2 RBC 3.14 L Hgb 9.0 L Hct 28.5 L MCV 90.8 MCH 28.7 MCHC 31.6 RDW 15.1 H Plt Count 14 L* MPV TNP Immature Gran % 5.1 H Seg Neutrophils % 73.3 Lymphocytes % 14.2 Monocytes % 6.9 Eosinophils % 0.1 Basophils % 0.4 Neutrophils # 6.7 Lymphocytes # 1.3 Monocytes # 0.6 Eosinophils # 0.0 Basophils # 0.0 Nucleated RBCs/100 WBC 1.0 H Reactive Lymphocytes Present A Platelet Estimate Marked Decrease L Immature Plt Fraction 31.8 H Prot Electrophor EER SEE NOTE Total Protein (PEP) 6.20 Albumin (PEP) 2.61 L Mranh-3-Zrmytfqsb 0.36 Kxakv-2-Wefwvjndd 0.71 Beta Globulins 0.67 Gamma Globulins 1.85 H PEP Interpretation SEE NOTE Serum Immunofix Reflex NOT DONE IgG TNP IgA TNP IgM TNP Free [place] LC, Quant 2.48 H Free Lambda LC, Quant 2.81 H Free [place]/Lambda Ratio 0.88 - ABG Interpretation ABG results: PT/INR, D-dimer D-Dimer 2083 ng/mLFEU (0-500) H 09/21/17 20:34 Consult Discharge Plan - Plan Referrals: Delfina Fitch CNP [Primary Care Provider] -
[2017-09-26] MEDS ORDERED: ALPRAZolam 1 MG TABLET PO ONE (17:24)
[2017-09-26] MEDS: *HR* OxyCODONE/APAP 5/325 TABLET PO PRN (21:36)
[2017-09-27 04:47] LABS: Hemoglobin 9.4 g/dL (11.5-15.4); Red Blood Count 3.24 M/mcL (3.82-4.97); Red Cell Distribution Width 15.6 % (11.5-14.5)
[2017-09-27 04:49] LABS: Basophils % 0.3 %; Eosinophils % 0.3 %; Hematocrit 29.8 % (35.3-44.9); Immature Granulocytes % 8.2 % (0-4); Immature Platelets 23.3 % (1.1-6.1); Lymphocytes # 2.2 K/mcL (0.6-4.6); Lymphocytes % 21.1 %; Mean Corpuscular HGB Conc 31.5 g/dL (31.6-35.5); Monocytes # 1.1 K/mcL (0.0-1.3); Monocytes % 10.4 %; Neutrophils # 6.2 K/mcL (1.6-8.9); Nucleated Red Blood Cells 2.7 /100 WBC (0); Segmented Neutrophils % 59.7 %
[2017-09-27 04:51] LABS: Platelet Count 25 K/mcL (140-400)
[2017-09-27 05:07] LABS: Large Platelets Present (Not Present); Platelet Estimate Marked Decrease (Normal); Reactive Lymphocytes Present (Not Present); Toxic Granulation Present (Not Present)
[2017-09-27] MEDS ORDERED: predniSONE 20 MG TABLET PO SCH (09:00)
[2017-09-27] MEDS: Sennosides/Docusate Sodium TABLET PO SCH ×2 (09:26→21:28)
[2017-09-27] MEDS: Iron Polysaccharide Complex 150 MG CAPSULE PO SCH ×2 (09:26→21:28)
[2017-09-27] MEDS: ALPRAZolam 1 MG TABLET PO PRN (17:32)
--- NOTE | 2017-09-27 18:09 | Internal Med Progress Note ---
Date of Encounter: 09/27/17 Time of Encounter: 16:30 - Assessment and plan (1) Acute ITP Current Visit: Yes Status: Acute Assessment and plan: HIV negative HCV negative Platelet Ig M and Ig G strongly positive Other DDx: secondary ITP such as Drug induced ITP, SLE or CLL. Hematology believes this is likely related to drug-induced cytopenia in evidence of poor response to IVIG and prednisone. Precipitated by Levaquin. Plan: - High dose steroids per hematology. Received 180 mg followed by 100 mg per day - s/p IVIG 09/22/2017. Defer further doses to hematology considering no increment in platelets. - Trend CBC - Peripheral flow pending Plan for transfer back to [facility] once plt count above 30,000. (2) Abnormal urinalysis Current Visit: Yes Status: Acute Assessment and plan: initial sample had blood cells due to hematuria and was contaminated no dysuria or fever Leukocytosis was likely due to steroids, ertapenem discontinued on 09/23, to avoid any drug adverse effects check clean catch urine cultures to determine Abx need (3) Anemia Current Visit: Yes Status: Chronic Assessment and plan: Iron-35, 11% Ferritin-115 B12-275 Folate-9.3 LDH elevated-343 Luke-pending SPEP/Serum free light chains-pending Qualifiers: Anemia type: unspecified type Qualified Code(s): D64.9 - Anemia, unspecified (4) Multiple wounds of skin Current Visit: Yes Status: Acute Assessment and plan: Wound care consult (5) Morbid obesity Current Visit: Yes Status: Acute - Time Spent With Patient Total time spent is greater than 50% in coordination of care (as documented) at patient's floor/unit and/or counseling patient: 25 - 35 minutes - Subjective Interval history: No new complaints. No events overnight. Reported anxiety last night and was given Xanax. - Constitutional Vitals: Temp Pulse Resp BP Pulse Ox 98.3 F 90 16 150/88 95 09/27/17 15:35 09/27/17 15:35 09/27/17 15:35 09/27/17 15:35 09/27/17 15:35 General appearance: Present: A&O X 3, morbidly obese, no acute distress Exam: Physical exam Gen: Comfortable, laying in bed, in no visible distress, morbidly obese HEENT: Normocephalic, atraumatic. No conjunctival icterus. Moist oral mucosa. Neck: Supple Lungs: Diminished to auscultation, no foreign sounds Heart: Normal S1-S2, no murmurs rubs or gallops Abdomen: Normoactive bowel sounds, no guarding rigidity or tenderness Extremities: Peripheral edema noted. no clubbing or cyanosis Neuro: Alert oriented 3, no focal deficits Skin: Perineal excoriated skin, excoriates folds underneath pannus Internal Medicine: Result - Labs CBC & Chem 7: 09/27/17 04:20 09/25/17 05:05 Labs: Short CBC 09/27/17 Range/Units 04:20 WBC 10.3 (4.3-11.1) K/mcL Hgb 9.4 L (11.5-15.4) g/dL Hct 29.8 L (35.3-44.9) % Plt Count 25 L* D (140-400) K/mcL Neutrophils # 6.2 (1.6-8.9) K/mcL - ABG Interpretation ABG results: PT/INR, D-dimer D-Dimer 2083 ng/mLFEU (0-500) H 09/21/17 20:34 - VTE Reasons for not Prescribing Prophylaxis: Medical contraindication Documentation of Mechanical Device: Intermittent pneumatic compression device Consult Discharge Plan - Plan Referrals: Delfina Fitch CNP [Primary Care Provider] -
[2017-09-27] MEDS: Miconazole w/zinc oxide&karaya 92 APPL/92 GM TUBE TP SCH (21:28)
[2017-09-27] MEDS: *HR* OxyCODONE/APAP 5/325 TABLET PO PRN (21:28)
[2017-09-28] MEDS: Miconazole w/zinc oxide&karaya 92 APPL/92 GM TUBE TP SCH ×4 (00:27→20:50)
--- NOTE | 2017-09-28 00:31 | Discharge Summary ---
Orders not resulted at time of discharge: Pending orders 09/23/17 17:46 Urinalysis Reflex Cult & Micro [URIN] Routine 09/28/17 04:00 CBC [Complete Blood Count] [HEME] AM 0400 09/29/17 04:00 CBC [Complete Blood Count] [HEME] AM 0400 Date of Encounter: 09/28/17 - Discharge Diagnosis (1) Acute ITP Status: Acute (2) Abnormal urinalysis Status: Acute (3) Anemia Status: Chronic Qualifiers: Anemia type: unspecified type Qualified Code(s): D64.9 - Anemia, unspecified (4) Multiple wounds of skin Status: Acute (5) Morbid obesity Status: Acute Hospital course: Ms. Flores is a 52 year old female - Time Spent with Patient Total time spent providing and/or coordinating discharge services: - Discharge Medications Home Medications: Fluticasone Propionate Nasal [Flonase] 1 spray NS DAILY 08/03/16 [History] Levothyroxine [Synthroid] 50 mcg PO 0630 08/03/16 [History] Simvastatin [Zocor] 40 mg PO HS 08/03/16 [History] risperiDONE [Risperdal] 2 mg PO HS 08/03/16 [History] Topiramate [Topamax] 25 mg PO HS 11/18/16 [History] Meloxicam [Mobic] 7.5 mg PO DAILY 02/10/17 [History] Acetaminophen [Pain Reliever] 500 mg PO TID PRN 08/09/17 [History] Zolpidem [Ambien] 5 mg PO HS PRN 4 Days #4 tablet 08/12/17 [Rx] Tamsulosin HCl [Flomax] 0.4 mg PO DAILY 09/05/17 [History] LORazepam [Ativan] 1 mg PO BID PRN 5 Days #5 tablet 09/12/17 [Rx] OxyCODONE Immed Rel [Roxicodone 5 MG] 5 mg PO Q4HR PRN 09/21/17 [History] lamoTRIgine [Lamictal] 25 mg PO HS 09/21/17 [History] Bisacodyl [Dulcolax] 10 mg PO DAILY PRN tablet 09/28/17 [Rx] Iron Polysaccharide Complex [Ferrex 150] 150 mg PO BID capsule 09/28/17 [Rx] Sennosides/Docusate Sodium [Senna Plus] 2 each PO BID tablet 09/28/17 [Rx] Allergies/Adverse Reactions: 3 Allergy/AdvReac Type Severity Reaction Status Date / Time nitrofurantoin Allergy Itching Verified 09/21/17 15:17 [From Macrodantin] levofloxacin [From Levaquin] AdvReac Severe See Verified 09/27/17 13:59 Comments duloxetine [From Cymbalta] AdvReac Depression Verified 09/21/17 15:17 pregabalin [From Lyrica] AdvReac See Verified 09/21/17 15:17 Comments Date of admission: 09/21/17 20:21 Primary care physician: Delfina Fitch CNP Consults: 09/22/17 15:06 Consult to Occupational Therapy [CONS] Routine Comment: Evaluate, develop and implement POC Reason for Consult: Physical deconditioning Does patient have active BEDREST order?: No Is patient medically & hemodynamically stable?: Yes Patient assessed for mobility or mobilized this visit?: No Consult to Physical Therapy [CONS] Routine Comment: Evaluate, develop and implement POC Reason for Consult: physical deconditioing Does patient have active BEDREST order?: No Is patient medically & hemodynamically stable?: Yes Patient assessed for mobility or mobilized this visit?: No 09/25/17 12:36 Consult to Wound Care [CONS] Stat Reason for Consult: Patient has excoriation from buttocks down back of leg, has necrotic tissue and also has wounds in b/l abdominal folds. Call Completed: Yes 09/26/17 10:23 Consult to Italian Lecturer [CONS] Routine Reason for SW Consult: From [facility] - Constitutional Vitals: Temp Pulse Resp BP Pulse Ox 98.1 F 81 18 152/70 97 09/28/17 00:13 09/28/17 00:13 09/28/17 00:13 09/28/17 00:13 09/28/17 00:13 General appearance: Present: A&O X 3, morbidly obese, no acute distress - Patient Status Condition: Undetermined - Discharge Instructions Follow Up With: Delfina Fitch CNP [Primary Care Provider] - - VTE Reasons for not Prescribing Prophylaxis: Medical contraindication Documentation of Mechanical Device: Intermittent pneumatic compression device
[2017-09-28 06:38] LABS: Basophils % 0.4 %; Hematocrit 30.9 % (35.3-44.9); Hemoglobin 9.6 g/dL (11.5-15.4); Immature Granulocytes % 5.1 % (0-4); Immature Platelets 22.7 % (1.1-6.1); Lymphocytes # 2.1 K/mcL (0.6-4.6); Lymphocytes % 24.8 %; Mean Corpuscular HGB Conc 31.1 g/dL (31.6-35.5); Mean Corpuscular Hemoglobin 29.1 pg (28.0-33.3); Mean Corpuscular Volume 93.6 fL (83.0-100.0); Monocytes # 0.9 K/mcL (0.0-1.3); Monocytes % 10.9 %; Neutrophils # 4.9 K/mcL (1.6-8.9); Nucleated Red Blood Cells 1.1 /100 WBC (0); Red Cell Distribution Width 15.7 % (11.5-14.5); Segmented Neutrophils % 58.8 %
[2017-09-28 06:42] LABS: Platelet Count 5 K/mcL (140-400)
--- NOTE | 2017-09-28 09:31 | Internal Med Progress Note ---
Date of Encounter: 09/28/17 Time of Encounter: 09:10 - Assessment and plan (1) Acute ITP Current Visit: Yes Status: Acute Assessment and plan: HIV negative HCV negative Platelet Ig M and Ig G strongly positive Other DDx: secondary ITP such as Drug induced ITP, SLE or CLL. Hematology believes this is likely related to drug-induced cytopenia in evidence of poor response to IVIG and prednisone. Precipitated by Levaquin. Plan: - High dose steroids per hematology. Received 180 mg followed by 100 mg per day. Defer steroid management to hematology. - s/p IVIG 09/22/2017. Defer further doses to hematology considering no increment in platelets. - Trend CBC - Platelet count down to 5 today. Will inform rheumatology Plan for transfer back to [facility] once plt count above 30,000. (2) Abnormal urinalysis Current Visit: Yes Status: Acute Assessment and plan: initial sample had blood cells due to hematuria and was contaminated no dysuria or fever Leukocytosis was likely due to steroids, ertapenem discontinued on 09/23, to avoid any drug adverse effects check clean catch urine cultures to determine Abx need (3) Anemia Current Visit: Yes Status: Chronic Assessment and plan: Iron-35, 11% Ferritin-115 B12-275 Folate-9.3 LDH elevated-343 Luke-pending SPEP/Serum free light chains-pending Qualifiers: Anemia type: unspecified type Qualified Code(s): D64.9 - Anemia, unspecified (4) Multiple wounds of skin Current Visit: Yes Status: Acute Assessment and plan: Wound care consult (5) Morbid obesity Current Visit: Yes Status: Acute - Time Spent With Patient Total time spent is greater than 50% in coordination of care (as documented) at patient's floor/unit and/or counseling patient: 25 - 35 minutes - Subjective Interval history: No new complaints. No events overnight. - Constitutional Vitals: Temp Pulse Resp BP Pulse Ox 98.5 F 84 18 147/70 98 09/28/17 06:42 09/28/17 06:42 09/28/17 06:42 09/28/17 06:42 09/28/17 06:42 Exam: Physical exam Gen: Comfortable, laying in bed, in no visible distress, morbidly obese HEENT: Normocephalic, atraumatic. No conjunctival icterus. Moist oral mucosa. Neck: Supple Lungs: Diminished to auscultation, no foreign sounds Heart: Normal S1-S2, no murmurs rubs or gallops Abdomen: Normoactive bowel sounds, no guarding rigidity or tenderness Extremities: Peripheral edema noted. no clubbing or cyanosis Neuro: Alert oriented 3, no focal deficits Skin: Perineal excoriated skin, excoriates folds underneath pannus Internal Medicine: Result - Labs CBC & Chem 7: 09/28/17 06:19 09/25/17 05:05 Labs: Short CBC 09/28/17 Range/Units 06:19 WBC 8.3 (4.3-11.1) K/mcL Hgb 9.6 L (11.5-15.4) g/dL Hct 30.9 L (35.3-44.9) % Plt Count 5 L* D (140-400) K/mcL Neutrophils # 4.9 (1.6-8.9) K/mcL - ABG Interpretation ABG results: PT/INR, D-dimer D-Dimer 2083 ng/mLFEU (0-500) H 09/21/17 20:34 - VTE Reasons for not Prescribing Prophylaxis: Medical contraindication Documentation of Mechanical Device: Intermittent pneumatic compression device Consult Discharge Plan - Plan Referrals: Delfina Fitch, IVAN [Primary Care Provider] -
[2017-09-28] MEDS: lamoTRIgine 25 MG TABLET PO SCH ×2 (10:06→20:49)
[2017-09-28] MEDS: Iron Polysaccharide Complex 150 MG CAPSULE PO SCH ×2 (10:06→20:50)
[2017-09-28] MEDS: Sennosides/Docusate Sodium TABLET PO SCH ×2 (10:07→20:47)
[2017-09-28] MEDS: predniSONE 20 MG TABLET PO SCH (10:07)
[2017-09-28] MEDS: Fluticasone Propionate Nasal 50 MCG/SPRAY BOTTLE NS SCH (10:08)
[2017-09-28 10:38] LABS: BUN/Creatinine Ratio 35 (6-26); Blood Urea Nitrogen 22 mg/dL (6-20); Calcium 9.1 mg/dL (8.6-10.3); Carbon Dioxide 36 mEq/L (23-29); Chloride 102 mEq/L (98-107); Glucose 87 mg/dL (70-105); Osmolality,Calculated 295 (280-300); Potassium 3.8 mEq/L (3.5-5.1); Sodium 141 mEq/L (136-145); eGFR For African Americans > 60 (> 60); eGFR For Non-African Americans > 60 (> 60)
[2017-09-28 11:21] LABS: Nucleated Red Blood Cells 1.1 /100 WBC (0); Red Cell Distribution Width 15.8 % (11.5-14.5)
[2017-09-28 11:23] LABS: Basophils % 0.4 %; Hematocrit 30.7 % (35.3-44.9); Hemoglobin 9.1 g/dL (11.5-15.4); Immature Granulocytes % 4.2 % (0-4); Immature Platelets 29.9 % (1.1-6.1); Lymphocytes # 2.4 K/mcL (0.6-4.6); Lymphocytes % 28.4 %; Mean Corpuscular HGB Conc 29.6 g/dL (31.6-35.5); Mean Corpuscular Hemoglobin 27.7 pg (28.0-33.3); Mean Corpuscular Volume 93.3 fL (83.0-100.0); Monocytes # 0.9 K/mcL (0.0-1.3); Neutrophils # 4.7 K/mcL (1.6-8.9); Red Blood Count 3.29 M/mcL (3.82-4.97)
[2017-09-28 11:40] LABS: Platelet Count 3 K/mcL (140-400)
[2017-09-28] MEDS: Cyanocobalamin (B-12) 1,000 MCG TABLET PO SCH (13:00)
[2017-09-28] MEDS: ALPRAZolam 1 MG TABLET PO PRN (16:59)
--- NOTE | 2017-09-28 17:39 | Oncology Inp Progress Note ---
Date of Encounter: 09/28/17 Time of Encounter: 13:00 (1) Acute ITP Current Visit: Yes Status: Acute Assessment and plan: Suspect DITP-Likely secondary to Levaquin S/P IVIG on 09/22-Steroid treatment initiated upon arrival to ER Attempted tapering steroids however, platelet count has decreased to 5 today, repeat platelet count confirmed at 3 Patient is without s/s bleeding or any acute changes Will increase steroids back to 160 mg/daily, will not attempt taper at this time , likely taper on an outpatient basis If platelet count has not made significant improvement or decreases further tomorrow, may consider IVIG. Oncology: Subj Interval history: Ms. Flores is resting in bed, denies any new symptoms. No acute changes. She is requesting goldfish crackers. She denies any s/s bleeding such as hematemesis , hematochezia, epistaxis or bleeding gums. She reports a mild headache, states headache is no different that the headaches she experiences on a chronic basis, no neurological changes. - Constitutional Vitals: Vital Signs Temp Pulse Resp BP Pulse Ox 09/28/17 17:00 98.3 F 85 16 147/83 96 09/28/17 06:42 98.5 F 84 18 147/70 98 09/28/17 00:13 98.1 F 81 18 152/70 97 09/27/17 22:00 98.1 F 96 16 138/73 96 Intake and Output 09/28/17 09/28/17 09/28/17 07:59 15:59 23:59 Intake Total 0 / 0 240 / 240 Output Total 0 / 0 550 / 550 0 / 0 Balance 0 / 0 -310 / -310 0 / 0 Intake: Oral 0 / 0 240 / 240 Output: Urine 0 / 0 550 / 550 0 / 0 Other: Meal Lunch Percent of Meal Consumed 50% # Voids 0 Blood Glucose* 96 88 241 General appearance: cooperative, morbidly obese, no acute distress, no febrile - Head Head exam: Present: atraumatic - ENT ENT exam: Present: mucous membranes moist - Respiratory Respiratory exam: Present: CTAB. Absent: respiratory distress - Cardiovascular Cardiovascular exam: Present: RRR, +S1, +S2 - GI/Abdominal GI/Abdominal exam: Present: normal bowel sounds, soft. Absent: tenderness - Extremities Exam Extremities exam: Absent: calf tenderness - Neurological Exam Neurological exam: Present: alert, CN II-XII intact, oriented X3, no focal deficits, strengths equal and symetr throughout - Psychiatric Psychiatric exam: Present: flat affect - Skin Skin exam: Present: dry, intact, normal color, warm Oncology: Obj Data - Labs CBC & Chem 7: 09/29/17 03:03 09/29/17 03:03 - ABG Interpretation ABG results: PT/INR, D-dimer D-Dimer 2083 ng/mLFEU (0-500) H 09/21/17 20:34 Consult Discharge Plan - Plan Referrals: Delfina Fitch, [employer]ER [Primary Care Provider] -
[2017-09-28] MEDS: Topiramate 25 MG TABLET PO SCH (20:47)
[2017-09-28] MEDS: *HR* OxyCODONE/APAP 5/325 TABLET PO PRN (20:47)
[2017-09-28] MEDS: risperiDONE 1 MG TABLET PO SCH (20:49)
[2017-09-29 03:40] LABS: Hematocrit 29.8 % (35.3-44.9); Immature Platelets 31.5 % (1.1-6.1); Mean Corpuscular HGB Conc 30.2 g/dL (31.6-35.5); Mean Corpuscular Hemoglobin 27.8 pg (28.0-33.3); Nucleated Red Blood Cells 0.8 /100 WBC (0); Red Blood Count 3.24 M/mcL (3.82-4.97); Red Cell Distribution Width 15.4 % (11.5-14.5)
[2017-09-29 03:45] LABS: Platelet Count 2 K/mcL (140-400)
[2017-09-29 03:58] LABS: BUN/Creatinine Ratio 32 (6-26); Blood Urea Nitrogen 20 mg/dL (6-20); Calcium 9.1 mg/dL (8.6-10.3); Carbon Dioxide 34 mEq/L (23-29); Chloride 101 mEq/L (98-107); Glucose 136 mg/dL (70-105); Osmolality,Calculated 291 (280-300); Potassium 4.4 mEq/L (3.5-5.1); Sodium 138 mEq/L (136-145); eGFR For African Americans > 60 (> 60); eGFR For Non-African Americans > 60 (> 60)
[2017-09-29 04:04] LABS: Lymphocytes # 1.9 K/mcL (0.6-4.6); Monocytes # 0.5 K/mcL (0.0-1.3); Neutrophils # 5.6 K/mcL (1.6-8.9); Platelet Estimate Marked Decrease (Normal)
[2017-09-29] MEDS ORDERED: 0.9 % Sodium Chloride 250 ML ONE (06:28)
[2017-09-29] MEDS: Sennosides/Docusate Sodium TABLET PO SCH ×2 (09:17→22:17)
[2017-09-29] MEDS: Iron Polysaccharide Complex 150 MG CAPSULE PO SCH ×2 (09:17→22:18)
[2017-09-29] MEDS: Cyanocobalamin (B-12) 1,000 MCG TABLET PO SCH (09:17)
[2017-09-29] MEDS: predniSONE 20 MG TABLET PO SCH (09:17)
[2017-09-29] MEDS: *HR* OxyCODONE/APAP 5/325 TABLET PO PRN ×2 (09:18→22:18)
[2017-09-29] MEDS: Fluticasone Propionate Nasal 50 MCG/SPRAY BOTTLE NS SCH (09:19)
--- NOTE | 2017-09-29 09:52 | Internal Med Progress Note ---
Date of Encounter: 09/29/17 Time of Encounter: 09:50 - Assessment and plan (1) Acute ITP Current Visit: Yes Status: Acute Assessment and plan: HIV negative HCV negative Platelet Ig M and Ig G strongly positive Other DDx: secondary ITP such as Drug induced ITP, SLE or CLL. Hematology believes this is likely related to drug-induced cytopenia in evidence of poor response to IVIG and prednisone. Precipitated by Levaquin. Continue High dose steroids per hematology. on 160mg po daily s/p IVIG 09/22/2017. no change in PLT count, per hematology for IvIG today High risk for decompensation, spontaneous intrabdominal and intracranial bleed Plan for transfer back to [facility] once plt count above 30,000. (2) Anemia Current Visit: Yes Status: Chronic Assessment and plan: Iron-35, 11% Ferritin-115 B12-275 Folate-9.3 LDH elevated-343 Luke-pending SPEP/Serum free light chains-pending' transfuse for Hb <7 Qualifiers: Anemia type: unspecified type Qualified Code(s): D64.9 - Anemia, unspecified (3) Abnormal urinalysis Current Visit: Yes Status: Acute Assessment and plan: initial sample had blood cells due to hematuria and was contaminated no dysuria or fever Leukocytosis was likely due to steroids, ertapenem discontinued on 09/23, to avoid any drug adverse effects check clean catch urine pending, cultures to determine Abx need (4) Multiple wounds of skin Current Visit: Yes Status: Acute Assessment and plan: Wound care consulted (5) Morbid obesity Current Visit: Yes Status: Chronic Assessment and plan: chronic, stable (6) DVT prophylaxis Current Visit: Yes Status: Acute (7) HTN (hypertension) Current Visit: Yes Status: Chronic Assessment and plan: start on norvasc 5mg po daily continue to monitor Qualifiers: Hypertension type: essential hypertension Qualified Code(s): I10 - Essential (primary) hypertension (8) Hypothyroidism Current Visit: Yes Status: Chronic Assessment and plan: continue synthroid Qualifiers: Hypothyroidism type: unspecified Qualified Code(s): E03.9 - Hypothyroidism , unspecified - Time Spent With Patient Total time spent is greater than 50% in coordination of care (as documented) at patient's floor/unit and/or counseling patient: - Subjective Interval history: Seen and examined at the bedside She has chills during PLT transfusion, refused further transfusion PLT this a.m is 2 Patient is a 52 YO with Morbid Obesity, CHFpEF, HLD, HTN, Asthma, bed-bound at SNF prior to admission Oncology/hemaotology is following She has no mucosal bleeding, but has petechiae - Constitutional Vitals: Temp Pulse Resp BP Pulse Ox 98.0 F 114 18 133/88 97 09/29/17 08:05 09/29/17 08:05 09/29/17 07:01 09/29/17 08:05 09/29/17 07:01 General appearance: Present: A&O X 3, morbidly obese, no acute distress - Head Head exam: Present: atraumatic, normocephalic - Eye Eye exam: Present: PERRL, conjuntiva pink, sclera anicteric Pupils: Present: PERRL - ENT Additional comments: no mucosal bleeding - Neck Neck exam general surgery: Present: supple, trachea midline. Absent: lymphadenopathy - Respiratory Respiratory exam: Present: CTAB (anterior auscultation only). Absent: accessory muscle use, rales, rhonchi, wheezes - Cardiovascular Cardiovascular exam: Present: RRR, +S1, +S2. Absent: diastolic murmur, gallop, rubs, systolic murmur - GI/Abdominal GI/Abdominal exam: Present: normal bowel sounds, soft, no peritoneal signs. Absent: distended, tenderness Additional comments: pannus ++, excoriation under pannus - Extremities Exam Extremities exam: Present: warm, radial pulses palpable and symmetrical. Absent : calf tenderness, cyanotic, pedal edema - Neurological Exam Neurological exam: Present: alert, CN II-XII intact, oriented X3, no focal deficits. Absent: pronater drift, facial droop, speech deficit - Skin Skin exam: Present: dry, excoriation Internal Medicine: Result - Labs CBC & Chem 7: 09/29/17 03:03 09/29/17 03:03 Labs: Short CBC 09/28/17 09/29/17 Range/Units 11:09 03:03 WBC 8.4 8.0 (4.3-11.1) K/mcL Hgb 9.1 L 9.0 L (11.5-15.4) g/dL Hct 30.7 L 29.8 L (35.3-44.9) % Plt Count 3 L* 2 L* (140-400) K/mcL Neutrophils # 4.7 5.6 (1.6-8.9) K/mcL BMP 09/28/17 09/29/17 09:42 03:03 Sodium 141 138 Potassium 3.8 4.4 Chloride 102 101 Carbon Dioxide 36 H 34 H BUN 22 H 20 Creatinine 0.62 0.62 Glucose 87 136 H Calcium 9.1 9.1 - ABG Interpretation ABG results: PT/INR, D-dimer D-Dimer 2083 ng/mLFEU (0-500) H 09/21/17 20:34 - VTE Reasons for not Prescribing Prophylaxis: Medical contraindication Documentation of Mechanical Device: Intermittent pneumatic compression device Consult Discharge Plan - Plan Referrals: Delfina Fitch, RADIOLOGY CT TECHNOLOGIST [Primary Care Provider] -
[2017-09-29] MEDS ORDERED: IVIG (wt based) 5 GM/50 ML INFUS..BTL IVC SCH (12:15)
[2017-09-29] MEDS: amLODIPine 5 MG TABLET PO SCH (12:43)
[2017-09-29] MEDS ORDERED: Immune Globulin, Gamma (IGG) 20 GM/200 ML INFUS..BTL IVC SCH ×2 (12:45)
[2017-09-29] MEDS: Miconazole w/zinc oxide&karaya 92 APPL/92 GM TUBE TP SCH ×3 (13:00→22:20)
[2017-09-29] MEDS: ALPRAZolam 1 MG TABLET PO PRN (16:00)
[2017-09-29] MEDS: Immune Globulin, Gamma (IGG) 20 GM/200 ML INFUS..BTL IVC SCH ×3 (16:06→18:17)
[2017-09-29] MEDS ORDERED: D5% in Water 1,000 ML IVC PRN (16:09)
[2017-09-29] MEDS ORDERED: *HR* Dextrose 50 % in Water (Syg) 50 ML SYRINGE IVP PRN (16:09)
[2017-09-29] MEDS ORDERED: Dextrose Gel 15 GM/37.5 ML TUBE PO PRN ×2 (16:09)
--- NOTE | 2017-09-29 17:02 | Oncology Inp Progress Note ---
Date of Encounter: 09/29/17 Time of Encounter: 11:00 (1) Acute ITP Current Visit: Yes Status: Acute Assessment and plan: Suspect DITP-Likely secondary to Levaquin S/P IVIG on 09/22-Steroid treatment initiated upon arrival to ER Steroid Refractory-Start IVIG today dosed at actual body weight 400 mg/kg/day x5 days Patient is without s/s bleeding or any acute changes Will taper steroids slowly, 100 mg Monday, 80 mg Monday, then decrease by 20mg every 3 days after In meantime will work with outpatient auth team to request Nplate on outpatient basis. Oncology: Subj Interval history: Ms. Flores is resting comfortably. She denies pain. She reports her headache from yesterday has resolved. She denies any s/s bleeding such as epistaxis, hematuria, hematochezia/melena or bleeding gums. - Constitutional Vitals: Vital Signs Temp Pulse Resp BP Pulse Ox 09/29/17 15:46 98.4 F 100 19 140/66 93 09/29/17 08:05 98.0 F 114 133/88 09/29/17 07:01 97.8 F 92 18 160/92 97 09/29/17 06:46 97.4 F L 81 18 152/79 09/29/17 00:30 98.2 F 81 19 149/65 97 09/28/17 19:00 98.2 F 93 18 143/72 96 Intake and Output 09/29/17 09/29/17 09/29/17 07:59 15:59 23:59 Intake Total 300 / 300 590 / 590 50 / 50 Output Total 0 / 0 Balance 300 / 300 590 / 590 50 / 50 Intake: IV Fluids 50 / 50 Privigen 10% 20 GM/200 ML 20 gm 50 / 50 In 200 ml @ 92 mls/hr IVC QD DELMY Rx#:[id number] Oral 300 / 300 240 / 240 Blood Product 0 / 0 350 / 350 Platelet Pheresis Lp Irr 3rd 0 / 0 350 / 350 Unit [id number] Output: Urine 0 / 0 Other: Meal Lunch Percent of Meal Consumed 100% Stool Size Small Stool Consistency formed # Voids 1 # Urine Diapers 1 Blood Glucose* 101 289 General appearance: cooperative, no acute distress, no febrile - Head Head exam: Present: atraumatic - Respiratory Respiratory exam: Present: CTAB. Absent: respiratory distress - Cardiovascular Cardiovascular exam: Present: RRR, +S1, +S2 - GI/Abdominal GI/Abdominal exam: Present: normal bowel sounds, soft. Absent: tenderness - Extremities Exam Extremities exam: Absent: calf tenderness - Neurological Exam Neurological exam: Present: alert, oriented X3, no focal deficits, strengths equal and symetr throughout - Psychiatric Psychiatric exam: Present: normal affect, normal mood - Skin Skin exam: Present: dry, intact, normal color, warm Oncology: Obj Data - Labs CBC & Chem 7: 10/01/17 07:01 10/01/17 07:01 - ABG Interpretation ABG results: PT/INR, D-dimer D-Dimer 2083 ng/mLFEU (0-500) H 09/21/17 20:34 Consult Discharge Plan - Plan Referrals: Delfina Fitch, C[employer]OCIATE [Primary Care Provider] -
[2017-09-29] MEDS: Insulin LISPRO 300 UNITS/3 ML VIAL SQ SCH ×2 (17:23→22:19)
[2017-09-29] MEDS: Immune Globulin, Gamma (IGG) 5 GM/50 ML INFUS..BTL IVC SCH (19:09)
[2017-09-29] MEDS: risperiDONE 1 MG TABLET PO SCH (22:18)
[2017-09-29] MEDS: lamoTRIgine 25 MG TABLET PO SCH (22:18)
[2017-09-29] MEDS: Topiramate 25 MG TABLET PO SCH (22:18)
[2017-09-29 23:11] LABS: Bilirubin,Urine Negative (Negative); Blood,Urine Trace (Negative); Color,Urine Yellow (Yellow); Glucose,Urine (UA) 100 mg/dL (Normal); Ketones,Urine Negative (Negative); Leukocyte Esterase,Urine Trace (Negative); Nitrite,Urine Negative (Negative); PH,Urine 7.5 pH Units (5.0-8.0); Protein,Urine Negative (Neg-Trace); Urobilinogen,Urine Normal (Normal)
[2017-09-29 23:13] LABS: Bacteria,Urine None Seen per hpf (None-Few); Hyaline Casts,Urine None Seen per lpf (None-Few); Squamous Epithelial Cell,Urine Many per lpf (None-Few); WBC,Urine 0-3 per hpf (0-3)
[2017-09-29 23:14] LABS: Clarity,Urine Slightly Hazy (Clear)
[2017-09-30 05:39] LABS: Hematocrit 31.8 % (35.3-44.9); Hemoglobin 9.7 g/dL (11.5-15.4); Mean Corpuscular HGB Conc 30.5 g/dL (31.6-35.5); Mean Corpuscular Hemoglobin 28.4 pg (28.0-33.3); Nucleated Red Blood Cells 0.7 /100 WBC (0); Red Cell Distribution Width 15.5 % (11.5-14.5)
[2017-09-30 05:41] LABS: Basophils % 0.2 %; Immature Granulocytes % 2.4 % (0-4); Lymphocytes # 1.3 K/mcL (0.6-4.6); Lymphocytes % 15.7 %; Monocytes # 0.8 K/mcL (0.0-1.3); Monocytes % 9.7 %; Neutrophils # 5.9 K/mcL (1.6-8.9); Red Blood Count 3.42 M/mcL (3.82-4.97)
[2017-09-30 05:45] LABS: Platelet Count 9 K/mcL (140-400)
[2017-09-30 05:55] LABS: C-Reactive Protein 28 mg/L (Less than 10); Lactate Dehydrogenase 198 Units/L (140-271)
[2017-09-30 05:57] LABS: BUN/Creatinine Ratio 26 (6-26); Blood Urea Nitrogen 16 mg/dL (6-20); Calcium 9.5 mg/dL (8.6-10.3); Carbon Dioxide 36 mEq/L (23-29); Chloride 101 mEq/L (98-107); Glucose 127 mg/dL (70-105); Osmolality,Calculated 291 (280-300); Potassium 4.1 mEq/L (3.5-5.1); Sodium 139 mEq/L (136-145); eGFR For African Americans > 60 (> 60); eGFR For Non-African Americans > 60 (> 60)
[2017-09-30] MEDS ORDERED: predniSONE 20 MG TABLET PO ONE ×2 (09:00→13:45)
[2017-09-30] MEDS: Fluticasone Propionate Nasal 50 MCG/SPRAY BOTTLE NS SCH (09:58)
[2017-09-30] MEDS: Sennosides/Docusate Sodium TABLET PO SCH ×2 (09:58→21:37)
[2017-09-30] MEDS: Insulin LISPRO 300 UNITS/3 ML VIAL SQ SCH ×4 (09:59→21:40)
[2017-09-30] MEDS: Cyanocobalamin (B-12) 1,000 MCG TABLET PO SCH (10:02)
[2017-09-30] MEDS: Miconazole w/zinc oxide&karaya 92 APPL/92 GM TUBE TP SCH ×2 (10:03→21:36)
[2017-09-30] MEDS: amLODIPine 5 MG TABLET PO SCH (10:03)
[2017-09-30] MEDS: Iron Polysaccharide Complex 150 MG CAPSULE PO SCH ×2 (10:03→21:36)
[2017-09-30] MEDS: Immune Globulin, Gamma (IGG) 20 GM/200 ML INFUS..BTL IVC SCH (13:09)
[2017-09-30] MEDS: Immune Globulin, Gamma (IGG) 5 GM/50 ML INFUS..BTL IVC SCH (13:10)
[2017-09-30] MEDS: *HR* OxyCODONE/APAP 5/325 TABLET PO PRN ×2 (13:56→21:37)
--- NOTE | 2017-09-30 14:18 | Internal Med Progress Note ---
Date of Encounter: 09/30/17 Time of Encounter: 14:16 - Assessment and plan (1) Acute ITP Current Visit: Yes Status: Acute Assessment and plan: HIV negative HCV negative Platelet Ig M and Ig G strongly positive Other DDx: secondary ITP such as Drug induced ITP, SLE or CLL. Hematology believes this is likely related to drug-induced cytopenia in evidence of poor response to IVIG and prednisone. Precipitated by Levaquin. Continue High dose steroids per hematology. on 160mg po daily s/p IVIG 09/22/2017. Hematology restarted IVIG 09/30 Continue management per heme/onc High risk for decompensation, spontaneous intrabdominal and intracranial bleed Plan for transfer back to [facility] once plt count above 30,000. (2) Anemia Current Visit: Yes Status: Chronic Assessment and plan: Iron-35, 11% Ferritin-115 B12-275 Folate-9.3 LDH elevated-343 Luke-pending SPEP/Serum free light chains-pending' transfuse for Hb <7 Qualifiers: Anemia type: unspecified type Qualified Code(s): D64.9 - Anemia, unspecified (3) Abnormal urinalysis Current Visit: Yes Status: Ruled-out Assessment and plan: initial sample had blood cells due to hematuria and was contaminated no dysuria or fever Leukocytosis was likely due to steroids, ertapenem discontinued on 09/23, to avoid any drug adverse effects clean catch urine negative for UTI (4) Multiple wounds of skin Current Visit: Yes Status: Acute Assessment and plan: Wound care consulted (5) Morbid obesity Current Visit: Yes Status: Chronic Assessment and plan: chronic, stable (6) DVT prophylaxis Current Visit: Yes Status: Acute Assessment and plan: SCDs (7) HTN (hypertension) Current Visit: Yes Status: Chronic Assessment and plan: start on norvasc 5mg po daily continue to monitor Qualifiers: Hypertension type: essential hypertension Qualified Code(s): I10 - Essential (primary) hypertension (8) Hypothyroidism Current Visit: Yes Status: Chronic Assessment and plan: continue synthroid Qualifiers: Hypothyroidism type: unspecified Qualified Code(s): E03.9 - Hypothyroidism , unspecified - Time Spent With Patient Total time spent is greater than 50% in coordination of care (as documented) at patient's floor/unit and/or counseling patient: - Subjective Interval history: Seen and examined at the bedside Patient is a 52 YO with Morbid Obesity, CHFpEF, HLD, HTN, Asthma, bed-bound at SNF prior to admission Oncology/hemaotology is following She has no mucosal bleeding, but has petechiae PLT improved to 9 this a.m She refused prednisone this a.m, eventually accepted to take it after education She is also having hyperglycemia, due to steroids, on sliding scale insulin She denies new complains - Constitutional Vitals: Temp Pulse Resp BP Pulse Ox 98.1 F 97 17 127/52 96 09/30/17 11:28 09/30/17 11:28 09/30/17 11:28 09/30/17 11:28 09/30/17 11:28 General appearance: Present: A&O X 3, morbidly obese, no acute distress - Head Head exam: Present: atraumatic, normocephalic - Eye Eye exam: Present: PERRL, conjuntiva pink, sclera anicteric Pupils: Present: PERRL - Neck Neck exam general surgery: Present: supple, trachea midline. Absent: lymphadenopathy - Respiratory Respiratory exam: Present: CTAB. Absent: accessory muscle use, rales, rhonchi, wheezes - Cardiovascular Cardiovascular exam: Present: RRR, +S1, +S2. Absent: diastolic murmur, gallop, rubs, systolic murmur - GI/Abdominal GI/Abdominal exam: Present: normal bowel sounds, soft, no peritoneal signs. Absent: distended, tenderness - Extremities Exam Extremities exam: Present: warm, radial pulses palpable and symmetrical. Absent : calf tenderness, cyanotic, pedal edema - Neurological Exam Neurological exam: Present: alert, CN II-XII intact, oriented X3, no focal deficits. Absent: pronater drift, facial droop, speech deficit - Skin Skin exam: Present: petechiae Internal Medicine: Result - Labs CBC & Chem 7: 09/30/17 05:07 09/30/17 05:07 Labs: Short CBC 09/30/17 Range/Units 05:07 WBC 8.2 (4.3-11.1) K/mcL Hgb 9.7 L (11.5-15.4) g/dL Hct 31.8 L (35.3-44.9) % Plt Count 9 L* D (140-400) K/mcL Neutrophils # 5.9 (1.6-8.9) K/mcL BMP 09/30/17 05:07 Sodium 139 Potassium 4.1 Chloride 101 Carbon Dioxide 36 H BUN 16 Creatinine 0.61 Glucose 127 H Calcium 9.5 Urine 09/29/17 Range/Units 22:56 Urine Color Yellow (Yellow) Urine Clarity Slightly Hazy (Clear) Urine pH 7.5 (5.0-8.0) pH Units Ur Specific [place] 1.010 (1.010-1.025) Urine Protein Negative (Neg-Trace) mg/dL Urine Glucose (UA) 100 H (Normal) mg/dL - ABG Interpretation ABG results: PT/INR, D-dimer D-Dimer 2083 ng/mLFEU (0-500) H 09/21/17 20:34 - VTE Reasons for not Prescribing Prophylaxis: Medical contraindication Documentation of Mechanical Device: Intermittent pneumatic compression device Consult Discharge Plan - Plan Referrals: Delfina Fitch, IVAN [Primary Care Provider] -
[2017-09-30] MEDS: ALPRAZolam 1 MG TABLET PO PRN (15:40)
[2017-09-30 16:27] LABS: Bilirubin,Urine Negative (Negative); Blood,Urine Negative (Negative); Clarity,Urine Clear (Clear); Color,Urine Yellow (Yellow); Glucose,Urine (UA) Normal (Normal); Ketones,Urine Negative (Negative); Leukocyte Esterase,Urine Small (Negative); Nitrite,Urine Negative (Negative); Protein,Urine Negative (Neg-Trace); Specific Gravity,Urine 1.027 (1.010-1.025); Urobilinogen,Urine Normal (Normal)
[2017-09-30 16:34] LABS: Bacteria,Urine Few per hpf (None-Few); RBC,Urine 0-3 per hpf (0-3); Squamous Epithelial Cell,Urine Few per lpf (None-Few)
[2017-09-30] MEDS: risperiDONE 1 MG TABLET PO SCH (21:36)
[2017-09-30] MEDS: Topiramate 25 MG TABLET PO SCH (21:37)
[2017-09-30] MEDS: lamoTRIgine 25 MG TABLET PO SCH (21:37)
[2017-09-30] MEDS: Menthol 9.1 MG LOZENGE PO PRN (22:06)
[2017-10-01 07:34] LABS: Basophils % 0.1 %
[2017-10-01 07:36] LABS: Hematocrit 29.7 % (35.3-44.9); Immature Granulocytes % 4.8 % (0-4); Lymphocytes # 1.2 K/mcL (0.6-4.6); Lymphocytes % 17.7 %; Mean Corpuscular HGB Conc 30.3 g/dL (31.6-35.5); Mean Corpuscular Hemoglobin 27.9 pg (28.0-33.3); Mean Platelet Volume 14.2 fL (9.4-12.4); Monocytes # 0.6 K/mcL (0.0-1.3); Neutrophils # 4.7 K/mcL (1.6-8.9); Nucleated Red Blood Cells 0.6 /100 WBC (0); Red Blood Count 3.23 M/mcL (3.82-4.97); Red Cell Distribution Width 15.1 % (11.5-14.5); Segmented Neutrophils % 68.4 %
[2017-10-01 07:38] LABS: Platelet Count 17 K/mcL (140-400)
[2017-10-01 07:52] LABS: BUN/Creatinine Ratio 32 (6-26); Blood Urea Nitrogen 18 mg/dL (6-20); Calcium 9.4 mg/dL (8.6-10.3); Carbon Dioxide 38 mEq/L (23-29); Chloride 100 mEq/L (98-107); Glucose 153 mg/dL (70-105); Osmolality,Calculated 291 (280-300); Potassium 4.6 mEq/L (3.5-5.1); Sodium 138 mEq/L (136-145); eGFR For African Americans > 60 (> 60); eGFR For Non-African Americans > 60 (> 60)
[2017-10-01] MEDS: Insulin LISPRO 300 UNITS/3 ML VIAL SQ SCH ×4 (09:16→21:33)
--- NOTE | 2017-10-01 09:31 | Oncology Inp Progress Note ---
Date of Encounter: 10/01/17 Time of Encounter: 09:00 Oncology: Subj Interval history: Patient examined bedside she denies any significant complaints today she denies any epistaxis or other bleeding episodes. Thrombocytopenia acute, likely immune/?infection related, she is been receiving intravenous immunoglobulin, on steroids, with a slow platelet response, without active bleeding issues. She is currently at prednisone dose 80 mg daily he will continue the same without tapering until platelets stabilizes. Lab works reviewed updates given to patient. - Constitutional Vitals: Vital Signs Temp Pulse Resp BP Pulse Ox 10/01/17 06:21 97.7 F 103 20 153/84 95 10/01/17 02:55 98.7 F 100 20 130/76 96 09/30/17 23:26 98.7 F 84 18 123/70 97 09/30/17 18:31 98.0 F 89 20 136/66 96 09/30/17 15:00 98.2 F 94 18 116/59 97 09/30/17 11:28 98.1 F 97 17 127/52 96 Intake and Output 09/30/17 10/01/17 10/01/17 23:59 07:59 15:59 Intake Total 240 / 240 0 / 0 0 / 0 Output Total 700 / 700 650 / 650 Balance -460 / -460 -650 / -650 0 / 0 Intake: Oral 240 / 240 0 / 0 0 / 0 Output: Urine 700 / 700 650 / 650 Other: Meal Dinner Breakfast Percent of Meal Consumed 100% 0% # Voids 1 Blood Glucose* 322 134 General appearance: obese - Head Head exam: Present: atraumatic, normal inspection - Eye Eye exam: Present: sclera anicteric - ENT ENT exam: Present: mucous membranes dry - Respiratory Respiratory exam: Present: CTAB - Cardiovascular Cardiovascular exam: Present: +S1, +S2 - GI/Abdominal GI/Abdominal exam: Present: normal bowel sounds, soft - Extremities Exam Extremities exam: Present: normal inspection, pedal edema Oncology: Obj Data - Labs CBC & Chem 7: 10/01/17 07:01 10/01/17 07:01 Labs: Laboratory Results - last 24 hr 09/30/17 09/30/17 09/30/17 07:53 11:29 16:09 WBC RBC Hgb Hct MCV MCH MCHC RDW Plt Count MPV Immature Gran % Seg Neutrophils % Lymphocytes % Monocytes % Eosinophils % Basophils % Neutrophils # Lymphocytes # Monocytes # Eosinophils # Basophils # Nucleated RBCs/100 WBC Immature Plt Fraction Sodium Potassium Chloride Carbon Dioxide BUN Creatinine Est GFR ( Amer) Est GFR (Non-Af Amer) BUN/Creatinine Ratio Glucose POC Glucose 161 H 104 H Calculated Osmolality Calcium Urine Color Yellow Urine Clarity Clear Urine pH 6.0 Ur Specific [place] 1.027 H Urine Protein Negative Urine Glucose (UA) Normal Urine Ketones Negative Urine Blood Negative Urine Nitrite Negative Urine Bilirubin Negative Urine Urobilinogen Normal Ur Leukocyte Esterase Small H Urine Microscopic RBC 0-3 Urine Microscopic WBC 3-5 H Ur Squamous Epith Cells Few Urine Bacteria Few 09/30/17 09/30/17 10/01/17 16:27 20:50 07:01 WBC 6.9 RBC 3.23 L Hgb 9.0 L Hct 29.7 L MCV 92.0 MCH 27.9 L MCHC 30.3 L RDW 15.1 H Plt Count 17 L* D MPV 14.2 H Immature Gran % 4.8 H Seg Neutrophils % 68.4 Lymphocytes % 17.7 Monocytes % 9.0 Eosinophils % 0.0 Basophils % 0.1 Neutrophils # 4.7 Lymphocytes # 1.2 Monocytes # 0.6 Eosinophils # 0.0 Basophils # 0.0 Nucleated RBCs/100 WBC 0.6 H Immature Plt Fraction 25.0 H Sodium Potassium Chloride Carbon Dioxide BUN Creatinine Est GFR ( Amer) Est GFR (Non-Af Amer) BUN/Creatinine Ratio Glucose POC Glucose 146 H 322 H Calculated Osmolality Calcium Urine Color Urine Clarity Urine pH Ur Specific [place] Urine Protein Urine Glucose (UA) Urine Ketones Urine Blood Urine Nitrite Urine Bilirubin Urine Urobilinogen Ur Leukocyte Esterase Urine Microscopic RBC Urine Microscopic WBC Ur Squamous Epith Cells Urine Bacteria 10/01/17 07:01 WBC RBC Hgb Hct MCV MCH MCHC RDW Plt Count MPV Immature Gran % Seg Neutrophils % Lymphocytes % Monocytes % Eosinophils % Basophils % Neutrophils # Lymphocytes # Monocytes # Eosinophils # Basophils # Nucleated RBCs/100 WBC Immature Plt Fraction Sodium 138 Potassium 4.6 Chloride 100 Carbon Dioxide 38 H BUN 18 Creatinine 0.57 L Est GFR ( Amer) > 60 Est GFR (Non-Af Amer) > 60 BUN/Creatinine Ratio 32 H Glucose 153 H POC Glucose Calculated Osmolality 291 Calcium 9.4 Urine Color Urine Clarity Urine pH Ur Specific [place] Urine Protein Urine Glucose (UA) Urine Ketones Urine Blood Urine Nitrite Urine Bilirubin Urine Urobilinogen Ur Leukocyte Esterase Urine Microscopic RBC Urine Microscopic WBC Ur Squamous Epith Cells Urine Bacteria - ABG Interpretation ABG results: PT/INR, D-dimer D-Dimer 2083 ng/mLFEU (0-500) H 09/21/17 20:34 Consult Discharge Plan - Plan Referrals: Delfina Fitch, IVAN [Primary Care Provider] -
[2017-10-01] MEDS: Fluticasone Propionate Nasal 50 MCG/SPRAY BOTTLE NS SCH (10:25)
[2017-10-01] MEDS: predniSONE 20 MG TABLET PO SCH (10:35)
[2017-10-01] MEDS: Iron Polysaccharide Complex 150 MG CAPSULE PO SCH ×2 (10:35→21:33)
[2017-10-01] MEDS: Cyanocobalamin (B-12) 1,000 MCG TABLET PO SCH (10:35)
[2017-10-01] MEDS: amLODIPine 5 MG TABLET PO SCH (10:35)
[2017-10-01] MEDS: Sennosides/Docusate Sodium TABLET PO SCH ×2 (10:36→21:33)
--- NOTE | 2017-10-01 10:39 | Internal Med Progress Note ---
Date of Encounter: 10/01/17 Time of Encounter: 10:37 - Assessment and plan (1) Acute ITP Current Visit: Yes Status: Acute Assessment and plan: HIV negative HCV negative Platelet Ig M and Ig G strongly positive Other DDx: secondary ITP such as Drug induced ITP, SLE or CLL. Hematology believes this is likely related to drug-induced cytopenia in evidence of poor response to IVIG and prednisone. Precipitated by Levaquin. Continue High dose steroids per hematology. s/p IVIG 09/22/2017. Hematology restarted IVIG 09/30 Continue management per heme/onc High risk for decompensation, spontaneous intrabdominal and intracranial bleed Plan for transfer back to snf once plt count above 30,000. (2) Anemia Current Visit: Yes Status: Chronic Assessment and plan: Iron-35, 11% Ferritin-115 B12-275 Folate-9.3 LDH elevated-343 Luke-pending SPEP/Serum free light chains-pending' transfuse for Hb <7 Qualifiers: Anemia type: unspecified type Qualified Code(s): D64.9 - Anemia, unspecified (3) Abnormal urinalysis Current Visit: Yes Status: Ruled-out Assessment and plan: initial sample had blood cells due to hematuria and was contaminated no dysuria or fever Leukocytosis was likely due to steroids, ertapenem discontinued on 09/23, to avoid any drug adverse effects clean catch urine negative for UTI (4) Multiple wounds of skin Current Visit: Yes Status: Acute Assessment and plan: Wound care consulted (5) Morbid obesity Current Visit: Yes Status: Chronic Assessment and plan: chronic, stable (6) DVT prophylaxis Current Visit: Yes Status: Acute Assessment and plan: SCDs (7) HTN (hypertension) Current Visit: Yes Status: Chronic Assessment and plan: continue norvasc 5mg po daily continue to monitor Qualifiers: Hypertension type: essential hypertension Qualified Code(s): I10 - Essential (primary) hypertension (8) Hypothyroidism Current Visit: Yes Status: Chronic Assessment and plan: continue synthroid Qualifiers: Hypothyroidism type: unspecified Qualified Code(s): E03.9 - Hypothyroidism , unspecified - Time Spent With Patient Total time spent is greater than 50% in coordination of care (as documented) at patient's floor/unit and/or counseling patient: - Subjective Interval history: Seen and examined at the bedside Patient is a 52 YO with Morbid Obesity, CHFpEF, HLD, HTN, Asthma, bed-bound at SNF prior to admission Oncology/hemaotology is following She has no mucosal bleeding, but has petechiae PLT improved to 17 this a.m She is also having hyperglycemia, due to steroids, on sliding scale insulin She denies new complains - Constitutional Vitals: Temp Pulse Resp BP Pulse Ox 97.7 F 103 20 153/84 95 10/01/17 06:21 10/01/17 06:21 10/01/17 06:21 10/01/17 06:21 10/01/17 06:21 General appearance: Present: A&O X 3, morbidly obese, no acute distress - Head Head exam: Present: atraumatic, normocephalic - Eye Eye exam: Present: PERRL, conjuntiva pink, sclera anicteric Pupils: Present: PERRL - Neck Neck exam general surgery: Present: supple, trachea midline. Absent: lymphadenopathy - Respiratory Respiratory exam: Present: CTAB. Absent: accessory muscle use, rales, rhonchi, wheezes - Cardiovascular Cardiovascular exam: Present: RRR, +S1, +S2. Absent: diastolic murmur, gallop, rubs, systolic murmur - GI/Abdominal GI/Abdominal exam: Present: normal bowel sounds, soft, no peritoneal signs. Absent: distended, tenderness - Extremities Exam Extremities exam: Present: warm, radial pulses palpable and symmetrical. Absent : calf tenderness, cyanotic, pedal edema - Neurological Exam Neurological exam: Present: alert, CN II-XII intact, oriented X3, no focal deficits. Absent: pronater drift, facial droop, speech deficit - Skin Skin exam: Present: dry, petechiae Internal Medicine: Result - Labs CBC & Chem 7: 10/01/17 07:01 10/01/17 07:01 Labs: Short CBC 10/01/17 Range/Units 07:01 WBC 6.9 (4.3-11.1) K/mcL Hgb 9.0 L (11.5-15.4) g/dL Hct 29.7 L (35.3-44.9) % Plt Count 17 L* D (140-400) K/mcL Neutrophils # 4.7 (1.6-8.9) K/mcL BMP 10/01/17 07:01 Sodium 138 Potassium 4.6 Chloride 100 Carbon Dioxide 38 H BUN 18 Creatinine 0.57 L Glucose 153 H Calcium 9.4 Urine 09/30/17 Range/Units 16:09 Urine Color Yellow (Yellow) Urine Clarity Clear (Clear) Urine pH 6.0 (5.0-8.0) pH Units Ur Specific [place] 1.027 H (1.010-1.025) Urine Protein Negative (Neg-Trace) mg/dL Urine Glucose (UA) Normal (Normal) mg/dL - ABG Interpretation ABG results: PT/INR, D-dimer D-Dimer 2083 ng/mLFEU (0-500) H 09/21/17 20:34 - VTE Reasons for not Prescribing Prophylaxis: Medical contraindication Documentation of Mechanical Device: Intermittent pneumatic compression device Consult Discharge Plan - Plan Referrals: Delfina Fitch CNP [Primary Care Provider] -
[2017-10-01] MEDS: Miconazole w/zinc oxide&karaya 92 APPL/92 GM TUBE TP SCH ×2 (13:03→21:25)
[2017-10-01] MEDS: Immune Globulin, Gamma (IGG) 20 GM/200 ML INFUS..BTL IVC SCH ×2 (13:16→13:17)
[2017-10-01] MEDS: Immune Globulin, Gamma (IGG) 5 GM/50 ML INFUS..BTL IVC SCH (13:18)
[2017-10-01] MEDS: *HR* OxyCODONE/APAP 5/325 TABLET PO PRN (13:30)
[2017-10-01] MEDS: ALPRAZolam 1 MG TABLET PO PRN ×2 (16:02→23:33)
[2017-10-01] MEDS: risperiDONE 1 MG TABLET PO SCH (21:33)
[2017-10-01] MEDS: lamoTRIgine 25 MG TABLET PO SCH (21:33)
[2017-10-01] MEDS: Topiramate 25 MG TABLET PO SCH (21:33)
[2017-10-02] MEDS: Insulin LISPRO 300 UNITS/3 ML VIAL SQ SCH ×4 (08:51→21:04)
[2017-10-02] MEDS: Cyanocobalamin (B-12) 1,000 MCG TABLET PO SCH (08:57)
[2017-10-02] MEDS: Sennosides/Docusate Sodium TABLET PO SCH ×2 (08:57→20:25)
[2017-10-02] MEDS: Iron Polysaccharide Complex 150 MG CAPSULE PO SCH ×2 (08:57→20:24)
[2017-10-02] MEDS: predniSONE 20 MG TABLET PO SCH (08:58)
[2017-10-02] MEDS: amLODIPine 5 MG TABLET PO SCH (08:58)
[2017-10-02] MEDS: Fluticasone Propionate Nasal 50 MCG/SPRAY BOTTLE NS SCH (08:58)
[2017-10-02] MEDS: Miconazole w/zinc oxide&karaya 92 APPL/92 GM TUBE TP SCH ×2 (09:00→20:24)
[2017-10-02 10:13] LABS: BUN/Creatinine Ratio 35 (6-26); Blood Urea Nitrogen 20 mg/dL (6-20); Calcium 9.6 mg/dL (8.6-10.3); Carbon Dioxide 36 mEq/L (23-29); Chloride 100 mEq/L (98-107); Glucose 88 mg/dL (70-105); Osmolality,Calculated 288 (280-300); Potassium 3.9 mEq/L (3.5-5.1); Sodium 138 mEq/L (136-145); eGFR For African Americans > 60 (> 60); eGFR For Non-African Americans > 60 (> 60)
[2017-10-02 10:18] LABS: Segmented Neutrophils % 58.9 %
[2017-10-02 10:21] LABS: Basophils % 0.4 %; Hematocrit 32.1 % (35.3-44.9); Hemoglobin 9.8 g/dL (11.5-15.4); Immature Granulocytes % 3.8 % (0-4); Immature Platelets 17.4 % (1.1-6.1); Lymphocytes # 2.2 K/mcL (0.6-4.6); Lymphocytes % 26.4 %; Mean Corpuscular HGB Conc 30.5 g/dL (31.6-35.5); Mean Corpuscular Hemoglobin 28.4 pg (28.0-33.3); Mean Platelet Volume 14.1 fL (9.4-12.4); Monocytes # 0.9 K/mcL (0.0-1.3); Monocytes % 10.5 %; Nucleated Red Blood Cells 0.6 /100 WBC (0); Red Blood Count 3.45 M/mcL (3.82-4.97); Red Cell Distribution Width 15.2 % (11.5-14.5)
[2017-10-02 10:38] LABS: Platelet Count 40 K/mcL (140-400)
[2017-10-02] MEDS: Immune Globulin, Gamma (IGG) 20 GM/200 ML INFUS..BTL IVC SCH ×2 (13:09→14:47)
--- NOTE | 2017-10-02 13:45 | Internal Med Progress Note ---
Date of Encounter: 10/02/17 Time of Encounter: 13:44 - Assessment and plan (1) Acute ITP Current Visit: Yes Status: Acute Assessment and plan: HIV negative HCV negative Platelet Ig M and Ig G strongly positive Other DDx: secondary ITP such as Drug induced ITP, SLE or CLL. Hematology believes this is likely related to drug-induced cytopenia in evidence of poor response to IVIG and prednisone. Precipitated by Levaquin. Continue High dose steroids per hematology. s/p IVIG 09/22/2017. Hematology restarted IVIG 09/30, 5th dose due 10/03 Continue management per heme/onc High risk for decompensation, spontaneous intrabdominal and intracranial bleed [facility] once plt count above 30,000 and completed IVIG (2) Anemia Current Visit: Yes Status: Chronic Assessment and plan: Iron-35, 11% Ferritin-115 B12-275 Folate-9.3 LDH elevated-343 Luke-pending SPEP/Serum free light chains-pending' transfuse for Hb <7 Qualifiers: Anemia type: unspecified type Qualified Code(s): D64.9 - Anemia, unspecified (3) Abnormal urinalysis Current Visit: Yes Status: Ruled-out Assessment and plan: initial sample had blood cells due to hematuria and was contaminated no dysuria or fever Leukocytosis was likely due to steroids, ertapenem discontinued on 09/23, to avoid any drug adverse effects clean catch urine negative for UTI (4) Multiple wounds of skin Current Visit: Yes Status: Acute Assessment and plan: Wound care consulted (5) Morbid obesity Current Visit: Yes Status: Chronic Assessment and plan: chronic, stable (6) DVT prophylaxis Current Visit: Yes Status: Acute Assessment and plan: SCDs (7) HTN (hypertension) Current Visit: Yes Status: Chronic Assessment and plan: continue norvasc 5mg po daily continue to monitor Qualifiers: Hypertension type: essential hypertension Qualified Code(s): I10 - Essential (primary) hypertension (8) Hypothyroidism Current Visit: Yes Status: Chronic Assessment and plan: continue synthroid Qualifiers: Hypothyroidism type: unspecified Qualified Code(s): E03.9 - Hypothyroidism , unspecified - Time Spent With Patient Total time spent is greater than 50% in coordination of care (as documented) at patient's floor/unit and/or counseling patient: - Subjective Interval history: Seen and examined at the bedside Patient is a 52 YO with Morbid Obesity, CHFpEF, HLD, HTN, Asthma, bed-bound at SNF prior to admission Oncology/hemaotology is following She has no mucosal bleeding, but has petechiae PLT improved to 40 this a.m She is also having hyperglycemia, due to steroids, on sliding scale insulin FS is controlled She denies new complains - Constitutional Vitals: Temp Pulse Resp BP Pulse Ox 98.6 F 107 19 136/66 96 10/02/17 10:59 10/02/17 10:59 10/02/17 03:30 10/02/17 10:59 10/02/17 10:59 General appearance: Present: A&O X 3, morbidly obese, no acute distress - Head Head exam: Present: atraumatic, normocephalic - Eye Eye exam: Present: PERRL, conjuntiva pink, sclera anicteric Pupils: Present: PERRL - Neck Neck exam general surgery: Present: supple, trachea midline. Absent: lymphadenopathy - Respiratory Respiratory exam: Present: CTAB. Absent: accessory muscle use, rales, rhonchi, wheezes - Cardiovascular Cardiovascular exam: Present: RRR, +S1, +S2. Absent: diastolic murmur, gallop, rubs, systolic murmur - GI/Abdominal GI/Abdominal exam: Present: normal bowel sounds, soft, no peritoneal signs. Absent: distended, tenderness - Extremities Exam Extremities exam: Present: warm, radial pulses palpable and symmetrical. Absent : calf tenderness, cyanotic, pedal edema Additional comments: chronic venous stasis changes - Neurological Exam Neurological exam: Present: alert, CN II-XII intact, oriented X3, no focal deficits. Absent: pronater drift, facial droop, speech deficit - Skin Skin exam: Present: dry, intact Internal Medicine: Result - Labs CBC & Chem 7: 10/02/17 09:37 10/02/17 09:37 Labs: Short CBC 10/02/17 Range/Units 09:37 WBC 8.4 (4.3-11.1) K/mcL Hgb 9.8 L (11.5-15.4) g/dL Hct 32.1 L (35.3-44.9) % Plt Count 40 L D (140-400) K/mcL Neutrophils # 5.0 (1.6-8.9) K/mcL BMP 10/02/17 09:37 Sodium 138 Potassium 3.9 Chloride 100 Carbon Dioxide 36 H BUN 20 Creatinine 0.57 L Glucose 88 Calcium 9.6 - ABG Interpretation ABG results: PT/INR, D-dimer D-Dimer 2083 ng/mLFEU (0-500) H 09/21/17 20:34 - VTE Reasons for not Prescribing Prophylaxis: Medical contraindication Documentation of Mechanical Device: Intermittent pneumatic compression device Consult Discharge Plan - Plan Referrals: Delfina Ficth, [employer] [Primary Care Provider] -
[2017-10-02] MEDS: ALPRAZolam 1 MG TABLET PO PRN ×2 (14:41→21:04)
--- NOTE | 2017-10-02 15:13 | Oncology Inp Progress Note ---
Date of Encounter: 10/02/17 Time of Encounter: 13:30 (1) Acute ITP Current Visit: Yes Status: Acute Assessment and plan: Suspect DITP-Likely secondary to Levaquin S/P IVIG on 09/22-Steroid treatment initiated upon arrival to ER Steroid Refractory-IVIG again started on Monday09/29/17 dosed at actual body weight 400 mg/kg/day x5 days Patient is without s/s bleeding or any acute changes Recommend continuing steroids at 80 mg/day-will taper on outpatient basis. Her platelet count shows great response to IVIG-increased to 40k today. She is scheduled to receive her last dose of IVIG tomorrow, if platelet count is stable or improved likely plan for discharge back to nursing facility soon with continued platelet monitoring at her facility and close follow up with hematology. Oncology: Subj Interval history: Ms. Flores is resting comfortably. She denies any s/s pain, headache, or any s/ s bleeding. No acute changes. - Constitutional Vitals: Vital Signs Temp Pulse Resp BP Pulse Ox 10/02/17 15:03 98.6 F 117 120/62 95 10/02/17 10:59 98.6 F 107 136/66 96 10/02/17 06:31 95 130/67 97 10/02/17 03:30 98.5 F 109 19 141/95 97 10/01/17 19:45 98.5 F 84 18 128/73 96 10/01/17 15:29 98.0 F 92 16 136/78 96 Intake and Output 10/01/17 10/02/17 10/02/17 23:59 07:59 15:59 Intake Total 360 / 360 440 / 440 Output Total 930 / 930 260 / 260 300 / 300 Balance -570 / -570 -260 / -260 140 / 140 Intake: IV Fluids 200 / 200 Privigen 10% 20 GM/200 ML 20 gm 200 / 200 In 200 ml @ 92 mls/hr IVC QD DELMY Rx#:[id number] Oral 360 / 360 240 / 240 Output: Urine 930 / 930 260 / 260 300 / 300 Other: Meal Lunch Percent of Meal Consumed 100% Stool Size Moderate Stool Consistency formed Stool Characteristics Normal for Patient Stool Color Brown # Voids 1 # Bowel Movements 1 Blood Glucose* 289 110 99 General appearance: cooperative, morbidly obese, no acute distress, no febrile - Head Head exam: Present: atraumatic - ENT ENT exam: Present: mucous membranes moist - Respiratory Respiratory exam: Present: CTAB. Absent: respiratory distress - Cardiovascular Cardiovascular exam: Present: RRR, +S1, +S2, tachycardia - GI/Abdominal GI/Abdominal exam: Present: normal bowel sounds, soft. Absent: guarding, rebound, tenderness - Extremities Exam Extremities exam: Absent: calf tenderness - Neurological Exam Neurological exam: Present: alert, oriented X3, no focal deficits, strengths equal and symetr throughout - Psychiatric Psychiatric exam: Present: normal affect, normal mood - Skin Skin exam: Present: dry, intact, normal color, warm Oncology: Obj Data - Labs CBC & Chem 7: 10/03/17 04:40 10/03/17 04:40 - ABG Interpretation ABG results: PT/INR, D-dimer D-Dimer 2083 ng/mLFEU (0-500) H 09/21/17 20:34 Consult Discharge Plan - Plan Referrals: Delfina Fitch [employer]ER [Primary Care Provider] -
[2017-10-02] MEDS: Immune Globulin, Gamma (IGG) 5 GM/50 ML INFUS..BTL IVC SCH (15:37)
[2017-10-02] MEDS: *HR* OxyCODONE/APAP 5/325 TABLET PO PRN (16:45)
[2017-10-02] MEDS: risperiDONE 1 MG TABLET PO SCH (20:24)
[2017-10-02] MEDS: lamoTRIgine 25 MG TABLET PO SCH (20:24)
[2017-10-02] MEDS: Topiramate 25 MG TABLET PO SCH (20:24)
[2017-10-03 05:09] LABS: Red Cell Distribution Width 15.5 % (11.5-14.5)
[2017-10-03 05:16] LABS: Basophils % 0.2 %; Hematocrit 31.2 % (35.3-44.9); Hemoglobin 9.6 g/dL (11.5-15.4); Immature Granulocytes % 4.3 % (0-4); Lymphocytes # 2.1 K/mcL (0.6-4.6); Lymphocytes % 24.9 %; Mean Corpuscular HGB Conc 30.8 g/dL (31.6-35.5); Mean Corpuscular Hemoglobin 28.4 pg (28.0-33.3); Mean Corpuscular Volume 92.3 fL (83.0-100.0); Mean Platelet Volume 13.1 fL (9.4-12.4); Monocytes # 0.8 K/mcL (0.0-1.3); Neutrophils # 5.1 K/mcL (1.6-8.9); Nucleated Red Blood Cells 0.4 /100 WBC (0); Platelet Count 60 K/mcL (140-400); Red Blood Count 3.38 M/mcL (3.82-4.97); Segmented Neutrophils % 61.6 %
[2017-10-03 05:33] LABS: BUN/Creatinine Ratio 35 (6-26); Blood Urea Nitrogen 19 mg/dL (6-20); Calcium 9.5 mg/dL (8.6-10.3); Carbon Dioxide 32 mEq/L (23-29); Chloride 100 mEq/L (98-107); Glucose 115 mg/dL (70-105); Osmolality,Calculated 287 (280-300); Potassium 4.4 mEq/L (3.5-5.1); Sodium 137 mEq/L (136-145); eGFR For African Americans > 60 (> 60); eGFR For Non-African Americans > 60 (> 60)
[2017-10-03] MEDS: Insulin LISPRO 300 UNITS/3 ML VIAL SQ SCH ×4 (09:51→22:17)
[2017-10-03] MEDS: Cyanocobalamin (B-12) 1,000 MCG TABLET PO SCH (10:27)
[2017-10-03] MEDS: Iron Polysaccharide Complex 150 MG CAPSULE PO SCH ×2 (10:27→22:15)
[2017-10-03] MEDS: predniSONE 20 MG TABLET PO SCH (10:27)
[2017-10-03] MEDS: Fluticasone Propionate Nasal 50 MCG/SPRAY BOTTLE NS SCH (10:28)
[2017-10-03] MEDS: amLODIPine 5 MG TABLET PO SCH (10:28)
[2017-10-03] MEDS: Sennosides/Docusate Sodium TABLET PO SCH ×2 (10:29→22:14)
--- NOTE | 2017-10-03 13:46 | Discharge Summary ---
- NOTES TO OUTPATIENT PROVIDER Notes to Outpatient Provider: Follow-up CBC in 2-3 days. Steroids to be tapered per Hematology/Oncology. Orders not resulted at time of discharge: Pending orders 09/29/17 08:47 Transfusion Reaction [BBK] Stat 09/30/17 05:07 MMA (VIT B12 STATUS) AM 0400 Date of Encounter: 10/03/17 Time of Encounter: 13:34 - Discharge Diagnosis (1) Acute ITP Priority: Primary Status: Acute (2) Hypothyroidism Priority: Secondary Status: Chronic Qualifiers: Hypothyroidism type: unspecified Qualified Code(s): E03.9 - Hypothyroidism , unspecified (3) Anemia Priority: Secondary Status: Chronic Qualifiers: Anemia type: unspecified type Qualified Code(s): D64.9 - Anemia, unspecified (4) HTN (hypertension) Priority: Secondary Status: Chronic Qualifiers: Hypertension type: essential hypertension Qualified Code(s): I10 - Essential (primary) hypertension (5) Abnormal urinalysis Priority: Secondary Status: Ruled-out (6) Multiple wounds of skin Priority: Secondary Status: Acute (7) Morbid obesity Priority: Secondary Status: Chronic (8) DVT prophylaxis Priority: Secondary Status: Acute Hospital course: Ms. Flores is a 52 year old female with past medical history COPD, ARELI, fatty liver presented for abnormal labs. Patient was (recently admitted to the hospital with acute renal failure hypotension and possible pneumonia) Patient went to rehabilitation, patient stated over last week she noted some rash on her right upper extremities, she had minimal bleeding at injection site of her heparin during hospitalization. Patient denies any hemoptysis or hematemesis, patient stated she does know if she has any blood in stool or black stool, no blood in urine except she had minimal bleeding after inserted witt at emergency room.Patient was send to EMS via ambulance due to abnormal labs. She reports new bleeding pressure ulcers in the last 3 weeks. + hematuria. Denies abnormal bruising. New bleeding ulcerations on right lower quadrant for 3 weeks. Mechanical Specialist/Oncologist was consulted in ED. They were Emperically treated with steroids for concern of ITP. She had platelets and IVIG therapy during admission. Goal for ITP was patient to get platelets >30k. Platelets after therapy improved to 60k after day 12 of admission. Patient was hemodynamically stable and showed no signs of active bleed at that time. She is discharged to have close follow-up with hematology with continuing steroids Prendisone 80 mg per day and will be tapered as an outpatient. - Time Spent with Patient Total time spent providing and/or coordinating discharge services: - Discharge Medications Home Medications: Fluticasone Propionate Nasal [Flonase] 1 spray NS DAILY 08/03/16 [History] Levothyroxine [Synthroid] 50 mcg PO 0630 08/03/16 [History] Simvastatin [Zocor] 40 mg PO HS 08/03/16 [History] risperiDONE [Risperdal] 2 mg PO HS 08/03/16 [History] Topiramate [Topamax] 25 mg PO HS 11/18/16 [History] Acetaminophen [Pain Reliever] 500 mg PO TID PRN 08/09/17 [History] Zolpidem [Ambien] 5 mg PO HS PRN 4 Days #4 tablet 08/12/17 [Rx] Tamsulosin HCl [Flomax] 0.4 mg PO DAILY 09/05/17 [History] LORazepam [Ativan] 1 mg PO BID PRN 5 Days #5 tablet 09/12/17 [Rx] OxyCODONE Immed Rel [Roxicodone 5 MG] 5 mg PO Q4HR PRN 09/21/17 [History] lamoTRIgine [Lamictal] 25 mg PO HS 09/21/17 [History] Bisacodyl [Dulcolax] 10 mg PO DAILY PRN tablet 09/28/17 [Rx] Iron Polysaccharide Complex [Ferrex 150] 150 mg PO BID capsule 09/28/17 [Rx] Sennosides/Docusate Sodium [Senna Plus] 2 each PO BID tablet 09/28/17 [Rx] Cyanocobalamin (B-12) [Vitamin B12] 1,000 mcg PO DAILY tablet 10/03/17 [Rx] Insulin LISPRO [HumaLOG] 0 units SQ HS vial 10/03/17 [Rx] Insulin LISPRO [HumaLOG] 0 units SQ TIDAC vial 10/03/17 [Rx] Menthol [Cough Drops] 9.1 mg PO Q2H PRN lozenge 10/03/17 [Rx] Miconazole w/zinc oxide&karaya [Antifungal Extra Thick] 1 appl TP BID tube [Rx] amLODIPine [Norvasc] 5 mg PO DAILY tablet 10/03/17 [Rx] predniSONE [PredniSONE] 80 mg PO DAILY tablet 10/03/17 [Rx] Allergies/Adverse Reactions: 3 Allergy/AdvReac Type Severity Reaction Status Date / Time nitrofurantoin Allergy Itching Verified 09/21/17 15:17 [From Macrodantin] levofloxacin [From Levaquin] AdvReac Severe See Verified 09/27/17 13:59 Comments duloxetine [From Cymbalta] AdvReac Depression Verified 09/21/17 15:17 pregabalin [From Lyrica] AdvReac See Verified 09/21/17 15:17 Comments Date of admission: 09/21/17 20:21 Primary care physician: Delfina Fitch CNP Consults: 09/22/17 15:06 Consult to Occupational Therapy [CONS] Routine Comment: Evaluate, develop and implement POC Reason for Consult: Physical deconditioning Does patient have active BEDREST order?: No Is patient medically & hemodynamically stable?: Yes Patient assessed for mobility or mobilized this visit?: No Consult to Physical Therapy [CONS] Routine Comment: Evaluate, develop and implement POC Reason for Consult: physical deconditioing Does patient have active BEDREST order?: No Is patient medically & hemodynamically stable?: Yes Patient assessed for mobility or mobilized this visit?: No 09/25/17 12:36 Consult to Wound Care [CONS] Stat Reason for Consult: Patient has excoriation from buttocks down back of leg, has necrotic tissue and also has wounds in b/l abdominal folds. Call Completed: Yes 09/26/17 10:23 Consult to Correspondence Analyst [CONS] Routine Reason for SW Consult: From [facility] Discharging clinician: Ej Mooney - Constitutional Vitals: Temp Pulse Resp BP Pulse Ox 99.3 F 109 20 128/61 96 10/03/17 11:07 10/03/17 11:07 10/03/17 11:07 10/03/17 11:07 10/03/17 11:07 General appearance: Present: A&O X 3, morbidly obese, no acute distress Exam: - Head Head exam: Present: atraumatic - ENT ENT exam: Present: mucous membranes moist - Respiratory Respiratory exam: Present: CTAB. Absent: respiratory distress - Cardiovascular Cardiovascular exam: Present: RRR, +S1, +S2, tachycardia - GI/Abdominal GI/Abdominal exam: Present: normal bowel sounds, soft. Absent: guarding, rebound, tenderness - Extremities Exam Extremities exam: Absent: calf tenderness - Neurological Exam Neurological exam: Present: alert, oriented X3, no focal deficits, strengths equal and symetr throughout - Psychiatric Psychiatric exam: Present: normal affect, normal mood - Skin Skin exam: Present: dry, intact, normal color, warm - Patient Status Disposition: Transfer SNF Condition: Undetermined Functional capacity at discharge: wheelchair bound Overall status at discharge: patient is progressing back to baseline - Discharge Instructions Follow Up With: Delfina Fitch [employer]LAUGHTERER [Primary Care Provider] - - Diet and Activity Activity: as per physical therapy Diet: advance to your usual diet - VTE Reasons for not Prescribing Prophylaxis: Medical contraindication Documentation of Mechanical Device: Intermittent pneumatic compression device
[2017-10-03] MEDS: Immune Globulin, Gamma (IGG) 20 GM/200 ML INFUS..BTL IVC SCH ×2 (13:52→15:25)
[2017-10-03] MEDS: ALPRAZolam 1 MG TABLET PO PRN ×2 (13:54→22:14)
[2017-10-03] MEDS: Miconazole w/zinc oxide&karaya 92 APPL/92 GM TUBE TP SCH ×2 (14:33→22:16)
--- NOTE | 2017-10-03 15:12 | Physician Discharge Referral ---
ExtendedCare Referral Info Institutional Level of Care: Skilled - Diagnosis (1) Acute ITP Priority: Primary Status: Acute (2) Hypothyroidism Priority: Secondary Status: Chronic (3) Anemia Priority: Secondary Status: Chronic (4) HTN (hypertension) Priority: Secondary Status: Chronic (5) Abnormal urinalysis Priority: Secondary Status: Ruled-out (6) Multiple wounds of skin Priority: Secondary Status: Acute (7) Morbid obesity Priority: Secondary Status: Chronic (8) DVT prophylaxis Priority: Secondary Status: Acute - Transfer Medications Home Medications: Fluticasone Propionate Nasal [Flonase] 1 spray NS DAILY 08/03/16 [History] Levothyroxine [Synthroid] 50 mcg PO 0630 08/03/16 [History] Simvastatin [Zocor] 40 mg PO HS 08/03/16 [History] risperiDONE [Risperdal] 2 mg PO HS 08/03/16 [History] Topiramate [Topamax] 25 mg PO HS 11/18/16 [History] Acetaminophen [Pain Reliever] 500 mg PO TID PRN 08/09/17 [History] Zolpidem [Ambien] 5 mg PO HS PRN 4 Days #4 tablet 08/12/17 [Rx] Tamsulosin HCl [Flomax] 0.4 mg PO DAILY 09/05/17 [History] LORazepam [Ativan] 1 mg PO BID PRN 5 Days #5 tablet 09/12/17 [Rx] OxyCODONE Immed Rel [Roxicodone 5 MG] 5 mg PO Q4HR PRN 09/21/17 [History] lamoTRIgine [Lamictal] 25 mg PO HS 09/21/17 [History] Bisacodyl [Dulcolax] 10 mg PO DAILY PRN tablet 09/28/17 [Rx] Iron Polysaccharide Complex [Ferrex 150] 150 mg PO BID capsule 09/28/17 [Rx] Sennosides/Docusate Sodium [Senna Plus] 2 each PO BID tablet 09/28/17 [Rx] Cyanocobalamin (B-12) [Vitamin B12] 1,000 mcg PO DAILY tablet 10/03/17 [Rx] Insulin LISPRO [HumaLOG] 0 units SQ HS vial 10/03/17 [Rx] Insulin LISPRO [HumaLOG] 0 units SQ TIDAC vial 10/03/17 [Rx] Menthol [Cough Drops] 9.1 mg PO Q2H PRN lozenge 10/03/17 [Rx] Miconazole w/zinc oxide&karaya [Antifungal Extra Thick] 1 appl TP BID tube [Rx] amLODIPine [Norvasc] 5 mg PO DAILY tablet 10/03/17 [Rx] predniSONE [PredniSONE] 80 mg PO DAILY tablet 10/03/17 [Rx] Allergies/Adverse Reactions: 3 Allergy/AdvReac Type Severity Reaction Status Date / Time nitrofurantoin Allergy Itching Verified 09/21/17 15:17 [From Macrodantin] levofloxacin [From Levaquin] AdvReac Severe See Verified 09/27/17 13:59 Comments duloxetine [From Cymbalta] AdvReac Depression Verified 09/21/17 15:17 pregabalin [From Lyrica] AdvReac See Verified 09/21/17 15:17 Comments - Respiratory Orders Smoking Cessation: Smoking cessation has been advised. For more information, call the [place] Tobacco Quit Line at 0-128-IYJC-NOW. - Ancillary Orders May use pressure relief devices daily prn - Advance Directives Code Status: Full Code - Mobility Orders Other (as per physical therapy) - Rehabiliation Orders Rehab Orders: Evaluation for Physical Therapy, Evaluation for Occupational Therapy - Treatments Skin tear care topically daily PRN per policy - Diet Orders No Added Salt (ARIS), No Concentrated Sweets, Cardiac CERTIFICATION: I certify that the transfer of the above named patient to an Extended Care Facility is necessary for the continuing treatment of the diagnosis listed. The above information is true and accurate reflection of patient's current condition. Confidential - Redisclosure prohibited without a patient's written consent.
[2017-10-03] MEDS: Immune Globulin, Gamma (IGG) 5 GM/50 ML INFUS..BTL IVC SCH (16:25)
[2017-10-03] MEDS: *HR* OxyCODONE/APAP 5/325 TABLET PO PRN (16:45)
[2017-10-03] MEDS: risperiDONE 1 MG TABLET PO SCH (22:14)
[2017-10-03] MEDS: Topiramate 25 MG TABLET PO SCH (22:15)
[2017-10-04 08:01] LABS: Basophils % 0.2 %; Hematocrit 33.3 % (35.3-44.9); Hemoglobin 9.9 g/dL (11.5-15.4); Immature Granulocytes % 3.8 % (0-4); Lymphocytes # 2.2 K/mcL (0.6-4.6); Lymphocytes % 24.5 %; Mean Corpuscular HGB Conc 29.7 g/dL (31.6-35.5); Mean Corpuscular Hemoglobin 28.3 pg (28.0-33.3); Mean Corpuscular Volume 95.1 fL (83.0-100.0); Mean Platelet Volume 12.1 fL (9.4-12.4); Monocytes # 0.9 K/mcL (0.0-1.3); Monocytes % 10.3 %; Neutrophils # 5.5 K/mcL (1.6-8.9); Nucleated Red Blood Cells 0.4 /100 WBC (0); Red Cell Distribution Width 15.5 % (11.5-14.5); Segmented Neutrophils % 61.2 %
[2017-10-04 08:03] LABS: Platelet Count 97 K/mcL (140-400)
[2017-10-04 08:14] LABS: BUN/Creatinine Ratio 41 (6-26); Blood Urea Nitrogen 20 mg/dL (6-20); Calcium 9.2 mg/dL (8.6-10.3); Carbon Dioxide 35 mEq/L (23-29); Chloride 99 mEq/L (98-107); Glucose 125 mg/dL (70-105); Osmolality,Calculated 286 (280-300); Potassium 3.8 mEq/L (3.5-5.1); Sodium 136 mEq/L (136-145); eGFR For African Americans > 60 (> 60); eGFR For Non-African Americans > 60 (> 60)
[2017-10-04] MEDS: Insulin LISPRO 300 UNITS/3 ML VIAL SQ SCH ×2 (08:28→12:35)
[2017-10-04] MEDS: predniSONE 20 MG TABLET PO SCH (10:40)
[2017-10-04] MEDS: amLODIPine 5 MG TABLET PO SCH (10:40)
[2017-10-04] MEDS: Iron Polysaccharide Complex 150 MG CAPSULE PO SCH (10:40)
[2017-10-04] MEDS: Cyanocobalamin (B-12) 1,000 MCG TABLET PO SCH (10:40)
[2017-10-04] MEDS: Miconazole w/zinc oxide&karaya 92 APPL/92 GM TUBE TP SCH (10:41)
[2017-10-04] MEDS: Fluticasone Propionate Nasal 50 MCG/SPRAY BOTTLE NS SCH (10:41)
[2017-10-04] MEDS: Sennosides/Docusate Sodium TABLET PO SCH (10:41)
[2017-10-04 10:51] VITALS: BP 113/64
--- NOTE | 2017-10-04 12:35 | Internal Med Progress Note ---
Date of Encounter: 10/04/17 Time of Encounter: 12:31 - Assessment and plan (1) Acute ITP Current Visit: Yes Status: Acute Assessment and plan: HIV negative HCV negative Platelet Ig M and Ig G strongly positive Other DDx: secondary ITP such as Drug induced ITP, SLE or CLL. Hematology believes this is likely related to drug-induced cytopenia in evidence of poor response to IVIG and prednisone. Precipitated by Levaquin. Continue High dose steroids per hematology. s/p IVIG 09/22/2017. Hematology restarted IVIG 09/30, 5th dose due 10/03 Continue management per heme/onc High risk for decompensation, spontaneous intrabdominal and intracranial bleed Plan for transfer back to [facility] once plt count above 30,000 and completed IVIG (2) Hypothyroidism Current Visit: Yes Status: Chronic Assessment and plan: continue synthroid Qualifiers: Hypothyroidism type: unspecified Qualified Code(s): E03.9 - Hypothyroidism , unspecified (3) Anemia Current Visit: Yes Status: Chronic Assessment and plan: Iron-35, 11% Ferritin-115 B12-275 Folate-9.3 LDH elevated-343 Luke-pending SPEP/Serum free light chains-pending' transfuse for Hb <7 Qualifiers: Anemia type: unspecified type Qualified Code(s): D64.9 - Anemia, unspecified (4) HTN (hypertension) Current Visit: Yes Status: Chronic Assessment and plan: continue norvasc 5mg po daily continue to monitor Qualifiers: Hypertension type: essential hypertension Qualified Code(s): I10 - Essential (primary) hypertension (5) Abnormal urinalysis Current Visit: Yes Status: Ruled-out Assessment and plan: initial sample had blood cells due to hematuria and was contaminated no dysuria or fever Leukocytosis was likely due to steroids, ertapenem discontinued on 09/23, to avoid any drug adverse effects clean catch urine negative for UTI (6) Multiple wounds of skin Current Visit: Yes Status: Acute Assessment and plan: Wound care consulted (7) Morbid obesity Current Visit: Yes Status: Chronic Assessment and plan: chronic, stable (8) DVT prophylaxis Current Visit: Yes Status: Acute Assessment and plan: SCDs - Time Spent With Patient Total time spent is greater than 50% in coordination of care (as documented) at patient's floor/unit and/or counseling patient: - Subjective Interval history: No complaints, no acute events. - Constitutional Vitals: Temp Pulse Resp BP Pulse Ox 97.9 F 99 20 113/64 96 10/04/17 10:46 10/04/17 10:46 10/04/17 10:46 10/04/17 10:46 10/04/17 10:46 General appearance: Present: A&O X 3, morbidly obese, no acute distress Exam: - Head Head exam: Present: atraumatic - ENT ENT exam: Present: mucous membranes moist - Respiratory Respiratory exam: Present: CTAB. Absent: respiratory distress - Cardiovascular Cardiovascular exam: Present: RRR, +S1, +S2, tachycardia - GI/Abdominal GI/Abdominal exam: Present: normal bowel sounds, soft. Absent: guarding, rebound, tenderness - Extremities Exam Extremities exam: Absent: calf tenderness - Neurological Exam Neurological exam: Present: alert, oriented X3, no focal deficits, strengths equal and symetr throughout - Psychiatric Psychiatric exam: Present: normal affect, normal mood - Skin Skin exam: Present: intact, normal color, warm Internal Medicine: Result - Labs CBC & Chem 7: 10/04/17 07:41 10/04/17 07:41 Labs: Short CBC 10/04/17 Range/Units 07:41 WBC 8.9 (4.3-11.1) K/mcL Hgb 9.9 L (11.5-15.4) g/dL Hct 33.3 L (35.3-44.9) % Plt Count 97 L D (140-400) K/mcL Neutrophils # 5.5 (1.6-8.9) K/mcL BMP 10/04/17 07:41 Sodium 136 Potassium 3.8 Chloride 99 Carbon Dioxide 35 H BUN 20 Creatinine 0.49 L Glucose 125 H Calcium 9.2 - ABG Interpretation ABG results: PT/INR, D-dimer D-Dimer 2083 ng/mLFEU (0-500) H 09/21/17 20:34 - VTE Reasons for not Prescribing Prophylaxis: Medical contraindication Documentation of Mechanical Device: Intermittent pneumatic compression device Consult Discharge Plan - Plan Instructions: Heart Failure (DC), Acute Respiratory Distress Syndrome (DC), Acute Kidney Injury (DC), Urinary Tract Infection in Women (DC), Depression (DC) , Hypothyroidism (DC), Chronic Obstructive Pulmonary Disease (DC), Sepsis (DC), Chronic Hypertension (DC), Anemia (GEN), Anxiety (DC), Pneumonia (DC) Referrals: Delfina Fitch, IVAN [Primary Care Provider] -
[2017-10-04] MEDS: ALPRAZolam 1 MG TABLET PO PRN (15:07)
== END 2017-10-04 16:06 | DRG 813 ==
LOC: 2NENU 11:46 → EMEROO 11:46 → 2NENU 16:48 → SUATTDRO 20:21 → ICNU 09-22 11:15 → 2NENU 09-22 17:56
PROVIDERS: ADMIT Family Medicine; ATTEND Internal Medicine

== ENCOUNTER 2019-05-19 17:37 | Inpatient (IN) ==
[2019-05-19 18:30] LABS: ABG Base Excess 19 mEq/L (-2 to 3); ABG HCO3 56 mEq/L (21-27); ABG Oxygen Saturation 99 % (95-98); ABG PCO2 145 mmHg (35-45); ABG PH 7.19 pH Units (7.32-7.45); ABG PO2 204 mmHg (85-104); ABG TCO2 > 50 mEq/L (20-26)
[2019-05-19] MEDS ORDERED: Ipratropium/Albuterol Neb 3 ML IH ONE (19:19)
[2019-05-19] MEDS ORDERED: methylPREDNISolone 125 MG/2 ML VIAL IVP ONE (19:19)
[2019-05-19 19:49] LABS: ABG Base Excess 18 mEq/L (-2 to 3); ABG HCO3 54 mEq/L (21-27); ABG Oxygen Saturation 86 % (95-98); ABG PCO2 145 mmHg (35-45); ABG PH 7.18 pH Units (7.32-7.45); ABG PO2 71 mmHg (85-104); ABG TCO2 > 50 mEq/L (20-26); Blood Gas Pressure Support 20 cm H2O; Blood Gas VT 450 cc
[2019-05-19 19:50] LABS: Mean Platelet Volume 11.7 fL (9.4-12.4); Red Cell Distribution Width 14.8 % (11.5-14.5)
[2019-05-19 19:51] LABS: Basophils # 0.1 K/mcL (0.0-0.2); Basophils % 0.6 %; Hematocrit 45.4 % (35.3-44.9); Hemoglobin 12.5 g/dL (11.5-15.4); Immature Granulocytes % 4.7 % (0-4); Lymphocytes # 1.5 K/mcL (0.6-4.6); Lymphocytes % 11.1 %; Mean Corpuscular HGB Conc 27.5 g/dL (31.6-35.5); Mean Corpuscular Hemoglobin 28.3 pg (28.0-33.3); Mean Corpuscular Volume 102.9 fL (83.0-100.0); Monocytes % 7.3 %; Nucleated Red Blood Cells 0.4 /100 WBC (0); Platelet Count 117 K/mcL (140-400); Red Blood Count 4.41 M/mcL (3.82-4.97); Segmented Neutrophils % 76.3 %; White Blood Count 13.9 K/mcL (4.3-11.1)
[2019-05-19 19:53] LABS: Neutrophils # 10.6 K/mcL (1.6-8.9)
[2019-05-19 20:05] LABS: Prothrombin Time 11.5 Seconds (9.4-12.1)
[2019-05-19 20:07] LABS: Activated Partial Thrombo Time 35.2 Seconds (26.0-36.0)
[2019-05-19 20:13] LABS: Basophilic Stippling 1+ (Not Present); Hypochromasia Present (Not Present)
[2019-05-19 20:32] LABS: Alanine Aminotransferase 6 Units/L (7-52); Albumin 3.8 g/dL (3.5-5.7); Albumin/Globulin Ratio 1.3 (1.1-2.2); Alkaline Phosphatase 94 Units/L (34-104); Aspartate Amino Transferase 13 Units/L (13-39); BUN/Creatinine Ratio 19 (6-26); Bilirubin,Direct 0.1 mg/dL (0.0-0.2); Bilirubin,Indirect 0.2 mg/dL (0.0-1.0); Bilirubin,Total 0.3 mg/dL (0.3-1.0); Blood Urea Nitrogen 8 mg/dL (6-20); Calcium 9.9 mg/dL (8.6-10.3); Carbon Dioxide 44 mEq/L (23-29); Chloride 88 mEq/L (98-107); Glucose 136 mg/dL (70-105); Osmolality,Calculated 286 (280-300); Potassium 5.1 mEq/L (3.5-5.1); Sodium 138 mEq/L (136-145); Total Protein 6.8 g/dL (6.4-8.9); Troponin I < 0.03 ng/mL (< 0.04); eGFR For African Americans > 60 (> 60); eGFR For Non-African Americans > 60 (> 60)
[2019-05-19 21:09] LABS: ABG Base Excess 17 mEq/L (-2 to 3); ABG HCO3 52 mEq/L (21-27); ABG Oxygen Saturation 92 % (95-98); ABG PCO2 140 mmHg (35-45); ABG PH 7.18 pH Units (7.32-7.45); ABG PO2 89 mmHg (85-104); ABG TCO2 > 50 mEq/L (20-26); Blood Gas Pressure Support 20 cm H2O; Blood Gas VT 450 cc
[2019-05-19] MEDS ORDERED: *HR* Rocuronium Bromide 50 MG/5 ML VIAL IVP ONE (21:15)
[2019-05-19] MEDS ORDERED: *HR* Etomidate 40 MG/20 ML VIAL IVP ONE (21:15)
[2019-05-19] MEDS ORDERED: Azithromycin 500 MG in D5% in Water 250 ML IVPB ONE (21:29)
[2019-05-19] MEDS ORDERED: cefTRIAXone 1,000 MG in Water for inj. (sterile) 10 ML IVP ONE (21:29)
[2019-05-19] MEDS ORDERED: *HR* FentaNYL (PF) 1,000 MCG/20 ML VIAL ONE (22:02)
[2019-05-19] MEDS ORDERED: *HR* Midazolam HCl 5 MG/5 ML VIAL IVP ONE ×2 (22:10→22:15)
[2019-05-19 22:21] LABS: Bilirubin,Urine Negative (Negative); Blood,Urine Trace (Negative); Clarity,Urine Clear (Clear); Color,Urine Yellow (Yellow); Glucose,Urine (UA) Normal (Normal); Ketones,Urine Negative (Negative); Leukocyte Esterase,Urine Negative (Negative); Nitrite,Urine Negative (Negative); Protein,Urine 100 mg/dL (Neg-Trace); Specific Gravity,Urine 1.022 (1.010-1.025); Urobilinogen,Urine Normal (Normal)
[2019-05-19 22:23] LABS: Bacteria,Urine None Seen per hpf (None-Few); Hyaline Casts,Urine Moderate per lpf (None-Few); Squamous Epithelial Cell,Urine Many per lpf (None-Few); WBC,Urine 0-3 per hpf (0-3)
[2019-05-19] MEDS: FentaNYL (PF) 1,000 MCG in 0.9 % Sodium Chloride 80 ML IVC SCH (22:50)
[2019-05-19] MEDS ORDERED: 0.9 % Sodium Chloride 1,000 ML ONE (23:08)
[2019-05-19] MEDS ORDERED: Naloxone 0.4 MG/ML INJ IVP PRN (23:16)
[2019-05-19] MEDS ORDERED: 0.9 % Sodium Chloride 1,000 ML IVC SCH (23:30)
[2019-05-20 00:05] LABS: ABG Base Excess 18 mEq/L (-2 to 3); ABG HCO3 43 mEq/L (21-27); ABG Oxygen Saturation 99 % (95-98); ABG PCO2 50 mmHg (35-45); ABG PH 7.55 pH Units (7.32-7.45); ABG PO2 111 mmHg (85-104); ABG TCO2 45 mEq/L (20-26); Blood Gas Modality ASSIST CONTROL; Blood Gas VT 500 cc
[2019-05-20] MEDS: Ipratropium/Albuterol Neb 3 ML IH SCH ×8 (00:39→23:38)
[2019-05-20] MEDS: Piperacillin/Tazobactam 3.375 GM in 0.9 % Sodium Chloride Mini Bag 100 ML IVPB SCH ×3 (03:40→17:58)
[2019-05-20] MEDS: FentaNYL (PF) 1,000 MCG in 0.9 % Sodium Chloride 80 ML IVC SCH ×2 (03:41→07:45)
[2019-05-20 05:24] LABS: ABG Base Excess 19 mEq/L (-2 to 3); ABG HCO3 43 mEq/L (21-27); ABG Oxygen Saturation 98 % (95-98); ABG PCO2 46 mmHg (35-45); ABG PH 7.58 pH Units (7.32-7.45); ABG PO2 94 mmHg (85-104); ABG TCO2 44 mEq/L (20-26); Blood Gas Modality ASSIST CONTROL; Blood Gas VT 500 cc
[2019-05-20] MEDS: *HR* Heparin 5,000 UNIT/ML VIAL SQ SCH ×2 (05:34→17:58)
[2019-05-20 05:41] LABS: Adenovirus Not Detected (Not Detect); Bordetella Pertussis Not Detected (Not Detect); Chlamydophila pneumoniae Not Detected (Not Detect); Coronavirus 229E Not Detected (Not Detect); Coronavirus HKU1 Not Detected (Not Detect); Coronavirus NL63 Not Detected (Not Detect); Coronavirus OC43 Not Detected (Not Detect); Human Metapneumovirus Not Detected (Not Detect); Human Rhinovirus/Enterovirus Not Detected (Not Detect); Influenza A Subtype 2009 H1 Not Detected (Not Detect); Influenza B Not Detected (Not Detect); Mycoplasma pneumoniae Not Detected (Not Detect); Parainfluenza Virus 1 Not Detected (Not Detect); Parainfluenza Virus 2 Not Detected (Not Detect); Parainfluenza Virus 3 Not Detected (Not Detect); Parainfluenza Virus 4 Not Detected (Not Detect); Respiratory Syncytial Virus Not Detected (Not Detect)
[2019-05-20 05:48] LABS: Alanine Aminotransferase 7 Units/L (7-52); Albumin 3.5 g/dL (3.5-5.7); Albumin/Globulin Ratio 1.3 (1.1-2.2); Alkaline Phosphatase 84 Units/L (34-104); Aspartate Amino Transferase 14 Units/L (13-39); BUN/Creatinine Ratio 25 (6-26); Bilirubin,Total 0.5 mg/dL (0.3-1.0); Blood Urea Nitrogen 11 mg/dL (6-20); Calcium 9.6 mg/dL (8.6-10.3); Carbon Dioxide 42 mEq/L (23-29); Chloride 89 mEq/L (98-107); Globulin 2.8 g/dL (2.4-3.5); Glucose 185 mg/dL (70-105); Osmolality,Calculated 288 (280-300); Potassium 3.5 mEq/L (3.5-5.1); Sodium 137 mEq/L (136-145); Total Protein 6.3 g/dL (6.4-8.9); eGFR For African Americans > 60 (> 60); eGFR For Non-African Americans > 60 (> 60)
[2019-05-20 05:51] LABS: Basophils # 0.1 K/mcL (0.0-0.2); Basophils % 0.3 %; Hematocrit 40.9 % (35.3-44.9); Hemoglobin 12.2 g/dL (11.5-15.4); Immature Granulocytes % 3.1 % (0-4); Lymphocytes # 1.2 K/mcL (0.6-4.6); Lymphocytes % 7.6 %; Mean Corpuscular HGB Conc 29.8 g/dL (31.6-35.5); Mean Corpuscular Hemoglobin 28.5 pg (28.0-33.3); Mean Corpuscular Volume 95.6 fL (83.0-100.0); Monocytes # 0.3 K/mcL (0.0-1.3); Monocytes % 2.2 %; Neutrophils # 13.5 K/mcL (1.6-8.9); Nucleated Red Blood Cells 0.3 /100 WBC (0); Platelet Count 136 K/mcL (140-400); Red Blood Count 4.28 M/mcL (3.82-4.97); Red Cell Distribution Width 14.3 % (11.5-14.5); Segmented Neutrophils % 86.8 %; White Blood Count 15.6 K/mcL (4.3-11.1)
[2019-05-20] MEDS ORDERED: MethylPREDNISolone 40 MG/ML VIAL IVP SCH (06:00)
[2019-05-20] MEDS ORDERED: Artificial Tears SOLN 15 ML BOTTLE BOTH EYES PRN (07:06)
[2019-05-20] MEDS ORDERED: Albuterol 2.5 MG/3 ML NEBULIZER IH PRN (07:08)
[2019-05-20] MEDS ORDERED: *HR* Etomidate 40 MG/20 ML VIAL IVP ONE (08:48)
[2019-05-20] MEDS ORDERED: *HR* Rocuronium Bromide 100 MG/10 ML VIAL IVC ONE (08:48)
[2019-05-20] MEDS: Chlorhexidine Rinse 15 ML MOUTHWASH MM SCH ×2 (09:03→20:05)
[2019-05-20] MEDS: Pantoprazole 40 MG VIAL IVP SCH (09:04)
[2019-05-20] MEDS ORDERED: Furosemide 20 MG/2 ML VIAL IVP ONE ×2 (09:27→17:52)
[2019-05-20] MEDS: Artificial Tears SOLN 15 ML BOTTLE BOTH EYES SCH ×4 (10:27→20:07)
[2019-05-20] MEDS ORDERED: Potassium Phosphate 44 MEQ in 0.9 % Sodium Chloride 250 ML IVPB PRN (10:40)
[2019-05-20] MEDS ORDERED: MAG HYDROX PO PRN (13:16)
[2019-05-20] MEDS ORDERED: [UNRECOGNIZED DRUG - OTHER] PO PRN (13:16)
[2019-05-20] MEDS ORDERED: ALUMINUM HYD PO PRN (13:16)
[2019-05-20] MEDS ORDERED: *HR* OxyCODONE Immed Rel 5 MG TABLET PO PRN (13:16)
[2019-05-20] MEDS ORDERED: SIMETH PO PRN (13:16)
[2019-05-20] MEDS ORDERED: Menthol 9.1 MG LOZENGE PO PRN (13:16)
[2019-05-20] MEDS ORDERED: *HR* OxyCODONE Immed Rel 5 MG TABLET GTUBE PRN (13:29)
[2019-05-20] MEDS ORDERED: Mag Hydrox/Al Hydrox/Simeth 30 ML UDC GTUBE PRN (13:29)
[2019-05-20] MEDS: Potassium Chloride Elixir 20 MEQ/15 ML UDC PO PRN (13:37)
[2019-05-20 14:23] LABS: ABG Base Excess 20 mEq/L (-2 to 3); ABG HCO3 49 mEq/L (21-27); ABG Oxygen Saturation 94 % (95-98); ABG PCO2 78 mmHg (35-45); ABG PH 7.41 pH Units (7.32-7.45); ABG PO2 75 mmHg (85-104); ABG TCO2 > 50 mEq/L (20-26); Blood Gas Modality AF; Blood Gas VT 420 cc
[2019-05-20] MEDS ORDERED: *HR* LORazepam 1 MG TABLET PO SCH (15:00)
[2019-05-20] MEDS: MethylPREDNISolone 40 MG/ML VIAL IVP SCH (17:57)
[2019-05-20] MEDS: Azithromycin 500 MG in 0.9 % Sodium Chloride 250 ML IVPB SCH (17:57)
[2019-05-20] MEDS: *HR* LORazepam 1 MG TABLET GTUBE SCH ×2 (17:58→20:05)
[2019-05-20] MEDS: Iron Polysaccharide Complex 150 MG CAPSULE PO SCH (20:02)
[2019-05-20] MEDS: Melatonin 3 MG TABLET GTUBE SCH (20:03)
[2019-05-20] MEDS: Docusate Oral Soln 100 MG/10 ML UDC GTUBE SCH (20:05)
[2019-05-20] MEDS: Topiramate 25 MG TABLET GTUBE SCH (20:05)
[2019-05-20] MEDS ORDERED: Topiramate 25 MG TABLET PO SCH (21:00)
[2019-05-20] MEDS ORDERED: NON-FORMULARY MEDICATION 1 EACH EACH (Melatonin 5 MG) PO SCH (21:00)
[2019-05-21] MEDS: Piperacillin/Tazobactam 3.375 GM in 0.9 % Sodium Chloride Mini Bag 100 ML IVPB SCH ×4 (00:24→23:18)
[2019-05-21] MEDS: Artificial Tears SOLN 15 ML BOTTLE BOTH EYES SCH ×7 (00:25→23:18)
[2019-05-21] MEDS: Ipratropium/Albuterol Neb 3 ML IH SCH ×6 (03:23→23:47)
[2019-05-21 05:15] LABS: ABG Base Excess 15 mEq/L (-2 to 3); ABG HCO3 44 mEq/L (21-27); ABG Oxygen Saturation 94 % (95-98); ABG PCO2 75 mmHg (35-45); ABG PH 7.38 pH Units (7.32-7.45); ABG PO2 75 mmHg (85-104); ABG TCO2 46 mEq/L (20-26); Blood Gas Modality ASSIST CONTROL; Blood Gas VT 420 cc
[2019-05-21] MEDS: MethylPREDNISolone 40 MG/ML VIAL IVP SCH ×2 (05:18→17:19)
[2019-05-21] MEDS: *HR* Heparin 5,000 UNIT/ML VIAL SQ SCH ×2 (05:18→17:19)
[2019-05-21 05:42] LABS: VBG Ionized Calcium 1.12 mmol/L (1.15-1.35)
[2019-05-21 05:55] LABS: Basophils % 0.2 %; Hematocrit 39.6 % (35.3-44.9); Hemoglobin 11.8 g/dL (11.5-15.4); Immature Granulocytes % 2.7 % (0-4); Lymphocytes # 1.2 K/mcL (0.6-4.6); Lymphocytes % 6.5 %; Mean Corpuscular HGB Conc 29.8 g/dL (31.6-35.5); Mean Corpuscular Hemoglobin 27.4 pg (28.0-33.3); Mean Corpuscular Volume 92.1 fL (83.0-100.0); Mean Platelet Volume 12.1 fL (9.4-12.4); Monocytes # 1.4 K/mcL (0.0-1.3); Monocytes % 7.6 %; Neutrophils # 15.1 K/mcL (1.6-8.9); Platelet Count 177 K/mcL (140-400); Red Cell Distribution Width 15.7 % (11.5-14.5); White Blood Count 18.2 K/mcL (4.3-11.1)
[2019-05-21 06:06] LABS: BUN/Creatinine Ratio 33 (6-26); Blood Urea Nitrogen 17 mg/dL (6-20); Calcium 9.7 mg/dL (8.6-10.3); Carbon Dioxide 40 mEq/L (23-29); Chloride 86 mEq/L (98-107); Glucose 196 mg/dL (70-105); Magnesium 1.6 mg/dL (1.6-2.6); Osmolality,Calculated 291 (280-300); Phosphorous 4.3 mg/dL (2.7-4.5); Potassium 3.4 mEq/L (3.5-5.1); Sodium 137 mEq/L (136-145); eGFR For African Americans > 60 (> 60); eGFR For Non-African Americans > 60 (> 60)
[2019-05-21] MEDS: Pantoprazole 40 MG VIAL IVP SCH (08:24)
[2019-05-21] MEDS: Docusate Oral Soln 100 MG/10 ML UDC GTUBE SCH ×2 (08:24→19:48)
[2019-05-21] MEDS: Chlorhexidine Rinse 15 ML MOUTHWASH MM SCH ×2 (08:24→19:48)
[2019-05-21] MEDS: lamoTRIgine 100 MG TABLET GTUBE SCH (08:26)
[2019-05-21] MEDS: Loratadine 10 MG TABLET GTUBE SCH (08:27)
[2019-05-21] MEDS: Cyanocobalamin (B-12) 1,000 MCG TABLET PO SCH (08:27)
[2019-05-21] MEDS: *HR* LORazepam 1 MG TABLET GTUBE SCH (08:27)
[2019-05-21] MEDS: Iron Polysaccharide Complex 150 MG CAPSULE PO SCH ×2 (08:27→19:09)
[2019-05-21] MEDS: Dexmedetomidine HCl 400 MCG/100 ML MLS IVC SCH ×5 (08:30→20:48)
[2019-05-21] MEDS ORDERED: Furosemide 20 MG/2 ML VIAL IVP ONE (08:51)
[2019-05-21] MEDS ORDERED: lamoTRIgine 100 MG TABLET PO SCH (09:00)
[2019-05-21] MEDS ORDERED: NON-FORMULARY MEDICATION 1 EACH EACH (Loratadine [Claritin] 10 MG) PO SCH (09:00)
[2019-05-21] MEDS ORDERED: Aminoglycoside Consult 1 EACH MC ONE (09:20)
[2019-05-21] MEDS: Potassium Chloride Elixir 20 MEQ/15 ML UDC PO PRN (09:32)
[2019-05-21] MEDS ORDERED: Haloperidol Lactate 5 MG/ML VIAL IVP ONE (10:30)
[2019-05-21] MEDS: Azithromycin 500 MG in 0.9 % Sodium Chloride 250 ML IVPB SCH (17:19)
[2019-05-21] MEDS: Melatonin 3 MG TABLET GTUBE SCH (19:09)
[2019-05-21] MEDS: Topiramate 25 MG TABLET GTUBE SCH (19:48)
[2019-05-22] MEDS: Dexmedetomidine HCl 400 MCG/100 ML MLS IVC SCH ×4 (00:02→08:58)
[2019-05-22] MEDS: Artificial Tears SOLN 15 ML BOTTLE BOTH EYES SCH ×4 (03:16→15:40)
[2019-05-22] MEDS: Ipratropium/Albuterol Neb 3 ML IH SCH ×5 (03:53→20:37)
[2019-05-22 04:42] LABS: ABG Base Excess 18 mEq/L (-2 to 3); ABG HCO3 47 mEq/L (21-27); ABG Oxygen Saturation 93 % (95-98); ABG PCO2 75 mmHg (35-45); ABG PO2 72 mmHg (85-104); ABG TCO2 49 mEq/L (20-26); Blood Gas VT 420 cc
[2019-05-22 04:51] LABS: Basophils % 0.2 %; Hematocrit 38.7 % (35.3-44.9); Hemoglobin 11.6 g/dL (11.5-15.4); Immature Granulocytes % 1.3 % (0-4); Lymphocytes # 1.7 K/mcL (0.6-4.6); Mean Corpuscular Hemoglobin 28.2 pg (28.0-33.3); Mean Corpuscular Volume 94.2 fL (83.0-100.0); Mean Platelet Volume 11.8 fL (9.4-12.4); Monocytes # 1.4 K/mcL (0.0-1.3); Monocytes % 9.1 %; Neutrophils # 12.4 K/mcL (1.6-8.9); Platelet Count 180 K/mcL (140-400); Red Blood Count 4.11 M/mcL (3.82-4.97); Red Cell Distribution Width 15.5 % (11.5-14.5); Segmented Neutrophils % 78.4 %; White Blood Count 15.9 K/mcL (4.3-11.1)
[2019-05-22 04:53] LABS: VBG Ionized Calcium 1.14 mmol/L (1.15-1.35)
[2019-05-22 05:12] LABS: BUN/Creatinine Ratio 38 (6-26); Blood Urea Nitrogen 18 mg/dL (6-20); Calcium 9.2 mg/dL (8.6-10.3); Carbon Dioxide 41 mEq/L (23-29); Chloride 92 mEq/L (98-107); Glucose 200 mg/dL (70-105); Magnesium 1.8 mg/dL (1.6-2.6); Osmolality,Calculated 292 (280-300); Phosphorous 3.6 mg/dL (2.7-4.5); Potassium 3.7 mEq/L (3.5-5.1); Sodium 137 mEq/L (136-145); eGFR For African Americans > 60 (> 60); eGFR For Non-African Americans > 60 (> 60)
[2019-05-22] MEDS: *HR* Heparin 5,000 UNIT/ML VIAL SQ SCH ×3 (05:31→20:54)
[2019-05-22] MEDS: MethylPREDNISolone 40 MG/ML VIAL IVP SCH ×3 (05:31→20:54)
[2019-05-22] MEDS: Potassium Chloride Elixir 20 MEQ/15 ML UDC PO PRN (06:23)
[2019-05-22] MEDS: Cyanocobalamin (B-12) 1,000 MCG TABLET PO SCH (07:32)
[2019-05-22] MEDS: lamoTRIgine 100 MG TABLET GTUBE SCH (07:32)
[2019-05-22] MEDS: Iron Polysaccharide Complex 150 MG CAPSULE PO SCH ×2 (07:32→20:54)
[2019-05-22] MEDS: Pantoprazole 40 MG VIAL IVP SCH (07:33)
[2019-05-22] MEDS: Loratadine 10 MG TABLET GTUBE SCH (07:33)
[2019-05-22] MEDS: Piperacillin/Tazobactam 3.375 GM in 0.9 % Sodium Chloride Mini Bag 100 ML IVPB SCH ×3 (07:33→23:42)
[2019-05-22] MEDS: Docusate Oral Soln 100 MG/10 ML UDC GTUBE SCH ×2 (07:33→20:53)
[2019-05-22] MEDS: Chlorhexidine Rinse 15 ML MOUTHWASH MM SCH (07:33)
[2019-05-22] MEDS ORDERED: Furosemide 20 MG/2 ML VIAL IVP SCH (09:45)
[2019-05-22] MEDS: Azithromycin 500 MG in 0.9 % Sodium Chloride 250 ML IVPB SCH ×2 (17:10→20:55)
[2019-05-22] MEDS ORDERED: Mag Hydrox/Al Hydrox/Simeth 30 ML UDC GTUBE PRN (17:31)
[2019-05-22] MEDS ORDERED: *HR* OxyCODONE Immed Rel 5 MG TABLET GTUBE PRN (17:31)
[2019-05-22] MEDS ORDERED: Naloxone 0.4 MG/ML INJ IVP PRN (17:31)
[2019-05-22] MEDS ORDERED: Albuterol 2.5 MG/3 ML NEBULIZER IH PRN (17:31)
[2019-05-22] MEDS ORDERED: Topiramate 25 MG TABLET GTUBE SCH (21:00)
[2019-05-22] MEDS ORDERED: Melatonin 3 MG TABLET GTUBE SCH (21:00)
[2019-05-23] MEDS: Ipratropium/Albuterol Neb 3 ML IH SCH ×7 (00:08→23:53)
[2019-05-23] MEDS ORDERED: HydrOXYzine 100 MG/2 ML VIAL IM ONE (03:16)
[2019-05-23] MEDS ORDERED: hydrOXYzine pamoate 25 MG CAPSULE PO STA (03:33)
[2019-05-23 04:34] LABS: Basophils % 0.2 %; Hematocrit 38.9 % (35.3-44.9); Hemoglobin 11.9 g/dL (11.5-15.4); Immature Granulocytes % 0.8 % (0-4); Lymphocytes # 2.1 K/mcL (0.6-4.6); Lymphocytes % 11.9 %; Mean Corpuscular HGB Conc 30.6 g/dL (31.6-35.5); Mean Corpuscular Hemoglobin 27.9 pg (28.0-33.3); Mean Corpuscular Volume 91.3 fL (83.0-100.0); Monocytes # 1.7 K/mcL (0.0-1.3); Monocytes % 9.7 %; Neutrophils # 13.8 K/mcL (1.6-8.9); Platelet Count 205 K/mcL (140-400); Red Blood Count 4.26 M/mcL (3.82-4.97); Red Cell Distribution Width 15.9 % (11.5-14.5); Segmented Neutrophils % 77.4 %; White Blood Count 17.8 K/mcL (4.3-11.1)
[2019-05-23 04:39] LABS: BUN/Creatinine Ratio 40 (6-26); Blood Urea Nitrogen 17 mg/dL (6-20); Calcium 9.8 mg/dL (8.6-10.3); Carbon Dioxide 42 mEq/L (23-29); Chloride 94 mEq/L (98-107); Glucose 136 mg/dL (70-105); Osmolality,Calculated 294 (280-300); Potassium 3.5 mEq/L (3.5-5.1); Sodium 140 mEq/L (136-145); eGFR For African Americans > 60 (> 60); eGFR For Non-African Americans > 60 (> 60)
[2019-05-23] MEDS: MethylPREDNISolone 40 MG/ML VIAL IVP SCH ×2 (05:30→17:44)
[2019-05-23] MEDS: *HR* Heparin 5,000 UNIT/ML VIAL SQ SCH ×2 (05:30→17:44)
[2019-05-23] MEDS: Cyanocobalamin (B-12) 1,000 MCG TABLET PO SCH (07:29)
[2019-05-23] MEDS: Iron Polysaccharide Complex 150 MG CAPSULE PO SCH ×2 (07:29→21:51)
[2019-05-23] MEDS: Piperacillin/Tazobactam 3.375 GM in 0.9 % Sodium Chloride Mini Bag 100 ML IVPB SCH ×2 (07:30→17:44)
[2019-05-23] MEDS: Docusate Oral Soln 100 MG/10 ML UDC GTUBE SCH (07:46)
[2019-05-23] MEDS ORDERED: GI Cocktail 40 ML EACH PO ONE (08:47)
[2019-05-23] MEDS ORDERED: Loratadine 10 MG TABLET GTUBE SCH (09:00)
[2019-05-23] MEDS ORDERED: Furosemide 20 MG/2 ML VIAL IVP SCH (09:00)
[2019-05-23] MEDS ORDERED: lamoTRIgine 100 MG TABLET GTUBE SCH (09:00)
[2019-05-23] MEDS ORDERED: *HR* OxyCODONE Immed Rel 5 MG TABLET PO PRN (15:45)
[2019-05-23] MEDS ORDERED: Mag Hydrox/Al Hydrox/Simeth 30 ML UDC PO PRN (15:45)
[2019-05-23] MEDS ORDERED: Perflutren Lipid Microsphere 1.3 ML in 0.9 % Sodium Chloride 8.7 ML IVP ONE (16:00)
[2019-05-23] MEDS: Azithromycin 500 MG in 0.9 % Sodium Chloride 250 ML IVPB SCH (17:43)
[2019-05-23] MEDS: Melatonin 3 MG TABLET PO SCH (21:51)
[2019-05-23] MEDS: Topiramate 25 MG TABLET PO SCH (21:51)
[2019-05-24] MEDS: Piperacillin/Tazobactam 3.375 GM in 0.9 % Sodium Chloride Mini Bag 100 ML IVPB SCH ×3 (00:51→17:54)
[2019-05-24] MEDS: Ipratropium/Albuterol Neb 3 ML IH SCH ×6 (03:53→23:42)
[2019-05-24 04:41] LABS: Basophils % 0.1 %; Hematocrit 39.5 % (35.3-44.9); Hemoglobin 12.3 g/dL (11.5-15.4); Immature Granulocytes % 0.5 % (0-4); Lymphocytes # 1.8 K/mcL (0.6-4.6); Lymphocytes % 12.7 %; Mean Corpuscular HGB Conc 31.1 g/dL (31.6-35.5); Mean Corpuscular Hemoglobin 28.3 pg (28.0-33.3); Mean Corpuscular Volume 90.8 fL (83.0-100.0); Mean Platelet Volume 12.4 fL (9.4-12.4); Monocytes # 1.2 K/mcL (0.0-1.3); Monocytes % 8.5 %; Neutrophils # 10.9 K/mcL (1.6-8.9); Platelet Count 210 K/mcL (140-400); Red Blood Count 4.35 M/mcL (3.82-4.97); Red Cell Distribution Width 15.5 % (11.5-14.5); Segmented Neutrophils % 78.2 %; White Blood Count 13.9 K/mcL (4.3-11.1)
[2019-05-24 05:04] LABS: BUN/Creatinine Ratio 43 (6-26); Blood Urea Nitrogen 20 mg/dL (6-20); Carbon Dioxide 42 mEq/L (23-29); Chloride 93 mEq/L (98-107); Glucose 139 mg/dL (70-105); Osmolality,Calculated 293 (280-300); Potassium 3.6 mEq/L (3.5-5.1); Sodium 139 mEq/L (136-145); eGFR For African Americans > 60 (> 60); eGFR For Non-African Americans > 60 (> 60)
[2019-05-24] MEDS: MethylPREDNISolone 40 MG/ML VIAL IVP SCH ×2 (06:13→17:54)
[2019-05-24] MEDS: *HR* Heparin 5,000 UNIT/ML VIAL SQ SCH ×2 (06:13→17:56)
[2019-05-24 08:07] LABS: ABG Base Excess 15 mEq/L (-2 to 3); ABG HCO3 43 mEq/L (21-27); ABG Oxygen Saturation 99 % (95-98); ABG PCO2 63 mmHg (35-45); ABG PH 7.44 pH Units (7.32-7.45); ABG PO2 120 mmHg (85-104); ABG TCO2 45 mEq/L (20-26); Blood Gas Modality BiLevel
[2019-05-24] MEDS: amLODIPine 5 MG TABLET PO SCH (09:28)
[2019-05-24] MEDS: lamoTRIgine 100 MG TABLET PO SCH (09:28)
[2019-05-24] MEDS: Cyanocobalamin (B-12) 1,000 MCG TABLET PO SCH (09:28)
[2019-05-24] MEDS: Loratadine 10 MG TABLET PO SCH (09:31)
[2019-05-24] MEDS: Iron Polysaccharide Complex 150 MG CAPSULE PO SCH ×2 (09:31→21:37)
[2019-05-24] MEDS: Azithromycin 500 MG in 0.9 % Sodium Chloride 250 ML IVPB SCH (17:55)
[2019-05-24] MEDS: Melatonin 3 MG TABLET PO SCH (21:38)
[2019-05-24] MEDS: Topiramate 25 MG TABLET PO SCH (21:38)
[2019-05-25] MEDS: Piperacillin/Tazobactam 3.375 GM in 0.9 % Sodium Chloride Mini Bag 100 ML IVPB SCH ×3 (00:12→17:23)
[2019-05-25] MEDS: Ipratropium/Albuterol Neb 3 ML IH SCH ×6 (03:51→23:22)
[2019-05-25 04:40] LABS: Basophils % 0.2 %; Hemoglobin 11.8 g/dL (11.5-15.4); Immature Granulocytes % 0.5 % (0-4); Lymphocytes # 2.1 K/mcL (0.6-4.6); Lymphocytes % 16.4 %; Mean Corpuscular HGB Conc 30.3 g/dL (31.6-35.5); Mean Corpuscular Hemoglobin 28.2 pg (28.0-33.3); Mean Corpuscular Volume 93.1 fL (83.0-100.0); Mean Platelet Volume 12.2 fL (9.4-12.4); Monocytes # 0.9 K/mcL (0.0-1.3); Neutrophils # 9.6 K/mcL (1.6-8.9); Platelet Count 190 K/mcL (140-400); Red Blood Count 4.19 M/mcL (3.82-4.97); Red Cell Distribution Width 15.4 % (11.5-14.5); Segmented Neutrophils % 75.9 %; White Blood Count 12.6 K/mcL (4.3-11.1)
[2019-05-25 05:07] LABS: Magnesium 2.1 mg/dL (1.6-2.6); Phosphorous 4.4 mg/dL (2.7-4.5)
[2019-05-25 05:08] LABS: BUN/Creatinine Ratio 45 (6-26); Blood Urea Nitrogen 21 mg/dL (6-20); Carbon Dioxide 37 mEq/L (23-29); Chloride 93 mEq/L (98-107); Glucose 140 mg/dL (70-105); Osmolality,Calculated 291 (280-300); Sodium 138 mEq/L (136-145); eGFR For African Americans > 60 (> 60); eGFR For Non-African Americans > 60 (> 60)
[2019-05-25] MEDS: MethylPREDNISolone 40 MG/ML VIAL IVP SCH ×2 (05:15→17:23)
[2019-05-25] MEDS: *HR* Heparin 5,000 UNIT/ML VIAL SQ SCH ×2 (05:19→17:23)
[2019-05-25] MEDS: amLODIPine 5 MG TABLET PO SCH (05:23)
[2019-05-25] MEDS: Loratadine 10 MG TABLET PO SCH (08:04)
[2019-05-25] MEDS: Iron Polysaccharide Complex 150 MG CAPSULE PO SCH ×2 (08:04→21:37)
[2019-05-25] MEDS: Cyanocobalamin (B-12) 1,000 MCG TABLET PO SCH (08:04)
[2019-05-25] MEDS: lamoTRIgine 100 MG TABLET PO SCH (08:05)
[2019-05-25] MEDS: Furosemide 40 MG TABLET PO SCH (08:05)
[2019-05-25] MEDS ORDERED: amLODIPine 5 MG TABLET PO ONE (10:33)
[2019-05-25] MEDS: Topiramate 25 MG TABLET PO SCH (21:37)
[2019-05-25] MEDS: Melatonin 3 MG TABLET PO SCH (21:38)
[2019-05-26] MEDS: Piperacillin/Tazobactam 3.375 GM in 0.9 % Sodium Chloride Mini Bag 100 ML IVPB SCH ×2 (01:46→09:16)
[2019-05-26] MEDS: Ipratropium/Albuterol Neb 3 ML IH SCH ×6 (03:56→23:16)
[2019-05-26] MEDS: MethylPREDNISolone 40 MG/ML VIAL IVP SCH (06:23)
[2019-05-26] MEDS: *HR* Heparin 5,000 UNIT/ML VIAL SQ SCH ×2 (06:23→17:33)
[2019-05-26 06:41] LABS: Basophils % 0.2 %; Hematocrit 39.4 % (35.3-44.9); Hemoglobin 12.3 g/dL (11.5-15.4); Immature Granulocytes % 0.5 % (0-4); Lymphocytes # 2.4 K/mcL (0.6-4.6); Lymphocytes % 19.4 %; Mean Corpuscular HGB Conc 31.2 g/dL (31.6-35.5); Mean Corpuscular Hemoglobin 27.6 pg (28.0-33.3); Mean Corpuscular Volume 88.5 fL (83.0-100.0); Mean Platelet Volume 11.9 fL (9.4-12.4); Monocytes # 1.2 K/mcL (0.0-1.3); Monocytes % 9.9 %; Neutrophils # 8.8 K/mcL (1.6-8.9); Platelet Count 203 K/mcL (140-400); Red Blood Count 4.45 M/mcL (3.82-4.97); Red Cell Distribution Width 15.5 % (11.5-14.5); White Blood Count 12.5 K/mcL (4.3-11.1)
[2019-05-26 06:56] LABS: BUN/Creatinine Ratio 40 (6-26); Blood Urea Nitrogen 20 mg/dL (6-20); Calcium 10.2 mg/dL (8.6-10.3); Carbon Dioxide 40 mEq/L (23-29); Chloride 94 mEq/L (98-107); Glucose 114 mg/dL (70-105); Magnesium 2.1 mg/dL (1.6-2.6); Osmolality,Calculated 295 (280-300); Potassium 3.7 mEq/L (3.5-5.1); Sodium 141 mEq/L (136-145); eGFR For African Americans > 60 (> 60); eGFR For Non-African Americans > 60 (> 60)
[2019-05-26] MEDS: Iron Polysaccharide Complex 150 MG CAPSULE PO SCH ×2 (09:16→22:32)
[2019-05-26] MEDS: lamoTRIgine 100 MG TABLET PO SCH (09:16)
[2019-05-26] MEDS: Loratadine 10 MG TABLET PO SCH (09:16)
[2019-05-26] MEDS: Furosemide 40 MG TABLET PO SCH (09:16)
[2019-05-26] MEDS: amLODIPine 5 MG TABLET PO SCH (09:16)
[2019-05-26] MEDS: Cyanocobalamin (B-12) 1,000 MCG TABLET PO SCH (09:16)
[2019-05-26] MEDS: Melatonin 3 MG TABLET PO SCH (22:31)
[2019-05-26] MEDS: Topiramate 25 MG TABLET PO SCH (22:32)
[2019-05-27] MEDS: Ipratropium/Albuterol Neb 3 ML IH SCH ×4 (03:32→15:17)
[2019-05-27] MEDS: *HR* Heparin 5,000 UNIT/ML VIAL SQ SCH ×2 (06:00→16:46)
[2019-05-27] MEDS: Furosemide 40 MG TABLET PO SCH (08:36)
[2019-05-27] MEDS: Loratadine 10 MG TABLET PO SCH (08:36)
[2019-05-27] MEDS: amLODIPine 5 MG TABLET PO SCH (08:36)
[2019-05-27] MEDS: Iron Polysaccharide Complex 150 MG CAPSULE PO SCH (08:37)
[2019-05-27] MEDS: Cyanocobalamin (B-12) 1,000 MCG TABLET PO SCH (08:37)
[2019-05-27] MEDS: lamoTRIgine 100 MG TABLET PO SCH (08:37)
[2019-05-27] MEDS ORDERED: predniSONE 20 MG TABLET PO SCH (09:00)
[2019-05-27 14:49] VITALS: BP 134/71
== END 2019-05-27 18:48 | DRG 208 ==
LOC: EMEROOARM 17:37 → SUATTDRO 05-20 00:21 → ICNU 05-20 00:21 → 2NENU 05-23 16:09
PROVIDERS: ADMIT Student in an Organized Health Care Education/Training Program; ATTEND Family Medicine

== ENCOUNTER 2020-01-07 12:57 | Inpatient (IN) ==
[2020-01-07] MEDS ORDERED: 0.9 % Sodium Chloride 250 ML IVC ONE (13:03)
[2020-01-07 14:14] LABS: Red Cell Distribution Width 14.6 % (11.5-14.5); Segmented Neutrophils % 73.8 %
[2020-01-07 14:16] LABS: Basophils % 0.2 %; Hematocrit 38.2 % (35.3-44.9); Lymphocytes # 1.7 K/mcL (0.6-4.6); Lymphocytes % 14.8 %; Mean Corpuscular HGB Conc 28.8 g/dL (31.6-35.5); Mean Corpuscular Hemoglobin 27.9 pg (28.0-33.3); Mean Platelet Volume 11.4 fL (9.4-12.4); Monocytes # 1.1 K/mcL (0.0-1.3); Monocytes % 10.2 %; Neutrophils # 8.3 K/mcL (1.6-8.9); Platelet Count 183 K/mcL (140-400); Red Blood Count 3.94 M/mcL (3.82-4.97); White Blood Count 11.2 K/mcL (4.3-11.1)
[2020-01-07 15:06] LABS: Adenovirus Not Detected (Not Detect); Bordetella Pertussis Not Detected (Not Detect); Chlamydophila pneumoniae Not Detected (Not Detect); Coronavirus 229E Not Detected (Not Detect); Coronavirus HKU1 Not Detected (Not Detect); Coronavirus NL63 Not Detected (Not Detect); Coronavirus OC43 Not Detected (Not Detect); Human Metapneumovirus Not Detected (Not Detect); Human Rhinovirus/Enterovirus Not Detected (Not Detect); Influenza A Subtype 2009 H1 Not Detected (Not Detect); Influenza B Not Detected (Not Detect); Mycoplasma pneumoniae Not Detected (Not Detect); Parainfluenza Virus 1 Not Detected (Not Detect); Parainfluenza Virus 2 Not Detected (Not Detect); Parainfluenza Virus 3 Not Detected (Not Detect); Parainfluenza Virus 4 Not Detected (Not Detect); Respiratory Syncytial Virus Not Detected (Not Detect); SARS-CoV-2 Not Detected (Not Detect)
[2020-01-07 15:10] LABS: Alanine Aminotransferase 14 Units/L (7-52); Albumin 3.5 g/dL (3.5-5.7); Albumin/Globulin Ratio 1.1 (1.1-2.2); Alkaline Phosphatase 106 Units/L (34-104); Aspartate Amino Transferase 18 Units/L (13-39); BUN/Creatinine Ratio 13 (6-26); Bilirubin,Total 0.3 mg/dL (0.3-1.0); Blood Urea Nitrogen 6 mg/dL (6-20); Calcium 9.4 mg/dL (8.6-10.3); Carbon Dioxide 50 mEq/L (23-29); Chloride 91 mEq/L (98-107); Globulin 3.1 g/dL (2.4-3.5); Glucose 179 mg/dL (70-105); Osmolality,Calculated 294 (280-300); Potassium 3.9 mEq/L (3.5-5.1); Sodium 141 mEq/L (136-145); Total Protein 6.6 g/dL (6.4-8.9); Troponin I < 0.03 ng/mL (< 0.04); eGFR For African Americans > 60 (> 60); eGFR For Non-African Americans > 60 (> 60)
[2020-01-07 15:24] LABS: Platelet Estimate Normal (Normal)
[2020-01-07 16:03] LABS: ABG Base Excess 23 mEq/L (-2 to 3); ABG HCO3 56 mEq/L (21-27); ABG Oxygen Saturation 87 % (95-98); ABG PCO2 114 mmHg (35-45); ABG PO2 65 mmHg (85-104); ABG TCO2 > 50 mEq/L (20-26)
[2020-01-07] MEDS ORDERED: cefTRIAXone 1,000 MG in 0.9 % Sodium Chloride Mini Bag 100 ML IVPB ONE (16:19)
[2020-01-07] MEDS ORDERED: Azithromycin 250 MG TABLET PO ONE (16:19)
[2020-01-07] MEDS ORDERED: Naloxone 0.4 MG/ML INJ IVP PRN (16:50)
[2020-01-07] MEDS ORDERED: Ondansetron 4 MG/2 ML VIAL IVP PRN (16:50)
[2020-01-07 17:49] LABS: ABG Base Excess 21 mEq/L (-2 to 3); ABG HCO3 53 mEq/L (21-27); ABG Oxygen Saturation 92 % (95-98); ABG PCO2 104 mmHg (35-45); ABG PH 7.31 pH Units (7.32-7.45); ABG PO2 76 mmHg (85-104); ABG TCO2 > 50 mEq/L (20-26); Blood Gas Pressure Support 14 cm H2O
[2020-01-07] MEDS: *HR* Heparin 5,000 UNIT/ML VIAL SQ SCH (19:33)
[2020-01-07] MEDS: MethylPREDNISolone 40 MG/ML VIAL IVP SCH (19:34)
[2020-01-07] MEDS: Albuterol 2.5 MG/3 ML NEBULIZER IH SCH ×2 (19:56→23:48)
[2020-01-07] MEDS ORDERED: Acetaminophen 325 MG TABLET PO ONE (23:12)
[2020-01-07] MEDS: Piperacillin/Tazobactam 3.375 GM in 0.9 % Sodium Chloride Mini Bag 100 ML IVPB SCH (23:30)
[2020-01-08] MEDS: Albuterol 2.5 MG/3 ML NEBULIZER IH SCH ×2 (03:17→07:29)
[2020-01-08 03:51] LABS: ABG Base Excess 16 mEq/L (-2 to 3); ABG HCO3 46 mEq/L (21-27); ABG Oxygen Saturation 88 % (95-98); ABG PCO2 88 mmHg (35-45); ABG PH 7.32 pH Units (7.32-7.45); ABG PO2 63 mmHg (85-104); ABG TCO2 49 mEq/L (20-26); Blood Gas Pressure Support 6 cm H2O
[2020-01-08] MEDS: Nystatin POWDER 30 GM BOTTLE TP SCH ×4 (04:04→20:28)
[2020-01-08 05:44] LABS: Basophils % 0.3 %; Immature Granulocytes % 1.8 % (0-4); Mean Corpuscular HGB Conc 28.6 g/dL (31.6-35.5)
[2020-01-08 05:46] LABS: Hematocrit 36.7 % (35.3-44.9); Hemoglobin 10.5 g/dL (11.5-15.4); Lymphocytes # 1.1 K/mcL (0.6-4.6); Mean Corpuscular Hemoglobin 27.7 pg (28.0-33.3); Mean Corpuscular Volume 96.8 fL (83.0-100.0); Mean Platelet Volume 11.9 fL (9.4-12.4); Monocytes # 0.4 K/mcL (0.0-1.3); Monocytes % 3.5 %; Neutrophils # 9.6 K/mcL (1.6-8.9); Nucleated Red Blood Cells 0.2 /100 WBC (0); Platelet Count 209 K/mcL (140-400); Red Blood Count 3.79 M/mcL (3.82-4.97); Red Cell Distribution Width 14.4 % (11.5-14.5); Segmented Neutrophils % 84.4 %; White Blood Count 11.4 K/mcL (4.3-11.1)
[2020-01-08] MEDS: *HR* Heparin 5,000 UNIT/ML VIAL SQ SCH ×3 (05:52→20:30)
[2020-01-08 06:06] LABS: BUN/Creatinine Ratio 25 (6-26); Blood Urea Nitrogen 11 mg/dL (6-20); Calcium 9.7 mg/dL (8.6-10.3); Carbon Dioxide 44 mEq/L (23-29); Chloride 90 mEq/L (98-107); Glucose 222 mg/dL (70-105); Osmolality,Calculated 296 (280-300); Potassium 4.1 mEq/L (3.5-5.1); Sodium 140 mEq/L (136-145); eGFR For African Americans > 60 (> 60); eGFR For Non-African Americans > 60 (> 60)
[2020-01-08 06:17] LABS: Large Platelets Present (Not Present); Platelet Estimate Normal (Normal)
[2020-01-08] MEDS: Piperacillin/Tazobactam 3.375 GM in 0.9 % Sodium Chloride Mini Bag 100 ML IVPB SCH ×3 (09:03→23:54)
[2020-01-08] MEDS: MethylPREDNISolone 40 MG/ML VIAL IVP SCH ×2 (09:04→20:30)
[2020-01-08] MEDS ORDERED: Artificial Tears SOLN 15 ML BOTTLE BOTH EYES PRN (10:18)
[2020-01-08] MEDS ORDERED: *HR* OxyCODONE Immed Rel 5 MG TABLET PO PRN ×2 (10:18)
[2020-01-08] MEDS ORDERED: polyethylene glycoL 3350 17 GM POWD.PACK PO PRN (10:18)
[2020-01-08] MEDS: Furosemide 40 MG TABLET PO SCH (11:00)
[2020-01-08] MEDS: Ipratropium/Albuterol Neb 3 ML IH SCH ×4 (11:04→23:31)
[2020-01-08] MEDS: *HR* LORazepam 1 MG TABLET PO SCH ×2 (13:48→20:29)
[2020-01-08] MEDS ORDERED: Azithromycin 500 MG in 0.9 % Sodium Chloride 250 ML IVPB SCH (17:00)
[2020-01-08] MEDS ORDERED: Azithromycin 250 MG TABLET PO SCH (18:00)
[2020-01-08] MEDS: Melatonin 3 MG TABLET PO SCH (20:29)
[2020-01-08] MEDS: Topiramate 25 MG TABLET PO SCH (20:30)
[2020-01-09] MEDS: Ipratropium/Albuterol Neb 3 ML IH SCH ×6 (03:25→23:44)
[2020-01-09] MEDS: *HR* Heparin 5,000 UNIT/ML VIAL SQ SCH ×3 (05:54→20:13)
[2020-01-09 06:00] LABS: Basophils % 0.3 %; Hematocrit 35.8 % (35.3-44.9); Hemoglobin 10.5 g/dL (11.5-15.4); Immature Granulocytes % 1.7 % (0-4); Lymphocytes # 1.5 K/mcL (0.6-4.6); Mean Corpuscular HGB Conc 29.3 g/dL (31.6-35.5); Mean Corpuscular Hemoglobin 27.9 pg (28.0-33.3); Mean Platelet Volume 11.6 fL (9.4-12.4); Monocytes # 0.9 K/mcL (0.0-1.3); Monocytes % 7.6 %; Neutrophils # 8.9 K/mcL (1.6-8.9); Platelet Count 241 K/mcL (140-400); Red Blood Count 3.77 M/mcL (3.82-4.97); Red Cell Distribution Width 14.4 % (11.5-14.5); Segmented Neutrophils % 77.4 %; White Blood Count 11.5 K/mcL (4.3-11.1)
[2020-01-09 06:05] LABS: BUN/Creatinine Ratio 30 (6-26); Blood Urea Nitrogen 16 mg/dL (6-20); Calcium 9.9 mg/dL (8.6-10.3); Carbon Dioxide 44 mEq/L (23-29); Chloride 91 mEq/L (98-107); Glucose 299 mg/dL (70-105); Magnesium 1.9 mg/dL (1.6-2.6); Osmolality,Calculated 300 (280-300); Sodium 139 mEq/L (136-145); eGFR For African Americans > 60 (> 60); eGFR For Non-African Americans > 60 (> 60)
[2020-01-09] MEDS: MethylPREDNISolone 40 MG/ML VIAL IVP SCH ×2 (07:56→20:11)
[2020-01-09] MEDS: Piperacillin/Tazobactam 3.375 GM in 0.9 % Sodium Chloride Mini Bag 100 ML IVPB SCH ×2 (07:58→16:49)
[2020-01-09] MEDS: Cyanocobalamin (B-12) 1,000 MCG TABLET PO SCH (07:58)
[2020-01-09] MEDS: Furosemide 40 MG TABLET PO SCH (07:58)
[2020-01-09] MEDS: *HR* LORazepam 1 MG TABLET PO SCH ×3 (07:59→20:13)
[2020-01-09] MEDS: lamoTRIgine 100 MG TABLET PO SCH (07:59)
[2020-01-09] MEDS: Nystatin POWDER 30 GM BOTTLE TP SCH ×3 (07:59→20:14)
[2020-01-09] MEDS: amLODIPine 5 MG TABLET PO SCH (07:59)
[2020-01-09] MEDS: Loratadine 10 MG TABLET PO SCH (07:59)
[2020-01-09] MEDS: Benzonatate 100 MG CAPSULE PO PRN ×2 (10:12→20:12)
[2020-01-09] MEDS: Doxycycline 100 MG CAPSULE PO SCH ×2 (13:00→20:13)
[2020-01-09] MEDS: Topiramate 25 MG TABLET PO SCH (20:13)
[2020-01-09] MEDS: Melatonin 3 MG TABLET PO SCH (20:13)
[2020-01-10] MEDS: Piperacillin/Tazobactam 3.375 GM in 0.9 % Sodium Chloride Mini Bag 100 ML IVPB SCH ×4 (00:05→23:02)
[2020-01-10] MEDS: HYDROcodone BIT/Homatropine LQ 5 MG/5 ML UDC PO PRN ×2 (00:17→23:02)
[2020-01-10] MEDS: Ipratropium/Albuterol Neb 3 ML IH SCH ×7 (03:44→23:19)
[2020-01-10] MEDS: *HR* Heparin 5,000 UNIT/ML VIAL SQ SCH ×3 (05:20→21:06)
[2020-01-10] MEDS: Doxycycline 100 MG CAPSULE PO SCH ×2 (08:22→21:06)
[2020-01-10] MEDS: Cyanocobalamin (B-12) 1,000 MCG TABLET PO SCH (08:23)
[2020-01-10] MEDS: Furosemide 40 MG TABLET PO SCH (08:23)
[2020-01-10] MEDS: *HR* LORazepam 1 MG TABLET PO SCH ×3 (08:23→21:07)
[2020-01-10] MEDS: amLODIPine 5 MG TABLET PO SCH (08:23)
[2020-01-10] MEDS: Loratadine 10 MG TABLET PO SCH (08:23)
[2020-01-10] MEDS: lamoTRIgine 100 MG TABLET PO SCH (08:23)
[2020-01-10] MEDS: MethylPREDNISolone 40 MG/ML VIAL IVP SCH ×2 (08:24→21:07)
[2020-01-10] MEDS: Nystatin POWDER 30 GM BOTTLE TP SCH ×3 (08:34→21:07)
[2020-01-10 08:35] LABS: Red Cell Distribution Width 14.5 % (11.5-14.5)
[2020-01-10 08:36] LABS: Basophils # 0.1 K/mcL (0.0-0.2); Basophils % 0.4 %; Hematocrit 35.3 % (35.3-44.9); Hemoglobin 10.5 g/dL (11.5-15.4); Immature Granulocytes % 2.7 % (0-4); Lymphocytes # 2.2 K/mcL (0.6-4.6); Lymphocytes % 19.5 %; Mean Corpuscular HGB Conc 29.7 g/dL (31.6-35.5); Mean Corpuscular Volume 94.1 fL (83.0-100.0); Mean Platelet Volume 11.2 fL (9.4-12.4); Monocytes # 1.1 K/mcL (0.0-1.3); Monocytes % 9.7 %; Neutrophils # 7.7 K/mcL (1.6-8.9); Platelet Count 231 K/mcL (140-400); Red Blood Count 3.75 M/mcL (3.82-4.97); Segmented Neutrophils % 67.7 %; White Blood Count 11.3 K/mcL (4.3-11.1)
[2020-01-10 08:53] LABS: BUN/Creatinine Ratio 29 (6-26); Blood Urea Nitrogen 16 mg/dL (6-20); Calcium 9.5 mg/dL (8.6-10.3); Carbon Dioxide 43 mEq/L (23-29); Chloride 92 mEq/L (98-107); Glucose 291 mg/dL (70-105); Magnesium 1.9 mg/dL (1.6-2.6); Osmolality,Calculated 298 (280-300); Potassium 4.1 mEq/L (3.5-5.1); Sodium 138 mEq/L (136-145); eGFR For African Americans > 60 (> 60); eGFR For Non-African Americans > 60 (> 60)
[2020-01-10] MEDS: Benzonatate 100 MG CAPSULE PO PRN (21:06)
[2020-01-10] MEDS: Topiramate 25 MG TABLET PO SCH (21:06)
[2020-01-10] MEDS: Melatonin 3 MG TABLET PO SCH (21:06)
[2020-01-11] MEDS: Ipratropium/Albuterol Neb 3 ML IH SCH ×6 (03:53→23:55)
[2020-01-11 05:33] LABS: Hematocrit 37.2 % (35.3-44.9); Monocytes % 7.9 %
[2020-01-11] MEDS: *HR* Heparin 5,000 UNIT/ML VIAL SQ SCH ×3 (05:33→21:20)
[2020-01-11 05:35] LABS: Basophils # 0.1 K/mcL (0.0-0.2); Basophils % 0.7 %; Immature Granulocytes % 4.8 % (0-4); Lymphocytes # 1.7 K/mcL (0.6-4.6); Lymphocytes % 13.4 %; Mean Corpuscular HGB Conc 29.6 g/dL (31.6-35.5); Mean Corpuscular Hemoglobin 27.9 pg (28.0-33.3); Mean Corpuscular Volume 94.4 fL (83.0-100.0); Mean Platelet Volume 11.5 fL (9.4-12.4); Neutrophils # 9.2 K/mcL (1.6-8.9); Platelet Count 235 K/mcL (140-400); Red Blood Count 3.94 M/mcL (3.82-4.97); Red Cell Distribution Width 14.5 % (11.5-14.5); Segmented Neutrophils % 73.2 %; White Blood Count 12.6 K/mcL (4.3-11.1)
[2020-01-11 05:57] LABS: BUN/Creatinine Ratio 26 (6-26); Blood Urea Nitrogen 20 mg/dL (6-20); Calcium 9.3 mg/dL (8.6-10.3); Carbon Dioxide 42 mEq/L (23-29); Chloride 89 mEq/L (98-107); Glucose 453 mg/dL (70-105); Osmolality,Calculated 302 (280-300); Platelet Estimate Normal (Normal); Potassium 4.8 mEq/L (3.5-5.1); Sodium 135 mEq/L (136-145); eGFR For African Americans > 60 (> 60); eGFR For Non-African Americans > 60 (> 60)
[2020-01-11] MEDS ORDERED: Insulin Human Regular 10 UNIT in 0.9 % Sodium Chloride 10 ML IV ONE ×2 (08:11→10:11)
[2020-01-11] MEDS: Piperacillin/Tazobactam 3.375 GM in 0.9 % Sodium Chloride Mini Bag 100 ML IVPB SCH ×3 (08:18→23:49)
[2020-01-11] MEDS: *HR* LORazepam 1 MG TABLET PO SCH ×3 (08:19→21:21)
[2020-01-11] MEDS: MethylPREDNISolone 40 MG/ML VIAL IVP SCH (08:19)
[2020-01-11] MEDS: Furosemide 40 MG TABLET PO SCH (08:19)
[2020-01-11] MEDS: Doxycycline 100 MG CAPSULE PO SCH ×2 (08:19→21:18)
[2020-01-11] MEDS: Cyanocobalamin (B-12) 1,000 MCG TABLET PO SCH (08:20)
[2020-01-11] MEDS: amLODIPine 5 MG TABLET PO SCH (08:20)
[2020-01-11] MEDS: lamoTRIgine 100 MG TABLET PO SCH (08:20)
[2020-01-11] MEDS: Loratadine 10 MG TABLET PO SCH (08:20)
[2020-01-11] MEDS ORDERED: Insulin DETEMIR 100 UNIT/ML X5UNITS SQ ONE ×2 (10:11→14:14)
[2020-01-11] MEDS ORDERED: *HR* Dextrose 50 % in Water (Vial) 50 ML VIAL IVP PRN (10:12)
[2020-01-11] MEDS ORDERED: D5% in Water 1,000 ML IVC PRN (10:12)
[2020-01-11] MEDS ORDERED: Dextrose Gel 15 GM/37.5 ML TUBE PO PRN ×2 (10:12)
[2020-01-11] MEDS: Nystatin POWDER 30 GM BOTTLE TP SCH ×3 (10:57→21:32)
[2020-01-11] MEDS: Insulin LISPRO 300 UNITS/3 ML VIAL SQ SCH ×3 (12:40→16:28)
[2020-01-11] MEDS ORDERED: Insulin DETEMIR 100 UNIT/ML X5UNITS SQ SCH (21:00)
[2020-01-11] MEDS ORDERED: Insulin LISPRO 300 UNITS/3 ML VIAL SQ SCH (21:00)
[2020-01-11] MEDS: Benzonatate 100 MG CAPSULE PO PRN (21:18)
[2020-01-11] MEDS: Topiramate 25 MG TABLET PO SCH (21:19)
[2020-01-11] MEDS: Melatonin 3 MG TABLET PO SCH (21:19)
[2020-01-11] MEDS: HYDROcodone BIT/Homatropine LQ 5 MG/5 ML UDC PO PRN (23:58)
[2020-01-12] MEDS: Ipratropium/Albuterol Neb 3 ML IH SCH ×5 (03:35→19:35)
[2020-01-12] MEDS: *HR* Heparin 5,000 UNIT/ML VIAL SQ SCH ×2 (05:41→16:15)
[2020-01-12] MEDS ORDERED: predniSONE 20 MG TABLET PO SCH (09:00)
[2020-01-12] MEDS: Insulin LISPRO 300 UNITS/3 ML VIAL SQ SCH ×3 (09:10→16:20)
[2020-01-12] MEDS: lamoTRIgine 100 MG TABLET PO SCH (09:11)
[2020-01-12] MEDS: Cyanocobalamin (B-12) 1,000 MCG TABLET PO SCH (09:11)
[2020-01-12] MEDS: Doxycycline 100 MG CAPSULE PO SCH (09:11)
[2020-01-12] MEDS: Loratadine 10 MG TABLET PO SCH (09:11)
[2020-01-12] MEDS: amLODIPine 5 MG TABLET PO SCH (09:12)
[2020-01-12] MEDS: Piperacillin/Tazobactam 3.375 GM in 0.9 % Sodium Chloride Mini Bag 100 ML IVPB SCH (09:12)
[2020-01-12] MEDS: *HR* LORazepam 1 MG TABLET PO SCH ×2 (09:12→16:15)
[2020-01-12] MEDS: Furosemide 40 MG TABLET PO SCH (09:12)
[2020-01-12] MEDS: Nystatin POWDER 30 GM BOTTLE TP SCH ×2 (12:15→16:24)
[2020-01-12 14:33] LABS: Basophils # 0.1 K/mcL (0.0-0.2); Basophils % 0.5 %; Hematocrit 39.2 % (35.3-44.9); Hemoglobin 11.6 g/dL (11.5-15.4); Immature Granulocytes % 4.3 % (0-4); Lymphocytes # 1.6 K/mcL (0.6-4.6); Lymphocytes % 9.9 %; Mean Corpuscular HGB Conc 29.6 g/dL (31.6-35.5); Mean Corpuscular Hemoglobin 27.3 pg (28.0-33.3); Mean Corpuscular Volume 92.2 fL (83.0-100.0); Mean Platelet Volume 11.4 fL (9.4-12.4); Monocytes # 1.1 K/mcL (0.0-1.3); Monocytes % 6.5 %; Neutrophils # 12.9 K/mcL (1.6-8.9); Platelet Count 234 K/mcL (140-400); Red Blood Count 4.25 M/mcL (3.82-4.97); Red Cell Distribution Width 14.9 % (11.5-14.5); Segmented Neutrophils % 78.8 %; White Blood Count 16.4 K/mcL (4.3-11.1)
[2020-01-12 15:00] LABS: BUN/Creatinine Ratio 24 (6-26); Blood Urea Nitrogen 24 mg/dL (6-20); Calcium 9.7 mg/dL (8.6-10.3); Carbon Dioxide 44 mEq/L (23-29); Chloride 90 mEq/L (98-107); Glucose 326 mg/dL (70-105); Magnesium 1.9 mg/dL (1.6-2.6); Osmolality,Calculated 301 (280-300); Potassium 4.2 mEq/L (3.5-5.1); Sodium 137 mEq/L (136-145); eGFR For African Americans > 60 (> 60); eGFR For Non-African Americans 58 (> 60)
[2020-01-12 15:28] LABS: Estimated Average Glucose 183 mg/dl
[2020-01-12 16:03] VITALS: BP 109/68
[2020-01-12] MEDS ORDERED: Insulin DETEMIR 100 UNIT/ML X5UNITS SQ ONE (16:45)
[2020-01-12] MEDS: Benzonatate 100 MG CAPSULE PO PRN (18:56)
== END 2020-01-12 20:06 | DRG 871 ==
LOC: EMEROOARM 12:57 → 2ANU 12:57 → SUATTDRO 16:50 → 2ANU 17:44
PROVIDERS: ADMIT Internal Medicine; ATTEND Internal Medicine

== ENCOUNTER 2021-12-15 16:23 | Inpatient (IN) ==
[2021-12-15] MEDS ORDERED: Morphine Sulfate 2 MG/ML SYRINGE IVP PRN (16:51)
[2021-12-15] MEDS ORDERED: Acetaminophen 325 MG TABLET PO ONE (16:51)
[2021-12-15] MEDS ORDERED: Piperacillin/Tazobactam 3.375 GM in 0.9 % Sodium Chloride Mini Bag 100 ML IVPB ONE (16:54)
[2021-12-15 17:11] LABS: VBG HCO3 35 mEq/L (21-27); VBG PCO2 56 mmHg (41-51); VBG PO2 99 mmHg (25-50)
[2021-12-15 17:12] LABS: Basophils % 0.3 %; Hemoglobin 12.6 g/dL (11.5-15.4); Immature Granulocytes % 0.9 % (0-4); Lymphocytes # 1.4 K/mcL (0.6-4.6); Lymphocytes % 8.5 %; Mean Corpuscular HGB Conc 31.5 g/dL (31.6-35.5); Mean Corpuscular Hemoglobin 28.8 pg (28.0-33.3); Mean Corpuscular Volume 91.3 fL (83.0-100.0); Mean Platelet Volume 11.5 fL (9.4-12.4); Monocytes # 1.8 K/mcL (0.0-1.3); Monocytes % 11.3 %; Neutrophils # 12.6 K/mcL (1.6-8.9); Platelet Count 174 K/mcL (140-400); Red Blood Count 4.38 M/mcL (3.82-4.97)
[2021-12-15 17:25] LABS: INR 1.2; Prothrombin Time 13.5 Seconds (9.4-12.1)
[2021-12-15 17:28] LABS: Activated Partial Thrombo Time 33.7 Seconds (26.0-36.0)
[2021-12-15] MEDS: Ringers Solution, Lactated 1,000 ML IVC SCH ×2 (17:39→21:22)
[2021-12-15 17:41] LABS: Alanine Aminotransferase 20 Units/L (7-52); Albumin 3.3 g/dL (3.5-5.7); Alkaline Phosphatase 140 Units/L (34-104); Amylase 12 Units/L (29-103); Aspartate Amino Transferase 17 Units/L (13-39); BUN/Creatinine Ratio 15 (6-26); Bilirubin,Direct 0.2 mg/dL (0.0-0.2); Bilirubin,Indirect 0.4 mg/dL (0.0-1.0); Bilirubin,Total 0.6 mg/dL (0.3-1.0); Blood Urea Nitrogen 8 mg/dL (6-20); Calcium 8.7 mg/dL (8.6-10.3); Carbon Dioxide 36 mEq/L (23-29); Chloride 90 mEq/L (98-107); Globulin 3.2 g/dL (2.4-3.5); Glucose 340 mg/dL (70-105); Lipase 11 Units/L (11-82); Magnesium 1.3 mg/dL (1.6-2.6); Osmolality,Calculated 286 (280-300); Phosphorous 3.1 mg/dL (2.7-4.5); Potassium 3.8 mEq/L (3.5-5.1); Sodium 132 mEq/L (136-145); Total Protein 6.5 g/dL (6.4-8.9); Troponin I < 0.03 ng/mL (< 0.04)
[2021-12-15] MEDS ORDERED: Insulin Human Regular 10 UNIT in 0.9 % Sodium Chloride 10 ML IV ONE (18:54)
[2021-12-15 19:42] LABS: Bacteria,Urine Few per hpf (None-Few); Bilirubin,Urine Negative (Negative); Blood,Urine Negative (Negative); Clarity,Urine Clear (Clear); Color,Urine Light-Yellow (Yellow); Glucose,Urine (UA) Normal (Normal); Ketones,Urine Negative (Negative); Leukocyte Esterase,Urine Moderate (Negative); Mucus,Urine Few per lpf (None-Few); Nitrite,Urine Negative (Negative); Protein,Urine Trace mg/dL (Neg-Trace); RBC,Urine 0-3 per hpf (0-3); Specific Gravity,Urine 1.017 (1.010-1.025); Squamous Epithelial Cell,Urine Few per hpf (None-Few); Urobilinogen,Urine Normal (Normal); WBC,Urine 15-30 per hpf (0-3)
[2021-12-15] MEDS ORDERED: Acetaminophen 325 MG TABLET PO PRN (20:12)
[2021-12-15] MEDS ORDERED: Melatonin 3 MG TABLET PO PRN (20:12)
[2021-12-15] MEDS ORDERED: Naloxone 0.4 MG/ML INJ IVP PRN (20:12)
[2021-12-15] MEDS ORDERED: Ondansetron ODT 4 MG TAB.RAPDIS SL PRN (20:12)
[2021-12-15] MEDS ORDERED: Ringers Solution, Lactated 1,000 ML IVC SCH (20:15)
[2021-12-15] MEDS ORDERED: *HR* Dextrose 50 % in Water (Syg) 50 ML SYRINGE IVP PRN (20:18)
[2021-12-15] MEDS ORDERED: D5% in Water 1,000 ML IVC PRN (20:18)
[2021-12-15] MEDS ORDERED: Dextrose Gel 15 GM/37.5 ML TUBE PO PRN ×2 (20:18)
[2021-12-15] MEDS ORDERED: *HR* Heparin 5,000 UNIT/ML VIAL SQ SCH (22:00)
[2021-12-15] MEDS: Insulin DETEMIR 100 UNIT/ML X5UNITS SUBQ SCH (22:32)
[2021-12-16] MEDS: Insulin LISPRO 300 UNITS/3 ML VIAL SUBQ SCH ×3 (00:12→12:58)
[2021-12-16] MEDS: Piperacillin/Tazobactam 3.375 GM in 0.9 % Sodium Chloride Mini Bag 100 ML IVPB SCH ×2 (00:40→12:47)
[2021-12-16] MEDS: Ipratropium/Albuterol Neb 3 ML IH PRN ×2 (01:41→07:43)
[2021-12-16 06:12] LABS: Basophils % 0.2 %; Hematocrit 40.2 % (35.3-44.9); Hemoglobin 12.6 g/dL (11.5-15.4); Immature Granulocytes % 0.7 % (0-4); Lymphocytes # 1.3 K/mcL (0.6-4.6); Lymphocytes % 8.6 %; Mean Corpuscular HGB Conc 31.3 g/dL (31.6-35.5); Mean Corpuscular Hemoglobin 28.4 pg (28.0-33.3); Mean Corpuscular Volume 90.5 fL (83.0-100.0); Mean Platelet Volume 11.9 fL (9.4-12.4); Monocytes # 1.8 K/mcL (0.0-1.3); Monocytes % 11.8 %; Neutrophils # 12.3 K/mcL (1.6-8.9); Platelet Count 174 K/mcL (140-400); Red Blood Count 4.44 M/mcL (3.82-4.97); Red Cell Distribution Width 14.2 % (11.5-14.5); Segmented Neutrophils % 78.7 %; White Blood Count 15.6 K/mcL (4.3-11.1)
[2021-12-16 06:35] LABS: Alanine Aminotransferase 22 Units/L (7-52); Albumin 3.2 g/dL (3.5-5.7); Albumin/Globulin Ratio 1.1 (1.1-2.2); Alkaline Phosphatase 138 Units/L (34-104); Aspartate Amino Transferase 24 Units/L (13-39); BUN/Creatinine Ratio 15 (6-26); Bilirubin,Total 0.8 mg/dL (0.3-1.0); Blood Urea Nitrogen 8 mg/dL (6-20); Calcium 8.5 mg/dL (8.6-10.3); Carbon Dioxide 39 mEq/L (23-29); Chloride 91 mEq/L (98-107); Chol/HDL Ratio 5.3 (0-4.9); Cholesterol 122 mg/dL (< 200); Globulin 2.9 g/dL (2.4-3.5); Glucose 271 mg/dL (70-105); HDL Cholesterol 23 mg/dL (40-59); LDL Cholesterol,Calculated 75 mg/dL (< 100); Magnesium 1.6 mg/dL (1.6-2.6); Osmolality,Calculated 286 (280-300); Phosphorous 3.3 mg/dL (2.7-4.5); Potassium 3.5 mEq/L (3.5-5.1); Sodium 134 mEq/L (136-145); Total Protein 6.1 g/dL (6.4-8.9); Triglycerides 121 mg/dL (< 150)
[2021-12-16] MEDS ORDERED: *HR* HYDROmorphone (PF) 1 MG/ML SYRINGE IVP PRN ×3 (08:38→18:33)
[2021-12-16] MEDS ORDERED: Morphine Sulfate 2 MG/ML SYRINGE IVP ONE (09:57)
[2021-12-16] MEDS ORDERED: *HR* Midazolam HCl 2 MG/2 ML VIAL ONE (12:49)
[2021-12-16] MEDS ORDERED: Lidocaine HCL 4 ML Topical Solution (Laryng-O-Jet Kit Sterile Pak) TP ONE (12:49)
[2021-12-16] MEDS ORDERED: Lidocaine -MPF 2% 5 ML VIAL ONE (12:49)
[2021-12-16] MEDS ORDERED: *HR* Rocuronium Bromide 50 MG/5 ML VIAL ONE ×2 (12:49→14:10)
[2021-12-16] MEDS ORDERED: Ondansetron 4 MG/2 ML VIAL ONE ×2 (12:49→16:57)
[2021-12-16] MEDS ORDERED: *HR* Propofol 200 MG/20 ML VIAL IVP ONE (12:49)
[2021-12-16] MEDS ORDERED: *HR* FentaNYL (PF) 100 MCG/2 ML VIAL ONE (12:49)
[2021-12-16] MEDS: Insulin DETEMIR 100 UNIT/ML X5UNITS SUBQ SCH (12:58)
[2021-12-16] MEDS ORDERED: *HR* HYDROMORPHONE 2 MG/ML VIAL ONE (14:16)
[2021-12-16] MEDS: *HR* Metoprolol 5 MG/5 ML VIAL IVP PRN ×2 (16:38→16:53)
[2021-12-16] MEDS ORDERED: Ondansetron 4 MG/2 ML VIAL IVP ONE (16:57)
[2021-12-16] MEDS ORDERED: *HR* FentaNYL (PF) 100 MCG/2 ML VIAL IVP PRN (17:12)
[2021-12-16 17:15] LABS: ABG Base Excess 6 mEq/L (-2 to 3); ABG HCO3 36 mEq/L (21-27); ABG Oxygen Saturation 97 % (95-98); ABG PCO2 76 mmHg (35-45); ABG PH 7.28 pH Units (7.32-7.45); ABG PO2 103 mmHg (85-104); ABG TCO2 38 mEq/L (20-26); Blood Gas Modality SIMV; Blood Gas Pressure Support 10 cm H2O; Blood Gas VT 570 cc
[2021-12-16] MEDS ORDERED: *HR* Midazolam HCl 2 MG/2 ML VIAL IVP PRN (17:24)
[2021-12-16] MEDS ORDERED: *HR* HYDROmorphone (PF) 1 MG/ML SYRINGE IVP ONE ×2 (17:30→18:47)
[2021-12-16 17:55] LABS: ABG Base Excess 5 mEq/L (-2 to 3); ABG HCO3 31 mEq/L (21-27); ABG Oxygen Saturation 97 % (95-98); ABG PCO2 48 mmHg (35-45); ABG PH 7.41 pH Units (7.32-7.45); ABG PO2 90 mmHg (85-104); ABG TCO2 32 mEq/L (20-26); Blood Gas Modality SIMV; Blood Gas Pressure Support 10 cm H2O; Blood Gas VT 570 cc
[2021-12-16] MEDS ORDERED: Ondansetron ODT 4 MG TAB.RAPDIS SL PRN (18:33)
[2021-12-16] MEDS ORDERED: Acetaminophen 325 MG TABLET PO PRN (18:33)
[2021-12-16] MEDS ORDERED: Ipratropium/Albuterol Neb 3 ML IH PRN (18:33)
[2021-12-16] MEDS ORDERED: *HR* Dextrose 50 % in Water (Syg) 50 ML SYRINGE IVP PRN (18:33)
[2021-12-16] MEDS ORDERED: Naloxone 0.4 MG/ML INJ IVP PRN (18:33)
[2021-12-16] MEDS ORDERED: Melatonin 3 MG TABLET PO PRN (18:33)
[2021-12-16] MEDS ORDERED: D5% in Water 1,000 ML IVC PRN (18:33)
[2021-12-16] MEDS ORDERED: Dextrose Gel 15 GM/37.5 ML TUBE PO PRN ×2 (18:33)
[2021-12-16 21:00] LABS: ABG Base Excess 5 mEq/L (-2 to 3); ABG HCO3 29 mEq/L (21-27); ABG Oxygen Saturation 98 % (95-98); ABG PCO2 43 mmHg (35-45); ABG PH 7.44 pH Units (7.32-7.45); ABG PO2 105 mmHg (85-104); ABG TCO2 31 mEq/L (20-26); Blood Gas Modality SIMV; Blood Gas Pressure Support 10 cm H2O; Blood Gas VT 570 cc
[2021-12-16] MEDS ORDERED: Insulin DETEMIR 100 UNIT/ML X5UNITS SUBQ SCH (21:00)
[2021-12-16] MEDS: *HR* Heparin 5,000 UNIT/ML VIAL SQ SCH (21:54)
[2021-12-16] MEDS ORDERED: *HR* Heparin 5,000 UNIT/ML VIAL SQ SCH (22:00)
[2021-12-16] MEDS ORDERED: Dexmedetomidine HCl 400 MCG/100 ML MLS IVC SCH (22:45)
[2021-12-16] MEDS ORDERED: Artificial Tears SOLN 15 ML BOTTLE BOTH EYES PRN (23:13)
[2021-12-16] MEDS ORDERED: FentaNYL (PF) 1,000 MCG/100 ML IV.SOLN IVC SCH (23:15)
[2021-12-17] MEDS ORDERED: D5% in Water 1,000 ML IVC PRN ×2 (03:35→16:15)
[2021-12-17] MEDS ORDERED: *HR* Dextrose 50 % in Water (Syg) 50 ML SYRINGE IVP PRN ×2 (03:35→16:15)
[2021-12-17] MEDS ORDERED: Dextrose Gel 15 GM/37.5 ML TUBE PO PRN ×4 (03:35→16:15)
[2021-12-17] MEDS: Piperacillin/Tazobactam 3.375 GM in 0.9 % Sodium Chloride Mini Bag 100 ML IVPB SCH ×4 (03:40→23:01)
[2021-12-17] MEDS: Artificial Tears SOLN 15 ML BOTTLE BOTH EYES SCH ×3 (03:56→07:44)
[2021-12-17] MEDS: Insulin LISPRO 300 UNITS/3 ML VIAL SUBQ SCH ×6 (03:57→22:32)
[2021-12-17 05:05] LABS: ABG Base Excess 8 mEq/L (-2 to 3); ABG HCO3 31 mEq/L (21-27); ABG Oxygen Saturation 97 % (95-98); ABG PCO2 38 mmHg (35-45); ABG PH 7.52 pH Units (7.32-7.45); ABG PO2 84 mmHg (85-104); ABG TCO2 33 mEq/L (20-26); Blood Gas Modality SIMV; Blood Gas Pressure Support 10 cm H2O; Blood Gas VT 570 cc
[2021-12-17] MEDS: *HR* Heparin 5,000 UNIT/ML VIAL SQ SCH ×3 (06:14→21:31)
[2021-12-17 06:17] LABS: Basophils % 0.2 %; Hematocrit 35.3 % (35.3-44.9); Hemoglobin 11.4 g/dL (11.5-15.4); Immature Granulocytes % 0.8 % (0-4); Lymphocytes # 1.1 K/mcL (0.6-4.6); Lymphocytes % 6.6 %; Mean Corpuscular HGB Conc 32.3 g/dL (31.6-35.5); Mean Corpuscular Hemoglobin 29.1 pg (28.0-33.3); Mean Corpuscular Volume 90.1 fL (83.0-100.0); Mean Platelet Volume 12.4 fL (9.4-12.4); Monocytes # 1.6 K/mcL (0.0-1.3); Monocytes % 9.5 %; Neutrophils # 14.3 K/mcL (1.6-8.9); Platelet Count 173 K/mcL (140-400); Red Blood Count 3.92 M/mcL (3.82-4.97); Segmented Neutrophils % 82.9 %; White Blood Count 17.2 K/mcL (4.3-11.1)
[2021-12-17] MEDS ORDERED: Pantoprazole 40 MG VIAL IVP SCH (06:30)
[2021-12-17 06:39] LABS: BUN/Creatinine Ratio 25 (6-26); Blood Urea Nitrogen 15 mg/dL (6-20); Calcium 8.3 mg/dL (8.6-10.3); Carbon Dioxide 32 mEq/L (23-29); Chloride 93 mEq/L (98-107); Glucose 399 mg/dL (70-105); Osmolality,Calculated 292 (280-300); Potassium 3.5 mEq/L (3.5-5.1); Sodium 132 mEq/L (136-145)
[2021-12-17] MEDS ORDERED: Chlorhexidine Rinse 15 ML MOUTHWASH MM SCH (09:00)
[2021-12-17] MEDS ORDERED: Insulin DETEMIR 100 UNIT/ML X5UNITS SUBQ SCH (09:00)
[2021-12-17] MEDS ORDERED: Ondansetron ODT 4 MG TAB.RAPDIS SL PRN (16:15)
[2021-12-17] MEDS ORDERED: Naloxone 0.4 MG/ML INJ IVP PRN (16:15)
[2021-12-17] MEDS ORDERED: Melatonin 3 MG TABLET PO PRN (16:15)
[2021-12-17] MEDS ORDERED: Artificial Tears SOLN 15 ML BOTTLE BOTH EYES PRN (16:28)
[2021-12-17] MEDS: Ondansetron 4 MG/2 ML VIAL IVP PRN (18:20)
[2021-12-17] MEDS: Difluprednate [Durezol] 5 ML Drops OP SCH (18:28)
[2021-12-17] MEDS: Insulin DETEMIR 100 UNIT/ML X5UNITS SUBQ SCH (21:31)
[2021-12-17] MEDS: *HR* LORazepam 1 MG TABLET PO SCH (21:32)
[2021-12-17] MEDS: Melatonin 3 MG TABLET PO SCH (21:32)
[2021-12-17] MEDS: Acetaminophen 325 MG TABLET PO PRN (22:20)
[2021-12-17] MEDS: methocarbamoL 750 MG TABLET PO SCH (23:05)
[2021-12-18] MEDS: *HR* Heparin 5,000 UNIT/ML VIAL SQ SCH ×3 (05:53→22:52)
[2021-12-18 05:55] LABS: Basophils % 0.2 %; Hematocrit 33.7 % (35.3-44.9); Hemoglobin 10.5 g/dL (11.5-15.4); Immature Granulocytes % 0.7 % (0-4); Lymphocytes # 1.9 K/mcL (0.6-4.6); Lymphocytes % 12.9 %; Mean Corpuscular HGB Conc 31.2 g/dL (31.6-35.5); Mean Corpuscular Hemoglobin 28.2 pg (28.0-33.3); Mean Corpuscular Volume 90.6 fL (83.0-100.0); Mean Platelet Volume 12.1 fL (9.4-12.4); Monocytes # 1.3 K/mcL (0.0-1.3); Monocytes % 8.8 %; Neutrophils # 11.7 K/mcL (1.6-8.9); Platelet Count 215 K/mcL (140-400); Red Blood Count 3.72 M/mcL (3.82-4.97); Segmented Neutrophils % 77.4 %; White Blood Count 15.1 K/mcL (4.3-11.1)
[2021-12-18] MEDS: Insulin LISPRO 300 UNITS/3 ML VIAL SUBQ SCH ×3 (05:57→18:15)
[2021-12-18] MEDS: Acetaminophen 325 MG TABLET PO PRN ×2 (05:58→22:50)
[2021-12-18 06:14] LABS: Alanine Aminotransferase 34 Units/L (7-52); Albumin 2.8 g/dL (3.5-5.7); Albumin/Globulin Ratio 0.9 (1.1-2.2); Alkaline Phosphatase 114 Units/L (34-104); Aspartate Amino Transferase 31 Units/L (13-39); BUN/Creatinine Ratio 27 (6-26); Bilirubin,Total 0.4 mg/dL (0.3-1.0); Blood Urea Nitrogen 16 mg/dL (6-20); Calcium 8.8 mg/dL (8.6-10.3); Carbon Dioxide 38 mEq/L (23-29); Chloride 95 mEq/L (98-107); Globulin 3.2 g/dL (2.4-3.5); Glucose 171 mg/dL (70-105); Osmolality,Calculated 289 (280-300); Sodium 137 mEq/L (136-145)
[2021-12-18] MEDS: methocarbamoL 750 MG TABLET PO SCH ×2 (10:22→18:14)
[2021-12-18] MEDS: Piperacillin/Tazobactam 3.375 GM in 0.9 % Sodium Chloride Mini Bag 100 ML IVPB SCH ×3 (10:22→22:54)
[2021-12-18] MEDS: *HR* LORazepam 1 MG TABLET PO SCH ×3 (10:22→23:00)
[2021-12-18] MEDS: Insulin DETEMIR 100 UNIT/ML X5UNITS SUBQ SCH ×2 (11:00→23:01)
[2021-12-18] MEDS: Ipratropium/Albuterol Neb 3 ML IH PRN (13:21)
[2021-12-18] MEDS: Difluprednate [Durezol] 5 ML Drops OP SCH (18:12)
[2021-12-18] MEDS: Topiramate 25 MG TABLET PO SCH (22:50)
[2021-12-18] MEDS: Ondansetron 4 MG/2 ML VIAL IVP PRN (22:51)
[2021-12-18] MEDS: Melatonin 3 MG TABLET PO SCH (23:02)
[2021-12-19] MEDS: methocarbamoL 750 MG TABLET PO SCH ×3 (01:29→17:47)
[2021-12-19 02:51] LABS: Basophils % 0.2 %; Hematocrit 32.9 % (35.3-44.9); Hemoglobin 10.1 g/dL (11.5-15.4); Lymphocytes # 1.8 K/mcL (0.6-4.6); Lymphocytes % 14.7 %; Mean Corpuscular HGB Conc 30.7 g/dL (31.6-35.5); Mean Corpuscular Hemoglobin 28.5 pg (28.0-33.3); Mean Corpuscular Volume 92.7 fL (83.0-100.0); Mean Platelet Volume 11.7 fL (9.4-12.4); Monocytes % 8.1 %; Neutrophils # 9.2 K/mcL (1.6-8.9); Platelet Count 225 K/mcL (140-400); Red Blood Count 3.55 M/mcL (3.82-4.97); White Blood Count 12.1 K/mcL (4.3-11.1)
[2021-12-19 03:12] LABS: BUN/Creatinine Ratio 17 (6-26); Blood Urea Nitrogen 11 mg/dL (6-20); Calcium 8.6 mg/dL (8.6-10.3); Carbon Dioxide 38 mEq/L (23-29); Chloride 95 mEq/L (98-107); Glucose 198 mg/dL (70-105); Osmolality,Calculated 289 (280-300); Potassium 3.4 mEq/L (3.5-5.1); Sodium 137 mEq/L (136-145)
[2021-12-19] MEDS: Insulin LISPRO 300 UNITS/3 ML VIAL SUBQ SCH ×5 (06:28→21:42)
[2021-12-19] MEDS: *HR* Heparin 5,000 UNIT/ML VIAL SQ SCH ×3 (06:47→21:37)
[2021-12-19] MEDS: *HR* LORazepam 1 MG TABLET PO SCH ×3 (07:51→21:36)
[2021-12-19] MEDS: amLODIPine 5 MG TABLET PO SCH (07:51)
[2021-12-19] MEDS: Piperacillin/Tazobactam 3.375 GM in 0.9 % Sodium Chloride Mini Bag 100 ML IVPB SCH ×3 (07:53→23:52)
[2021-12-19] MEDS: Insulin DETEMIR 100 UNIT/ML X5UNITS SUBQ SCH ×2 (09:47→21:42)
[2021-12-19] MEDS: DOXEPIN HCL 6 MG PO SCH (10:08)
[2021-12-19] MEDS: *HR* OxyCODONE Immed Rel 5 MG TABLET PO PRN ×3 (10:12→23:51)
[2021-12-19] MEDS ORDERED: Potassium Chloride Elixir 20 MEQ/15 ML UDC PO ONE (10:53)
[2021-12-19] MEDS: *HR* HYDROcodone/Acet 5/325 mg TABLET PO PRN ×2 (14:42→21:37)
[2021-12-19] MEDS: Ondansetron 4 MG/2 ML VIAL IVP PRN (16:09)
[2021-12-19] MEDS: Difluprednate [Durezol] 5 ML Drops OP SCH (17:46)
[2021-12-19] MEDS: Ipratropium/Albuterol Neb 3 ML IH PRN (19:32)
[2021-12-19] MEDS: Melatonin 3 MG TABLET PO SCH (21:36)
[2021-12-19] MEDS: Topiramate 25 MG TABLET PO SCH (21:37)
[2021-12-19] MEDS: Simethicone 80 MG TAB.CHEW PO PRN (23:51)
[2021-12-20 01:30] LABS: Basophils # 0.1 K/mcL (0.0-0.2); Basophils % 0.3 %; Hematocrit 36.6 % (35.3-44.9); Hemoglobin 11.2 g/dL (11.5-15.4); Lymphocytes # 1.9 K/mcL (0.6-4.6); Lymphocytes % 11.8 %; Mean Corpuscular HGB Conc 30.6 g/dL (31.6-35.5); Mean Corpuscular Hemoglobin 28.1 pg (28.0-33.3); Mean Platelet Volume 11.6 fL (9.4-12.4); Monocytes # 1.6 K/mcL (0.0-1.3); Monocytes % 10.2 %; Neutrophils # 12.1 K/mcL (1.6-8.9); Platelet Count 285 K/mcL (140-400); Red Blood Count 3.98 M/mcL (3.82-4.97); Red Cell Distribution Width 13.9 % (11.5-14.5); Segmented Neutrophils % 76.7 %; White Blood Count 15.7 K/mcL (4.3-11.1)
[2021-12-20 01:50] LABS: BUN/Creatinine Ratio 20 (6-26); Blood Urea Nitrogen 9 mg/dL (6-20); Calcium 8.7 mg/dL (8.6-10.3); Carbon Dioxide 36 mEq/L (23-29); Chloride 95 mEq/L (98-107); Glucose 160 mg/dL (70-105); Osmolality,Calculated 284 (280-300); Potassium 3.8 mEq/L (3.5-5.1); Sodium 136 mEq/L (136-145)
[2021-12-20] MEDS: methocarbamoL 750 MG TABLET PO SCH ×3 (03:40→17:31)
[2021-12-20] MEDS: *HR* HYDROcodone/Acet 5/325 mg TABLET PO PRN ×2 (05:17→15:21)
[2021-12-20] MEDS: *HR* Heparin 5,000 UNIT/ML VIAL SQ SCH ×3 (05:19→21:19)
[2021-12-20] MEDS: Insulin LISPRO 300 UNITS/3 ML VIAL SUBQ SCH ×4 (07:43→23:52)
[2021-12-20] MEDS: Piperacillin/Tazobactam 3.375 GM in 0.9 % Sodium Chloride Mini Bag 100 ML IVPB SCH ×3 (08:31→23:52)
[2021-12-20] MEDS: Insulin DETEMIR 100 UNIT/ML X5UNITS SUBQ SCH ×2 (08:32→21:18)
[2021-12-20] MEDS: Simethicone 80 MG TAB.CHEW PO PRN ×2 (08:34→15:21)
[2021-12-20] MEDS: *HR* OxyCODONE Immed Rel 5 MG TABLET PO PRN ×2 (08:34→18:34)
[2021-12-20] MEDS: *HR* LORazepam 1 MG TABLET PO SCH ×3 (08:35→21:16)
[2021-12-20] MEDS: amLODIPine 5 MG TABLET PO SCH (08:35)
[2021-12-20] MEDS: DOXEPIN HCL 6 MG PO SCH (08:36)
[2021-12-20] MEDS: Ipratropium/Albuterol Neb 3 ML IH PRN (13:35)
[2021-12-20] MEDS: Ondansetron 4 MG/2 ML VIAL IVP PRN (17:30)
[2021-12-20] MEDS: Difluprednate [Durezol] 5 ML Drops OP SCH (17:31)
[2021-12-20] MEDS: Topiramate 25 MG TABLET PO SCH (21:18)
[2021-12-20] MEDS: Melatonin 3 MG TABLET PO SCH (21:18)
[2021-12-21] MEDS: *HR* OxyCODONE Immed Rel 5 MG TABLET PO PRN ×2 (01:12→23:53)
[2021-12-21] MEDS: methocarbamoL 750 MG TABLET PO SCH ×3 (02:32→18:14)
[2021-12-21 03:30] LABS: Basophils # 0.1 K/mcL (0.0-0.2); Basophils % 0.3 %; Hematocrit 33.7 % (35.3-44.9); Hemoglobin 10.3 g/dL (11.5-15.4); Immature Granulocytes % 1.1 % (0-4); Lymphocytes # 2.4 K/mcL (0.6-4.6); Lymphocytes % 14.9 %; Mean Corpuscular HGB Conc 30.6 g/dL (31.6-35.5); Mean Corpuscular Hemoglobin 28.6 pg (28.0-33.3); Mean Corpuscular Volume 93.6 fL (83.0-100.0); Mean Platelet Volume 11.7 fL (9.4-12.4); Monocytes # 1.4 K/mcL (0.0-1.3); Neutrophils # 11.8 K/mcL (1.6-8.9); Platelet Count 274 K/mcL (140-400); Red Cell Distribution Width 13.9 % (11.5-14.5); Segmented Neutrophils % 74.7 %; White Blood Count 15.8 K/mcL (4.3-11.1)
[2021-12-21 03:45] LABS: BUN/Creatinine Ratio 20 (6-26); Blood Urea Nitrogen 8 mg/dL (6-20); Calcium 8.6 mg/dL (8.6-10.3); Carbon Dioxide 35 mEq/L (23-29); Chloride 95 mEq/L (98-107); Glucose 151 mg/dL (70-105); Osmolality,Calculated 281 (280-300); Potassium 3.9 mEq/L (3.5-5.1); Sodium 135 mEq/L (136-145)
[2021-12-21] MEDS: Insulin LISPRO 300 UNITS/3 ML VIAL SUBQ SCH ×4 (07:58→23:47)
[2021-12-21] MEDS: amLODIPine 5 MG TABLET PO SCH (07:59)
[2021-12-21] MEDS: *HR* LORazepam 1 MG TABLET PO SCH ×3 (08:00→20:26)
[2021-12-21] MEDS: *HR* HYDROcodone/Acet 5/325 mg TABLET PO PRN ×2 (08:00→20:26)
[2021-12-21] MEDS: DOXEPIN HCL 6 MG PO SCH (08:01)
[2021-12-21] MEDS: Piperacillin/Tazobactam 3.375 GM in 0.9 % Sodium Chloride Mini Bag 100 ML IVPB SCH ×3 (08:02→23:54)
[2021-12-21] MEDS ORDERED: Metoclopramide 10 MG/2 ML VIAL IVP SCH (12:00)
[2021-12-21] MEDS: Insulin DETEMIR 100 UNIT/ML X5UNITS SUBQ SCH ×2 (12:22→20:24)
[2021-12-21] MEDS: *HR* Heparin 5,000 UNIT/ML VIAL SQ SCH ×3 (13:39→20:24)
[2021-12-21] MEDS: Difluprednate [Durezol] 5 ML Drops OP SCH (16:30)
[2021-12-21] MEDS: Ondansetron 4 MG/2 ML VIAL IVP PRN (20:23)
[2021-12-21] MEDS: Melatonin 3 MG TABLET PO SCH (20:26)
[2021-12-21] MEDS: Topiramate 25 MG TABLET PO SCH (20:26)
[2021-12-21] MEDS: Simethicone 80 MG TAB.CHEW PO PRN (23:53)
[2021-12-22 05:33] LABS: Basophils # 0.1 K/mcL (0.0-0.2); Basophils % 0.5 %; Hematocrit 34.5 % (35.3-44.9); Hemoglobin 10.5 g/dL (11.5-15.4); Lymphocytes # 2.6 K/mcL (0.6-4.6); Lymphocytes % 17.2 %; Mean Corpuscular HGB Conc 30.4 g/dL (31.6-35.5); Mean Corpuscular Hemoglobin 28.6 pg (28.0-33.3); Mean Platelet Volume 11.5 fL (9.4-12.4); Monocytes # 1.3 K/mcL (0.0-1.3); Monocytes % 8.7 %; Neutrophils # 10.6 K/mcL (1.6-8.9); Platelet Count 286 K/mcL (140-400); Red Blood Count 3.67 M/mcL (3.82-4.97); Red Cell Distribution Width 13.9 % (11.5-14.5); Segmented Neutrophils % 71.6 %; White Blood Count 14.8 K/mcL (4.3-11.1)
[2021-12-22] MEDS: *HR* Heparin 5,000 UNIT/ML VIAL SQ SCH ×3 (05:40→20:43)
[2021-12-22] MEDS: methocarbamoL 750 MG TABLET PO SCH ×3 (05:41→18:47)
[2021-12-22 05:56] LABS: BUN/Creatinine Ratio 16 (6-26); Blood Urea Nitrogen 8 mg/dL (6-20); Calcium 8.9 mg/dL (8.6-10.3); Carbon Dioxide 36 mEq/L (23-29); Chloride 98 mEq/L (98-107); Glucose 117 mg/dL (70-105); Osmolality,Calculated 285 (280-300); Sodium 138 mEq/L (136-145)
[2021-12-22] MEDS ORDERED: Acetaminophen IV 1,000 MG/100 ML BAG IVPB ONE (10:00)
[2021-12-22] MEDS: Insulin LISPRO 300 UNITS/3 ML VIAL SUBQ SCH ×3 (10:06→18:47)
[2021-12-22] MEDS: *HR* LORazepam 1 MG TABLET PO SCH ×3 (10:08→20:43)
[2021-12-22] MEDS: amLODIPine 5 MG TABLET PO SCH (10:08)
[2021-12-22] MEDS: *HR* HYDROcodone/Acet 5/325 mg TABLET PO PRN ×2 (10:08→20:43)
[2021-12-22] MEDS: Piperacillin/Tazobactam 3.375 GM in 0.9 % Sodium Chloride Mini Bag 100 ML IVPB SCH (10:09)
[2021-12-22] MEDS: Insulin DETEMIR 100 UNIT/ML X5UNITS SUBQ SCH ×2 (10:15→20:43)
[2021-12-22] MEDS: Difluprednate [Durezol] 5 ML Drops OP SCH (15:12)
[2021-12-22] MEDS: Melatonin 3 MG TABLET PO SCH (20:42)
[2021-12-22] MEDS: Topiramate 25 MG TABLET PO SCH (20:42)
[2021-12-22] MEDS: Simethicone 80 MG TAB.CHEW PO PRN (20:42)
[2021-12-23] MEDS: *HR* OxyCODONE Immed Rel 5 MG TABLET PO PRN ×2 (00:44→21:30)
[2021-12-23 01:26] LABS: Basophils # 0.1 K/mcL (0.0-0.2); Basophils % 0.4 %; Hematocrit 34.4 % (35.3-44.9); Hemoglobin 10.8 g/dL (11.5-15.4); Immature Granulocytes % 2.2 % (0-4); Lymphocytes # 2.2 K/mcL (0.6-4.6); Lymphocytes % 11.8 %; Mean Corpuscular HGB Conc 31.4 g/dL (31.6-35.5); Mean Corpuscular Hemoglobin 28.6 pg (28.0-33.3); Mean Platelet Volume 11.3 fL (9.4-12.4); Monocytes # 1.6 K/mcL (0.0-1.3); Monocytes % 8.6 %; Neutrophils # 14.5 K/mcL (1.6-8.9); Platelet Count 339 K/mcL (140-400); Red Blood Count 3.78 M/mcL (3.82-4.97); Red Cell Distribution Width 13.7 % (11.5-14.5); White Blood Count 18.9 K/mcL (4.3-11.1)
[2021-12-23 01:41] LABS: BUN/Creatinine Ratio 20 (6-26); Blood Urea Nitrogen 8 mg/dL (6-20); Calcium 8.7 mg/dL (8.6-10.3); Carbon Dioxide 34 mEq/L (23-29); Chloride 97 mEq/L (98-107); Glucose 156 mg/dL (70-105); Magnesium 1.7 mg/dL (1.6-2.6); Osmolality,Calculated 286 (280-300); Phosphorous 3.1 mg/dL (2.7-4.5); Potassium 3.8 mEq/L (3.5-5.1); Sodium 137 mEq/L (136-145)
[2021-12-23] MEDS: methocarbamoL 750 MG TABLET PO SCH ×3 (01:57→17:31)
[2021-12-23] MEDS: *HR* Heparin 5,000 UNIT/ML VIAL SQ SCH ×3 (05:50→21:32)
[2021-12-23] MEDS: *HR* LORazepam 1 MG TABLET PO SCH ×3 (09:20→21:31)
[2021-12-23] MEDS: Insulin LISPRO 300 UNITS/3 ML VIAL SUBQ SCH ×3 (09:25→16:13)
[2021-12-23] MEDS: Insulin DETEMIR 100 UNIT/ML X5UNITS SUBQ SCH ×2 (09:25→21:33)
[2021-12-23] MEDS: amLODIPine 5 MG TABLET PO SCH (09:30)
[2021-12-23] MEDS: Difluprednate [Durezol] 5 ML Drops OP SCH (16:12)
[2021-12-23] MEDS: Melatonin 3 MG TABLET PO SCH (21:31)
[2021-12-23] MEDS: Topiramate 25 MG TABLET PO SCH (21:31)
[2021-12-24] MEDS ORDERED: traZODone 50 MG TABLET PO ONE ×2 (00:39→21:00)
[2021-12-24] MEDS: methocarbamoL 750 MG TABLET PO SCH ×3 (00:52→18:33)
[2021-12-24 02:53] LABS: Basophils # 0.1 K/mcL (0.0-0.2); Basophils % 0.6 %; Hemoglobin 9.6 g/dL (11.5-15.4); Immature Granulocytes % 4.3 % (0-4); Lymphocytes % 16.6 %; Mean Corpuscular Hemoglobin 28.1 pg (28.0-33.3); Mean Corpuscular Volume 93.6 fL (83.0-100.0); Mean Platelet Volume 11.6 fL (9.4-12.4); Monocytes # 1.3 K/mcL (0.0-1.3); Monocytes % 10.8 %; Platelet Count 292 K/mcL (140-400); Red Blood Count 3.42 M/mcL (3.82-4.97); Red Cell Distribution Width 13.8 % (11.5-14.5); Segmented Neutrophils % 67.7 %; White Blood Count 11.8 K/mcL (4.3-11.1)
[2021-12-24 03:13] LABS: BUN/Creatinine Ratio 18 (6-26); Blood Urea Nitrogen 6 mg/dL (6-20); Calcium 8.6 mg/dL (8.6-10.3); Carbon Dioxide 35 mEq/L (23-29); Chloride 99 mEq/L (98-107); Glucose 108 mg/dL (70-105); Osmolality,Calculated 286 (280-300); Potassium 3.7 mEq/L (3.5-5.1); Sodium 139 mEq/L (136-145)
[2021-12-24] MEDS: *HR* Heparin 5,000 UNIT/ML VIAL SQ SCH ×3 (05:15→21:04)
[2021-12-24] MEDS: Insulin LISPRO 300 UNITS/3 ML VIAL SUBQ SCH ×3 (08:46→16:49)
[2021-12-24] MEDS: Azithromycin 500 MG in 0.9 % Sodium Chloride 250 ML IVPB SCH ×2 (08:46→09:00)
[2021-12-24] MEDS: amLODIPine 5 MG TABLET PO SCH (08:47)
[2021-12-24] MEDS: *HR* LORazepam 1 MG TABLET PO SCH ×3 (08:47→21:04)
[2021-12-24] MEDS: Doxycycline 100 MG in 0.9 % Sodium Chloride Mini Bag 100 ML IVPB SCH ×2 (09:12→21:05)
[2021-12-24] MEDS: cefTRIAXone 1,000 MG in 0.9 % Sodium Chloride 10 ML IVPB SCH (09:28)
[2021-12-24] MEDS: Insulin DETEMIR 100 UNIT/ML X5UNITS SUBQ SCH ×2 (11:18→21:05)
[2021-12-24] MEDS: *HR* HYDROcodone/Acet 5/325 mg TABLET PO PRN (11:19)
[2021-12-24] MEDS: *HR* OxyCODONE Immed Rel 5 MG TABLET PO PRN (14:52)
[2021-12-24] MEDS: Difluprednate [Durezol] 5 ML Drops OP SCH (17:04)
[2021-12-24] MEDS: Topiramate 25 MG TABLET PO SCH (21:04)
[2021-12-24] MEDS: Melatonin 3 MG TABLET PO SCH (21:04)
[2021-12-25] MEDS: methocarbamoL 750 MG TABLET PO SCH ×3 (02:40→14:57)
[2021-12-25] MEDS: *HR* Heparin 5,000 UNIT/ML VIAL SQ SCH ×3 (05:13→20:49)
[2021-12-25] MEDS: *HR* LORazepam 1 MG TABLET PO SCH ×3 (09:15→20:49)
[2021-12-25] MEDS: Insulin LISPRO 300 UNITS/3 ML VIAL SUBQ SCH ×3 (09:15→17:39)
[2021-12-25] MEDS: Doxycycline 100 MG in 0.9 % Sodium Chloride Mini Bag 100 ML IVPB SCH ×2 (09:15→20:48)
[2021-12-25] MEDS: amLODIPine 5 MG TABLET PO SCH (09:15)
[2021-12-25] MEDS: cefTRIAXone 1,000 MG in 0.9 % Sodium Chloride 10 ML IVPB SCH (09:17)
[2021-12-25] MEDS: Insulin DETEMIR 100 UNIT/ML X5UNITS SUBQ SCH ×2 (09:20→20:51)
[2021-12-25] MEDS: *HR* HYDROcodone/Acet 5/325 mg TABLET PO PRN (12:25)
[2021-12-25] MEDS: Difluprednate [Durezol] 5 ML Drops OP SCH (17:38)
[2021-12-25] MEDS: Topiramate 25 MG TABLET PO SCH (20:48)
[2021-12-25] MEDS: Melatonin 3 MG TABLET PO SCH (20:48)
[2021-12-25] MEDS ORDERED: traZODone 50 MG TABLET PO PRN (21:02)
[2021-12-26 02:24] LABS: VBG HCO3 32 mEq/L (21-27); VBG PCO2 58 mmHg (41-51); VBG PH 7.35 pH Units (7.32-7.42); VBG PO2 154 mmHg (25-50)
[2021-12-26 02:27] LABS: Basophils # 0.1 K/mcL (0.0-0.2); Basophils % 0.7 %; Hematocrit 30.9 % (35.3-44.9); Hemoglobin 9.5 g/dL (11.5-15.4); Immature Granulocytes % 6.1 % (0-4); Lymphocytes # 1.9 K/mcL (0.6-4.6); Lymphocytes % 18.4 %; Mean Corpuscular HGB Conc 30.7 g/dL (31.6-35.5); Mean Corpuscular Hemoglobin 28.2 pg (28.0-33.3); Mean Corpuscular Volume 91.7 fL (83.0-100.0); Mean Platelet Volume 11.2 fL (9.4-12.4); Monocytes % 14.3 %; Neutrophils # 6.1 K/mcL (1.6-8.9); Platelet Count 312 K/mcL (140-400); Red Blood Count 3.37 M/mcL (3.82-4.97); Red Cell Distribution Width 13.8 % (11.5-14.5); Segmented Neutrophils % 60.5 %; White Blood Count 10.1 K/mcL (4.3-11.1)
[2021-12-26 02:32] LABS: Monocytes # 1.4 K/mcL (0.0-1.3)
[2021-12-26 02:47] LABS: BUN/Creatinine Ratio 15 (6-26); Blood Urea Nitrogen 6 mg/dL (6-20); Calcium 8.6 mg/dL (8.6-10.3); Carbon Dioxide 33 mEq/L (23-29); Chloride 101 mEq/L (98-107); Glucose 109 mg/dL (70-105); Magnesium 1.8 mg/dL (1.6-2.6); Osmolality,Calculated 286 (280-300); Potassium 3.6 mEq/L (3.5-5.1); Sodium 139 mEq/L (136-145)
[2021-12-26 03:55] LABS: Platelet Estimate Normal (Normal)
[2021-12-26] MEDS: *HR* Heparin 5,000 UNIT/ML VIAL SQ SCH (04:34)
[2021-12-26] MEDS: methocarbamoL 750 MG TABLET PO SCH ×2 (04:34→11:37)
[2021-12-26 07:14] VITALS: PULSE 98
[2021-12-26] MEDS: amLODIPine 5 MG TABLET PO SCH (07:35)
[2021-12-26] MEDS: Insulin LISPRO 300 UNITS/3 ML VIAL SUBQ SCH ×2 (07:35→11:30)
[2021-12-26] MEDS: *HR* LORazepam 1 MG TABLET PO SCH (07:35)
[2021-12-26] MEDS: Insulin DETEMIR 100 UNIT/ML X5UNITS SUBQ SCH (07:35)
[2021-12-26] MEDS: cefTRIAXone 1,000 MG in 0.9 % Sodium Chloride 10 ML IVPB SCH ×2 (07:36→11:30)
[2021-12-26] MEDS: Doxycycline 100 MG in 0.9 % Sodium Chloride Mini Bag 100 ML IVPB SCH ×2 (07:38→07:49)
[2021-12-26] MEDS: *HR* HYDROcodone/Acet 5/325 mg TABLET PO PRN (08:24)
[2021-12-26 10:27] VITALS: BP 129/59; TEMP 98.2; O2SAT 98
[2021-12-26 15:13] LABS: Adenovirus Not Detected (Not Detect); Bordetella Pertussis Not Detected (Not Detect); Chlamydophila pneumoniae Not Detected (Not Detect); Coronavirus 229E Not Detected (Not Detect); Coronavirus HKU1 Not Detected (Not Detect); Coronavirus NL63 Not Detected (Not Detect); Coronavirus OC43 Not Detected (Not Detect); Human Metapneumovirus Not Detected (Not Detect); Human Rhinovirus/Enterovirus Not Detected (Not Detect); Influenza A Subtype 2009 H1 Not Detected (Not Detect); Influenza B Not Detected (Not Detect); Mycoplasma pneumoniae Not Detected (Not Detect); Parainfluenza Virus 1 Not Detected (Not Detect); Parainfluenza Virus 2 Not Detected (Not Detect); Parainfluenza Virus 3 Not Detected (Not Detect); Parainfluenza Virus 4 Not Detected (Not Detect); Respiratory Syncytial Virus Not Detected (Not Detect); SARS-CoV-2 Not Detected (Not Detect)
== END 2021-12-26 15:14 | DRG 853 ==
LOC: 3ANU 16:23 → EMEROOARM 16:23 → SUATTDRO 19:39 → OBSVTOIN 19:39 → 3ANU 21:40 → ICNU 12-16 16:31 → 2NENU 12-18 05:42
PROVIDERS: ADMIT Internal Medicine; ATTEND Pharmacist

== ENCOUNTER 2022-02-12 00:54 | Inpatient (IN) ==
[2022-02-12 01:46] LABS: Basophils % 0.1 %; Hematocrit 41.8 % (35.3-44.9); Hemoglobin 12.6 g/dL (11.5-15.4); Immature Granulocytes % 0.6 % (0-4); Lymphocytes % 6.4 %; Mean Corpuscular HGB Conc 30.1 g/dL (31.6-35.5); Mean Corpuscular Volume 89.7 fL (83.0-100.0); Monocytes # 1.1 K/mcL (0.0-1.3); Monocytes % 6.6 %; Neutrophils # 13.8 K/mcL (1.6-8.9); Platelet Count 197 K/mcL (140-400); Red Blood Count 4.66 M/mcL (3.82-4.97); Red Cell Distribution Width 14.6 % (11.5-14.5); Segmented Neutrophils % 86.3 %
[2022-02-12 02:05] LABS: Influenza A PCR Negative (Negative); Influenza B PCR Negative (Negative); Resp. Syncytial Virus PCR Negative (Negative); SARS-CoV-2 by PCR (In House) Negative (Negative)
[2022-02-12] MEDS ORDERED: Iopamidol - 370 500 ML MLS IVP ONE (02:06)
[2022-02-12 02:07] LABS: INR 1.1; Prothrombin Time 12.5 Seconds (9.4-12.1)
[2022-02-12] MEDS ORDERED: 0.9 % Sodium Chloride 1,000 ML IVC ONE (02:08)
[2022-02-12 02:09] LABS: Alanine Aminotransferase 17 Units/L (7-52); Albumin 3.8 g/dL (3.5-5.7); Albumin/Globulin Ratio 1.1 (1.1-2.2); Alkaline Phosphatase 117 Units/L (34-104); Aspartate Amino Transferase 21 Units/L (13-39); BUN/Creatinine Ratio 15 (6-26); Bilirubin,Direct 0.1 mg/dL (0.0-0.2); Bilirubin,Indirect 0.3 mg/dL (0.0-1.0); Bilirubin,Total 0.4 mg/dL (0.3-1.0); Blood Urea Nitrogen 10 mg/dL (6-20); Calcium 9.3 mg/dL (8.6-10.3); Carbon Dioxide 38 mEq/L (23-29); Chloride 90 mEq/L (98-107); Globulin 3.6 g/dL (2.4-3.5); Glucose 218 mg/dL (70-105); Osmolality,Calculated 282 (280-300); Potassium 4.2 mEq/L (3.5-5.1); Sodium 133 mEq/L (136-145); Total Protein 7.4 g/dL (6.4-8.9); Troponin I < 0.03 ng/mL (< 0.04)
[2022-02-12 02:10] LABS: Activated Partial Thrombo Time 33.9 Seconds (26.0-36.0)
[2022-02-12 02:51] LABS: Bilirubin,Urine Small (Negative); Blood,Urine Trace (Negative); Clarity,Urine Clear (Clear); Color,Urine Yellow (Yellow); Glucose,Urine (UA) Normal (Normal); Ketones,Urine Trace mg/dL (Negative); Leukocyte Esterase,Urine Trace (Negative); Mucus,Urine Many per lpf (None-Few); Nitrite,Urine Negative (Negative); Protein,Urine 100 mg/dL (Neg-Trace); Specific Gravity,Urine > 1.030 (1.010-1.025); Squamous Epithelial Cell,Urine Few per hpf (None-Few)
[2022-02-12] MEDS ORDERED: cefTRIAXone 2,000 MG in 0.9 % Sodium Chloride 20 ML IVP ONE (04:26)
[2022-02-12] MEDS ORDERED: Vancomycin 2,000 MG/520 ML IV.SOLN IVPB ONE (05:00)
[2022-02-12] MEDS ORDERED: Melatonin 3 MG TABLET PO PRN (05:10)
[2022-02-12] MEDS ORDERED: Naloxone 0.4 MG/ML INJ IVP PRN (05:10)
[2022-02-12] MEDS ORDERED: Ondansetron 4 MG/2 ML VIAL IVP PRN (05:10)
[2022-02-12] MEDS ORDERED: *HR* HYDROcodone/Acet 5/325 mg TABLET PO PRN (05:10)
[2022-02-12] MEDS ORDERED: Artificial Tears SOLN 15 ML BOTTLE BOTH EYES PRN (05:52)
[2022-02-12] MEDS ORDERED: *HR* Dextrose 50 % in Water (Syg) 50 ML SYRINGE IVP PRN (06:24)
[2022-02-12] MEDS ORDERED: D5% in Water 1,000 ML IVC PRN (06:24)
[2022-02-12] MEDS ORDERED: Dextrose Gel 15 GM/37.5 ML TUBE PO PRN ×2 (06:24)
[2022-02-12 07:51] LABS: Magnesium 1.5 mg/dL (1.6-2.6)
[2022-02-12] MEDS: Ringers Solution, Lactated 1,000 ML IVC SCH (10:09)
[2022-02-12] MEDS: Cefepime HCl 2,000 MG in 0.9 % Sodium Chloride 10 ML IVP SCH ×2 (10:10→16:29)
[2022-02-12] MEDS: Lactobacillus 1 EACH CAP.SPRINK PO SCH (10:10)
[2022-02-12] MEDS: Cyanocobalamin (B-12) 1,000 MCG TABLET PO SCH (10:10)
[2022-02-12] MEDS: amLODIPine 5 MG TABLET PO SCH (10:10)
[2022-02-12] MEDS ORDERED: SUMAtriptan succinate 25 MG TABLET PO ONE (10:18)
[2022-02-12] MEDS: Insulin LISPRO 300 UNITS/3 ML VIAL SUBQ SCH ×4 (10:23→20:54)
[2022-02-12] MEDS: Insulin DETEMIR 100 UNIT/ML X5UNITS SUBQ SCH (10:24)
[2022-02-12] MEDS: Ipratropium/Albuterol Neb 3 ML IH PRN ×2 (13:55→17:57)
[2022-02-12] MEDS: DIFLUPREDNATE OP SCH (16:23)
[2022-02-12] MEDS: Acetaminophen 325 MG TABLET PO PRN (16:27)
[2022-02-12] MEDS: SUMAtriptan succinate 25 MG TABLET PO PRN (16:57)
[2022-02-12] MEDS: Vancomycin 1,500 MG/265 ML IV.SOLN IVPB SCH (16:57)
[2022-02-12] MEDS ORDERED: Insulin DETEMIR 100 UNIT/ML X5UNITS SUBQ SCH (21:00)
[2022-02-12 21:03] LABS: mecA/C Methicillin-Resist Gene DETECTED (Not Detect)
[2022-02-12 21:04] LABS: A.calcoaceticus-baumannii cplx Not Detected (Not Detect); Bacteroides fragilis by PCR Not Detected (Not Detect); Candida albicans by PCR Not Detected (Not Detect); Candida auris by PCR Not Detected (Not Detect); Candida glabrata by PCR Not Detected (Not Detect); Candida krusei by PCR Not Detected (Not Detect); Candida parapsilosis by PCR Not Detected (Not Detect); Candida tropicalis by PCR Not Detected (Not Detect); Crypto. neoformans/gattii PCR Not Detected (Not Detect); Enterobacter cloacae Cmplx PCR Not Detected (Not Detect); Enterobacterales by PCR Not Detected (Not Detect); Enterococcus faecalis by PCR Not Detected (Not Detect); Enterococcus faecium by PCR Not Detected (Not Detect); Escherichia coli by PCR Not Detected (Not Detect); Klebs. pneumoniae group by PCR Not Detected (Not Detect); Klebsiella aerogenes by PCR Not Detected (Not Detect); Klebsiella oxytoca by PCR Not Detected (Not Detect); Proteus by PCR Not Detected (Not Detect); Pseudomonas aeruginosa by PCR Not Detected (Not Detect); Salmonella species by PCR Not Detected (Not Detect); Serratia marcescens by PCR Not Detected (Not Detect); Staph epidermidis by PCR DETECTED (Not Detect); Staph lugdunensis by PCR Not Detected (Not Detect); Staphylococcus aureus by PCR Not Detected (Not Detect); Stenotrophomonas maltophilia Not Detected (Not Detect); Streptococcus agalactiae(B)PCR Not Detected (Not Detect); Streptococcus by PCR Not Detected (Not Detect); Streptococcus pneumoniae PCR Not Detected (Not Detect); Streptococcus pyogenes (A) PCR Not Detected (Not Detect)
[2022-02-13] MEDS: SUMAtriptan succinate 25 MG TABLET PO PRN ×2 (00:12→19:48)
[2022-02-13] MEDS: Ringers Solution, Lactated 1,000 ML IVC SCH (00:14)
[2022-02-13 01:59] LABS: Basophils % 0.3 %; Hematocrit 38.7 % (35.3-44.9); Hemoglobin 11.6 g/dL (11.5-15.4); Immature Granulocytes % 0.9 % (0-4); Lymphocytes # 2.1 K/mcL (0.6-4.6); Lymphocytes % 18.2 %; Mean Corpuscular Hemoglobin 26.9 pg (28.0-33.3); Mean Corpuscular Volume 89.8 fL (83.0-100.0); Mean Platelet Volume 11.7 fL (9.4-12.4); Monocytes # 1.3 K/mcL (0.0-1.3); Monocytes % 11.3 %; Neutrophils # 7.8 K/mcL (1.6-8.9); Platelet Count 164 K/mcL (140-400); Red Blood Count 4.31 M/mcL (3.82-4.97); Red Cell Distribution Width 15.1 % (11.5-14.5); Segmented Neutrophils % 69.3 %; White Blood Count 11.3 K/mcL (4.3-11.1)
[2022-02-13 02:18] LABS: BUN/Creatinine Ratio 19 (6-26); Blood Urea Nitrogen 11 mg/dL (6-20); Calcium 8.9 mg/dL (8.6-10.3); Carbon Dioxide 38 mEq/L (23-29); Chloride 93 mEq/L (98-107); Glucose 164 mg/dL (70-105); Osmolality,Calculated 279 (280-300); Sodium 133 mEq/L (136-145)
[2022-02-13] MEDS: *HR* Enoxaparin 40 MG/0.4 ML SYRINGE SQ SCH (04:49)
[2022-02-13] MEDS: Vancomycin 1,500 MG/265 ML IV.SOLN IVPB SCH (04:51)
[2022-02-13] MEDS: Acetaminophen 325 MG TABLET PO PRN (07:20)
[2022-02-13] MEDS ORDERED: Acetaminophen IV 1,000 MG/100 ML BAG IVPB ONE (07:47)
[2022-02-13] MEDS: Ipratropium/Albuterol Neb 3 ML IH PRN ×3 (08:00→20:12)
[2022-02-13] MEDS: amLODIPine 5 MG TABLET PO SCH (08:04)
[2022-02-13] MEDS: Cyanocobalamin (B-12) 1,000 MCG TABLET PO SCH (08:04)
[2022-02-13] MEDS: Lactobacillus 1 EACH CAP.SPRINK PO SCH (08:04)
[2022-02-13] MEDS: Cefepime HCl 2,000 MG in 0.9 % Sodium Chloride 10 ML IVP SCH ×3 (08:23→18:25)
[2022-02-13] MEDS: Insulin LISPRO 300 UNITS/3 ML VIAL SUBQ SCH ×4 (08:35→19:54)
[2022-02-13] MEDS: Insulin DETEMIR 100 UNIT/ML X5UNITS SUBQ SCH (08:35)
[2022-02-13] MEDS ORDERED: Iopamidol - 370 500 ML MLS IVP ONE (10:01)
[2022-02-13] MEDS ORDERED: polyethylene glycoL 3350 17 GM POWD.PACK PO PRN (17:35)
[2022-02-13] MEDS ORDERED: Simethicone 80 MG TAB.CHEW PO PRN (17:35)
[2022-02-13] MEDS ORDERED: *HR* OxyCODONE Immed Rel 5 MG TABLET PO PRN ×2 (17:35→18:00)
[2022-02-13] MEDS ORDERED: Hyoscyamine SL 0.125 MG TAB.SUBL SL PRN (17:35)
[2022-02-13] MEDS ORDERED: *HR* OxyCODONE ER (12 HR) 10 MG TABLET PO PRN (17:35)
[2022-02-13] MEDS: DIFLUPREDNATE OP SCH (18:26)
[2022-02-13] MEDS: Vancomycin 1,750 MG/517.5 ML IV.SOLN IVPB SCH (19:43)
[2022-02-13] MEDS: Topiramate 25 MG TABLET PO SCH (19:45)
[2022-02-13] MEDS: *HR* LORazepam 1 MG TABLET PO SCH (19:46)
[2022-02-13] MEDS: Iron Polysaccharide Complex 150 MG CAPSULE PO SCH (19:46)
[2022-02-13] MEDS: Melatonin 3 MG TABLET PO SCH (19:47)
[2022-02-14] MEDS: Cefepime HCl 2,000 MG in 0.9 % Sodium Chloride 10 ML IVP SCH ×3 (00:35→16:07)
[2022-02-14] MEDS: Vancomycin 1,750 MG/517.5 ML IV.SOLN IVPB SCH ×2 (05:15→17:29)
[2022-02-14] MEDS: *HR* Enoxaparin 40 MG/0.4 ML SYRINGE SQ SCH (05:16)
[2022-02-14] MEDS: Ipratropium/Albuterol Neb 3 ML IH PRN ×2 (08:04→16:13)
[2022-02-14] MEDS: *HR* LORazepam 1 MG TABLET PO SCH ×2 (08:55→19:59)
[2022-02-14] MEDS: Cyanocobalamin (B-12) 1,000 MCG TABLET PO SCH (08:56)
[2022-02-14] MEDS: Lactobacillus 1 EACH CAP.SPRINK PO SCH (08:56)
[2022-02-14] MEDS: Iron Polysaccharide Complex 150 MG CAPSULE PO SCH ×2 (08:56→19:58)
[2022-02-14] MEDS: Insulin DETEMIR 100 UNIT/ML X5UNITS SUBQ SCH (08:56)
[2022-02-14] MEDS: amLODIPine 5 MG TABLET PO SCH (08:56)
[2022-02-14] MEDS: Insulin LISPRO 300 UNITS/3 ML VIAL SUBQ SCH ×4 (08:57→19:59)
[2022-02-14] MEDS ORDERED: Loratadine 10 MG TABLET PO SCH (09:00)
[2022-02-14] MEDS ORDERED: DOXEPIN HCL 6 MG PO SCH (09:00)
[2022-02-14] MEDS ORDERED: lamoTRIgine 25 MG TABLET PO SCH (09:00)
[2022-02-14] MEDS ORDERED: Furosemide 40 MG TABLET PO SCH (09:30)
[2022-02-14] MEDS ORDERED: PrednisoLONE Acetate 1% Opth 5 ML BOTTLE BOTH EYES SCH (11:45)
[2022-02-14 16:50] VITALS: O2SAT 94
[2022-02-14] MEDS: SUMAtriptan succinate 25 MG TABLET PO PRN (17:02)
[2022-02-14] MEDS: DIFLUPREDNATE OP SCH (17:34)
[2022-02-14 19:15] VITALS: BP 117/45; PULSE 94; TEMP 97.8
[2022-02-14] MEDS: Melatonin 3 MG TABLET PO SCH (19:58)
[2022-02-14] MEDS: Topiramate 25 MG TABLET PO SCH (19:59)
[2022-02-15] MEDS: Cefepime HCl 2,000 MG in 0.9 % Sodium Chloride 10 ML IVP SCH (06:03)
[2022-02-15] MEDS: *HR* Enoxaparin 40 MG/0.4 ML SYRINGE SQ SCH (06:04)
[2022-02-15] MEDS: Vancomycin 1,750 MG/517.5 ML IV.SOLN IVPB SCH (06:04)
== END 2022-02-14 23:59 | disposition other institution (70) | DRG 871 ==
LOC: EMEROOARM 00:54 → 3NENU 00:54 → SUATTDRO 05:13 → 3NENU 06:06
PROVIDERS: ADMIT Internal Medicine; ATTEND Internal Medicine